=== PATIENT | female | born 1985 | race Caucasian/White ===

== ENCOUNTER 2020-03-20 11:49 | Outpatient (REF) | payer OTHER, SELFPAY | END 2020-03-20 11:50 | disposition home or self-care (01) | LOC: HO.LAB 11:49 | PROVIDERS: Visit Provider Hospitalist | DX: Z13.89 Encounter for screening for other disorder (principal); R30.0 Dysuria ==

== ENCOUNTER 2020-05-15 09:39 | Outpatient (REF) | payer OTHER, SELFPAY ==
[2020-05-15 10:39] LABS: Glucose Urine UA 250 MG/DL (NEG); Leukocyte Esterase Urine NEG (NEG); Nitrite Urine NEG (NEG); PH 5.5 (5.0-8.0); Urine Blood NEG (NEG); Urine Ketones NEG (NEG); Urine Protein NEG (NEG-TRACE)
[2020-05-15 10:46] LABS: Appearance Urine CLEAR; Color Urine YELLOW
[2020-05-15 11:04] LABS: TSH reflex Free T4 0.09 mIU/mL (0.32-4.0)
[2020-05-15 12:47] LABS: Free T4 (Free Thyroxine) 1.24 ng/dL (0.71-1.85)
== END 2020-05-15 09:40 | disposition home or self-care (01) ==
LOC: HO.LAB 09:39
PROVIDERS: PCP Internal Medicine; Visit Provider Hospitalist
DX: E03.9 Hypothyroidism, unspecified (principal); R30.0 Dysuria
CPT/HCPCS: 81003; 84439; 84443

== ENCOUNTER → 2020-06-03 07:40 | Outpatient (BNVA) | payer OTHER, SELFPAY | PROVIDERS: Visit Provider Nurse Practitioner Gerontology | DX: E11.65 Type 2 diabetes mellitus with hyperglycemia (principal); Z79.84 Long term (current) use of oral hypoglycemic drugs; E03.9 Hypothyroidism, unspecified | CPT/HCPCS: 82947; 99212 ==

== ENCOUNTER 2020-06-17 13:57 | Outpatient (REF) | payer OTHER, SELFPAY ==
--- NOTE | 2020-06-17 14:01 | US_ITS ---
EXAMINATION: US THYROID CLINICAL INFORMATION: Hypothyroidism. COMPARISON: None TECHNIQUE: Linear transducer kay-scale and color Doppler examination with attention to the region of the thyroid. FINDINGS: SIZE: Measurements of the thyroid lobes and nodules are given in sagittal, anteroposterior and transverse dimensions respectively. Right Thyroid Lobe: 3.4 x 0.5 x 1.2 cm, volume 1.1 mL. Parenchyma: The gland echotexture is homogeneous. Thyroid vascularity is normal. Left Thyroid Lobe: 2.8 x 0.6 x 0.9 cm, volume 0.8 mL. Parenchyma: The gland echotexture is homogeneous. Thyroid vascularity is normal. Isthmus: 0.2 cm in maximum AP dimension. RIGHT THYROID LOBE: No nodules. ISTHMUS: No nodules. LEFT THYROID LOBE: No nodules. NODES: No lymphadenopathy is seen in the tissue surrounding the thyroid gland. US/US thyroid IMPRESSION: Small thyroid gland. No nodule or adenopathy seen.
== END 2020-06-17 13:58 | disposition home or self-care (01) ==
LOC: HO.US 13:57
PROVIDERS: PCP Internal Medicine; Visit Provider Nurse Practitioner Gerontology
DX: E03.9 Hypothyroidism, unspecified (principal)
CPT/HCPCS: 76536

== ENCOUNTER → 2020-07-17 10:46 | Outpatient (BNVA) | payer OTHER, SELFPAY | PROVIDERS: PCP Internal Medicine; Visit Provider Dietitian, Registered ==

== ENCOUNTER → 2020-08-14 10:51 | Outpatient (BNVA) | payer OTHER, SELFPAY | PROVIDERS: PCP Internal Medicine; Visit Provider Dietitian, Registered ==

== ENCOUNTER → 2020-09-02 09:32 | Outpatient (BNVA) | payer OTHER, SELFPAY | PROVIDERS: PCP Hospitalist; Visit Provider Nurse Practitioner Gerontology | DX: E11.65 Type 2 diabetes mellitus with hyperglycemia (principal); E03.9 Hypothyroidism, unspecified | CPT/HCPCS: 82947; 99212 ==

== ENCOUNTER 2020-09-03 09:00 | Outpatient (REF) | payer OTHER, SELFPAY ==
[2020-09-03 10:13] LABS: Alanine Aminotransferase 35 U/L (0-31); Albumin Level 4.1 g/dL (3.5-5.0); Alkaline Phosphatase 60 U/L (39-117); Anion Gap 13 (12-20); Aspartate Amino Transferase 24 U/L (5-31); Bilirubin Total 0.8 mg/dL (0.0-1.0); Blood Urea Nitrogen 15 mg/dL (9-16); Calcium 8.7 mg/dL (8.4-10.2); Carbon Dioxide 25 mmol/L (22-29); Chloride 105 mmol/L (96-108); Cholesterol 132 mg/dL; Estimated Glomerular Filt Rate > 60; Glucose Fasting 96 mg/dL (60-99); HDL Cholesterol 35 mg/dL; LDL Cholesterol Calculated 78 mg/dl; Potassium 3.8 mmol/L (3.3-5.1); Sodium 139 mmol/L (135-145); Total Protein 7.4 g/dL (6.5-8.0); Triglycerides 95 mg/dL
[2020-09-03 10:35] LABS: Free T4 (Free Thyroxine) 0.86 ng/dL (0.71-1.85); Thyroid Stimulating Hormone 4.22 uIU/mL (0.32-4.0)
[2020-09-03 10:50] LABS: Creatinine Urine 231.22 mg/dL; Microalbum/Creatinine Ratio Ur 3.8 ug/mg cr
[2020-09-04 06:37] LABS: LDL Cholesterol Direct 85 mg/dL (<100)
[2020-09-04 09:51] LABS: Thyroglobulin Antibodies <1 IU/mL (< or = 1); Thyroid Peroxidase Antibodies 11 IU/mL (<9)
[2020-09-06 21:26] LABS: Thyrotropin Receptor Antibody <1.00 IU/L (<=2.00)
[2020-09-10 15:52] LABS: Thyroid Stimulating Immunoglob <89 % baseline (<140)
== END 2020-09-03 09:01 | disposition home or self-care (01) ==
LOC: HO.LAB 09:00
PROVIDERS: PCP Internal Medicine; Visit Provider Nurse Practitioner Gerontology
DX: E03.9 Hypothyroidism, unspecified (principal); E11.65 Type 2 diabetes mellitus with hyperglycemia
CPT/HCPCS: 36415; 80053; 80061; 82043; 83520; 83721; 84439; 84443; 84445; 86376; 86800

== ENCOUNTER 2021-02-09 08:18 | Emergency (ER) | payer OTHER, SELFPAY ==
[2021-02-09 08:21] VITALS: BP 99/46; PULSE 64; RESP 16; TEMP 37.1; O2SAT 99; BMI 27.9
--- NOTE | 2021-02-09 08:49 | ED_ITS ---
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 Patient was visiting her sister in [place] and returned mid January. Since then patient started having diarrhea and abdominal cramping. She reports that the pain is in left upper quadrant. Patient complaints of nausea and dyspepsia. No vomiting odynophagia or dysphagia. Patient usually takes omeprazole, however she has not had omeprazole for the last week as her PCP is on vacation. Patient takes Tagamet and her mom gave her Pepto-Bismol. Patient also has diarrhea, postprandial bloating, feels like she does not empty completely. Patient denies any fever or chills. Denies any other symptoms. Related Data Home Medications Medication Instructions Recorded Confirmed omeprazole 20 mg capsule,delayed 20 mg PO DAILY 03/20/20 09/02/20 release Previous Rx's Medication Instructions Recorded blood sugar diagnostic (FreeStyle #50 ea 06/03/20 Lite Strips) blood-glucose meter (FreeStyle #1 ea 06/03/20 Lite Meter) lancets 28 gauge (FreeStyle #100 ea 06/03/20 Lancets) levetiracetam 750 mg tablet 750 mg PO BID #180 tab 08/19/20 levothyroxine 75 mcg tablet 75 mcg PO DAILY #90 tab 11/22/20 metformin 500 mg tablet,extended 1,000 mg PO BID #360 tab 11/26/20 release 24 hr sitagliptin 100 mg tablet (Januvia) 100 mg PO DAILY #30 tab 01/26/21 nitrofurantoin 100 mg PO Q12H 5 Days #10 cap 02/09/21 monohydrate/macrocrystals 100 mg capsule (Macrobid) omeprazole 20 mg capsule,delayed 20 mg PO DAILY #20 cap 02/09/21 release Allergies Allergy/AdvReac Type Severity Reaction Status Date / Time penicillamine Allergy Mild Rash Verified 09/02/20 10:23 Penicillins [PENICILLINS] Allergy Mild RASH Verified 09/02/20 10:23 Review of Systems Review of Systems: Constitutional : No Weight loss, No Fever, No Chills, No Night Sweats, No Fatigue, No Malaise ENT/Mouth : No Hearing loss, No Ear Pain, No Nasal Congestion, No Sinus Pain, No Hoarseness, No sore throat, No Rhinorrhea, No Swallowing Difficulty Eyes: No Eye Pain, No Swelling, No Redness, No Foreign Body, No Discharge, No Vision Changes Cardiovascular : No Chest Pain, No SOB, No Dyspnea on Exertion, No Orthopnea, No Edema, No Palpitations Respiratory : No Cough, No Sputum, No Wheezing, No Smoke Exposure, No Dyspnea Gastrointestinal : Nausea, No Vomiting, Diarrhea, No Constipation, abdominal Pain, No Hematochezia, No Melena Genitourinary : no irregular bleeding, No Dysuria, No Urinary Frequency, No Hematuria, No Urinary Incontinence, No Urgency, No Flank Pain, No Urinary Flow Changes, No Hesitancy Musculoskeletal : No joint pain, No Myalgias, No Joint Swelling Skin : No Skin Lesions, No rash Neuro : No Weakness, No Numbness, No Paresthesias, No Loss of Consciousness, No Dizziness, No Headache Psych : No Anxiety/Panic, No Depression, No SI/HI/AH/VH, No Social Issues, Heme/Lymph: No Bruising, No Bleeding,No Lymphadenopathy Endocrine : No Polyuria, No Polydipsia, No Temperature Intolerance Yes all other systems are reviewed and are negative ON LICENSE OF [facility] Past Medical History Medical History Down's syndrome GERD (gastroesophageal reflux disease) Scoliosis Seizure disorder Type 2 diabetes mellitus with hyperglycemia, without long-term current use of insulin Surgical History No pertinent past surgical history Family History Family History Father Diabetes Mother Diabetes Maternal Grandmother Pancreatic cancer Social History Social History Household Members Other:: Parents - mother Carley Advance Directives: Yes Advance Directives Information Provided: Yes Advance Directives on File: No Physical Exam Vital Signs: Vital Signs: Last Vital Signs Temp 98.7 F 02/09/21 08:21 Pulse 58 02/09/21 13:30 Resp 16 02/09/21 08:21 BP 98/55 L 02/09/21 13:30 Pulse Ox 97 02/09/21 13:30 Body Mass Index 27.9 Const: General: healthy appearing, no acute distress and well developed Nutritional Appearance: well nourished Orientation/consciousness: patient oriented x3 HENMT: Head: Yes normal to inspection, Yes normocephalic and Yes atraumatic Ears: hearing grossly normal bilaterally General nose exam: Normal external nose present Face and sinus: Yes normal facial exam Eyes: General: appearance normal, both eyes and all related structures Neck: Neck: Yes normal visual inspection, Yes full ROM and Yes trachea midline Thyroid: Thyroid normal Resp: Auscultation: clear to auscultation bilaterally Cardio: Rate: regular rate Rhythm: regular rhythm GI: Inspection: Yes normal to inspection and No distended Palpation (GI): Soft to palpation, Tenderness to palpation present (GI) (Left upper quadrant) and No hepatosplenomegaly present Auscultation: normal bowel sounds Skin: General skin exam: elasticity normal, turgor normal and dry skin Neuro: General: patient oriented x3 Course Course Course Narrative: 35-year-old female with past medical history of hypothyroidism, diabetes, seizure disorder, GERD, asthma is here today for diarrhea and left upper quadrant pain. Patient reports that she has been nauseous with no vomiting. Dyspepsia with no dysphagia or odynophagia. Patient has abdominal bloating with diarrhea. Left upper quadrant tenderness and right CVA tenderness. Patient also reports that she does have a urinary frequency and burning. Will check her urine for infection. CBC, CMP, lipase. Will give patient fluids and Protonix. Reevaluation(s) Reevaluation #1: Patient reports that he feeling better after the Protonix infusion. Awaiting for rest of her lab work and urinalysis you it patient in CBC the above he is not anemic, no leukocytosis Reevaluation #2: Patient reports that she is feeling much better. No leukocytosis no anemia, normal liver and kidney functions. Urine negative for nitrates trace bacteria. Patient has symptoms of burning with urination questioning cystitis. Will send her home on Macrobid and omeprazole. Patient's mom reports that she is out of omeprazole. I will also her for follow-up with her primary care provider in 2-3 days as well as send her a referral to [facility] Medical Decision Making Differential Diagnosis Differential Diagnosis: Cystitis Lab Data Result diagrams: 02/09/21 09:39 02/09/21 10:22 Labs: Lab Results 02/09/21 02/09/21 02/09/21 Range/Units 09:39 10:22 11:25 WBC 6.3 (4.8-10.8) X10*3/uL RBC 4.13 L (4.20-5.50) X10*6/uL Hgb 13.8 (12.0-16.0) g/dl Hct 40.2 (37-47) % MCV 97.3 (80-98) fL MCH 33.4 H (27.0-33.0) pg MCHC 34.3 (31.0-35.0) g/dl RDW 12.5 (11.0-16.0) % Plt Count 246 (160-400) X10*3/uL MPV 8.9 L (9.4-12.3) fL Immature Gran % (Auto) 0.5 H (0.0-0.4) % Neut % (Auto) 60.1 (45-73) % Lymph % (Auto) 26.2 (20-40) % [place] % (Auto) 10.0 (2-11) % Eos % (Auto) 2.4 (0-4) % Baso % (Auto) 0.8 (0-2) % Lymph # (Auto) 1.7 (1.2-4.9) X10*3/uL [place] # (Auto) 0.6 (0.1-1.2) X10*3/uL Eos # (Auto) 0.2 (0.0-0.4) X10*3/uL Baso # (Auto) 0.1 (0.0-0.2) X10*3/uL Abs Immat Gran (auto) 0.03 (0.00-0.03) X10*3/uL Absolute Neuts (auto) 3.8 (2.0-8.3) X10*3/uL Absolute Nucleated RBC 0.000 (0.0-0.012) X10*3/uL Nucleated RBC % (auto) 0.0 (0.0-0.2) /100WBC Sodium 138 (135-145) mmol/L Potassium 3.7 (3.3-5.1) mmol/L Chloride 108 (96-108) mmol/L Carbon Dioxide 24 (22-29) mmol/L Anion Gap 10 L (12-20) BUN 14 (9-16) mg/dL Creatinine 0.92 (0.5-1.4) mg/dL Estim Creat Clear Calc 63.9 Estimated GFR > 60 Random Glucose 68 (60-115) mg/dL Calcium 8.3 L (8.4-10.2) mg/dL Total Bilirubin 0.7 (0.0-1.0) mg/dL AST 14 D (5-31) U/L ALT 16 (0-31) U/L Alkaline Phosphatase 50 (39-117) U/L Total Protein 6.3 L (6.5-8.0) g/dL Albumin 3.7 (3.5-5.0) g/dL Lipase 19 (8-78) U/L Urine Color YELLOW Urine Appearance CLEAR Urine pH 5.5 (5.0-8.0) Ur Specific [place] 1.015 (1.005-1.025) Urine Protein NEG (NEG-TRACE) MG/DL Urine Glucose (UA) NEG (NEG) MG/DL Urine Ketones NEG (NEG) MG/DL Urine Blood NEG (NEG) Urine Nitrite NEG (NEG) Ur Leukocyte Esterase 1+ H (NEG) Urine RBC 0-2 (0) /HPF Urine WBC 1-4 (0-4) /HPF Ur Squamous Epith Cells 1+ /LPF Urine Bacteria TRACE /LPF Discharge Plan Discharge Clinical Impression: GERD without esophagitis, Dysuria, Gastroenteritis, Cystitis Patient Disposition: Home, Self-Care Instructions: Gastroesophageal Reflux Disease (ED), Pelvic Pain in Women (ED) Additional Instructions: You were seen here today for upper abdominal discomfort and frequent and pain with urination. You were given 1st dose of antibiotic in the emergency depa rtment, please finish all of your antibiotics. Please take omeprazole half an hour before breakfast. Please follow-up with your primary care doctor in 2-3 days. You will also be referred to Gastroenterology to follow-up with them regarding your acid reflux. You may return to emergency department if your symptoms will get worse or if you experience any other concerning symptoms Prescriptions: New omeprazole 20 mg capsule,delayed release(DR/EC) 20 mg PO DAILY Qty: 20 RF: 0 nitrofurantoin monohyd/m-cryst [Macrobid] 100 mg capsule 100 mg PO Q12H 5 Days Qty: 10 RF: 0 No Action levetiracetam 750 mg tablet 750 mg PO BID Qty: 180 RF: 1 levothyroxine 75 mcg tablet 75 mcg PO DAILY Qty: 90 RF: 1 metformin 500 mg tablet extended release 24 hr 1,000 mg PO BID Qty: 360 RF: 0 Januvia 100 mg tablet 100 mg PO DAILY Qty: 30 RF: 2 omeprazole 20 mg capsule,delayed release(DR/EC) 20 mg PO DAILY RF: 0 (DME) blood-glucose meter [FreeStyle Lite Meter] Kit See Rx Instructions .ROUTE .MEDSUPPLY Qty: 1 RF: 0 (DME) FreeStyle Lite Strips Strip See Rx Instructions .ROUTE .MEDSUPPLY Qty: 50 RF: 11 (DME) lancets [FreeStyle Lancets] 28 gauge misc See Rx Instructions .ROUTE .MEDSUPPLY Qty: 100 RF: 6 Referrals: Courtney Glaser MD [Physician] - 2 days (Gastritis, diabetic) Vikki Boyd MD [Primary Care Provider] - 2 days Interventions: ED Discharge Assessment Last Done: 02/09/21 13:32 Discharge Date/Time: 02/09/21 13:40
--- NOTE | 2021-02-09 08:56 | PC.NURSE ---
pt received in bed. per sister, pt with pain x 1 week with diarrhea, no vomiting. Seen by Santa Chandler NP. Pt with hx GERD, taking pepto bismol. has been able to eat soup and ramen for a couple of days. (+) nausea. Family member states she has pain when she urinates. some CVA tenderness. Plan is to get UA.
[2021-02-09] MEDS: Pantoprazole Sodium 40 MG/10 ML VIAL IVPUSH (09:40)
[2021-02-09] MEDS: 0.9 % Sodium Chloride 1,000 ML 999 ML IV (09:41)
[2021-02-09 09:48] LABS: MANUAL DIFF FLAG NO
[2021-02-09 09:49] LABS: Basophils Absolute Auto 0.1 X10*3/uL (0.0-0.2); Basophils Percent Auto 0.8 % (0-2); Eosinophils Absolute Auto 0.2 X10*3/uL (0.0-0.4); Eosinophils Percent Auto 2.4 % (0-4); Hematocrit 40.2 % (37-47); Hemoglobin 13.8 g/dl (12.0-16.0); Imm Gran Abs Auto 0.03 X10*3/uL (0.00-0.03); Imm Gran Pct Auto 0.5 % (0.0-0.4); Lymphocytes Absolute Auto 1.7 X10*3/uL (1.2-4.9); Lymphocytes Percent Auto 26.2 % (20-40); Mean Corpuscular HGB Conc 34.3 g/dl (31.0-35.0); Mean Corpuscular Hemoglobin 33.4 pg (27.0-33.0); Mean Corpuscular Volume 97.3 fL (80-98); Mean Platelet Volume 8.9 fL (9.4-12.3); Monocytes Absolute Auto 0.6 X10*3/uL (0.1-1.2); Neutrophils Absolute Auto 3.8 X10*3/uL (2.0-8.3); Neutrophils Percent Auto 60.1 % (45-73); Platelet Count 246 X10*3/uL (160-400); Red Blood Count 4.13 X10*6/uL (4.20-5.50); Red Cell Distribution Width 12.5 % (11.0-16.0); White Blood Count 6.3 X10*3/uL (4.8-10.8)
[2021-02-09 10:49] LABS: Alanine Aminotransferase 16 U/L (0-31); Albumin Level 3.7 g/dL (3.5-5.0); Alkaline Phosphatase 50 U/L (39-117); Anion Gap 10 (12-20); Aspartate Amino Transferase 14 U/L (5-31); Bilirubin Total 0.7 mg/dL (0.0-1.0); Blood Urea Nitrogen 14 mg/dL (9-16); Calcium 8.3 mg/dL (8.4-10.2); Carbon Dioxide 24 mmol/L (22-29); Chloride 108 mmol/L (96-108); Creatinine Clr Calc Pharmacy 63.9; Estimated Glomerular Filt Rate > 60; Glucose Random 68 mg/dL (60-115); Lipase 19 U/L (8-78); Potassium 3.7 mmol/L (3.3-5.1); Sodium 138 mmol/L (135-145); Total Protein 6.3 g/dL (6.5-8.0)
[2021-02-09 11:23] VITALS: BP 92/56; PULSE 57; O2SAT 97
[2021-02-09 11:36] LABS: Glucose Urine UA NEG (NEG); Leukocyte Esterase Urine 1+ (NEG); Nitrite Urine NEG (NEG); PH 5.5 (5.0-8.0); Specific Gravity - Urine 1.015 (1.005-1.025); UACC Culture Trigger YES; Urine Blood NEG (NEG); Urine Ketones NEG (NEG); Urine Protein NEG (NEG-TRACE)
[2021-02-09 11:38] LABS: Appearance Urine CLEAR; Color Urine YELLOW
[2021-02-09 11:44] LABS: Bacteria Urine TRACE /LPF; RBC Urine 0-2 /HPF (0); Squamous Epithelial Cell Urine 1+ /LPF
[2021-02-09 13:30] VITALS: BP 98/55; PULSE 58; O2SAT 97
[2021-02-09] MEDS: nitrofurantoin macrocrystaL 50 MG CAPSULE 100 MG PO (13:31)
== END 2021-02-09 13:40 | disposition home or self-care (01) ==
PROVIDERS: Nurse Practitioner Family; Emergency Provider Emergency Medicine; PCP Internal Medicine
DX: K52.9 Noninfective gastroenteritis and colitis, unspecified (principal); K21.9 Gastro-esophageal reflux disease without esophagitis; N30.90 Cystitis, unspecified without hematuria; R30.0 Dysuria; R10.12 Left upper quadrant pain; E11.9 Type 2 diabetes mellitus without complications
CPT/HCPCS: 36415; 80053; 81001; 83690; 85025; 87086; 96361; 96374; 99284

== ENCOUNTER 2021-04-28 05:44 | Emergency (ER) | payer OTHER, SELFPAY ==
--- NOTE | ~2021-04-28 | XR_ITS ---
EXAMINATION: XR CHEST CLINICAL INFORMATION: Cough and congestion. COMPARISON: Chest 06/01/2019 TECHNIQUE: 2 views of the chest were obtained. FINDINGS: The lungs are well-expanded and clear. The heart size and pulmonary vascularity is normal. There is moderate dextroscoliosis dorsal spine. No lytic process seen. XR/XR chest 2V IMPRESSION: Unremarkable chest exam. Moderate dextroscoliosis dorsal spine.
[2021-04-28 05:58] VITALS: BP 96/70; PULSE 70; RESP 18; TEMP 36.4; O2SAT 100; BMI 23.5
[2021-04-28 06:24] VITALS: BP 91/56; PULSE 62; RESP 16; TEMP 36.5; O2SAT 97
[2021-04-28 06:51] LABS: MANUAL DIFF FLAG NO
[2021-04-28 06:57] LABS: Basophils Absolute Auto 0.1 X10*3/uL (0.0-0.2); Basophils Percent Auto 0.5 % (0-2); Eosinophils Absolute Auto 0.3 X10*3/uL (0.0-0.4); Eosinophils Percent Auto 2.6 % (0-4); Hemoglobin 12.3 g/dl (12.0-16.0); Imm Gran Abs Auto 0.05 X10*3/uL (0.00-0.03); Imm Gran Pct Auto 0.4 % (0.0-0.4); Lymphocytes Absolute Auto 1.5 X10*3/uL (1.2-4.9); Lymphocytes Percent Auto 11.8 % (20-40); Mean Corpuscular HGB Conc 34.2 g/dl (31.0-35.0); Mean Corpuscular Hemoglobin 33.5 pg (27.0-33.0); Mean Corpuscular Volume 98.1 fL (80.0-98.0); Mean Platelet Volume 9.1 fL (9.4-12.3); Monocytes Absolute Auto 0.6 X10*3/uL (0.1-1.2); Monocytes Percent Auto 4.8 % (2-11); Neutrophils Absolute Auto 9.9 x10*3/uL (2.0-8.3); Neutrophils Percent Auto 79.9 % (45-73); Platelet Count 242 X10*3/uL (160-400); Red Blood Count 3.67 X10*6/uL (4.20-5.50); Red Cell Distribution Width 12.1 % (11.0-16.0); White Blood Count 12.4 X10*3/uL (4.8-10.8)
[2021-04-28 06:59] LABS: Appearance Urine CLEAR; Color Urine YELLOW; Glucose Urine UA NEG (NEG); Leukocyte Esterase Urine TRACE (NEG); Nitrite Urine NEG (NEG); Specific Gravity - Urine 1.025 (1.005-1.025); UACC Culture Trigger YES; Urine Blood NEG (NEG); Urine Ketones NEG (NEG); Urine Protein TRACE MG/DL (NEG-TRACE)
[2021-04-28 07:10] LABS: Anion Gap 12 (12-20); Blood Urea Nitrogen 12 mg/dL (9-16); Calcium 8.9 mg/dL (8.4-10.2); Carbon Dioxide 26 mmol/L (22-29); Chloride 106 mmol/L (96-108); Creatinine Clr Calc Pharmacy 59.1; Estimated Glomerular Filt Rate > 60; Glucose Random 92 mg/dL (60-115); Potassium 3.7 mmol/L (3.3-5.1); Sodium 140 mmol/L (135-145)
[2021-04-28 07:13] LABS: Bacteria Urine 1+ /LPF; RBC Urine 0-2 /HPF (0); Squamous Epithelial Cell Urine 1+ /LPF
--- NOTE | 2021-04-28 07:33 | ED_ITS ---
HPI - Seizure General Chief Complaint: Seizure Stated Complaint: Seizure Time Seen by Provider: 04/28/21 07:33 Source: family Mode of arrival: ambulatory Limitations: language barrier History of Present Illness HPI Narrative: Patient has MR and suffers from seizures, today she had 2 seizures. Patient has not had seizures for a year. Patient has not had her medication for a week, but has been taking them for a week. Patient with dysuria. The seizures are described as grand mal. The entire seizure lasted 5 minutes. In addition has been coughing for the past few days with chest pain. Patient had been vaccinated for COVID MD complaint: seizure Onset (ago): hour(s) Description of Episode: loss of consciousness and tonic-clonic movement Seizure History: Yes Place: Home Related Data Previous Rx's Medication Instructions Recorded blood-glucose meter (FreeStyle #1 ea 06/03/20 Lite Meter) lancets 28 gauge (FreeStyle #100 ea 06/03/20 Lancets) omeprazole 20 mg capsule,delayed 20 mg PO DAILY #20 cap 02/09/21 release metformin 500 mg tablet,extended 1,000 mg PO BID #360 tab 02/19/21 release 24 hr blood sugar diagnostic (FreeStyle #50 ea 04/09/21 Lite Strips) levetiracetam 750 mg tablet 750 mg PO BID #180 tab 04/11/21 levothyroxine 75 mcg tablet 75 mcg PO DAILY #90 tab 04/11/21 sitagliptin 100 mg tablet (Januvia) 100 mg PO DAILY #30 tab 04/11/21 Allergies Allergy/AdvReac Type Severity Reaction Status Date / Time penicillamine Allergy Mild Rash Verified 02/16/21 17:00 Penicillins [PENICILLINS] Allergy Mild RASH Verified 02/16/21 17:00 Review of Systems Review of Systems: Yes Unobtainable due to mental status Neurologic: Denies Sensory deficit (Neuro) [facility] Past Medical History Medical History Autoimmune thyroiditis Down's syndrome GERD (gastroesophageal reflux disease) Scoliosis Seizure disorder Type 2 diabetes mellitus with hyperglycemia, without long-term current use of insulin Surgical History No pertinent past surgical history Family History Family History Father Diabetes Mother Diabetes Maternal Grandmother Pancreatic cancer Social History Social History Household Members Other:: Parents - mother Carley Housing: Apartment Alcohol intake: never Patient Tobacco Use Status: Never used Tobacco e-Cigarette/Vaping Use: Never Used Second Hand Smoke Exposure: No Use of substances other than those prescribed or required for medical reasons: No Advance Directives: No service: No Current occupational status: disabled Physical Exam Vital Signs: Vital Signs: Last Vital Signs Temp 97.8 F 04/28/21 09:42 Pulse 64 04/28/21 13:15 Resp 16 04/28/21 13:15 BP 79/39 L 04/28/21 13:15 Pulse Ox 97 04/28/21 13:15 Body Mass Index 23.5 Const: Other: female with short stature and MR in no acute distress Limitations: no limitations HENMT: Head: Yes normal to inspection Ears: external ears normal General nose exam: Normal external nose present Mouth: Normal oral and palatal mucosa present and oropharynx normal Throat: Yes posterior oropharynx normal Eyes: General: appearance normal, both eyes and all related structures Neck: Other: supple Neck: Yes normal visual inspection Chest: Chest palpation & inspection: normal inspection of the chest Resp: Auscultation: clear to auscultation bilaterally Cardio: Jugular venous distension: no JVD Rate: regular rate Rhythm: regular rhythm Heart sounds: S1 normal heart sound present and S2 normal heart sound present GI: Inspection: Yes normal to inspection Palpation (GI): Soft to palpation, nontender and No hepatosplenomegaly present Auscultation: normal bowel sounds : General: Yes no CVA tenderness Back/Spine/Pelvis: Back: no CVA tenderness Skin: General skin exam: no rashes or lesions noted Neuro: Cranial nerves: Yes CN's II-XII intact bilaterally Motor exam (neuro): 5/5 motor strength present throughout Sensory Exam: No Sensory deficit (Neuro) Extrem: General: Yes normal to inspection Psych: Other: baseline Course Reevaluation(s) Reevaluation #1: patient resting comfortably, had seizure times 2 today, now back at baseline, Concern of UTI is negative, family had a week of medication non compliance Time: 09:34 Reevaluation #2: patient may have had a seizure, I did not witness will give 1gram of Simon Reevaluation #3: patient ate and walked, mother feels comfortable for discharge Time: 14:29 MDM - Seizure Lab Data Result diagrams: 04/28/21 06:47 04/28/21 06:47 Labs: Lab Results 04/28/21 04/28/21 04/28/21 Range/Units 06:44 06:47 06:47 WBC 12.4 H (4.8-10.8) X10*3/uL RBC 3.67 L (4.20-5.50) X10*6/uL Hgb 12.3 (12.0-16.0) g/dl Hct 36.0 L (37.0-47.0) % MCV 98.1 H (80.0-98.0) fL MCH 33.5 H (27.0-33.0) pg MCHC 34.2 (31.0-35.0) g/dl RDW 12.1 (11.0-16.0) % Plt Count 242 (160-400) X10*3/uL MPV 9.1 L (9.4-12.3) fL Immature Gran % (Auto) 0.4 (0.0-0.4) % Neut % (Auto) 79.9 H (45-73) % Lymph % (Auto) 11.8 L (20-40) % [place] % (Auto) 4.8 (2-11) % Eos % (Auto) 2.6 (0-4) % Baso % (Auto) 0.5 (0-2) % Lymph # (Auto) 1.5 (1.2-4.9) X10*3/uL [place] # (Auto) 0.6 (0.1-1.2) X10*3/uL Eos # (Auto) 0.3 (0.0-0.4) X10*3/uL Baso # (Auto) 0.1 (0.0-0.2) X10*3/uL Abs Immat Gran (auto) 0.05 H (0.00-0.03) X10*3/uL Absolute Neuts (auto) 9.9 H (2.0-8.3) x10*3/uL Absolute Nucleated RBC 0.000 (0.0-0.012) X10*3/uL Nucleated RBC % (auto) 0.0 (0.0-0.2) /100WBC Sodium 140 (135-145) mmol/L Potassium 3.7 (3.3-5.1) mmol/L Chloride 106 (96-108) mmol/L Carbon Dioxide 26 (22-29) mmol/L Anion Gap 12 (12-20) BUN 12 (9-16) mg/dL Creatinine 0.96 (0.5-1.4) mg/dL Estim Creat Clear Calc 59.1 Estimated GFR > 60 POC Glucose (60-115) mg/dL Random Glucose 92 (60-115) mg/dL Calcium 8.9 D (8.4-10.2) mg/dL Urine Color YELLOW Urine Appearance CLEAR Urine pH 6.0 (5.0-8.0) Ur Specific [place] 1.025 (1.005-1.025) Urine Protein TRACE (NEG-TRACE) MG/DL Urine Glucose (UA) NEG (NEG) MG/DL Urine Ketones NEG (NEG) MG/DL Urine Blood NEG (NEG) Urine Nitrite NEG (NEG) Ur Leukocyte Esterase TRACE H (NEG) Urine RBC 0-2 (0) /HPF Urine WBC 1-4 (0-4) /HPF Ur Squamous Epith Cells 1+ /LPF Urine Bacteria 1+ /LPF COVID-19 ([facility]) (Negative) COVID-19 Clin Com 04/28/21 04/28/21 Range/Units 07:55 13:18 WBC (4.8-10.8) X10*3/uL RBC (4.20-5.50) X10*6/uL Hgb (12.0-16.0) g/dl Hct (37.0-47.0) % MCV (80.0-98.0) fL MCH (27.0-33.0) pg MCHC (31.0-35.0) g/dl RDW (11.0-16.0) % Plt Count (160-400) X10*3/uL MPV (9.4-12.3) fL Immature Gran % (Auto) (0.0-0.4) % Neut % (Auto) (45-73) % Lymph % (Auto) (20-40) % [place] % (Auto) (2-11) % Eos % (Auto) (0-4) % Baso % (Auto) (0-2) % Lymph # (Auto) (1.2-4.9) X10*3/uL [place] # (Auto) (0.1-1.2) X10*3/uL Eos # (Auto) (0.0-0.4) X10*3/uL Baso # (Auto) (0.0-0.2) X10*3/uL Abs Immat Gran (auto) (0.00-0.03) X10*3/uL Absolute Neuts (auto) (2.0-8.3) x10*3/uL Absolute Nucleated RBC (0.0-0.012) X10*3/uL Nucleated RBC % (auto) (0.0-0.2) /100WBC Sodium (135-145) mmol/L Potassium (3.3-5.1) mmol/L Chloride (96-108) mmol/L Carbon Dioxide (22-29) mmol/L Anion Gap (12-20) BUN (9-16) mg/dL Creatinine (0.5-1.4) mg/dL Estim Creat Clear Calc Estimated GFR POC Glucose 83 (60-115) mg/dL Random Glucose (60-115) mg/dL Calcium (8.4-10.2) mg/dL Urine Color Urine Appearance Urine pH (5.0-8.0) Ur Specific [place] (1.005-1.025) Urine Protein (NEG-TRACE) MG/DL Urine Glucose (UA) (NEG) MG/DL Urine Ketones (NEG) MG/DL Urine Blood (NEG) Urine Nitrite (NEG) Ur Leukocyte Esterase (NEG) Urine RBC (0) /HPF Urine WBC (0-4) /HPF Ur Squamous Epith Cells /LPF Urine Bacteria /LPF COVID-19 ([facility]) Negative (Negative) COVID-19 Clin Com See Note Discharge Plan Discharge Clinical Impression: Epileptic seizure Qualifiers: Epilepsy type: unspecified Intractability: not intractable Status epilepticus: without status epilepticus Qualified Code(s): G40.909 - Epilepsy, unspecified, not intractable, without status epilepticus Patient Disposition: Home, Self-Care Instructions: Epilepsy (ED) Prescriptions: No Action metformin 500 mg tablet extended release 24 hr 1,000 mg PO BID Qty: 360 RF: 1 (DME) FreeStyle Lite Strips Strip See Rx Instructions .ROUTE .MEDSUPPLY Qty: 50 RF: 11 Januvia 100 mg tablet 100 mg PO DAILY Qty: 30 RF: 2 levothyroxine 75 mcg tablet 75 mcg PO DAILY Qty: 90 RF: 1 levetiracetam 750 mg tablet 750 mg PO BID Qty: 180 RF: 1 omeprazole 20 mg capsule,delayed release(DR/EC) 20 mg PO DAILY Qty: 20 RF: 0 (DME) blood-glucose meter [FreeStyle Lite Meter] Kit See Rx Instructions .ROUTE .MEDSUPPLY Qty: 1 RF: 0 (DME) lancets [FreeStyle Lancets] 28 gauge misc See Rx Instructions .ROUTE .MEDSUPPLY Qty: 100 RF: 6 Referrals: Vikki Boyd MD [Primary Care Provider] - 5 days
[2021-04-28 08:15] LABS: COVID-19 Test Negative (Negative)
--- NOTE | 2021-04-28 09:41 | PC.NURSE ---
pt was called to bed by pt's mother who states that pt is having a seizure which lasted less than 30 seconds.
[2021-04-28 09:42] VITALS: BP 95/50; PULSE 57; RESP 16; TEMP 36.6; O2SAT 100
[2021-04-28] MEDS: levETIRAcetam in NaCl (iso-os) 1,000 MG/100 ML PIGGYBACK 400 MG IV (09:45)
[2021-04-28 13:15] VITALS: BP 79/39; PULSE 64; RESP 16; O2SAT 97
[2021-04-28] MEDS: 0.9 % Sodium Chloride 1,000 ML 999 ML IVCONT ×2 (13:21→14:43)
[2021-04-28 13:26] LABS: Glucose, Whole Blood 83 mg/dL (60-115)
[2021-04-28 14:41] VITALS: BP 83/43; PULSE 69; RESP 17; O2SAT 97
== END 2021-04-28 15:57 | disposition home or self-care (01) ==
PROVIDERS: Emergency Provider Emergency Medicine; PCP Internal Medicine
DX: G40.909 Epilepsy, unspecified, not intractable, without status epilepticus (principal); Z20.822 Contact with and (suspected) exposure to COVID-19; Z79.899 Other long term (current) drug therapy
CPT/HCPCS: 36415; 71046; 80048; 81001; 81003; 82947; 85025; 87086; 87635; 96361; 96374; 99284; J1953

== ENCOUNTER 2021-05-06 18:09 | Outpatient (REF) | payer OTHER, SELFPAY | END 2021-05-06 18:10 | disposition home or self-care (01) | LOC: HO.LNP 18:09 | PROVIDERS: Visit Provider Nurse Practitioner Family | DX: R30.0 Dysuria (principal) | CPT/HCPCS: 87086 ==

== ENCOUNTER → 2021-06-03 10:53 | Outpatient (BNVA) | payer OTHER, SELFPAY | PROVIDERS: PCP Internal Medicine; Visit Provider Nurse Practitioner Gerontology | CPT/HCPCS: Q3014 ==

== ENCOUNTER 2021-06-25 09:34 | Outpatient (REF) | payer OTHER, SELFPAY ==
[2021-06-25 11:01] LABS: Microalbum/Creatinine Ratio Ur 5.8 ug/mg cr
[2021-06-25 11:18] LABS: Alanine Aminotransferase 21 U/L (0-31); Albumin Level 4.2 g/dL (3.5-5.0); Alkaline Phosphatase 68 U/L (39-117); Anion Gap 12 (12-20); Aspartate Amino Transferase 18 U/L (5-31); Bilirubin Total 0.9 mg/dL (0.0-1.0); Blood Urea Nitrogen 13 mg/dL (9-16); Carbon Dioxide 29 mmol/L (22-29); Chloride 104 mmol/L (96-108); Cholesterol 141 mg/dL; Estimated Glomerular Filt Rate > 60; Glucose Fasting 89 mg/dL (60-99); HDL Cholesterol 41 mg/dL; LDL Cholesterol Calculated 80 mg/dl; Potassium 4.3 mmol/L (3.3-5.1); Sodium 141 mmol/L (135-145); Total Protein 7.9 g/dL (6.5-8.0); Triglycerides 103 mg/dL
[2021-06-25 11:29] LABS: Free T4 (Free Thyroxine) 1.26 ng/dL (0.71-1.85); Thyroid Stimulating Hormone 0.07 uIU/mL (0.32-4.0)
[2021-06-25 11:32] LABS: Estimated Average Glucose 100 mg/dL; Hemoglobin A1c % 5.1 %
[2021-06-26 05:11] LABS: LDL Cholesterol Direct 79 mg/dL (<100)
== END 2021-06-25 09:35 | disposition home or self-care (01) ==
LOC: HO.LAB 09:34
PROVIDERS: Absent Provider Internal Medicine; PCP Internal Medicine; Visit Provider Nurse Practitioner Gerontology
DX: E11.65 Type 2 diabetes mellitus with hyperglycemia (principal)
CPT/HCPCS: 36415; 80053; 80061; 82043; 83036; 83721; 84439; 84443

== ENCOUNTER 2021-07-27 11:26 | Emergency (ER) | payer OTHER, SELFPAY ==
--- NOTE | 2021-07-27 | ECG_ITS ---
Test Reason : DIZZINESS Blood Pressure : / mmHG Vent. Rate : 064 BPM Atrial Rate : 064 BPM P-R Int : 148 ms QRS Dur : 072 ms QT Int : 394 ms P-R-T Axes : 000 059 042 degrees QTc Int : 406 ms Normal sinus rhythm Normal ECG When compared with ECG of 12-MAR-2019 11:58, No significant change was found Referred By: Generic ED Physician Electronically Signed By:ALONZO BAILON
[2021-07-27 11:50] VITALS: BP 106/59; PULSE 68; RESP 18; TEMP 36.3; O2SAT 100; BMI 23.6
[2021-07-27 12:01] LABS: Glucose, Whole Blood 132 mg/dL (60-115)
[2021-07-27 12:21] LABS: MANUAL DIFF FLAG NO
[2021-07-27 12:25] LABS: Basophils Absolute Auto 0.1 X10*3/uL (0.0-0.2); Basophils Percent Auto 1.5 % (0-2); Eosinophils Absolute Auto 0.1 X10*3/uL (0.0-0.4); Eosinophils Percent Auto 1.5 % (0-4); Hematocrit 41.1 % (37.0-47.0); Hemoglobin 14.3 g/dl (12.0-16.0); Imm Gran Abs Auto 0.03 X10*3/uL (0.00-0.03); Imm Gran Pct Auto 0.6 % (0.0-0.4); Lymphocytes Absolute Auto 1.4 X10*3/uL (1.2-4.9); Lymphocytes Percent Auto 26.5 % (20-40); Mean Corpuscular HGB Conc 34.8 g/dl (31.0-35.0); Mean Corpuscular Hemoglobin 33.8 pg (27.0-33.0); Mean Corpuscular Volume 97.2 fL (80.0-98.0); Mean Platelet Volume 9.1 fL (9.4-12.3); Monocytes Absolute Auto 0.4 X10*3/uL (0.1-1.2); Neutrophils Absolute Auto 3.3 x10*3/uL (2.0-8.3); Neutrophils Percent Auto 61.9 % (45-73); Platelet Count 256 X10*3/uL (160-400); Red Blood Count 4.23 X10*6/uL (4.20-5.50); Red Cell Distribution Width 13.1 % (11.0-16.0); White Blood Count 5.3 X10*3/uL (4.8-10.8)
[2021-07-27 12:26] LABS: Appearance Urine HAZY; Color Urine YELLOW; Glucose Urine UA NEG (NEG); Leukocyte Esterase Urine 2+ (NEG); Nitrite Urine NEG (NEG); Specific Gravity - Urine 1.015 (1.005-1.025); UACC Culture Trigger YES; Urine Blood NEG (NEG); Urine Ketones NEG (NEG); Urine Protein NEG (NEG-TRACE)
[2021-07-27 12:40] LABS: Bacteria Urine 1+ /LPF; Mucus Urine 1+ /LPF; RBC Urine 0 /HPF (0); Squamous Epithelial Cell Urine 2+ /LPF
[2021-07-27 12:42] LABS: Anion Gap 8 (12-20); Blood Urea Nitrogen 15 mg/dL (9-16); Calcium 9.6 mg/dL (8.4-10.2); Carbon Dioxide 30 mmol/L (22-29); Chloride 103 mmol/L (96-108); Creatinine Clr Calc Pharmacy 55.8; Estimated Glomerular Filt Rate > 60; Glucose Random 109 mg/dL (60-115); Potassium 4.3 mmol/L (3.3-5.1); Sodium 137 mmol/L (135-145)
--- NOTE | 2021-07-27 14:11 | PC.NURSE ---
patients caregiver felt that the patient may have had a seizure while in waiting room, this nurse went to see the patient who was alert & oriented to her baseline, speaking on the phone in full sentences, pt wasnt noted to be postictal, vitals were obtained and wnl.
[2021-07-27 14:12] VITALS: BP 103/66; PULSE 66; RESP 18; TEMP 36.4; O2SAT 100
--- NOTE | 2021-07-27 18:29 | ED_ITS ---
HPI - Dizziness General Chief Complaint: Dizziness Stated Complaint: DIZZY Source: patient and family Mode of arrival: ambulatory Limitations: no limitations History of Present Illness HPI Narrative: 35-year-old female with past medical history of Down syndrome, seizure disorder, diabetes, thyroiditis and asthma presents with headache, dizziness, and dysuria. Patient's mother reports that she has had some medication changes in the past 2 weeks, a decrease of metformin and decrease of her thyroid medications. Does not report any fevers or chills, or any other concerning symptoms at this time. MD elicited complaint: dizziness and other (Headache) Onset (ago): week(s) (2) Timing: gradual onset Severity: moderate Context: change in medication History of similar symptoms: Yes Relieving factors: rest Associated symptoms: denies other symptoms Stroke scale total: 0 Related Data Previous Rx's Medication Instructions Recorded blood-glucose meter (FreeStyle #1 ea 06/03/20 Lite Meter) lancets 28 gauge (FreeStyle #100 ea 06/03/20 Lancets) omeprazole 20 mg capsule,delayed 20 mg PO DAILY #20 cap 02/09/21 release blood sugar diagnostic (FreeStyle #50 ea 04/09/21 Lite Strips) levetiracetam 750 mg tablet 750 mg PO BID #180 tab 05/08/21 nitrofurantoin macrocrystal 100 mg 100 mg PO Q12H #10 cap 05/08/21 capsule sitagliptin 100 mg tablet (Januvia) 100 mg PO DAILY #90 tab 06/03/21 metformin 500 mg tablet,extended 500 mg PO DAILY #90 tab 06/26/21 release 24 hr levothyroxine 50 mcg tablet 50 mcg PO DAILY #90 tab 07/07/21 nitrofurantoin 100 mg PO Q12H 7 Days #14 cap 07/27/21 monohydrate/macrocrystals 100 mg capsule (Macrobid) phenazopyridine 100 mg tablet 100 mg PO TID PRN #6 tab 07/27/21 (Pyridium) Allergies Allergy/AdvReac Type Severity Reaction Status Date / Time penicillamine Allergy Mild Rash Verified 07/27/21 11:47 Penicillins [PENICILLINS] Allergy Mild RASH Verified 07/27/21 11:47 Review of Systems Review of Systems: Constitutional: No Fever, No Chills ENT/Mouth: No Ear Pain, No Hoarseness, No sore throat Eyes: No Eye Pain, No Swelling, No Redness, No Foreign Body Cardiovascular: No Chest Pain, No SOB Respiratory: No Cough, No Dyspnea Gastrointestinal: No Nausea, No Vomiting, No Diarrhea, No abdominal Pain Genitourinary: Positive Dysuria, No Hematuria Musculoskeletal: No joint pain, No Myalgias, No Joint Swelling Skin: No Skin lacerations, No rash Neuro: No Weakness, No Numbness, No Paresthesias, No Loss of Consciousness, positive Dizziness, positive Headache Psych: No Anxiety/Panic, No Depression Heme/Lymph: no easy bruising, no Lymphadenopathy Endocrine: No Polyuria, No Polydipsia Yes all other systems are reviewed and are negative [facility] Past Medical History Attestation statement: The following information was validated with the patient. Source: old records reviewed Medical History Autoimmune thyroiditis DM2 (diabetes mellitus, type 2) Down's syndrome GERD (gastroesophageal reflux disease) Scoliosis Seizure disorder Type 2 diabetes mellitus with hyperglycemia, without long-term current use of insulin Surgical History No pertinent past surgical history Family History Family History Father Diabetes Mother Diabetes Maternal Grandmother Pancreatic cancer Social History Social History Household Members Other:: Parents - mother [place] Housing: Apartment Alcohol intake: never Patient Tobacco Use Status: Never used Tobacco e-Cigarette/Vaping Use: Never Used Second Hand Smoke Exposure: No Advance Directives: No Advance Directives Information Provided: Yes Patient : No service: No Current occupational status: disabled Physical Exam Vital Signs: Vital Signs: Last Vital Signs Temp 97.6 F 07/27/21 14:12 Pulse 66 07/27/21 14:12 Resp 18 07/27/21 14:12 BP 103/66 07/27/21 14:12 Pulse Ox 100 07/27/21 14:12 BMI result Body Mass Index 23.6 Appearance: Alert. Oriented X3. No acute distress. Eyes: Pupils equal, round and reactive to light. ENT: Pharynx normal. Neck: Normal inspection. Neck supple. CVS: Normal heart rate and rhythm. Pulses normal. Respiratory: No respiratory distress. Breath sounds normal. Abdomen: Soft and nontender. Skin: Skin warm and dry. Normal skin color. Normal skin turgor. Extremities: No lower extremity edema. Moves all extremities against resistance. Neuro: No motor deficit. No sensory deficit. Cranial nerves 2-12 intact. Course Course Course Narrative: 35-year-old female presents with dizziness for approximately 2 weeks. Had some medication changes, metformin 500 b.i.d. was reduced metformin 500 daily as well as thyroid medication from 75 mcg to 50 mcg. Labs drawn while patient was in the emergency department waiting room. Urinalysis indicates UTI. Will treat with Macrobid. Patient's family Patient verbalized understanding of and agrees to plan of care discharge home. Verbalized understanding of signs and symptoms indicating need for emergent intervention MDM - Dizziness MDM Narrative Medical decision making narrative: UTI Differential Diagnosis Differential diagnosis: Likely adverse reaction to drug Medical Records Attestation: I reviewed the patient's medical records. Lab Data Attestation: I reviewed the patient's lab results. Result diagrams: 07/27/21 12:05 07/27/21 12:05 Labs: Lab Results 07/27/21 07/27/21 07/27/21 Range/Units 11:57 12:05 12:05 WBC 5.3 (4.8-10.8) X10*3/uL RBC 4.23 (4.20-5.50) X10*6/uL Hgb 14.3 (12.0-16.0) g/dl Hct 41.1 (37.0-47.0) % MCV 97.2 (80.0-98.0) fL MCH 33.8 H (27.0-33.0) pg MCHC 34.8 (31.0-35.0) g/dl RDW 13.1 (11.0-16.0) % Plt Count 256 (160-400) X10*3/uL MPV 9.1 L (9.4-12.3) fL Immature Gran % (Auto) 0.6 H (0.0-0.4) % Neut % (Auto) 61.9 (45-73) % Lymph % (Auto) 26.5 (20-40) % [place] % (Auto) 8.0 (2-11) % Eos % (Auto) 1.5 (0-4) % Baso % (Auto) 1.5 (0-2) % Lymph # (Auto) 1.4 (1.2-4.9) X10*3/uL [place] # (Auto) 0.4 (0.1-1.2) X10*3/uL Eos # (Auto) 0.1 (0.0-0.4) X10*3/uL Baso # (Auto) 0.1 (0.0-0.2) X10*3/uL Abs Immat Gran (auto) 0.03 (0.00-0.03) X10*3/uL Absolute Neuts (auto) 3.3 (2.0-8.3) x10*3/uL Absolute Nucleated RBC 0.000 (0.0-0.012) X10*3/uL Nucleated RBC % (auto) 0.0 (0.0-0.2) /100WBC Sodium 137 (135-145) mmol/L Potassium 4.3 (3.3-5.1) mmol/L Chloride 103 (96-108) mmol/L Carbon Dioxide 30 H (22-29) mmol/L Anion Gap 8 L (12-20) BUN 15 (9-16) mg/dL Creatinine 0.98 (0.5-1.4) mg/dL Estim Creat Clear Calc 55.8 Estimated GFR > 60 POC Glucose 132 H (60-115) mg/dL Random Glucose 109 (60-115) mg/dL Calcium 9.6 (8.4-10.2) mg/dL Urine Color Urine Appearance Urine pH (5.0-8.0) Ur Specific [place] (1.005-1.025) Urine Protein (NEG-TRACE) MG/DL Urine Glucose (UA) (NEG) MG/DL Urine Ketones (NEG) MG/DL Urine Blood (NEG) Urine Nitrite (NEG) Ur Leukocyte Esterase (NEG) Urine RBC (0) /HPF Urine WBC (0-4) /HPF Ur Squamous Epith Cells /LPF Urine Bacteria /LPF Urine Mucus /LPF Urine Test (NEGATIVE) 07/27/21 07/27/21 Range/Units 12:17 12:17 WBC (4.8-10.8) X10*3/uL RBC (4.20-5.50) X10*6/uL Hgb (12.0-16.0) g/dl Hct (37.0-47.0) % MCV (80.0-98.0) fL MCH (27.0-33.0) pg MCHC (31.0-35.0) g/dl RDW (11.0-16.0) % Plt Count (160-400) X10*3/uL MPV (9.4-12.3) fL Immature Gran % (Auto) (0.0-0.4) % Neut % (Auto) (45-73) % Lymph % (Auto) (20-40) % [place] % (Auto) (2-11) % Eos % (Auto) (0-4) % Baso % (Auto) (0-2) % Lymph # (Auto) (1.2-4.9) X10*3/uL [place] # (Auto) (0.1-1.2) X10*3/uL Eos # (Auto) (0.0-0.4) X10*3/uL Baso # (Auto) (0.0-0.2) X10*3/uL Abs Immat Gran (auto) (0.00-0.03) X10*3/uL Absolute Neuts (auto) (2.0-8.3) x10*3/uL Absolute Nucleated RBC (0.0-0.012) X10*3/uL Nucleated RBC % (auto) (0.0-0.2) /100WBC Sodium (135-145) mmol/L Potassium (3.3-5.1) mmol/L Chloride (96-108) mmol/L Carbon Dioxide (22-29) mmol/L Anion Gap (12-20) BUN (9-16) mg/dL Creatinine (0.5-1.4) mg/dL Estim Creat Clear Calc Estimated GFR POC Glucose (60-115) mg/dL Random Glucose (60-115) mg/dL Calcium (8.4-10.2) mg/dL Urine Color YELLOW Urine Appearance HAZY Urine pH 6.0 (5.0-8.0) Ur Specific [place] 1.015 (1.005-1.025) Urine Protein NEG (NEG-TRACE) MG/DL Urine Glucose (UA) NEG (NEG) MG/DL Urine Ketones NEG (NEG) MG/DL Urine Blood NEG (NEG) Urine Nitrite NEG (NEG) Ur Leukocyte Esterase 2+ H (NEG) Urine RBC 0 (0) /HPF Urine WBC 5-9 H (0-4) /HPF Ur Squamous Epith Cells 2+ /LPF Urine Bacteria 1+ /LPF Urine Mucus 1+ /LPF Urine Test NEGATIVE (NEGATIVE) ECG Data Attestation: I personally reviewed and interpreted this ECG as follows: ECG interpretation date: 07/27/21 ECG interpretation time: 12:04 Prior ECG tracings: available for review Interpretation: Vent. rate 64 BPM MA interval 148 ms QRS duration 72 ms QT/QTc 394/406 ms P-R-T axes 0 59 42 Normal sinus rhythm Normal ECG When compared with ECG of 12-MAR-2019 11:58, No significant change was found Discharge Plan Discharge Clinical Impression: Urinary tract infection Patient Disposition: Home, Self-Care Instructions: Urinary Tract Infection in Women (DC) Additional Instructions: Le evaluaron por mareos. El an?lisis de esme no mostr? fanny?n hallazgo que requiriera shruthi intervenci?n urgente. El an?lisis de orina fue positivo para shruthi ITU. M[place]onnell Macrobid dos veces al d?a manny los pr?ximos 7 d?as. Le recet? Pyridium para el ardor y la urgencia urinaria. Stoney medicamento saji? que vera orina se vuelva de color naranja brillante. Stoney es un efecto secundario normal de stoney medicamento. Por favor, angel luis muchos l?quidos. Si nota alg?n s?ntoma de fiebre, escalofr?os, dolor abdominal o cualquier otro s?ntoma preocupante, regrese al departamento de emergencias o al m?dico de atenci?n primaria para shruthi evaluaci?n adicional. Melinda un seguimiento con el m?dico de atenci?n primaria o con el m?dico que haya cambiado [place] medicamentos para la tiroides y la metformina. Aseg?rese de repetir los niveles de tiroides para asegurarse de que el cambio de medicamento fue efectivo. Karen por elegir stoney departamento de emergencias para vera evaluaci?n. Por favor, melinda un seguimiento con el m?dico de atenci?n primaria seg?n sea necesario. Regrese al departamento de emergencias por cualquier s?ntoma nuevo, preocupante o que empeore. You were evaluated for dizziness. Blood work did not show any findings requiring emergent intervention. Urinalysis was positive for a UTI. Please take Macrobid twice a day for the next 7 days. I prescribed Pyridium for urinary burning and urgency. This medication will turn your urine bright orange. This is a normal side effect of this medication Please drink plenty of fluids. If you notice any symptoms of fevers, chills, abdominal pain, or any other concerning symptoms please return to the emergency department or primary care physician for further evaluation Please follow-up with primary care physician or whomever the physician was that changed your thyroid and metformin medications. Make sure that you have your thyroid levels repeated to make sure that the medication change was effective. Thank you for choosing this emergency department for evaluation. Please follow-up with primary care physician as needed. Return to the emergency department for any new, concerning, or worsening symptoms. Prescriptions: New phenazopyridine [Pyridium] 100 mg tablet 100 mg PO TID PRN (Reason: Urgency and burning) Qty: 6 0RF nitrofurantoin monohyd/m-cryst [Macrobid] 100 mg capsule 100 mg PO Q12H 7 Days Qty: 14 0RF Rx Instructions: must administer with a meal/food No Action (DME) FreeStyle Lite Strips Strip See Rx Instructions .ROUTE .MEDSUPPLY Qty: 50 11RF Rx Instructions: As directed twice a day levetiracetam 750 mg tablet 750 mg PO BID Qty: 180 1RF nitrofurantoin macrocrystal 100 mg capsule 100 mg PO Q12H Qty: 10 0RF metformin 500 mg tablet extended release 24 hr 500 mg PO DAILY Qty: 90 2RF levothyroxine 50 mcg tablet 50 mcg PO DAILY Qty: 90 2RF omeprazole 20 mg capsule,delayed release(DR/EC) 20 mg PO DAILY Qty: 20 0RF (DME) blood-glucose meter [FreeStyle Lite Meter] Kit See Rx Instructions .ROUTE .MEDSUPPLY Qty: 1 0RF Rx Instructions: As directed twice a day (DME) lancets [FreeStyle Lancets] 28 gauge misc See Rx Instructions .ROUTE .MEDSUPPLY Qty: 100 6RF Rx Instructions: As directed twice a day Januvia 100 mg tablet 100 mg PO DAILY Qty: 90 1RF Interventions: ED Discharge Assessment Last Done: 07/27/21 19:08 Discharge Date/Time: 07/27/21 19:22
[2021-07-27 18:51] LABS: UPreg QC Valid YES; Urine Pregnancy NEGATIVE (NEGATIVE)
== END 2021-07-27 19:22 | disposition home or self-care (01) ==
PROVIDERS: Nurse Practitioner Family; Emergency Provider Internal Medicine; PCP Internal Medicine
DX: N39.0 Urinary tract infection, site not specified (principal); R42 Dizziness and giddiness; Z79.899 Other long term (current) drug therapy
CPT/HCPCS: 36415; 80048; 81001; 81025; 82947; 85025; 87086; 93005; 99283; 99284

== ENCOUNTER 2021-08-07 10:58 | Outpatient (REF) | payer OTHER, SELFPAY ==
[2021-08-07 11:13] LABS: MANUAL DIFF FLAG NO
[2021-08-07 11:42] LABS: Basophils Absolute Auto 0.1 X10*3/uL (0.0-0.2); Basophils Percent Auto 1.4 % (0-2); Eosinophils Absolute Auto 0.1 X10*3/uL (0.0-0.4); Eosinophils Percent Auto 1.6 % (0-4); Hematocrit 41.5 % (37.0-47.0); Imm Gran Abs Auto 0.03 X10*3/uL (0.00-0.03); Imm Gran Pct Auto 0.6 % (0.0-0.4); Lymphocytes Absolute Auto 1.4 X10*3/uL (1.2-4.9); Lymphocytes Percent Auto 27.6 % (20-40); Mean Corpuscular HGB Conc 33.7 g/dl (31.0-35.0); Mean Corpuscular Hemoglobin 33.4 pg (27.0-33.0); Mean Platelet Volume 8.7 fL (9.4-12.3); Monocytes Absolute Auto 0.6 X10*3/uL (0.1-1.2); Monocytes Percent Auto 11.3 % (2-11); Neutrophils Percent Auto 57.5 % (45-73); Platelet Count 286 X10*3/uL (160-400); Red Blood Count 4.19 X10*6/uL (4.20-5.50); White Blood Count 5.1 X10*3/uL (4.8-10.8)
[2021-08-07 11:59] LABS: Appearance Urine CLEAR; Color Urine STRAW; Glucose Urine UA NEG (NEG); Leukocyte Esterase Urine 1+ (NEG); Nitrite Urine NEG (NEG); PH 5.5 (5.0-8.0); Specific Gravity - Urine <= 1.005 (1.005-1.025); Urine Blood 2+ (NEG); Urine Ketones NEG (NEG); Urine Protein NEG (NEG-TRACE)
[2021-08-07 12:08] LABS: Estimated Average Glucose 100 mg/dL; Hemoglobin A1c % 5.1 %
[2021-08-07 12:14] LABS: Alanine Aminotransferase 22 U/L (0-31); Albumin Level 4.4 g/dL (3.5-5.0); Alkaline Phosphatase 82 U/L (39-117); Anion Gap 11 (12-20); Aspartate Amino Transferase 20 U/L (5-31); Bilirubin Total 0.5 mg/dL (0.0-1.0); Blood Urea Nitrogen 15 mg/dL (9-16); Calcium 9.6 mg/dL (8.4-10.2); Carbon Dioxide 27 mmol/L (22-29); Chloride 102 mmol/L (96-108); Cholesterol 159 mg/dL; Estimated Glomerular Filt Rate 55; Glucose Random 80 mg/dL (60-115); HDL Cholesterol 41 mg/dL; LDL Cholesterol Calculated 84 mg/dl; Potassium 4.2 mmol/L (3.3-5.1); Sodium 136 mmol/L (135-145); Total Protein 7.9 g/dL (6.5-8.0); Triglycerides 170 mg/dL
[2021-08-07 12:24] LABS: Creatinine Urine 22.13 mg/dL; Microalbumin Urine < 5.0 mg/L
[2021-08-07 12:35] LABS: TSH reflex Free T4 0.88 uIU/mL (0.32-4.0)
[2021-08-07 12:36] LABS: Bacteria Urine TRACE /LPF; Squamous Epithelial Cell Urine 2+ /LPF
[2021-08-11 18:36] LABS: Vitamin D 25-OH, D2 <4 ng/mL; Vitamin D 25-OH, D3 21 ng/mL; Vitamin D 25-OH, Total 21 ng/mL (30-100)
== END 2021-08-07 10:59 | disposition home or self-care (01) ==
LOC: HO.LAB 10:58
PROVIDERS: PCP Internal Medicine; Visit Provider Nurse Practitioner Acute Care
DX: E11.9 Type 2 diabetes mellitus without complications (principal); E06.3 Autoimmune thyroiditis; R30.0 Dysuria; G40.909 Epilepsy, unspecified, not intractable, without status epilepticus; E55.9 Vitamin D deficiency, unspecified; E78.5 Hyperlipidemia, unspecified
CPT/HCPCS: 36415; 80053; 80061; 80177; 81001; 82043; 82306; 83036; 84443; 85025

== ENCOUNTER 2021-10-02 11:25 | Outpatient (REF) | payer OTHER, SELFPAY ==
[2021-10-02 12:43] LABS: COVID-19 Test Negative (Negative)
== END 2021-10-02 11:26 | disposition home or self-care (01) ==
LOC: HO.LAB 11:25
PROVIDERS: Visit Provider Internal Medicine
DX: Z20.822 Contact with and (suspected) exposure to COVID-19 (principal); E03.9 Hypothyroidism, unspecified; E11.9 Type 2 diabetes mellitus without complications
CPT/HCPCS: 87635; 99215; C9803; Q3014

== ENCOUNTER 2022-01-06 14:05 | Outpatient (REF) | payer OTHER, SELFPAY ==
[2022-01-07 09:20] LABS: BV Int Neg Control Negative (Negative); BV Int Pos Control Positive (Positive)
== END 2022-01-06 14:06 | disposition home or self-care (01) ==
LOC: HO.LAB 14:05
PROVIDERS: Visit Provider Advanced Practice Midwife
DX: Z01.419 Encounter for gynecological examination (general) (routine) without abnormal findings (principal)
CPT/HCPCS: 87480; 87510; 87660

== ENCOUNTER 2022-04-09 08:25 | Outpatient (REF) | payer OTHER, SELFPAY ==
[2022-04-09 09:39] LABS: Alanine Aminotransferase 43 U/L (0-31); Alkaline Phosphatase 59 U/L (39-117); Anion Gap 14 (12-20); Aspartate Amino Transferase 25 U/L (5-31); Bilirubin Total 0.5 mg/dL (0.0-1.0); Blood Urea Nitrogen 15 mg/dL (9-16); Calcium 9.1 mg/dL (8.4-10.2); Carbon Dioxide 28 mmol/L (22-29); Chloride 100 mmol/L (96-108); Cholesterol 150 mg/dL; Estimated Glomerular Filt Rate > 60; Glucose Fasting 144 mg/dL (60-99); HDL Cholesterol 39 mg/dL; LDL Cholesterol Calculated 86 mg/dl; Sodium 138 mmol/L (135-145); Total Protein 7.4 g/dL (6.5-8.0); Triglycerides 129 mg/dL
[2022-04-09 09:50] LABS: Thyroid Stimulating Hormone 1.79 uIU/mL (0.32-4.0); Vitamin D 25-OH Total 23.4 ng/mL (>30)
[2022-04-09 10:17] LABS: Creatinine Urine 126.51 mg/dL; Microalbumin Urine < 5.0 mg/L
== END 2022-04-09 08:26 | disposition home or self-care (01) ==
LOC: HO.LAB 08:25
PROVIDERS: PCP Internal Medicine; Visit Provider Internal Medicine
DX: E11.9 Type 2 diabetes mellitus without complications (principal); E06.3 Autoimmune thyroiditis; E78.5 Hyperlipidemia, unspecified; E55.9 Vitamin D deficiency, unspecified
CPT/HCPCS: 36415; 80053; 80061; 82043; 82306; 84443

== ENCOUNTER 2022-05-29 06:54 | Emergency (ER) | payer OTHER, SELFPAY ==
[2022-05-29 07:18] VITALS: BP 99/56; PULSE 82; RESP 14; TEMP 37.1; O2SAT 97
[2022-05-29 07:29] VITALS: BP 107/76; PULSE 88; O2SAT 99; BMI 32.5
--- NOTE | 2022-05-29 08:18 | ED_ITS ---
HPI - Seizure General Chief Complaint: Seizure Stated Complaint: seizure/+flu A Time Seen by Provider: 05/29/22 07:52 Source: family (Mother) History of Present Illness HPI Narrative: 36-year-old female with cognitive delays due to Down syndrome is brought in by h er mother for onset runny nose, nasal congestion, sore throat cough since 2 days ago. The patient also has baseline seizure disorder for which she takes Keppra and has been taking the Keppra as prescribed but the mother states that she had 2 seizures this morning. Related Data Allergies Allergy/AdvReac Type Severity Reaction Status Date / Time Unable to Assess Allergy Verified 05/29/22 07:54 Review of Systems Review of Systems: Pertinent positives and negatives as stated in HPI PMFSH Past Medical History Source: nursing notes reviewed Social History Social History Advance Directives: No Advance Directives Information Provided: No Physical Exam Vital Signs: Vital Signs: Last Vital Signs Temp 98.7 F 05/29/22 07:18 Pulse 82 05/29/22 07:18 Resp 14 05/29/22 07:18 BP 99/56 L 05/29/22 07:18 Pulse Ox 97 05/29/22 07:18 O2 Del Method 05/29/22 07:18 BMI result Body Mass Index 32.5 VITAL SIGNS: Reviewed. GENERAL: Well developed, well nourished, in no acute distress. HEAD: Normocephalic/atraumatic EYES: PERRLA, EOMI, characteristic down syndrome features EARS: Ext canals without abnormality, TMs non-bulging and non-erythematous NOSE: Nares patent bilateral OROPHARYNX: no oral lesions noted, posterior pharynx clear and non-erythematous without noted tonsillar enlargement/erythema/exudates NECK: Supple, no adenopathy LUNGS: Normal breath sounds, rhonchi noted with cough no tachypnea. SpO2<97> CARDIOVASCULAR: Regular rate and rhythm without noted murmurs ABDOMEN: Soft, non-tender, non-distended with bowel sounds. MUSCULOSKELETAL: No tenderness, deformities, or effusions noted on gross inspection. EXTREMITIES: No cyanosis, clubbing or edema. SKIN: Inspection of the skin reveals no rashes NEUROLOGIC: Alert and strength and sensation to light touch were grossly intact x 4. Medications Administered Discontinued Medications Generic Name Dose Route Start Last Admin Trade Name Freq PRN Reason Stop Dose Admin Levetiracetam 750 mg 05/29/22 08:21 05/29/22 08:35 Levetiracetam 500 Mg Tablet PO 05/29/22 08:22 750 mg ONCE ONE Administration Medical Decision Making Medical Decision Making [facility] Narrative: 36-year-old female with history and clinical presentation consistent with i nfection induced seizure, has not had medication this morning but was already given a sandwich by her mother and will received 750 mg it's of Keppra here in the emergency room. She is not postictal at this time and we will obtain basic lab work, viral testing. Review of all investigations otherwise negative other than positive influenza a which was suspected due to positive sick contact. All results discussed with the patient and her mother at bedside. Patient has remained hemodynamically st able. Differential Diagnosis Viral test Lab Data [facility] Lab Attestation statement: I reviewed the patient's lab results. Influenza a positive Result Diagrams: 05/29/22 08:25 05/29/22 08:25 Labs: Lab Results 05/29/22 05/29/22 05/29/22 Range/Units 07:39 08:25 08:25 WBC 6.4 (4.8-10.8) X10*3/uL RBC 4.52 (4.20-5.50) X10*6/uL Hgb 14.8 (12.0-16.0) g/dl Hct 43.2 (37.0-47.0) % MCV 95.6 (80.0-98.0) fL MCH 32.7 (27.0-33.0) pg MCHC 34.3 (31.0-35.0) g/dl RDW 12.5 (11.0-16.0) % Plt Count 166 (160-400) X10*3/uL MPV 10.1 (9.4-12.3) fL Immature Gran % (Auto) 1.4 H (0.0-0.4) % Neut % (Auto) 79.4 H (45-73) % Lymph % (Auto) 8.9 L (20-40) % [place] % (Auto) 8.4 (2-11) % Eos % (Auto) 1.1 (0-4) % Baso % (Auto) 0.8 (0-2) % Lymph # (Auto) 0.6 L (1.2-4.9) X10*3/uL [place] # (Auto) 0.5 (0.1-1.2) X10*3/uL Eos # (Auto) 0.1 (0.0-0.4) X10*3/uL Baso # (Auto) 0.1 (0.0-0.2) X10*3/uL Abs Immat Gran (auto) 0.09 H (0.00-0.03) X10*3/uL Absolute Neuts (auto) 5.1 (2.0-8.3) x10*3/uL Absolute Nucleated RBC 0.000 (0.0-0.012) X10*3/uL Nucleated RBC % (auto) 0.0 (0.0-0.2) /100WBC Smear Tech's Comments VERIFIED Sodium 137 (135-145) mmol/L Potassium 4.7 (3.3-5.1) mmol/L Chloride 101 (96-108) mmol/L Carbon Dioxide 24 (22-29) mmol/L Anion Gap 17 (12-20) BUN 12 (9-16) mg/dL Creatinine 1.14 (0.5-1.4) mg/dL Estim Creat Clear Calc 47.7 Estimated GFR 55 POC Glucose 189 H (60-115) mg/dL Random Glucose 219 H (60-115) mg/dL Calcium 9.5 (8.4-10.2) mg/dL Total Bilirubin 0.6 (0.0-1.0) mg/dL AST 30 (5-31) U/L ALT 36 H (0-31) U/L Alkaline Phosphatase 63 (39-117) U/L Total Protein 8.3 H (6.5-8.0) g/dL Albumin 4.5 (3.5-5.0) g/dL COVID-19 ([place]) (Negative) COVID-19 Clin Com Influenza Type A (CRISTAL) (Negative) Influenza Type B (CRISTAL) (Negative) Influenza A & B Note 05/29/22 05/29/22 Range/Units 08:25 08:25 WBC (4.8-10.8) X10*3/uL RBC (4.20-5.50) X10*6/uL Hgb (12.0-16.0) g/dl Hct (37.0-47.0) % MCV (80.0-98.0) fL MCH (27.0-33.0) pg MCHC (31.0-35.0) g/dl RDW (11.0-16.0) % Plt Count (160-400) X10*3/uL MPV (9.4-12.3) fL Immature Gran % (Auto) (0.0-0.4) % Neut % (Auto) (45-73) % Lymph % (Auto) (20-40) % [place] % (Auto) (2-11) % Eos % (Auto) (0-4) % Baso % (Auto) (0-2) % Lymph # (Auto) (1.2-4.9) X10*3/uL [place] # (Auto) (0.1-1.2) X10*3/uL Eos # (Auto) (0.0-0.4) X10*3/uL Baso # (Auto) (0.0-0.2) X10*3/uL Abs Immat Gran (auto) (0.00-0.03) X10*3/uL Absolute Neuts (auto) (2.0-8.3) x10*3/uL Absolute Nucleated RBC (0.0-0.012) X10*3/uL Nucleated RBC % (auto) (0.0-0.2) /100WBC Smear Tech's Comments Sodium (135-145) mmol/L Potassium (3.3-5.1) mmol/L Chloride (96-108) mmol/L Carbon Dioxide (22-29) mmol/L Anion Gap (12-20) BUN (9-16) mg/dL Creatinine (0.5-1.4) mg/dL Estim Creat Clear Calc Estimated GFR POC Glucose (60-115) mg/dL Random Glucose (60-115) mg/dL Calcium (8.4-10.2) mg/dL Total Bilirubin (0.0-1.0) mg/dL AST (5-31) U/L ALT (0-31) U/L Alkaline Phosphatase (39-117) U/L Total Protein (6.5-8.0) g/dL Albumin (3.5-5.0) g/dL COVID-19 ([place]) Negative (Negative) COVID-19 Clin Com See Note Influenza Type A (CRISTAL) Positive A (Negative) Influenza Type B (CRISTAL) Negative (Negative) Influenza A & B Note See Note Independent Historian Clinical information obtained from an independent historian. History obtained from or confirmed by: Parent Patient has down syndrome Discharge Plan Discharge Clinical Impression: Epileptic seizure, Viral syndrome, Influenza A Patient Disposition: Home, Self-Care Instructions: Viral Syndrome (ED), Influenza (ED) Additional Instructions: 1. Reanudar todos los medicamentos caseros. 2. Ser? muy importante controlar la fiebre, h?nia con Tylenol/ibuprofeno de venta thomas. 3. Puede considerar un humidificador de vapor fr?o al lado de la cama. Y animar a beber olga agua. Regrese a la figueroa de emergencias si los s?ntomas empeoran. 1. Resume all home medications. 2. Controlling any fevers will be very important, please do this with [id number] Tylenol/ibuprofen. 3. You may consider a cool mist humidifier at the bedside. And encourage plenty of water drinking. Return to the ER for worsening symptoms. Referrals: Vikki Boyd MD [Primary Care Provider] - Print Language: Samoan
[2022-05-29 08:46] LABS: Eosinophils Absolute Auto 0.1 X10*3/uL (0.0-0.4); Eosinophils Percent Auto 1.1 % (0-4); Mean Corpuscular Volume 95.6 fL (80.0-98.0); Neutrophils Absolute Auto 5.1 x10*3/uL (2.0-8.3); PLT CLUMP 1; Red Cell Distribution Width 12.5 % (11.0-16.0); SCAN SMEAR FLAG 1
[2022-05-29 08:48] LABS: Basophils Absolute Auto 0.1 X10*3/uL (0.0-0.2); Basophils Percent Auto 0.8 % (0-2); Hematocrit 43.2 % (37.0-47.0); Hemoglobin 14.8 g/dl (12.0-16.0); Imm Gran Abs Auto 0.09 X10*3/uL (0.00-0.03); Imm Gran Pct Auto 1.4 % (0.0-0.4); Lymphocytes Absolute Auto 0.6 X10*3/uL (1.2-4.9); Lymphocytes Percent Auto 8.9 % (20-40); MANUAL DIFF FLAG SCAN; Mean Corpuscular HGB Conc 34.3 g/dl (31.0-35.0); Mean Corpuscular Hemoglobin 32.7 pg (27.0-33.0); Mean Platelet Volume 10.1 fL (9.4-12.3); Monocytes Absolute Auto 0.5 X10*3/uL (0.1-1.2); Monocytes Percent Auto 8.4 % (2-11); Neutrophils Percent Auto 79.4 % (45-73); Red Blood Count 4.52 X10*6/uL (4.20-5.50)
[2022-05-29 08:53] LABS: COVID-19 Test Negative (Negative); IDNOW Serial# 16C4AD1C; IDNOW Serial# BCCEAD1C; Influenza A Positive (Negative); Influenza B2 Negative (Negative)
[2022-05-29 08:58] LABS: Platelet Count 166 X10*3/uL (160-400); White Blood Count 6.4 X10*3/uL (4.8-10.8)
[2022-05-29 09:00] LABS: SLIDE REVIEW VERIFIED
[2022-05-29 09:22] LABS: Alanine Aminotransferase 36 U/L (0-31); Albumin Level 4.5 g/dL (3.5-5.0); Alkaline Phosphatase 63 U/L (39-117); Anion Gap 17 (12-20); Aspartate Amino Transferase 30 U/L (5-31); Bilirubin Total 0.6 mg/dL (0.0-1.0); Blood Urea Nitrogen 12 mg/dL (9-16); Calcium 9.5 mg/dL (8.4-10.2); Carbon Dioxide 24 mmol/L (22-29); Chloride 101 mmol/L (96-108); Creatinine Clr Calc Pharmacy 47.7; Estimated Glomerular Filt Rate 55; Glucose Random 219 mg/dL (60-115); Potassium 4.7 mmol/L (3.3-5.1); Sodium 137 mmol/L (135-145); Total Protein 8.3 g/dL (6.5-8.0)
[2022-06-01 16:43] LABS: Levetiracetam Keppra 20.2 mcg/mL (6.0-46.0)
== END 2022-05-29 10:21 | disposition home or self-care (01) ==
PROVIDERS: Emergency Provider Student in an Organized Health Care Education/Training Program; PCP Internal Medicine
DX: J11.1 Influenza due to unidentified influenza virus with other respiratory manifestations (principal); G40.909 Epilepsy, unspecified, not intractable, without status epilepticus; Z20.822 Contact with and (suspected) exposure to COVID-19; E78.5 Hyperlipidemia, unspecified; Q90.9 Down syndrome, unspecified; E11.9 Type 2 diabetes mellitus without complications
CPT/HCPCS: 36415; 80053; 80177; 82947; 85025; 87502; 87635; 99283

== ENCOUNTER 2022-08-26 09:08 | Outpatient (REF) | payer OTHER, SELFPAY ==
[2022-08-26 11:05] LABS: Creatinine Urine 177.52 mg/dL; Microalbum/Creatinine Ratio Ur 3.9 ug/mg cr
[2022-08-26 11:29] LABS: Alanine Aminotransferase 28 U/L (0-31); Albumin Level 3.9 g/dL (3.5-5.0); Alkaline Phosphatase 64 U/L (39-117); Anion Gap 12 (12-20); Aspartate Amino Transferase 17 U/L (5-31); Bilirubin Total 0.8 mg/dL (0.0-1.0); Blood Urea Nitrogen 14 mg/dL (9-16); Calcium 8.9 mg/dL (8.4-10.2); Carbon Dioxide 27 mmol/L (22-29); Chloride 102 mmol/L (96-108); Cholesterol 94 mg/dL; Estimated Glomerular Filt Rate > 60; Glucose Fasting 176 mg/dL (60-99); HDL Cholesterol 36 mg/dL; LDL Cholesterol Calculated 35 mg/dl; Potassium 4.4 mmol/L (3.3-5.1); Sodium 137 mmol/L (135-145); Total Protein 6.8 g/dL (6.5-8.0); Triglycerides 119 mg/dL
[2022-08-26 11:31] LABS: Thyroid Stimulating Hormone 2.46 uIU/mL (0.32-4.0); Vitamin D 25-OH Total 41.4 ng/mL (>30)
== END 2022-08-26 09:09 | disposition home or self-care (01) ==
LOC: HO.LAB 09:08
PROVIDERS: PCP Internal Medicine; Visit Provider Internal Medicine
DX: E11.9 Type 2 diabetes mellitus without complications (principal); E55.9 Vitamin D deficiency, unspecified; E06.3 Autoimmune thyroiditis; E78.5 Hyperlipidemia, unspecified
CPT/HCPCS: 36415; 80053; 80061; 82043; 82306; 84443

== ENCOUNTER 2022-10-28 22:22 | Emergency (ER) | payer OTHER, SELFPAY ==
--- NOTE | ~2022-10-28 | XR_ITS ---
EXAMINATION: XR CHEST CLINICAL INFORMATION: Rule out comparison COMPARISON: None available. TECHNIQUE: Frontal view of the chest was obtained. FINDINGS: No significant abnormality is noted involving the heart, lungs, mediastinum, bony thorax or soft tissues. No intraperitoneal free air. XR/XR chest 1V IMPRESSION: Clear lungs. No radiographic evidence of intraperitoneal free air.
[2022-10-28 22:24] VITALS: BP 133/64; PULSE 83; RESP 18; TEMP 36.9; O2SAT 97; BMI 32.3
[2022-10-28 22:51] LABS: MANUAL DIFF FLAG NO
[2022-10-28 22:53] LABS: Appearance Urine Clear; Basophils Absolute Auto 0.1 X10*3/uL (0.0-0.2); Basophils Percent Auto 0.6 % (0-2); Color Urine Yellow; Eosinophils Absolute Auto 0.2 X10*3/uL (0.0-0.4); Eosinophils Percent Auto 1.8 % (0-4); Glucose Urine UA Negative (Negative); Hematocrit 41.5 % (37.0-47.0); Hemoglobin 14.2 g/dl (12.0-16.0); Imm Gran Abs Auto 0.05 X10*3/uL (0.00-0.03); Imm Gran Pct Auto 0.6 % (0.0-0.4); Leukocyte Esterase Urine Moderate (2+) (Negative); Lymphocytes Absolute Auto 1.9 X10*3/uL (1.2-4.9); Lymphocytes Percent Auto 22.8 % (20-40); Mean Corpuscular HGB Conc 34.2 g/dl (31.0-35.0); Mean Corpuscular Hemoglobin 32.9 pg (27.0-33.0); Mean Corpuscular Volume 96.3 fL (80.0-98.0); Monocytes Absolute Auto 0.6 X10*3/uL (0.1-1.2); Monocytes Percent Auto 7.2 % (2-11); Neutrophils Absolute Auto 5.5 x10*3/uL (2.0-8.3); Nitrite Urine Negative (Negative); Platelet Count 268 X10*3/uL (160-400); Red Blood Count 4.31 X10*6/uL (4.20-5.50); Red Cell Distribution Width 12.7 % (11.0-16.0); UMIC TRIGGER UACC YES; Urine Blood Negative (Negative); Urine Ketones Negative (Negative); Urine Protein Negative (Neg-Trace); White Blood Count 8.2 X10*3/uL (4.8-10.8)
[2022-10-28 23:03] LABS: Bacteria Urine 1+ (None Seen); Hyaline Casts Urine 0-2 /LPF (0-2); RBC Urine 0-2 /HPF (0-2); WBC Urine 0-5 /HPF (0-5)
[2022-10-28 23:09] LABS: Alanine Aminotransferase 29 U/L (0-31); Albumin Level 4.2 g/dL (3.5-5.0); Alkaline Phosphatase 70 U/L (39-117); Anion Gap 13 (12-20); Aspartate Amino Transferase 21 U/L (5-31); Bilirubin Direct 0.2 mg/dL (0.0-0.5); Bilirubin Total 0.5 mg/dL (0.0-1.0); Blood Urea Nitrogen 10 mg/dL (9-16); Calcium 9.5 mg/dL (8.4-10.2); Carbon Dioxide 28 mmol/L (22-29); Chloride 104 mmol/L (96-108); Creatinine Clr Calc Pharmacy 49.4; Estimated Glomerular Filt Rate > 60; Glucose Random 142 mg/dL (60-115); Potassium 3.8 mmol/L (3.3-5.1); Sodium 141 mmol/L (135-145); Total Protein 7.5 g/dL (6.5-8.0)
[2022-10-29 00:31] VITALS: BP 107/70; PULSE 70; RESP 16; TEMP 36.6; O2SAT 98
--- NOTE | 2022-10-29 00:33 | PC.NURSE ---
Pt ca&ox3, no signs of distress. Pt denies chest pain and sob. Mom at bedside. Pt reports 8/10 abdm pain. Vitals stable. Will continue to monitor.
--- NOTE | 2022-10-29 00:53 | ED.ABDPAIN ---
HPI - Abdominal Pain General Chief Complaint: Abdominal Pain Stated Complaint: abd pain Time Seen by Provider: 10/29/22 00:46 Source: patient and family Mode of arrival: ambulatory Limitations: no limitations History of Present Illness HPI narrative: Patient comes accompanied by her mother to the emergency room. Patient has had GERD for several years, but for the last 2 days, patient has had burning sensation in the epigastric area. Patient states that she takes aluminum hydroxide and omeprazole, but this time she has had no relief. Also, patient complaining that she woke up with a red sticky eye on the left side. Feels a bit uncomfortable, does not hurt Related Data Previous Rx's Medication Instructions Recorded blood-glucose meter (FreeStyle #1 ea 06/03/20 Lite Meter kit) lancets 28 gauge (FreeStyle #100 ea 06/03/20 Lancets) blood sugar diagnostic (FreeStyle #50 ea 04/09/21 Lite Strips) levetiracetam 750 mg tablet 750 mg PO BID #180 tabs 05/08/21 ibuprofen 600 mg tablet 600 mg PO Q8H PRN pain #20 tabs 08/07/21 omeprazole 20 mg capsule,delayed 20 mg PO DAILY 90 days #90 caps 05/16/22 release levothyroxine 50 mcg tablet 50 mcg PO DAILY #90 tabs 06/12/22 metformin 500 mg tablet,extended 500 mg PO DAILY #90 tabs 07/19/22 release 24 hr dulaglutide 0.75 mg/0.5 mL 0.75 mg (0.5 mL) subcut QWEEK 90 08/26/22 subcutaneous pen injector days #6.5 mL (Trulicity) rosuvastatin 10 mg tablet 10 mg PO DAILY 90 days #90 tabs 09/29/22 cholecalciferol (vitamin D3) 25 25 mcg PO DAILY 90 days #90 caps 10/28/22 mcg (1,000 unit) capsule sucralfate 1 gram tablet 1 g PO BID #60 tabs 10/29/22 Allergies Allergy/AdvReac Type Severity Reaction Status Date / Time penicillamine Allergy Mild Rash Verified 08/26/22 14:49 Penicillins [PENICILLINS] Allergy Mild RASH Verified 08/26/22 14:49 Review of Systems Review of Systems Constitutional : No Weight loss, No Fever, No Chills, No Night Sweats, No Fatigue, No Malaise ENT/Mouth : No Hearing loss, No Ear Pain, No Nasal Congestion, No Sinus Pain, No Hoarseness, No sore throat, No Rhinorrhea, No Swallowing Difficulty Eyes: No Eye Pain, No Swelling, complaining of left eye redness and waking up with a sticky I, No Foreign Body, No Discharge, No Vision Changes Cardiovascular : No Chest Pain, No SOB, No Dyspnea on Exertion, No Orthopnea, No Edema, No Palpitations Respiratory : No Cough, No Sputum, No Wheezing, No Smoke Exposure, No Dyspnea Gastrointestinal : No Nausea, No Vomiting, No Diarrhea, No Constipation, complaining of epigastric burning sensation, hematochezia or melena Genitourinary : no irregular bleeding, No Dysuria, No Urinary Frequency, No Hematuria, No Urinary Incontinence, No Urgency, No Flank Pain, No Urinary Flow Changes, No Hesitancy Musculoskeletal : No joint pain, No Myalgias, No Joint Swelling Skin : No Skin Lesions, No rash Neuro : No Weakness, No Numbness, No Paresthesias, No Loss of Consciousness, No Dizziness, No Headache Psych : No Anxiety/Panic, No Depression, No SI/HI/AH/VH, No Social Issues, Heme/Lymph: No Bruising, No Bleeding,No Lymphadenopathy Endocrine : No Polyuria, No Polydipsia, No Temperature Intolerance PMFSH Past Medical History Medical History Autoimmune thyroiditis DM2 (diabetes mellitus, type 2) Down's syndrome GERD (gastroesophageal reflux disease) Scoliosis Seizure disorder Type 2 diabetes mellitus with hyperglycemia, without long-term current use of insulin Surgical History No pertinent past surgical history Family History Family History Father Diabetes Mother Diabetes Maternal Grandmother Pancreatic cancer Social History Social History Household Members Other:: Parents - mother Carley Housing: Apartment Alcohol intake: never Patient Tobacco Use Status: Never used Tobacco Smoked in Last 30 Days: No e-Cigarette/Vaping Use: Never Used Second Hand Smoke Exposure: No Use of substances other than those prescribed or required for medical reasons: No Advance Directives: No Advance Directives Information Provided: Yes Patient : No service: No Current occupational status: disabled Cognitive needs: No Hearing needs: No Vision needs: No Physical Exam ED Vital Signs: Vital Signs - 24 hr 10/28/22 22:24 10/29/22 00:31 Temperature 98.4 F 97.8 F Pulse Rate 83 70 Respiratory Rate 18 16 Blood Pressure 133/64 107/70 Pulse Oximetry 97 98 Oxygen Delivery Method Room Air Room Air BMI result Body Mass Index 32.3 Const Other: Appearance: Alert. Oriented X3. No acute distress. Eyes: Pupils equal, round and reactive to light. Left eye is slightly erythematous, there is scant amount of crusting ENT: Pharynx normal. Neck: Normal inspection. Neck supple. No lymph nodes noted. No crepitus CVS: Normal heart rate and rhythm. Pulses normal. Normal S1 and S2 Respiratory: No respiratory distress. Breath sounds normal. No Wheezing. No rales Abdomen: Soft , mild pain to palpation in epigastric area No rigidity. No distention. Skin: Skin warm and dry. Normal skin color. Normal skin turgor. Extremities: No lower extremity edema. No Lacerations. No Rash Neuro: Oriented X 3. No motor deficit. No sensory deficit. Moving all extremities. No slurred speech. CN 2 through 12 grossly intact Psych: calm, cooperative, normal affect Course Course Course Narrative: -patient given 1 dose of viscous lidocaine and Maalox. Labs pending Medical Decision Making Medical Decision Making MDM Narrative: -patient feeling better after GI cocktail -my interpretation of chest x-ray: No free air under the diaphragm -patient likely has GERD versus gastritis versus peptic ulcer disease. Discussed with the patient that she has been on medication/omeprazole for several years. Patient will likely need an endoscopy to rule out ulcers Lab Data 10/28/22 22:47 10/28/22 22:47 Labs: Lab Results 10/28/22 10/28/22 10/28/22 Range/Units 22:47 22:47 22:47 WBC 8.2 (4.8-10.8) X10*3/uL RBC 4.31 (4.20-5.50) X10*6/uL Hgb 14.2 (12.0-16.0) g/dl Hct 41.5 (37.0-47.0) % MCV 96.3 (80.0-98.0) fL MCH 32.9 (27.0-33.0) pg MCHC 34.2 (31.0-35.0) g/dl RDW 12.7 (11.0-16.0) % Plt Count 268 D (160-400) X10*3/uL MPV 9.0 L (9.4-12.3) fL Immature Gran % (Auto) 0.6 H (0.0-0.4) % Neut % (Auto) 67.0 (45-73) % Lymph % (Auto) 22.8 (20-40) % [place] % (Auto) 7.2 (2-11) % Eos % (Auto) 1.8 (0-4) % Baso % (Auto) 0.6 (0-2) % Lymph # (Auto) 1.9 (1.2-4.9) X10*3/uL [place] # (Auto) 0.6 (0.1-1.2) X10*3/uL Eos # (Auto) 0.2 (0.0-0.4) X10*3/uL Baso # (Auto) 0.1 (0.0-0.2) X10*3/uL Abs Immat Gran (auto) 0.05 H (0.00-0.03) X10*3/uL Absolute Neuts (auto) 5.5 (2.0-8.3) x10*3/uL Absolute Nucleated RBC 0.000 (0.0-0.012) X10*3/uL Nucleated RBC % (auto) 0.0 (0.0-0.2) /100WBC Sodium 141 (135-145) mmol/L Potassium 3.8 (3.3-5.1) mmol/L Chloride 104 (96-108) mmol/L Carbon Dioxide 28 (22-29) mmol/L Anion Gap 13 (12-20) BUN 10 (9-16) mg/dL Creatinine 1.04 (0.5-1.4) mg/dL Estim Creat Clear Calc 49.4 Estimated GFR > 60 Random Glucose 142 H (60-115) mg/dL Calcium 9.5 D (8.4-10.2) mg/dL Total Bilirubin 0.5 (0.0-1.0) mg/dL Direct Bilirubin 0.2 (0.0-0.5) mg/dL AST 21 (5-31) U/L ALT 29 (0-31) U/L Alkaline Phosphatase 70 (39-117) U/L Total Protein 7.5 (6.5-8.0) g/dL Albumin 4.2 (3.5-5.0) g/dL Lipase 20 (8-78) U/L Urine Color Yellow Urine Appearance Clear Urine pH 6.0 (5.0-9.0) Ur Specific [place] 1.020 (1.005-1.025) Urine Protein Negative (Neg-Trace) mg/dL Urine Glucose (UA) Negative (Negative) mg/dL Urine Ketones Negative (Negative) mg/dL Urine Blood Negative (Negative) Urine Nitrite Negative (Negative) Ur Leukocyte Esterase Moderate (2+) H (Negative) Urine RBC 0-2 (0-2) /HPF Urine WBC 0-5 (0-5) /HPF Ur Squamous Epith Cells 3-5 (0-2) /HPF Urine Bacteria 1+ (None Seen) Hyaline Casts 0-2 (0-2) /LPF Medications Administered Discontinued Medications Generic Name Dose Route Start Last Admin Trade Name Freq PRN Reason Stop Dose Admin Al Hydroxide/Mg Hydroxide 30 ml 10/29/22 00:52 10/29/22 01:31 Magnesium Hydrox/Alum Hydrox 30 Ml Oral.Susp PO 10/29/22 00:53 30 ml ONCE ONE Administration Lidocaine HCl 15 ml 10/29/22 00:52 10/29/22 01:31 Lidocaine Hcl Viscous 2 % 15 Ml Solution MUCOUS MEM 10/29/22 00:53 15 ml ONCE ONE Administration Discharge Plan Discharge Clinical Impression: Peptic ulcer Patient Disposition: Home, Self-Care Instructions: Peptic Ulcer (ED), Diet for Stomach Ulcers and Gastritis (ED) Additional Instructions: Please follow-up with your primary care physician tomorrow. If you have any worsening or new symptoms, please return to the emergency room or call 911 Prescriptions: New sucralfate 1 gram tablet 1 g PO BID Qty: 60 0RF No Action (DME) FreeStyle Lite Strips Strip See Rx Instructions .ROUTE .MEDSUPPLY Qty: 50 11RF Rx Instructions: As directed twice a day levetiracetam 750 mg tablet 750 mg PO BID Qty: 180 1RF omeprazole 20 mg capsule,delayed release(DR/EC) 20 mg PO DAILY 90 Days Qty: 90 1RF levothyroxine 50 mcg tablet 50 mcg PO DAILY Qty: 90 2RF metformin 500 mg tablet extended release 24 hr 500 mg PO DAILY Qty: 90 2RF rosuvastatin 10 mg tablet 10 mg PO DAILY 90 Days Qty: 90 1RF cholecalciferol (vitamin D3) 25 mcg (1,000 unit) capsule 25 mcg PO DAILY 90 Days Qty: 90 1RF ibuprofen 600 mg tablet 600 mg PO Q8H PRN (Reason: pain) Qty: 20 0RF Trulicity 0.75 mg/0.5 mL pen injector 0.75 mg subcut QWEEK 90 Days Qty: 6.5 1RF (DME) blood-glucose meter [FreeStyle Lite Meter] Kit See Rx Instructions .ROUTE .MEDSUPPLY Qty: 1 0RF Rx Instructions: As directed twice a day (DME) lancets [FreeStyle Lancets] 28 gauge misc See Rx Instructions .ROUTE .MEDSUPPLY Qty: 100 6RF Rx Instructions: As directed twice a day Referrals: Kyrie Glaser MD [Physician] - 11/01/22
--- NOTE | 2022-10-29 00:54 | ECG_ITS ---
Test Reason : ABD PAIN Blood Pressure : / mmHG Vent. Rate : 069 BPM Atrial Rate : 069 BPM P-R Int : 152 ms QRS Dur : 078 ms QT Int : 394 ms P-R-T Axes : 000 039 030 degrees QTc Int : 422 ms Normal sinus rhythm Normal ECG When compared with ECG of 27-JUL-2021 12:04, No significant change was found Referred By: Lucia Guido Electronically Signed By:ALONZO BAILON
[2022-10-29 01:10] LABS: Lipase 20 U/L (8-78)
[2022-10-29] MEDS: Lidocaine HCl Viscous 2 % 15 ML SOLUTION MUCOUS MEM (01:31)
[2022-10-29] MEDS: Magnesium Hydrox/Alum Hydrox 30 ML ORAL.SUSP PO (01:31)
== END 2022-10-29 02:37 | disposition home or self-care (01) ==
PROVIDERS: Emergency Provider Emergency Medicine; PCP Internal Medicine
DX: K27.9 Peptic ulcer, site unspecified, unspecified as acute or chronic, without hemorrhage or perforation (principal); E11.9 Type 2 diabetes mellitus without complications; E78.5 Hyperlipidemia, unspecified; K21.9 Gastro-esophageal reflux disease without esophagitis; Z79.899 Other long term (current) drug therapy; Z79.85 Long-term (current) use of injectable non-insulin antidiabetic drugs; Z79.02 Long term (current) use of antithrombotics/antiplatelets
CPT/HCPCS: 36415; 71045; 80053; 81001; 82248; 83690; 85025; 93005; 99284; 99285

== ENCOUNTER 2022-11-26 07:03 | Outpatient (REF) | payer OTHER, SELFPAY ==
[2022-11-26 08:02] LABS: Alanine Aminotransferase 26 U/L (0-31); Albumin Level 4.3 g/dL (3.5-5.0); Alkaline Phosphatase 71 U/L (39-117); Anion Gap 13 (12-20); Aspartate Amino Transferase 21 U/L (5-31); Bilirubin Total 1.1 mg/dL (0.0-1.0); Blood Urea Nitrogen 13 mg/dL (9-16); Calcium 10.3 mg/dL (8.4-10.2); Carbon Dioxide 27 mmol/L (22-29); Chloride 103 mmol/L (96-108); Cholesterol 121 mg/dL; Estimated Glomerular Filt Rate > 60; Glucose Random 133 mg/dL (60-115); HDL Cholesterol 36 mg/dL; LDL Cholesterol Calculated 61 mg/dl; Potassium 3.6 mmol/L (3.3-5.1); Sodium 139 mmol/L (135-145); Total Protein 8.3 g/dL (6.5-8.0); Triglycerides 123 mg/dL
[2022-11-26 08:17] LABS: Thyroid Stimulating Hormone 4.24 uIU/mL (0.32-4.0); Vitamin D 25-OH Total 49.4 ng/mL (>30)
== END 2022-11-26 07:04 | disposition home or self-care (01) ==
LOC: HO.LAB 07:03
PROVIDERS: PCP Internal Medicine; Visit Provider Internal Medicine
DX: E06.3 Autoimmune thyroiditis (principal); E55.9 Vitamin D deficiency, unspecified; E78.5 Hyperlipidemia, unspecified
CPT/HCPCS: 36415; 80053; 80061; 82306; 84443

== ENCOUNTER 2022-12-20 12:10 | Outpatient (AMB) | payer OTHER, SELFPAY ==
[2022-12-20 13:21] VITALS: BP 91/65; PULSE 65; BMI 29.9
--- NOTE | 2022-12-20 13:21 | A.OFFVIS_ITS ---
Intake Vital Signs 12/20/22 13:21 Height 4 ft 5 in Weight 119 lb 7.849 oz BMI 29.9 BP 91/65 Blood Pressure Location Lt brachial Position Sitting Pulse 65 Intake Visit Reasons: Epigastric pain Intake Note: Abigail presents in office as a new.partient for epigastric pain PT CC: pt reports having epigastric abdominal pain pt denies any other GI Issues Saddle Lining Stitcher Required: Yes Saddle Lining Stitcher Language: Ukrainian Accompanied by: Mother Allergies penicillamine Allergy (Mild, Verified 12/20/22 13:22) Rash Penicillins [PENICILLINS] Allergy (Mild, Verified 12/20/22 13:22) RASH HPI Epigastric pain HPI Details 37-year-old female with past medical history diabetes, out immune thyroiditis, seizure disorder, asthma, Down's syndrome, hyperlipidemia is here today for initial consultation. Patient is accompanied by her mother who is answer most of the questions. However patient is able to say that she experiences epigastric discomfort no matter what she eats. Patient takes omeprazole 20 mg every morning and continues to have epigastric pain. Patient has no nausea or vomiting per patient's mother. Patient is moving her bowels daily without any issues. Denies any melena, hematochezia, unintentional weight loss or ribbon like stools. [facility] Medical History (Updated 12/20/22 @ 13:57 by Clarissa Chandler [facility]) Autoimmune thyroiditis DM2 (diabetes mellitus, type 2) Down's syndrome Scoliosis Seizure disorder Type 2 diabetes mellitus with hyperglycemia, without long-term current use of insulin Surgical History No pertinent past surgical history Family History Father Diabetes Mother Diabetes Maternal Grandmother Pancreatic cancer Social History Household Members Other:: Parents - mother Carley Housing: Apartment Alcohol intake: never Patient Tobacco Use Status: Never used Tobacco e-Cigarette/Vaping Use: Never Used Second Hand Smoke Exposure: No service: No Current occupational status: disabled Cognitive needs: No Hearing needs: No Vision needs: No Female Reproductive History Menstrual Age of Menarche: 11 Review of Systems Const Denies weight gain and Denies weight loss ENT Reports no additional complaints, Denies dysphagia and Denies odynophagia Card Reports no additional complaints Resp Reports no additional complaints GI Denies abdominal pain, Denies belching, Denies melena, Denies bloating, Denies change in bowel habits, Denies dysphagia, Denies excessive flatus, Reports dyspepsia, Reports heartburn, Denies diarrhea, Denies loose stools, Denies nausea, Denies odynophagia and Denies vomiting Reports no additional complaints Musc Reports no additional complaints Neuro Reports no additional complaints Psych Reports no additional complaints Endo Reports no additional complaints Physical Exam Vital Signs: Last Vital Signs Pulse 65 12/20/22 13:21 BP 91/65 12/20/22 13:21 BMI result Body Mass Index 29.9 Const Other: Patient with Down syndrome unable to get full history from patient General: healthy appearing and no acute distress Nutritional Appearance: well nourished Orientation/consciousness: oriented to person and oriented to place HEENT Head: Yes normal to inspection, Yes normocephalic and Yes atraumatic Face and sinus: Yes normal facial exam Mouth: Normal oral and palatal mucosa present Throat: Yes posterior oropharynx normal, Yes tonsils normal and Yes uvula midline Eyes General: appearance normal, both eyes and all related structures Neck Neck: Yes normal visual inspection, Yes full ROM and Yes trachea midline Thyroid: Thyroid normal Resp Effort & Inspection: normal respiratory effort, able to speak in complete sentences, no tracheal deviation and symmetric chest movement Auscultation: clear to auscultation bilaterally Cardio Rate: regular rate Heart sounds: S1 normal heart sound present and S2 normal heart sound present GI Inspection: Yes normal to inspection, No distended and Yes obesity Palpation (GI): Soft to palpation, not firm, nontender and No hepatosplenomegaly present Auscultation: normal bowel sounds General: Yes no CVA tenderness Back/Spine/Pelvis Back: no CVA tenderness Skin General skin exam: elasticity normal, turgor normal and dry skin Neuro General: oriented to person and oriented to place Psych Appearance: grossly normal Mental Status: mental status grossly normal Speech and movement: Normal speech and movement present Affect: normal affect Attitude: cooperative Thought process: Normal thought process present Thought content: Normal thought content present Insight: Good insight present (Psych) Judgement: Good judgement present (Psych) Assessment & Plan Assessment & Plan (1) Epigastric abdominal pain: Code(s): R10.13 - Epigastric pain Plan: Epigastric abdominal pain. Discussed with patient and mom and patient to avoid dietary triggers and late night snacking. Staying upright for minimal 3 hours after meals discussed with them. Will discontinue ibuprofen. Will start patient on pantoprazole in the morning and sucralfate at bedtime. Patient also reports postprandial abdominal bloating with check for pancreatic insufficiency. Check for H pylori (2) GERD (gastroesophageal reflux disease): Code(s): K21.9 - Gastro-esophageal reflux disease without esophagitis Qualifiers: Esophagitis presence: esophagitis presence not specified Qualified Code(s): K21.9 - Gastro-esophageal reflux disease without esophagitis Plan: Treatment of mentioned above. (3) Postprandial diarrhea: Code(s): K52.9 - Noninfective gastroenteritis and colitis, unspecified Plan: Postprandial loose stools. Sometimes diarrhea not necessarily related to meals. Will do GI panel, check for pancreatic insufficiency. Plan I will see patient after she goes for upper endoscopy. Please make sure the patient takes her anti seizure medication the day of the procedure. Discussed with mom the importance of safety and aspiration precautions during the procedure. Patient is on Trulicity which might be slowing down the motility of her stomach preventing from emptying. I will see patient after the procedure, sooner on as needed basis. Patient is agreeable to this plan and verbalizes understanding of instructions. She was given the opportunity to ask questions all questions answered. Thank you for allowing me to participate in her care Orders: Orders GI Panel 12/20/22 R19.7 - Diarrhea, unspecified Pancreatic Elastase-1 12/20/22 R10.9 - Unspecified abdominal pain H pylori Ag Stool 12/20/22 K21.9 - Gastro-esophageal reflux disease without esophagitis Transglutaminase Ab IgG 12/20/22 R10.9 - Unspecified abdominal pain Transglutaminase IgA 12/20/22 R10.9 - Unspecified abdominal pain Vitamin B12 and Folate 12/20/22 R19.7 - Diarrhea, unspecified Medications: New pantoprazole take one tablet half an hour before breakfast 40 mg PO DAILY 30 tabs 2RF K21.9 - Gastro-esophageal reflux disease without esophagitis Discontinued ibuprofen Discontinued Reason: Doctor's Order 600 mg PO Q8H PRN 20 tabs 0RF pain R51.9 - Headache, unspecified omeprazole Discontinued Reason: Doctor's Order 20 mg PO DAILY 90 days 90 caps 1RF Coding Level of Care Code New Pt Level 4 (33639) Diagnoses Epigastric abdominal pain R10.13 GERD (gastroesophageal reflux disease) K21.9 Esophagitis presence: esophagitis presence not specified Postprandial diarrhea K52.9 Time Spent (min) 45 Comment 30 minutes spent with patient and additional 15 minutes spent reviewing her records
== END 2022-12-20 14:51 | disposition home or self-care (01) ==
PROVIDERS: PCP Internal Medicine; Visit Provider Nurse Practitioner Family
DX: R10.13 Epigastric pain (principal); K21.9 Gastro-esophageal reflux disease without esophagitis; K52.9 Noninfective gastroenteritis and colitis, unspecified
CPT/HCPCS: 99204

== ENCOUNTER → 2022-12-20 12:10 | Outpatient (BNVA) | payer OTHER, SELFPAY | PROVIDERS: PCP Internal Medicine; Visit Provider Nurse Practitioner Family | DX: R10.13 Epigastric pain (principal); K21.9 Gastro-esophageal reflux disease without esophagitis; K52.9 Noninfective gastroenteritis and colitis, unspecified | CPT/HCPCS: 99202 ==

== ENCOUNTER 2023-01-26 12:39 | Day surgery (SDC) | payer OTHER, SELFPAY ==
[2023-01-24 13:53] VITALS: BMI 29.8
--- NOTE | 2023-01-25 11:59 | P.CONAN_ITS ---
Documented by User: Joanna Gauthier NP 01/25/23 11:59 HPI - Anesthesia Eval Consult details Narrative: 37yo F for Upper Endoscopy PMFSH Active Problems Active Problems: All Active Problems (Updated 12/20/22 @ 13:57 by Clarissa Chandler [facility]) Bunion, right (Acute) Physical exam (Acute) Hyperlipidemia LDL goal <70 (Acute) Cervical cancer screening (Acute) Pelvic floor weakness in female (Acute) Down's syndrome (Acute) Well woman exam with routine gynecological exam (Acute) Yeast infection of the vagina (Acute) Hair loss (Acute) Vaginal lump (Acute) Vitamin D deficiency (Acute) Hospital discharge follow-up (Acute) Headache (Acute) UTI (urinary tract infection) (Acute) Dysuria (Acute) DM2 (diabetes mellitus, type 2) (Acute) Urinary frequency (Acute) Autoimmune thyroiditis (Acute) Well adult exam (Acute) Type 2 diabetes mellitus with hyperglycemia, without long-term current use of insulin (Acute) Hypothyroidism (acquired) (Acute) Seizure disorder (Acute) Dysuria (Acute) Asthma, mild intermittent, well-controlled (Acute) Past Medical History Medical History (Updated 12/20/22 @ 13:[address] [facility] Autoimmune thyroiditis DM2 (diabetes mellitus, type 2) Down's syndrome Scoliosis Seizure disorder Type 2 diabetes mellitus with hyperglycemia, without long-term current use of insulin Family History Family History Father Diabetes Mother Diabetes Maternal Grandmother Pancreatic cancer Surgical History Surgical History No pertinent past surgical history Social History Social History Household Members Other:: Parents - mother Carley Housing: Apartment Alcohol intake: never Patient Tobacco Use Status: Never used Tobacco e-Cigarette/Vaping Use: Never Used Second Hand Smoke Exposure: No Advance Directives: No Advance Directives Information Provided: Yes service: No Current occupational status: disabled Cognitive needs: No Hearing needs: No Vision needs: No Meds Allergies Allergy/AdvReac Type Severity Reaction Status Date / Time penicillamine Allergy Mild Rash Verified 12/20/22 13:22 Penicillins [PENICILLINS] Allergy Mild RASH Verified 12/20/22 13:22 Exam Exam Date and Time: January 25, 2023 1159 Height,Weight and Vital Signs: Height 4 ft 5 in Weight 53.977 kg Assessment and Plan Assessment Anesthesia Assessment: Chart Reviewed Documented by User: Rivera Damon MD 01/26/23 12:50 PMFSH Past Medical History Medical History (Updated 12/20/22 @ 13:57 by Clarissa Chandler [facility]) Autoimmune thyroiditis DM2 (diabetes mellitus, type 2) Down's syndrome Scoliosis Seizure disorder Type 2 diabetes mellitus with hyperglycemia, without long-term current use of insulin Family History Family History Father Diabetes Mother Diabetes Maternal Grandmother Pancreatic cancer Family history of problems with anesthesia: No Surgical History Surgical History No pertinent past surgical history History of Problems with Anesthesia: No Social History Social History Household Members Other:: Parents - mother Carley Housing: Apartment Alcohol intake: never Patient Tobacco Use Status: Never used Tobacco e-Cigarette/Vaping Use: Never Used Second Hand Smoke Exposure: No Advance Directives: No Advance Directives Information Provided: Yes service: No Current occupational status: disabled Cognitive needs: No Hearing needs: No Vision needs: No Meds Allergies Allergy/AdvReac Type Severity Reaction Status Date / Time penicillamine Allergy Mild Rash Verified 12/20/22 13:22 Penicillins [PENICILLINS] Allergy Mild RASH Verified 12/20/22 13:22 Exam Airway Mallampati Class: III TM Dist: >3cm Neck ROM: Limited Heart: rrr Lungs: cta Assessment and Plan Final Anesthetic Review Family History of Problems with Anesthesia: No History of Problems with Anesthesia: No NPO: Yes ASA Class: IV Final Preanesthetic Review: No Changes in Pt Med Stat, Meds/Allgs Chart Reviewed, Consent Obtained/Reviewed and Anes Risks/Benef Reviewed Patient Risk: High Procedure Risk: Intermediate Anesthetic Plan Anesthetic Plan: MAC: and Agree w/ Assess. and Plan Disposition: Standard PACU
[2023-01-26 13:06] VITALS: BP 119/61; PULSE 57; RESP 16; TEMP 36.7; O2SAT 100; BMI 34.3
--- NOTE | 2023-01-26 13:11 | MHC.SHP ---
Pre-Procedural Eval Section A Date of Service: 01/26/23 Section B Chief Complaint: Epigastric pain Relevant Family History (Specify if Yes): No Relevant Social History: None Present Medications: see Short Stay Collaborative assessment Medical History: Significant History (Autoimmune thyroiditis DM2 (diabetes mellitus, type 2) Down's syndrome Scoliosis Seizure disorder Type 2 diabetes mellitus with hyperglycemia, without long-term current use of insulin) History of Previous Operations: No relevant previous surgery Allergies: Allergies Allergy/AdvReac Type Severity Reaction Status Date / Time penicillamine Allergy Mild Rash Verified 12/20/22 13:22 Penicillins [PENICILLINS] Allergy Mild RASH Verified 12/20/22 13:22 Review of Systems Sugical H&P ROS: Negative: Constitution, Cardiovascular, Respiratory, Neurological, Psychiatric, Hem-Onc, Allergic/Immunologic, Gastrointestinal, Genitourinary, Musculoskeletal, Integumentary, Endocrine and Eyes/Ears/Nose/Throat Exam Surgical H&P Exam: Normal: HEENT, Normal: Heart, Normal: Lungs, Normal: Extremities, Normal: Abdomen, Normal: Skin and Normal: Neurological Exam Comment: downs syndrome facies Plan Diagnosis/Plan: Unchanged I have reviewed the history and physical and performed a pertinent physical examination on my patient. No changes have occurred unless specified. Time Spent With Patient Time: Total time managing care of this patient today ____ minutes.
[2023-01-26 13:14] LABS: Glucose, Whole Blood 93 mg/dL (60-115)
[2023-01-26 13:16] LABS: UPreg QC Valid YES; Urine Pregnancy NEGATIVE (NEGATIVE)
--- NOTE | 2023-01-26 13:17 | P.OP_ITS ---
Operative Note Operative Note Date of Service: 01/26/23 Narrative: Procedure Description: EGD Indication: epigastric pain Anesthesia: MAC FLEXIBLE TRANSORAL UPPER GASTROINTESTINAL ENDOSCOPY UPPER ENDOSCOPY Consent: Indications for the procedure and potential complications of bleeding, perforation, reaction to medications and missed diagnosis were discussed with the patient and informed consent was obtained. Instrument: Olympus GIF H 190 J mid size upper endoscope Monitoring: Vital signs and clinical assessment, continuous EKG monitoring, Pulse oximetry, Carbon Dioxide monitoring and blood pressure monitoring were done throughout the procedure. Procedure: The patient was placed in the left lateral decubitis position and pre-procedure medications were administered and a bite block was placed. The endoscope was inserted into the mouth and advanced under direct vision to the third part of duodenum. A careful inspection was made as the upper endoscope was withdrawn including a retroflexed examination of the proximal stomach; Findings and interventions are described below. Findings: Larynx:normal Esophagus: GE junction at 38 cm, diaphragm hiatus at 38 cm, mild erythema and congestion at GEJ, bx taken as well as from distal esophagus Stomach: Patchy gastric erythema with nodularity. Biopsies were obtained. Grade 2 flap valve on retroflexed examination of the cardia. There was reduced movement of st omach Duodenum: Normal bulb and descending duodenum, bx taken Intervention: Biopsies as noted above Impression/Findings: gastritis esophagitis possible gastroparesis PLAN: await bx if neg then consider GES to r/o gastroparesis
[2023-01-26 14:00] VITALS: BP 92/44; PULSE 56; RESP 16; TEMP 36.3; O2SAT 97
[2023-01-26 14:15] VITALS: BP 117/74; PULSE 62; RESP 18; TEMP 36.3; O2SAT 97
== END 2023-01-26 14:33 | disposition home or self-care (01) ==
PROVIDERS: Nurse Practitioner; PCP Internal Medicine; Visit Provider Internal Medicine Gastroenterology
PROC: 0DJ08ZZ Inspection of Upper Intestinal Tract, Via Natural or Artificial Opening Endoscopic (ICD-10-PCS; CPT 43235; principal; 2023-01-26 15:50)
DX: K29.60 Other gastritis without bleeding (principal); R10.13 Epigastric pain; K21.9 Gastro-esophageal reflux disease without esophagitis; E11.9 Type 2 diabetes mellitus without complications; J45.909 Unspecified asthma, uncomplicated; Q90.9 Down syndrome, unspecified; E78.5 Hyperlipidemia, unspecified
CPT/HCPCS: 43239; 81025; 82947; 88305; 88342

== ENCOUNTER → 2023-01-26 12:39 | Outpatient (BNV) | payer OTHER, SELFPAY | PROVIDERS: PCP Internal Medicine; Visit Provider Internal Medicine Gastroenterology | DX: R10.13 Epigastric pain (principal); K29.70 Gastritis, unspecified, without bleeding; K20.90 Esophagitis, unspecified without bleeding | CPT/HCPCS: 43239 ==

== ENCOUNTER 2023-02-09 10:32 | Outpatient (AMB) | payer OTHER, SELFPAY ==
[2023-02-09 10:47] VITALS: BP 94/55; PULSE 67; BMI 28.4
--- NOTE | 2023-02-09 10:47 | MHC.OFFVIS ---
Intake Vital Signs 02/09/23 10:47 Height 4 ft 5 in Weight 113 lb 5.082 oz BMI 28.4 BP 94/55 L Blood Pressure Location Lt brachial Position Sitting Pulse 67 Intake Visit Reasons: F/U EGD Intake Note: Abigail presents in office as a est.patient for a post-op f/u for EGD pt got it done 01.26.23. 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 Discussed with patient and mom and patient to avoid dietary triggers and late night snacking. Staying upright for minimal 3 hours after meals discussed with them. Will discontinue ibuprofen. Will start patient on pantoprazole in the morning and sucralfate at bedtime. Patient also reports postprandial abdominal bloating with check for pancreatic insufficiency. Check for H pylori GERD (gastroesophageal reflux disease) Treatment of mentioned above. Postprandial diarrhea Postprandial loose stools. Sometimes diarrhea not necessarily related to meals. Will do GI panel, check for pancreatic insufficiency. Plan I will see patient after she goes for upper endoscopy. Please make sure the patient takes her anti seizure medication the day of the procedure. Discussed with mom the importance of safety and aspiration precautions during the procedure. Patient is on Trulicity which might be slowing down the motility of her stomach preventing from emptying. I will see patient after the procedure, sooner on as needed basis. Patient is agreeable to this plan and verbalizes understanding of instructions. She was given the opportunity to ask questions all questions answered. ? Thank you for allowing me to participate in her care Orders Orders GI Panel 12/20/22 R19.7 Pancreatic Elastase-1 12/20/22 R10.9 H pylori Ag Stool 12/20/22 K21.9 Transglutaminase Ab IgG 12/20/22 R10.9 Transglutaminase IgA 12/20/22 R10.9 Vitamin B12 and Folate 12/20/22 R19.7 Medications New pantoprazole take one tablet half an hour before breakfast 40 mg PO DAILY 30 tabs 2RF K21.9 Discontinued ibuprofen Discontinued Reason: Doctor's Order 600 mg PO Q8H PRN 20 tabs 0RF pain R51.9 omeprazole Discontinued Reason: Doctor's Order 20 mg PO DAILY 90 days 90 caps 1RF UPPER ENDOSCOPY: Findings: Larynx:normal Esophagus: GE junction at 38? cm, diaphragm hiatus at 38 cm, mild erythema and congestion at GEJ, bx taken as well as from distal esophagus Stomach: Patchy gastric erythema with nodularity. Biopsies were obtained. Grade 2 flap valve on retroflexed examination of the cardia. There was reduced movement of stomach Duodenum: Normal bulb and descending duodenum, bx taken Intervention: Biopsies as noted above Impression/Findings: gastritis esophagitis possible gastroparesis PLAN: await bx if neg then consider GES to r/o gastroparesis PATHOLOGY RESULTS: Diagnosis A.? Duodenum, biopsy:? Duodenal mucosa with no diagnostic alteration; no evidence of foveolar metaplasia, dysplasia, or increased intraepithelial lymphocytes. B.? Stomach, biopsy:? Mild chronic inactive gastritis, no evidence of Helicobacter pylori, intestinal metaplasia, or dysplasia. C.? Gastroesophageal junction, biopsy:? Inflamed cardiofundic-type mucosa, no evidence of intestinal metaplasia or dysplasia. D.? Esophagus, distal, biopsy:? Esophageal squamous mucosa with no diagnostic alteration, no evidence of active esophagitis. TODAY'S VISIT Patient is here today for follow-up and to discuss upper endoscopy results. Patient is accompanied by her mother. Patient is unable to comprehend everything that we are discussing due to her mental capability. Patient has Down syndrome. However patient can not voice that she is feeling much better. Her mom is giving her medication as prescribed. Patient is taking pantoprazole in the morning before breakfast and sucralfate at bedtime. Patient's mom has to crush sucralfate and makes it with water in order for patient to be able to swallow. Patient denies any dyspepsia, dysphagia or odynophagia. Patient is moving her bowels without any issues. Denies any other GI concerning symptoms. Patient states that she is feeling well. Mom reports that patient did well with anesthesia and the procedure. Denies any ill effects postprocedure. Patient denies postprandial fullness. Will hold off on sending patient for GES [facility] Medical History (Updated 02/09/23 @ 16:37 by Clarissa Chandler, [facility]) Autoimmune thyroiditis DM2 (diabetes mellitus, type 2) Down's syndrome Scoliosis Seizure disorder Type 2 diabetes mellitus with hyperglycemia, without long-term current use of insulin Surgical History (Updated 02/09/23 @ 10:51 by Kirby Lopez) History of esophagogastroduodenoscopy (EGD) No pertinent past surgical history Family History Father Diabetes Mother Diabetes Maternal Grandmother Pancreatic cancer Social History Household Members Other:: Parents - mother [place] Housing: Apartment Alcohol intake: never Patient Tobacco Use Status: Never used Tobacco e-Cigarette/Vaping Use: Never Used Second Hand Smoke Exposure: No service: No Current occupational status: disabled Cognitive needs: No Hearing needs: No Vision needs: No Female Reproductive History Menstrual Age of Menarche: 11 Review of Systems Const Denies weight gain and Denies weight loss ENT Reports no additional complaints, Denies dysphagia and Denies odynophagia Card Reports no additional complaints Resp Reports no additional complaints GI Denies abdominal pain, Denies belching, Denies melena, Denies bloating, Denies change in bowel habits, Denies dysphagia, Denies excessive flatus, Denies dyspepsia, Reports heartburn (Occasional), Denies diarrhea, Denies loose stools, Denies nausea, Denies odynophagia and Denies vomiting Musc Reports no additional complaints Neuro Reports no additional complaints Psych Reports no additional complaints Endo Reports no additional complaints Physical Exam Vital Signs: Last Vital Signs Pulse 67 02/09/23 10:47 BP 94/55 L 02/09/23 10:47 BMI result Body Mass Index 28.4 Const General: healthy appearing, no acute distress and well developed Nutritional Appearance: well nourished Orientation/consciousness: oriented to person and oriented to place HEENT Head: Yes normal to inspection, Yes normocephalic and Yes atraumatic Face and sinus: Yes normal facial exam Mouth: Normal oral and palatal mucosa present Throat: Yes posterior oropharynx normal, Yes tonsils normal and Yes uvula midline Eyes General: appearance normal, both eyes and all related structures Neck Neck: Yes normal visual inspection, Yes full ROM and Yes trachea midline Thyroid: Thyroid normal Resp Effort & Inspection: normal respiratory effort, able to speak in complete sentences, no tracheal deviation and symmetric chest movement Auscultation: clear to auscultation bilaterally Cardio Rate: regular rate Heart sounds: S1 normal heart sound present and S2 normal heart sound present GI Inspection: Yes normal to inspection and No distended Palpation (GI): Soft to palpation, not firm, nontender and No hepatosplenomegaly present Auscultation: normal bowel sounds General: Yes no CVA tenderness Back/Spine/Pelvis Back: no CVA tenderness Skin General skin exam: elasticity normal, turgor normal and dry skin Neuro General: oriented to person and oriented to place Psych Appearance: grossly normal Mental Status: other (down syndrome ) Assessment & Plan Assessment & Plan (1) GERD (gastroesophageal reflux disease): Code(s): K21.9 - Gastro-esophageal reflux disease without esophagitis Qualifiers: Esophagitis presence: without esophagitis Qualified Code(s): K21.9 - Gastro-esophageal reflux disease without esophagitis Plan: Continue current regimen with pantoprazole and sucralfate. Mild chronic inactive gastritis, mild inflammation at the GE junction and no esophagitis found. Discussed with patient and her mom avoiding dietary triggers and late night snacking. Staying upright for minimum 3 hours after meals discussed with patient. (2) Epigastric abdominal pain: Code(s): R10.13 - Epigastric pain Plan: Continue current management with pantoprazole and sucralfate. Avoiding dietary triggers discussed with patient's mom. Patient is doing better and eating healthier. Will hold off on sending patient for gastric emptying study. Patient does not have symptoms of gastroparesis. We will watch patient early satiety and if patient will experience symptoms will send her for procedure then. (3) Postprandial diarrhea: Code(s): K52.9 - Noninfective gastroenteritis and colitis, unspecified Plan: Continue low FODMAP diet. Patient is moving her bowels without any issues and no longer has diarrhea unless she eats something greasy. Patient denies any abdominal pain or discomfort. She will follow-up in our office in 6 months, sooner on as needed basis. Both patient and her mom are agreeable to plan of care and verbalizes understanding instructions. They were given the opportunity to ask questions and all questions answered. Thank you for allowing me to participate in her care Medications: New sucralfate 10 mL PO BEDTIME 400 mL 3RF K21.9 - Gastro-esophageal reflux disease without esophagitis Refilled pantoprazole take one tablet half an hour before breakfast 40 mg PO DAILY 90 tabs 2RF K21.9 - Gastro-esophageal reflux disease without esophagitis Discontinued sucralfate Discontinued Reason: Duplicate 1 g PO BID 60 tabs 0RF Coding Level of Care Code Est Pt Level 4 (38653) Diagnoses GERD (gastroesophageal reflux disease) K21.9 Esophagitis presence: without esophagitis Epigastric abdominal pain R10.13 Postprandial diarrhea K52.9 Time Spent (min) 35 Comment 20 minutes spent with patient and additional 15 minutes spent reviewing her records
== END 2023-02-09 11:31 | disposition home or self-care (01) ==
PROVIDERS: PCP Internal Medicine; Visit Provider Nurse Practitioner Family
DX: K21.9 Gastro-esophageal reflux disease without esophagitis (principal); R10.13 Epigastric pain; K52.9 Noninfective gastroenteritis and colitis, unspecified
CPT/HCPCS: 99214

== ENCOUNTER → 2023-02-09 10:32 | Outpatient (BNVA) | payer OTHER, SELFPAY | PROVIDERS: PCP Internal Medicine; Visit Provider Nurse Practitioner Family | DX: K21.9 Gastro-esophageal reflux disease without esophagitis (principal); R10.13 Epigastric pain; K52.9 Noninfective gastroenteritis and colitis, unspecified; Z79.899 Other long term (current) drug therapy | CPT/HCPCS: 99212 ==

== ENCOUNTER 2023-05-06 21:17 | Emergency (ER) | payer OTHER, SELFPAY ==
[2023-05-06 21:35] VITALS: BP 106/55; PULSE 89; RESP 16; TEMP 37.3; O2SAT 97; BMI 29.8
[2023-05-06] MEDS: Ondansetron ODT 4 MG TAB.RAPDIS TRANSLINGU (21:44)
--- NOTE | 2023-05-06 21:56 | MHC.EDTECH ---
Labs and Urine obtained and sent to lab,patient brought back to waiting area.
[2023-05-06 22:00] LABS: Hematocrit 45.4 % (37.0-47.0); Hemoglobin 15.4 g/dl (12.0-16.0); Mean Corpuscular HGB Conc 33.9 g/dl (31.0-35.0); Mean Corpuscular Hemoglobin 32.6 pg (27.0-33.0); Mean Corpuscular Volume 96.2 fL (80.0-98.0); Mean Platelet Volume 8.6 fL (9.4-12.3); Platelet Count 360 X10*3/uL (160-400); Red Blood Count 4.72 X10*6/uL (4.20-5.50); Red Cell Distribution Width 13.2 % (11.0-16.0); White Blood Count 15.3 X10*3/uL (4.8-10.8)
[2023-05-06 22:07] LABS: Appearance Urine Clear; Color Urine Yellow; Glucose Urine UA Negative (Negative); Leukocyte Esterase Urine Small (1+) (Negative); Nitrite Urine Negative (Negative); PH 5.5 (5.0-9.0); Specific Gravity - Urine >= 1.030 (1.005-1.025); UMIC TRIGGER UACC YES; Urine Blood Negative (Negative); Urine Ketones 15 mg/dL (Negative); Urine Protein Negative (Neg-Trace)
[2023-05-06 22:09] LABS: Bacteria Urine Trace (None Seen); Hyaline Casts Urine 0-2 /LPF (0-2); RBC Urine 0-2 /HPF (0-2); UACC Culture Trigger YES
[2023-05-06 22:12] LABS: UPreg QC Valid YES; Urine Pregnancy NEGATIVE (NEGATIVE)
[2023-05-06 22:24] LABS: Alanine Aminotransferase 28 U/L (0-31); Albumin Level 4.3 g/dL (3.5-5.0); Alkaline Phosphatase 81 U/L (39-117); Anion Gap 14 (12-20); Aspartate Amino Transferase 20 U/L (5-31); Bilirubin Total 0.8 mg/dL (0.0-1.0); Blood Urea Nitrogen 13 mg/dL (9-16); Calcium 9.7 mg/dL (8.4-10.2); Carbon Dioxide 25 mmol/L (22-29); Chloride 107 mmol/L (96-108); Creatinine Clr Calc Pharmacy 52.2; Estimated Glomerular Filt Rate > 60; Glucose Random 137 mg/dL (60-115); Lipase 14 U/L (8-78); Sodium 142 mmol/L (135-145); Total Protein 8.3 g/dL (6.5-8.0)
--- NOTE | 2023-05-07 00:48 | ED.ABDPAIN ---
HPI - Abdominal Pain General Chief Complaint: Abdominal Pain Stated Complaint: vomiting and diarrhea Time Seen by Provider: 05/07/23 00:46 Source: patient and family Mode of arrival: ambulatory Limitations: other (Mentally challenged) History of Present Illness HPI narrative: Patient here with family member with history of Down syndrome complaining of vomiting and diarrhea about 5 times with upper abdominal discomfort patient's family member also sick with same no fever no chills feeling much better after taking Zofran in the ER taking p.o. fluids now Related Data Previous Rx's Medication Instructions Recorded blood-glucose meter (FreeStyle #1 ea 06/03/20 Lite Meter kit) lancets 28 gauge (FreeStyle #100 ea 06/03/20 Lancets) blood sugar diagnostic (FreeStyle #50 ea 04/09/21 Lite Strips) rosuvastatin 10 mg tablet 10 mg PO DAILY 90 days #90 tabs 09/29/22 levothyroxine 75 mcg tablet 75 mcg PO DAILY 90 days #90 tabs 11/26/22 dulaglutide 0.75 mg/0.5 mL 0.75 mg (0.5 mL) subcut QWEEK 90 02/03/23 subcutaneous pen injector days #6.5 mL (Trulicity) pantoprazole 40 mg tablet,delayed 40 mg PO DAILY #90 tabs 02/09/23 release sucralfate 100 mg/mL oral 10 ml PO BEDTIME #400 mL 02/09/23 suspension albuterol sulfate 2.5 mg/3 mL 2.5 mg (3 mL) inhalation Q4-6H PRN 03/29/23 (0.083 %) solution for nebulization shortness of breath or wheezing #90 mL metformin 500 mg tablet,extended 500 mg PO DAILY #90 tabs 04/16/23 release 24 hr cholecalciferol (vitamin D3) 25 25 mcg PO DAILY 90 days #90 caps 04/26/23 mcg (1,000 unit) capsule levetiracetam 750 mg tablet 750 mg PO BID #180 tabs 04/26/23 loperamide 2 mg tablet (Imodium 2 mg PO Q6H PRN loose stool #7 tabs 05/07/23 A-D) ondansetron 4 mg disintegrating 4 mg PO Q6-8H PRN nausea and 05/07/23 tablet vomiting #7 tabs Allergies Allergy/AdvReac Type Severity Reaction Status Date / Time penicillamine Allergy Mild Rash Verified 02/09/23 10:49 Penicillins [PENICILLINS] Allergy Mild RASH Verified 02/09/23 10:49 Review of Systems Review of Systems Yes all other systems are reviewed and are negative [facility] Past Medical History Medical History DM2 (diabetes mellitus, type 2) Autoimmune thyroiditis Type 2 diabetes mellitus with hyperglycemia, without long-term current use of insulin Down's syndrome Seizure disorder Scoliosis Surgical History History of esophagogastroduodenoscopy (EGD) No pertinent past surgical history Family History Family History Father Diabetes Mother Diabetes Maternal Grandmother Pancreatic cancer Social History Social History Household Members Other:: Parents - mother [place] Housing: Apartment Alcohol intake: never Patient Tobacco Use Status: Never used Tobacco Smoked in Last 30 Days: No e-Cigarette/Vaping Use: Never Used Second Hand Smoke Exposure: No Use of substances other than those prescribed or required for medical reasons: No Advance Directives: No Advance Directives Information Provided: Yes Patient : No service: No Current occupational status: disabled Cognitive needs: No Hearing needs: No Vision needs: No Physical Exam ED Vital Signs: Vital Signs - 24 hr 05/06/23 21:35 05/07/23 01:56 Temperature 99.1 F Pulse Rate 89 82 Respiratory Rate 16 16 Blood Pressure 106/55 L 109/72 Pulse Oximetry 97 99 Oxygen Delivery Method Room Air Room Air BMI result Body Mass Index 29.8 Appearance: Alert. Oriented X2. No acute distress. Down syndrome Eyes: No pallor or icterus ENT: Pharynx normal. Oral Mucosa moist Neck: Normal inspection. Neck supple. CVS: Normal heart rate and rhythm. Pulses normal. Respiratory: No respiratory distress. Equal air entry bilateral, no wheezing/rales/rhonchi Abdomen: Soft mild epigastric tenderness Bowel sounds are present, no mass palpable, no CVA tenderness Skin: Skin warm and dry. Normal skin color. Normal skin turgor. Extremities: No lower extremity edema. No calf tenderness Neuro: Oriented X 2. No motor deficit Medical Decision Making Medical Decision Making [facility] Narrative: Patient with acute gastroenteritis improved after Zofran and Imodium patient feeling much better discharge patient home Differential Diagnosis Differential Diagnoses: The differential diagnosis associated with the presentation includes Likely gastritis/gastroenteritis Lab Data [facility] Lab Attestation statement: I reviewed the patient's lab results. 05/06/23 21:52 05/06/23 21:52 Labs: Lab Results 05/06/23 Range/Units 21:52 WBC 15.3 H (4.8-10.8) X10*3/uL RBC 4.72 (4.20-5.50) X10*6/uL Hgb 15.4 (12.0-16.0) g/dl Hct 45.4 (37.0-47.0) % MCV 96.2 (80.0-98.0) fL MCH 32.6 (27.0-33.0) pg MCHC 33.9 (31.0-35.0) g/dl RDW 13.2 (11.0-16.0) % Plt Count 360 D (160-400) X10*3/uL MPV 8.6 L (9.4-12.3) fL Absolute Nucleated RBC 0.000 (0.0-0.012) X10*3/uL Nucleated RBC % (auto) 0.0 (0.0-0.2) /100WBC Sodium 142 (135-145) mmol/L Potassium 4.0 (3.3-5.1) mmol/L Chloride 107 (96-108) mmol/L Carbon Dioxide 25 (22-29) mmol/L Anion Gap 14 (12-20) BUN 13 (9-16) mg/dL Creatinine 0.88 (0.5-1.4) mg/dL Estim Creat Clear Calc 52.2 Estimated GFR > 60 Random Glucose 137 H (60-115) mg/dL Calcium 9.7 (8.4-10.2) mg/dL Total Bilirubin 0.8 (0.0-1.0) mg/dL AST 20 (5-31) U/L ALT 28 (0-31) U/L Alkaline Phosphatase 81 (39-117) U/L Total Protein 8.3 H (6.5-8.0) g/dL Albumin 4.3 (3.5-5.0) g/dL Lipase 14 (8-78) U/L Urine Color Yellow Urine Appearance Clear Urine pH 5.5 (5.0-9.0) Ur Specific [place] >= 1.030 H (1.005-1.025) Urine Protein Negative (Neg-Trace) mg/dL Urine Glucose (UA) Negative (Negative) mg/dL Urine Ketones 15 (Negative) mg/dL Urine Blood Negative (Negative) Urine Nitrite Negative (Negative) Ur Leukocyte Esterase Small (1+) H (Negative) Urine RBC 0-2 (0-2) /HPF Urine WBC 6-10 H (0-5) /HPF Ur Squamous Epith Cells 3-5 (0-2) /HPF Urine Bacteria Trace (None Seen) Hyaline Casts 0-2 (0-2) /LPF Urine Test NEGATIVE (NEGATIVE) Medications Administered Discontinued Medications Generic Name Dose Route Start Last Admin Trade Name Freq PRN Reason Stop Dose Admin Al Hydroxide/Mg Hydroxide 30 ml 05/07/23 01:17 05/07/23 01:54 Magnesium Hydrox/Alum Hydrox 30 Ml Oral.Susp PO 05/07/23 01:18 30 ml ONCE ONE Administration Loperamide HCl 4 mg 05/07/23 01:15 05/07/23 01:54 Loperamide Hcl 2 Mg Capsule PO 05/07/23 01:16 4 mg ONCE ONE Administration Ondansetron HCl 4 mg 05/06/23 21:42 05/06/23 21:44 Ondansetron Odt 4 Mg Tab.Rapdis TRANSLINGU 05/06/23 21:43 4 mg ONCE ONE Administration Discharge Plan Discharge Clinical Impression: Gastroenteritis Patient Disposition: Home, Self-Care Instructions: Gastroenteritis (ED) Additional Instructions: Drink plenty of fluids Medicine for nausea and diarrhea as prescribed Report to the ER if worsening of nausea vomiting or increased abdominal pain Prescriptions: New ondansetron 4 mg tablet,disintegrating 4 mg PO Q6-8H PRN (Reason: nausea and vomiting) Qty: 7 0RF loperamide [Imodium A-D] 2 mg tablet 2 mg PO Q6H PRN (Reason: loose stool) Qty: 7 0RF No Action (DME) FreeStyle Lite Strips Strip See Rx Instructions .ROUTE .MEDSUPPLY Qty: 50 11RF Rx Instructions: As directed twice a day rosuvastatin 10 mg tablet 10 mg PO DAILY 90 Days Qty: 90 1RF levothyroxine 75 mcg tablet 75 mcg PO DAILY 90 Days Qty: 90 1RF Trulicity 0.75 mg/0.5 mL pen injector 0.75 mg subcut QWEEK 90 Days Qty: 6.5 1RF albuterol sulfate 2.5 mg /3 mL (0.083 %) solution for nebulization 2.5 mg inhalation Q4-6H PRN (Reason: shortness of breath or wheezing) Qty: 90 0RF metformin 500 mg tablet extended release 24 hr 500 mg PO DAILY Qty: 90 2RF cholecalciferol (vitamin D3) 25 mcg (1,000 unit) capsule 25 mcg PO DAILY 90 Days Qty: 90 1RF levetiracetam 750 mg tablet 750 mg PO BID Qty: 180 1RF (DME) blood-glucose meter [FreeStyle Lite Meter] Kit See Rx Instructions .ROUTE .MEDSUPPLY Qty: 1 0RF Rx Instructions: As directed twice a day (DME) lancets [FreeStyle Lancets] 28 gauge misc See Rx Instructions .ROUTE .MEDSUPPLY Qty: 100 6RF Rx Instructions: As directed twice a day pantoprazole 40 mg tablet,delayed release (DR/EC) 40 mg PO DAILY Qty: 90 2RF Rx Instructions: take one tablet half an hour before breakfast sucralfate 100 mg/mL suspension 10 ml PO BEDTIME Qty: 400 3RF Interventions: ED Discharge Assessment Last Done: 05/07/23 03:04 Discharge Date/Time: 05/07/23 03:05
[2023-05-07] MEDS: Loperamide HCl 2 MG CAPSULE 4 MG PO (01:54)
[2023-05-07] MEDS: Magnesium Hydrox/Alum Hydrox 30 ML ORAL.SUSP PO (01:54)
[2023-05-07 01:56] VITALS: BP 109/72; PULSE 82; RESP 16; O2SAT 99
== END 2023-05-07 03:05 | disposition home or self-care (01) ==
PROVIDERS: Emergency Provider Internal Medicine; PCP Internal Medicine
DX: K52.9 Noninfective gastroenteritis and colitis, unspecified (principal); E11.9 Type 2 diabetes mellitus without complications; E78.5 Hyperlipidemia, unspecified; J45.20 Mild intermittent asthma, uncomplicated; Q90.9 Down syndrome, unspecified; Z79.02 Long term (current) use of antithrombotics/antiplatelets; Z79.85 Long-term (current) use of injectable non-insulin antidiabetic drugs; Z79.899 Other long term (current) drug therapy
CPT/HCPCS: 36415; 80053; 81001; 81025; 83690; 85027; 87086; 99283; 99284

== ENCOUNTER 2023-05-18 11:53 | Outpatient (AMB) | payer OTHER, SELFPAY ==
[2023-05-18 11:53] VITALS: BP 85/61; PULSE 68; BMI 29.9
--- NOTE | 2023-05-18 11:53 | MHC.OFFVIS ---
Intake Vital Signs 05/18/23 11:53 Height 4 ft 4 in Weight 115 lb 1.301 oz BMI 29.9 BP 85/61 L Blood Pressure Location Rt brachial Position Sitting Pulse 68 Pulse Source Pulse Oximeter Intake Visit Reasons: 3 month follow up Intake Note: Pt presents to the office today for a 3 month follow up. Pt states she gets stomach pain everyday but is a little worse when she eats but denies any nausea vomiting or diarrhea at this time. Allergies penicillamine Allergy (Mild, Verified 05/18/23 11:56) Rash Penicillins [PENICILLINS] Allergy (Mild, Verified 05/18/23 11:56) RASH HPI 3 month follow up HPI Details LAST VISIT GERD (gastroesophageal reflux disease) Continue current regimen with pantoprazole and sucralfate. Mild chronic inactive gastritis, mild inflammation at the GE junction and no esophagitis found. Discussed with patient and her mom avoiding dietary triggers and late night snacking. Staying upright for minimum 3 hours after meals discussed with patient. Epigastric abdominal pain Continue current management with pantoprazole and sucralfate. Avoiding dietary triggers discussed with patient's mom. Patient is doing better and eating healthier. Will hold off on sending patient for gastric emptying study. Patient does not have symptoms of gastroparesis. We will watch patient early satiety and if patient will experience symptoms will send her for procedure then. Postprandial diarrhea Continue low FODMAP diet. Patient is moving her bowels without any issues and no longer has diarrhea unless she eats something greasy. Patient denies any abdominal pain or discomfort. She will follow-up in our office in 6 months, sooner on as needed basis. Both patient and her mom are agreeable to plan of care and verbalizes understanding instructions. They were given the opportunity to ask questions and all questions answered. ? Thank you for allowing me to participate in her care Plan Medications New sucralfate 10 mL PO BEDTIME 400 mL 3RF K21.9 - Gastro-esophageal reflux disease without esophagitis Refilled pantoprazole take one tablet half an hour before breakfast 40 mg PO DAILY 90 tabs 2RF K21.9 - Gastro-esophageal reflux disease without esophagitis Discontinued sucralfate Discontinued Reason: Duplicate 1 g PO BID 60 tabs 0RF TODAY'S VISIT Patient is here today for follow-up. Patient is accompanied by her mother. She reports that patient has occasional abdominal cramping. Yesterday patient had cramps not always related to eating. Patient is taking pantoprazole in the morning and sucralfate at bedtime. Patient's mother reports that patient suffers from constipation at times. Patient reports that she is using Senokot when patient does not have a bowel movements for couple of days. Patient denies any nausea or vomiting. Patient started going out for exercise. Patient reports that she enjoys going to [employer]. Per patient's mom she is drinking fluids. Reports to have a good appetite otherwise [facility] Medical History DM2 (diabetes mellitus, type 2) Autoimmune thyroiditis Type 2 diabetes mellitus with hyperglycemia, without long-term current use of insulin Down's syndrome Seizure disorder Scoliosis Surgical History History of esophagogastroduodenoscopy (EGD) No pertinent past surgical history Family History Father Diabetes Mother Diabetes Maternal Grandmother Pancreatic cancer Social History Household Members Other:: Parents - mother [place] Housing: Apartment Alcohol intake: never Patient Tobacco Use Status: Never used Tobacco e-Cigarette/Vaping Use: Never Used Second Hand Smoke Exposure: No service: No Current occupational status: disabled Cognitive needs: No Hearing needs: No Vision needs: No Female Reproductive History Menstrual Age of Menarche: 11 Review of Systems Const Denies weight gain and Denies weight loss ENT Reports no additional complaints, Denies dysphagia and Denies odynophagia Card Reports no additional complaints Resp Reports no additional complaints GI Reports abdominal pain (epigastric), Denies belching, Denies melena, Denies bloating, Reports constipation, Denies dysphagia, Denies excessive flatus, Denies dyspepsia, Denies heartburn, Denies diarrhea, Denies loose stools, Denies nausea, Denies odynophagia and Denies vomiting Reports no additional complaints Musc Reports no additional complaints Neuro Reports no additional complaints Psych Reports no additional complaints Endo Reports no additional complaints Physical Exam Vital Signs: Last Vital Signs Pulse 68 05/18/23 11:53 BP 85/61 L 05/18/23 11:53 BMI result Body Mass Index 29.9 Const Other: Patient with Down syndrome unable to get full history from patient General: healthy appearing, no acute distress and well developed Nutritional Appearance: well nourished Orientation/consciousness: patient oriented x3 HEENT Head: Yes normal to inspection, Yes normocephalic and Yes atraumatic Face and sinus: Yes normal facial exam Mouth: Normal oral and palatal mucosa present Throat: Yes posterior oropharynx normal, Yes tonsils normal and Yes uvula midline Eyes General: appearance normal, both eyes and all related structures Neck Neck: Yes normal visual inspection, Yes full ROM and Yes trachea midline Thyroid: Thyroid normal Resp Effort & Inspection: normal respiratory effort, able to speak in complete sentences, no tracheal deviation and symmetric chest movement Auscultation: clear to auscultation bilaterally Cardio Jugular venous distension: no JVD Rate: regular rate Heart sounds: S1 normal heart sound present, S2 normal heart sound present, no gallops and no murmurs GI Inspection: Yes normal to inspection and No distended Palpation (GI): Soft to palpation, not firm, nontender and No hepatosplenomegaly present Auscultation: normal bowel sounds General: Yes no CVA tenderness Back/Spine/Pelvis Back: no CVA tenderness Skin General skin exam: elasticity normal, turgor normal and dry skin Neuro General: patient oriented x3 Psych Appearance: grossly normal Mental Status: mental status grossly normal Speech and movement: Normal speech and movement present Affect: normal affect Attitude: cooperative Thought process: Normal thought process present Thought content: Normal thought content present Insight: Good insight present (Psych) Judgement: Good judgement present (Psych) Assessment & Plan Assessment & Plan (1) GERD (gastroesophageal reflux disease): Code(s): K21.9 - Gastro-esophageal reflux disease without esophagitis Qualifiers: Esophagitis presence: without esophagitis Qualified Code(s): K21.9 - Gastro-esophageal reflux disease without esophagitis (2) Epigastric abdominal pain: Code(s): R10.13 - Epigastric pain (3) Postprandial diarrhea: Code(s): K52.9 - Noninfective gastroenteritis and colitis, unspecified (4) Constipation: Code(s): K59.00 - Constipation, unspecified Qualifiers: Constipation type: slow transit constipation Qualified Code(s): K59.01 - Slow transit constipation Plan Epigastric pain and not related to eating, reports bloating. Not moving her bowels every day and not emptying completely. She is taking sucralfate which could be binding had her up a little bit. Patient was encouraged to increase fluid intake and activity. Continue going to [employer] classes. Patient can take Senokot every evening to help her move her bowels better. Patient's mom will call if she will continue to have epigastric discomfort. Discussed with patient will FODMAP diet. List of food recommended as well as list of food to avoid given to patient. Patient will return in 3 months, sooner on as needed basis. Both patient and her mom are agreeable to plan of care and verbalizes understanding of his of instructions. They were given the opportunity to ask questions and all questions answered. Thank you for allowing me to participate in her care Medications: New sennosides (Natural Senna Laxative) 17.2 mg (2 x 8.6 mg) PO BEDTIME 180 tabs 3RF constipation K59.00 - Constipation, unspecified Coding Level of Care Code Est Pt Level 4 (20168) Diagnoses Gastroesophageal reflux disease without esophagitis K21.9 Esophagitis presence: without esophagitis Epigastric abdominal pain R10.13 Postprandial diarrhea K52.9 Slow transit constipation K59.01 Constipation type: slow transit constipation Time Spent (min) 35 Comment 25 minutes spent with patient and additional 10 minutes spent reviewing her records
== END 2023-05-18 12:44 | disposition home or self-care (01) ==
LOC: HO.HGI 11:53
PROVIDERS: PCP Internal Medicine; Visit Provider Nurse Practitioner Family
DX: K21.9 Gastro-esophageal reflux disease without esophagitis (principal); R10.13 Epigastric pain; K52.9 Noninfective gastroenteritis and colitis, unspecified; K59.01 Slow transit constipation
CPT/HCPCS: 99214

== ENCOUNTER → 2023-05-18 11:53 | Outpatient (BNVA) | payer OTHER, SELFPAY | PROVIDERS: PCP Internal Medicine; Visit Provider Nurse Practitioner Family | DX: K21.9 Gastro-esophageal reflux disease without esophagitis (principal); K52.9 Noninfective gastroenteritis and colitis, unspecified; K59.01 Slow transit constipation; R10.13 Epigastric pain | CPT/HCPCS: 99212 ==

== ENCOUNTER 2023-06-13 11:25 | Outpatient (REF) | payer OTHER, SELFPAY ==
[2023-06-20 23:50] LABS: Pancreatic Elastase-1 146 mcg/g
== END 2023-06-13 11:26 | disposition home or self-care (01) ==
LOC: HO.LNP 11:25
PROVIDERS: Visit Provider Nurse Practitioner Family
DX: K21.9 Gastro-esophageal reflux disease without esophagitis (principal); E11.9 Type 2 diabetes mellitus without complications; R10.9 Unspecified abdominal pain
CPT/HCPCS: 82043; 82570; 82656; 87338; 87507

== ENCOUNTER 2023-06-14 17:08 | Outpatient (AMB) | payer OTHER, SELFPAY ==
[2023-06-14 17:23] VITALS: BP 86/52; PULSE 70; RESP 16; O2SAT 98; BMI 30.3
--- NOTE | 2023-06-14 17:23 | MHC.PC.OV ---
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 Required: No Accompanied by: Self / Same As Patient Allergies penicillamine Allergy (Mild, Verified 06/14/23 17:34) Rash Penicillins [PENICILLINS] Allergy (Mild, Verified 06/14/23 17:34) RASH Medication List - Last Reconciled 06/14/23 by Vikki Solis MD albuterol sulfate 2.5 mg (3 mL) inhalation Q4-6H PRN blood sugar diagnostic (FreeStyle Lite Strips) As directed twice a day blood-glucose meter (FreeStyle Lite Meter kit) As directed twice a day cholecalciferol (vitamin D3) 25 mcg PO DAILY 90 days dulaglutide (Trulicity) 0.75 mg (0.5 mL) subcut QWEEK 90 days lancets (FreeStyle Lancets) As directed twice a day levetiracetam 750 mg PO BID levothyroxine 75 mcg PO DAILY 90 days loperamide (Imodium A-D) 2 mg PO Q6H PRN metformin ER 500 mg PO DAILY ondansetron 4 mg PO Q6-8H PRN pantoprazole 40 mg PO DAILY rosuvastatin 10 mg PO DAILY 90 days sennosides (Natural Senna Laxative) 17.2 mg (2 x 8.6 mg) PO BEDTIME sucralfate 10 mL PO BEDTIME Tobacco use date assessed: 08/26/22 HPI HPI Comments History of Present Illness Details This is a 37-year-old female with Down syndrome, diabetes mellitus type 2, hyperlipidemia, seizures and autoimmune thyroiditis that comes today accompanied by mother which is the oyster shucker for follow-up on her conditions. A1c within goal. I will replace Trulicity with Ozempic. Last LDL was within goal and this will be repeated. Has not had a seizure in over 3 months. Last TSH was mildly elevated and this will be repeated. She denies any chest pain or shortness of breath. Compliant with medications. [facility] Medical History DM2 (diabetes mellitus, type 2) Autoimmune thyroiditis Type 2 diabetes mellitus with hyperglycemia, without long-term current use of insulin Down's syndrome Seizure disorder Scoliosis Surgical History History of esophagogastroduodenoscopy (EGD) No pertinent past surgical history Family History Father Diabetes Mother Diabetes Maternal Grandmother Pancreatic cancer Social History Household Members Other:: Parents - mother [place] Housing: Apartment Alcohol intake: never Patient Tobacco Use Status: Never used Tobacco e-Cigarette/Vaping Use: Never Used Second Hand Smoke Exposure: No service: No Current occupational status: disabled Cognitive needs: No Hearing needs: No Vision needs: No Female Reproductive History Menstrual Age of Menarche: 11 Questionnaire PHQ-9 Over the last 2 weeks, how often have you been bothered by any of the following problems? 1. Little interest or pleasure in doing things: not at all 2. Feeling down, depressed, or hopeless: not at all 3. Trouble falling or staying asleep, or sleeping too much: not at all 4. Feeling tired or having little energy: not at all 5. Poor appetite or overeating: not at all 6. Feeling bad about yourself - or that you are a failure or have let yourself or your family down: not at all 7. Trouble concentrating on things, such as reading the newspaper or watching television: not at all 8. Moving or speaking so slowly that other people could have noticed. Or the opposite - being so fidgety or restless that you have been moving around a lot more than usual: not at all 9. Thoughts that you would be better off or of hurting yourself in some way: not at all Total score: 0 Depression Screening Interpretation: Negative Depression Screening Done: Yes 00537 - PHQ-9 Billing: Yes Source: Developed by Drs. Andre Black, Tayla Maldonado, Bishop Monterroso and colleagues, with an educational jo ann from [email or web address]. Thrive Questionnaire Date Thrive assessed: 06/14/23 I am a: Patient What is your living situation today?: I have a steady place to live Within the past 12 months, did the food you bought not last and you didn't have the money to get more?: Never true Within the past 12 months, did you worry whether your food would run out before you got money to buy more?: Never true Do you have trouble paying for medicines?: No Do you have trouble getting transportation to medical appointments?: No Do you have trouble paying your heating and electricity bill?: No Do you have trouble taking care of your child, family member or friend?: No Do you have trouble with day-to-day activities such as bathing, preparing meals, shopping, managing finances, etc.?: No Are you currently unemployed and looking for a job?: No Are you interested in more education?: No Please select the resources that you would like help with: None Currently or been in a relationship where the following occur: no concerns reported AUDIT C Alcohol Use Questionnaire (AUDIT-C) 1. How often do you have a drink containing alcohol?: Never 3. How often do you have six or more drinks on one occasion?: Never Total Score: 0 MIS-7 AMB Questionnaire MIS-7 Date MIS - 7 assessed: 06/14/23 Feeling nervous, anxious, or on edge: 0 = Not at all Not being able to stop or control worryin = Not at all Worrying too much about different things: 0 = Not at all Trouble relaxin = Not at all Being so restless that it is hard to sit still: 0 = Not at all Becoming easily annoyed or irritable: 0 = Not at all Feeling afraid as if something awful might happen: 0 = Not at all Total MIS-7 score (0-4 normal; 5-9 mild; 10-14 moderate; 15-21 severe): 0 Source: Developed by Drs. Andre Black, Tayla Maldonado, Bishop Monterroso and colleagues, with an educational jo ann from [email or web address]. MIS-7 Assessment Billing MIS-7 Assessment Tool: MIS-7 Assessment 76744 Review of Systems Const All systems reviewed & are unremarkable except as noted in HPI and below Eyes Reports no additional complaints, Denies change in vision and Denies other visual disturbances Card Denies chest pain at rest, Denies chest pain with activity, Denies edema, Denies irregular heart rhythm, Denies claudication, Denies dyspnea, Denies dyspnea on exertion, Denies orthopnea, Denies paroxysmal nocturnal dyspnea and Denies slow heart rate Resp Denies cough, Denies dyspnea and Denies dyspnea on exertion GI Denies abdominal pain, Denies change in bowel habits, Denies excessive flatus, Denies nausea and Denies vomiting Denies urinary incontinence, Denies urinary hesitancy and Denies urinary urgency Musc Denies abnormal gait, Denies atrophy, Denies deformity and Denies limited range of motion Skin/Breast Denies bleeding lesions, Denies changing lesions and Denies rash Neuro Denies abnormal gait, Denies behavioral changes and Denies lack of coordination Psych Denies behavioral changes Physical exam (Primary Care) Vital Signs: Last Vital Signs Pulse 70 06/14/23 17:23 Resp 16 06/14/23 17:23 BP 86/52 L 06/14/23 17:23 Pulse Ox 98 06/14/23 17:23 Oxygen Delivery Method Room Air 06/14/23 17:23 BMI result Body Mass Index 30.3 Tobacco/Smoking Status: Tobacco use Status Tobacco use date assessed 08/26/22 06/14/23 17:24 Patient Tobacco Use Status Never used Tobacco 06/14/23 17:24 e-Cigarette/Vaping Use Never Used 06/14/23 17:24 Depression Screening Interpretation: Negative Thrive Assessment: Date of Thrive Assessment Date Thrive assessed 08/26/22 06/14/23 17:24 Currently or been in a relationship where the following occur: no concerns reported Eyes General: appearance normal, both eyes and all related structures Eyelids: Yes eyelids normal Conjunctivae: conjunctivae normal Neck Neck: Yes normal visual inspection and Yes supple Resp Effort & Inspection: normal respiratory effort Auscultation: clear to auscultation bilaterally Cardio Jugular venous distension: no JVD Rate: regular rate Rhythm: regular rhythm Heart sounds: S1 normal heart sound present and S2 normal heart sound present Extrem General: Yes full ROM Psych Appearance: grossly normal Office Procedures Flu Questionnaire Does the patient have a severe egg allergy?: No Does the patient have severe life threatening allergies?: No Does the patient have a fever or illness today?: No Has the patient ever had Guillain-Van Syndrome?: No Has the patient ever had any past reaction to a flu shot?: No Results AMB Hemoglobin A1c AMB Hemoglobin A1c 6.2 % Last Edit by DWAYNE Izaguirre on 06/14/23 17:33 Immunizations flu vacc [id number] 6mos up(PF) 60 mcg(15 mcgx4)/0.5 mL IM syringe Performing Provider: Vikki Solis MD [facility] Administered by: DWAYNE Izaguirre on 06/14/23 17:31 Dose Route Admin Location Dispensed Lot Number Expiration Date NDC [employer] 0.5 mL IM Left Deltoid 0.5 mL [id number] 12/04/23 17661-369-53 [employer] VIS Given Date VIS Provided VIS Publication Date 06/14/23 Single Vaccine 21 Eligibility Eligibility Date Funding Source Not VFC Eligible 06/14/23 Private Results Reviewed Results Reviewed: Laboratory Last Values Hgb A1c (Clinic) 6.2 % (4.0-6.0) H 06/14/23 17:32 Assessment and Plan Assessment & Plan (1) DM2 (diabetes mellitus, type 2): Code(s): E11.9 - Type 2 diabetes mellitus without complications Qualifiers: Diabetes mellitus skilled nursing insulin use: without skilled nursing use Diabetes mellitus complication status: without complication Qualified Code(s): E11.9 - Type 2 diabetes mellitus without complications Plan: Continue metformin. Discontinue Trulicity. Start Ozempic. A1c goal is equal or less than 7%. (2) Autoimmune thyroiditis: Code(s): E06.3 - Autoimmune thyroiditis Plan: Continue levothyroxine. Monitor TSH. (3) Seizure disorder: Code(s): G40.909 - Epilepsy, unspecified, not intractable, without status epilepticus Plan: Continue Keppra. (4) Hyperlipidemia LDL goal <70: Code(s): E78.5 - Hyperlipidemia, unspecified Plan: Continue statins. LDL goal is less than 70. Orders: Orders AMB Hemoglobin A1c Today E11.9 - Type 2 diabetes mellitus without complications Vitamin D 25-OH Total Today E55.9 - Vitamin D deficiency, unspecified Comprehensive [place]. Panel Fast Today E78.5 - Hyperlipidemia, unspecified Thyroid Stimulating Hormone Today E06.3 - Autoimmune thyroiditis Influenza [id number] Immunization Today Z23 - Encounter for immunization Lipid Panel Today E78.5 - Hyperlipidemia, unspecified Microalbumin, Random (w Creat) Today E11.9 - Type 2 diabetes mellitus without complications Vitamin B12 and Folate Today E53.8 - Deficiency of other specified B group vitamins Medications: New semaglutide (Ozempic) for 4 weeks 0.25 mg (0.368 mL) subcut QWEEK 28 days 1.472 mL 0RF E11.65 - Type 2 diabetes mellitus with hyperglycemia Discontinued dulaglutide (Trulicity) Discontinued Reason: Patient Completed Course 0.75 mg (0.5 mL) subcut QWEEK 90 days 6.5 mL 1RF E11.9 - Type 2 diabetes mellitus without complications Coding Level of Care Code Est Pt Level 4 (47105) Diagnoses Type 2 diabetes mellitus without complication, without long-term current use of insulin E11.9 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
== END 2023-06-14 17:40 | disposition home or self-care (01) ==
LOC: HO.HMGH 17:08
PROVIDERS: PCP Internal Medicine; Visit Provider Internal Medicine
DX: E11.9 Type 2 diabetes mellitus without complications (principal); E06.3 Autoimmune thyroiditis; G40.909 Epilepsy, unspecified, not intractable, without status epilepticus; Z23 Encounter for immunization; E78.5 Hyperlipidemia, unspecified
CPT/HCPCS: 83036; 90471; 90686; 99214

== ENCOUNTER 2023-06-17 08:37 | Outpatient (REF) | payer OTHER, SELFPAY ==
[2023-06-17 10:50] LABS: Alanine Aminotransferase 30 U/L (0-31); Albumin Level 4.3 g/dL (3.5-5.0); Alkaline Phosphatase 84 U/L (39-117); Anion Gap 12 (12-20); Aspartate Amino Transferase 19 U/L (5-31); Bilirubin Total 0.5 mg/dL (0.0-1.0); Blood Urea Nitrogen 17 mg/dL (9-16); Calcium 10.1 mg/dL (8.4-10.2); Carbon Dioxide 29 mmol/L (22-29); Chloride 102 mmol/L (96-108); Cholesterol 166 mg/dL (<200); Estimated Glomerular Filt Rate > 60; Glucose Fasting 107 mg/dL (60-99); HDL Cholesterol 38 mg/dL (>40); LDL Cholesterol Calculated 96 mg/dL (<100); Potassium 3.9 mmol/L (3.3-5.1); Sodium 139 mmol/L (135-145); Total Protein 8.2 g/dL (6.5-8.0); Triglycerides 163 mg/dL (<150)
[2023-06-17 11:09] LABS: Thyroid Stimulating Hormone 0.19 uIU/mL (0.32-4.0); Vitamin D 25-OH Total 50.2 ng/mL (>30)
[2023-06-17 11:28] LABS: Vitamin B12 638 pg/mL (200-900)
[2023-06-17 12:49] LABS: Creatinine Urine 59.53 mg/dL; Microalbumin Urine < 5.0 mg/L
[2023-06-18 09:28] LABS: Adenovirus F 40/41 Not Detected (Not Detect.); Astrovirus Not Detected (Not Detect.); Campylobacter Not Detected (Not Detect.); Cryptosporidium Not Detected (Not Detect.); Cyclospora cayetanensis Not Detected (Not Detect.); E. coli EAEC Not Detected (Not Detect.); E. coli EPEC Not Detected (Not Detect.); E. coli ETEC Not Detected (Not Detect.); E. coli STEC Not Detected (Not Detect.); Entamoeba histolytica Not Detected (Not Detect.); Giardia lamblia Not Detected (Not Detect.); Norovirus GI/GII Not Detected (Not Detect.); Plesiomonas shigelloides Not Detected (Not Detect.); Rotavirus A Not Detected (Not Detect.); Salmonella Not Detected (Not Detect.); Sapovirus Not Detected (Not Detect.); Shigella sp./EIEC Not Detected (Not Detect.); Vibrio Not Detected (Not Detect.); Vibrio Cholerae Not Detected (Not Detect.); Yersinia enterocolitica Not Detected (Not Detect.)
== END 2023-06-17 08:38 | disposition home or self-care (01) ==
LOC: HO.LAB 08:37
PROVIDERS: Nurse Practitioner Family; PCP Internal Medicine; Visit Provider Internal Medicine
DX: E78.5 Hyperlipidemia, unspecified (principal); E03.9 Hypothyroidism, unspecified; E53.8 Deficiency of other specified B group vitamins; E55.9 Vitamin D deficiency, unspecified; E11.9 Type 2 diabetes mellitus without complications; R19.7 Diarrhea, unspecified; E06.3 Autoimmune thyroiditis
CPT/HCPCS: 36415; 80053; 80061; 82043; 82306; 82570; 82607; 82746; 84443; 87507

== ENCOUNTER 2023-08-19 11:36 | Outpatient (AMB) | payer OTHER, SELFPAY ==
--- NOTE | 2023-08-19 11:59 | MHC.OFFVIS ---
Intake Vital Signs 08/19/23 12:02 Height 4 ft 4 in Weight 118 lb BMI 30.7 BP 102/52 L Blood Pressure Location Lt brachial Position Sitting Pulse 62 Intake Visit Reasons: 3 month follow up Intake Note: Patient follow up for constipation. Patient denies y GI issues , she needed refill for Creon. 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 Not moving her bowels every day and not emptying completely. She is taking sucralfate which could be binding had her up a little bit. Patient was encouraged to increase fluid intake and activity. Continue going to [employer] classes. Patient can take Senokot every evening to help her move her bowels better. Patient's mom will call if she will continue to have epigastric discomfort. Discussed with patient will FODMAP diet. List of food recommended as well as list of food to avoid given to patient. Patient will return in 3 months, sooner on as needed basis. Both patient and her mom are agreeable to plan of care and verbalizes understanding of his of instructions. They were given the opportunity to ask questions and all questions answered. ? Thank you for allowing me to participate in her care Medications New sennosides (Natural Senna Laxative) 17.2 mg (2 x 8.6 mg) PO BEDTIME 180 tabs 3RF constipation K59.00 TODAY'S VISIT Patient is here today for follow-up. Patient is accompanied by her mom. Both mom and patient reports that she has been doing quite well. Patient no longer is experiencing abdominal bloating. Moving her bowels without any issues. Currently patient is taking senna at bedtime. Her symptoms of acid reflux are suppressed with pantoprazole. Patient also is taking Creon with meals. Patient is requesting a refill as she has only few doses left. Patient denies any nausea or vomiting. Denies any melena, hematochezia, unintentional weight loss or ribbon like stools. Patient denies any dyspepsia, dysphagia or odynophagia. PENDING SALE TO [facility] Medical History DM2 (diabetes mellitus, type 2) Autoimmune thyroiditis Type 2 diabetes mellitus with hyperglycemia, without long-term current use of insulin Down's syndrome Seizure disorder Scoliosis Surgical History History of esophagogastroduodenoscopy (EGD) No pertinent past surgical history Family History Father Diabetes Mother Diabetes Maternal Grandmother Pancreatic cancer Social History Household Members Other:: Parents - mother [place] Housing: Apartment Alcohol intake: never Patient Tobacco Use Status: Never used Tobacco e-Cigarette/Vaping Use: Never Used Second Hand Smoke Exposure: No service: No Current occupational status: disabled Cognitive needs: No Hearing needs: No Vision needs: No Female Reproductive History Menstrual Age of Menarche: 11 Review of Systems Const Denies weight gain and Denies weight loss ENT Reports no additional complaints, Denies dysphagia and Denies odynophagia Card Reports no additional complaints Resp Reports no additional complaints GI Denies abdominal pain, Denies belching, Denies melena, Denies bloating, Denies change in bowel habits, Denies dysphagia, Denies excessive flatus, Denies dyspepsia, Denies heartburn, Denies diarrhea, Denies loose stools, Denies nausea, Denies odynophagia and Denies vomiting Musc Reports no additional complaints Neuro Reports no additional complaints Psych Reports no additional complaints Endo Reports no additional complaints Physical Exam Vital Signs: Last Vital Signs Pulse 62 08/19/23 12:02 BP 102/52 L 08/19/23 12:02 BMI result Body Mass Index 30.7 Const Other: Patient with Down syndrome unable to get full history from patient General: healthy appearing, no acute distress and well developed Nutritional Appearance: well nourished Orientation/consciousness: patient oriented x3 Resp Effort & Inspection: normal respiratory effort, able to speak in complete sentences, no tracheal deviation and symmetric chest movement Auscultation: clear to auscultation bilaterally Cardio Rate: regular rate GI Inspection: Yes normal to inspection and No distended Palpation (GI): Soft to palpation, not firm, nontender and No hepatosplenomegaly present Auscultation: normal bowel sounds General: Yes no CVA tenderness Back/Spine/Pelvis Back: no CVA tenderness Skin General skin exam: elasticity normal, turgor normal and dry skin Neuro General: patient oriented x3 Psych Appearance: grossly normal Assessment & Plan Assessment & Plan (1) GERD (gastroesophageal reflux disease): Code(s): K21.9 - Gastro-esophageal reflux disease without esophagitis Qualifiers: Esophagitis presence: without esophagitis Qualified Code(s): K21.9 - Gastro-esophageal reflux disease without esophagitis (2) Epigastric abdominal pain: Code(s): R10.13 - Epigastric pain (3) Postprandial diarrhea: Code(s): K52.9 - Noninfective gastroenteritis and colitis, unspecified (4) Constipation: Code(s): K59.00 - Constipation, unspecified Qualifiers: Constipation type: slow transit constipation Qualified Code(s): K59.01 - Slow transit constipation (5) Exocrine pancreatic insufficiency: Code(s): K86.81 - Exocrine pancreatic insufficiency Plan Continue taking Senokot. Patient was encouraged to increase fluid intake and activity to promote better bowel motility continue pantoprazole every morning half an hour before breakfast. Next visit we might decrease the dose to 20 mg daily if patient will be doing well. She can continue taking Creon no change on the dose. Continue avoiding dietary triggers. Staying upright for minimal 3 hours after meals discussed with patient. Avoid eating late at night. Patient will return in 6 months, sooner on as needed basis. Both patient and her mom are agreeable to plan of care and verbalizes understanding of instructions. They were given the opportunity to ask questions and all questions answered. Thank you for allowing me to participate in her care Medications: Refilled pantoprazole take one tablet half an hour before breakfast 40 mg PO DAILY 90 tabs 2RF K21.9 - Gastro-esophageal reflux disease without esophagitis [id number] 24,000-76,000 -120,000 unit (Creon) administer with meals and/or snacks 1 cap PO QID 120 caps 3RF K86.89 - Other specified diseases of pancreas sennosides (Natural Senna Laxative) 17.2 mg (2 x 8.6 mg) PO BEDTIME 180 tabs 3RF constipation K59.00 - Constipation, unspecified Coding Level of Care Code Est Pt Level 3 (09569) Diagnoses Gastroesophageal reflux disease without esophagitis K21.9 Esophagitis presence: without esophagitis Epigastric abdominal pain R10.13 Postprandial diarrhea K52.9 Slow transit constipation K59.01 Constipation type: slow transit constipation Exocrine pancreatic insufficiency K86.81 Time Spent (min) 25 Comment 15 minutes spent with patient and additional 10 minutes spent reviewing her records
[2023-08-19 12:02] VITALS: BP 102/52; PULSE 62; BMI 30.7
== END 2023-08-19 12:08 | disposition home or self-care (01) ==
PROVIDERS: PCP Internal Medicine; Visit Provider Nurse Practitioner Family
DX: K21.9 Gastro-esophageal reflux disease without esophagitis (principal); R10.13 Epigastric pain; K52.9 Noninfective gastroenteritis and colitis, unspecified; K59.01 Slow transit constipation; K86.81 Exocrine pancreatic insufficiency
CPT/HCPCS: 99213

== ENCOUNTER → 2023-08-19 11:36 | Outpatient (BNVA) | payer OTHER, SELFPAY | PROVIDERS: PCP Internal Medicine; Visit Provider Nurse Practitioner Family | DX: K21.9 Gastro-esophageal reflux disease without esophagitis (principal); R10.13 Epigastric pain; K52.9 Noninfective gastroenteritis and colitis, unspecified; K59.01 Slow transit constipation; K86.81 Exocrine pancreatic insufficiency; Z79.899 Other long term (current) drug therapy | CPT/HCPCS: 99212 ==

== ENCOUNTER 2023-09-07 21:45 | Emergency (ER) | payer OTHER, SELFPAY ==
--- NOTE | ~2023-09-07 | CT_ITS ---
EXAMINATION: CT ABDOMEN AND PELVIS WITHOUT CONTRAST CLINICAL INFORMATION: Abdominal pain. COMPARISON: None available. TECHNIQUE: Multidetector volumetric imaging was performed from the superior aspect of the liver through the pubic symphysis. Sagittal and coronal reformatted images were obtained on the technologist's workstation. This CT examination was performed using dose optimization techniques as appropriate, variously including the following: *Automated exposure control *Adjustment of mA and/or kV according to patient size (this includes techniques or standardized protocols for targeted exams where dose is matched to indication/reason for exam; i.e. extremities or head) *Use of iterative reconstruction technique DLP: 358 mGy-cm FINDINGS: LUNG BASES: The visualized lung bases are unremarkable. LIVER, GALLBLADDER, AND BILIARY TREE: The liver is normal in size, shape, and attenuation. No focal hepatic lesion or biliary ductal dilatation is present. The gallbladder is unremarkable with no evidence of radiopaque gallstones, gallbladder wall thickening, or obvious pericholecystic inflammatory changes. PANCREAS: Unremarkable. SPLEEN: Unremarkable. ADRENAL GLANDS: Unremarkable. KIDNEYS AND URETERS: The kidneys are normal in size, shape, and attenuation. No hydronephrosis, hydroureter, or calculi seen. No perinephric stranding. BLADDER: Unremarkable. GASTROINTESTINAL TRACT: The small and large bowel are unremarkable. The appendix is i not confidently seen as a separate structure. ABDOMINAL WALL: There is a small supraumbilical hernia containing fat. LYMPH NODES: Normal. VASCULAR: Unremarkable. PELVIC VISCERA: Unremarkable. OSSEOUS STRUCTURES: There is mild diffuse thoracolumbar disc degenerative change with curvature to the left. CT/CT abdomen pelvis wo IV con IMPRESSION: No acute intra-abdominal process. The appendix is not confidently seen as a separate structure. Fleischner guidelines were followed.
[2023-09-07 22:06] VITALS: BP 94/65; PULSE 65; RESP 20; TEMP 36.6; O2SAT 99; BMI 28.9
[2023-09-07 22:49] LABS: Basophils Absolute Auto 0.1 X10*3/uL (0.0-0.2); Basophils Percent Auto 0.8 % (0-2); Eosinophils Absolute Auto 0.1 X10*3/uL (0.0-0.4); Eosinophils Percent Auto 2.2 % (0-4); Hematocrit 41.8 % (37.0-47.0); Hemoglobin 14.4 g/dl (12.0-16.0); Imm Gran Abs Auto 0.01 X10*3/uL (0.00-0.03); Imm Gran Pct Auto 0.2 % (0.0-0.4); Lymphocytes Absolute Auto 2.1 X10*3/uL (1.2-4.9); Lymphocytes Percent Auto 32.2 % (20-40); MANUAL DIFF FLAG NO; Mean Corpuscular HGB Conc 34.4 g/dl (31.0-35.0); Mean Corpuscular Hemoglobin 33.3 pg (27.0-33.0); Mean Corpuscular Volume 96.5 fL (80.0-98.0); Mean Platelet Volume 8.7 fL (9.4-12.3); Monocytes Absolute Auto 0.5 X10*3/uL (0.1-1.2); Monocytes Percent Auto 8.5 % (2-11); Neutrophils Absolute Auto 3.6 x10*3/uL (2.0-8.3); Neutrophils Percent Auto 56.1 % (45-73); Platelet Count 265 X10*3/uL (160-400); Red Blood Count 4.33 X10*6/uL (4.20-5.50); Red Cell Distribution Width 12.9 % (11.0-16.0); White Blood Count 6.4 X10*3/uL (4.8-10.8)
[2023-09-07 22:51] LABS: Appearance Urine Clear; Color Urine Yellow; Glucose Urine UA Negative (Negative); Leukocyte Esterase Urine Small (1+) (Negative); Nitrite Urine Negative (Negative); UMIC TRIGGER UACC YES; Urine Blood Negative (Negative); Urine Ketones Negative (Negative); Urine Protein Trace mg/dL (Neg-Trace)
[2023-09-07 23:09] LABS: Alanine Aminotransferase 28 U/L (0-31); Albumin Level 4.2 g/dL (3.5-5.0); Alkaline Phosphatase 86 U/L (39-117); Anion Gap 13 (12-20); Aspartate Amino Transferase 20 U/L (5-31); Bilirubin Direct 0.2 mg/dL (0.0-0.5); Bilirubin Total 0.4 mg/dL (0.0-1.0); Blood Urea Nitrogen 17 mg/dL (9-16); Calcium 9.3 mg/dL (8.4-10.2); Carbon Dioxide 28 mmol/L (22-29); Chloride 104 mmol/L (96-108); Creatinine Clr Calc Pharmacy 43.9; Estimated Glomerular Filt Rate 56; Glucose Random 102 mg/dL (60-115); HCG Quantitative < 2 mIU/mL; Potassium 3.8 mmol/L (3.3-5.1); Sodium 141 mmol/L (135-145); Total Protein 7.8 g/dL (6.5-8.0)
[2023-09-07 23:47] LABS: Bacteria Urine None Seen (None Seen); Hyaline Casts Urine 0-2 /LPF (0-2); RBC Urine 0-2 /HPF (0-2); UACC Culture Trigger YES; WBC Urine 0-5 /HPF (0-5)
--- NOTE | 2023-09-08 00:29 | ED_ITS ---
HPI - Abdominal Pain General Chief Complaint: Abdominal Pain Stated Complaint: abd pain Time Seen by Provider: 09/08/23 00:27 Source: patient and family Mode of arrival: ambulatory History of Present Illness HPI narrative: Patient history of down syndrome complaining of diffuse abdominal pain for last 2 days with loose bowel of fever no chills been eating normally Related Data Previous Rx's Medication Instructions Recorded blood-glucose meter (FreeStyle #1 ea 06/03/20 Lite Meter kit) lancets 28 gauge (FreeStyle #100 ea 06/03/20 Lancets) blood sugar diagnostic (FreeStyle #50 ea 04/09/21 Lite Strips) albuterol sulfate 2.5 mg/3 mL 2.5 mg (3 mL) inhalation Q4-6H PRN 03/29/23 (0.083 %) solution for nebulization shortness of breath or wheezing #90 mL metformin 500 mg tablet,extended 500 mg PO DAILY #90 tabs 04/16/23 release 24 hr cholecalciferol (vitamin D3) 25 25 mcg PO DAILY 90 days #90 caps 04/26/23 mcg (1,000 unit) capsule levetiracetam 750 mg tablet 750 mg PO BID #180 tabs 04/26/23 loperamide 2 mg tablet (Imodium 2 mg PO Q6H PRN loose stool #7 tabs 05/07/23 A-D) ondansetron 4 mg disintegrating 4 mg PO Q6-8H PRN nausea and 05/07/23 tablet vomiting #7 tabs sucralfate 100 mg/mL oral 10 ml PO BEDTIME #420 mL 06/09/23 suspension semaglutide 0.25 mg or 0.5 mg (2 0.25 mg (0.368 mL) subcut QWEEK 28 06/14/23 mg/3 mL) subcutaneous pen injector days #1.472 mL (Ozempic) levothyroxine 50 mcg tablet 50 mcg PO DAILY 90 days #90 tabs 06/18/23 rosuvastatin 20 mg tablet 20 mg PO DAILY 90 days #90 tabs 06/18/23 pantoprazole 40 mg tablet,delayed 40 mg PO DAILY #90 tabs 08/19/23 release sennosides 8.6 mg tablet (Natural 17.2 mg (2 x 8.6 mg) PO BEDTIME 08/19/23 Senna Laxative) constipation #180 tabs defzmy-fsbhuzcq-kupoonf 1 cap PO QID #120 caps 09/05/23 24,000-76,000-120,000 unit capsule,delayed rel (Creon) dicyclomine 20 mg tablet 20 mg PO TID PRN abdominal pain 09/08/23 #20 tabs Allergies Allergy/AdvReac Type Severity Reaction Status Date / Time penicillamine Allergy Mild Rash Verified 09/07/23 22:06 Penicillins [PENICILLINS] Allergy Mild RASH Verified 09/07/23 22:06 aspirin Allergy Rash Verified 09/07/23 22:06 Review of Systems Review of Systems Yes all other systems are reviewed and are negative [facility] Past Medical History Medical History DM2 (diabetes mellitus, type 2) Autoimmune thyroiditis Type 2 diabetes mellitus with hyperglycemia, without long-term current use of insulin Down's syndrome Seizure disorder Scoliosis Surgical History History of esophagogastroduodenoscopy (EGD) No pertinent past surgical history Family History Family History Father Diabetes Mother Diabetes Maternal Grandmother Pancreatic cancer Social History Social History Household Members Other:: Parents - mother [place] Housing: Apartment Alcohol intake: never Patient Tobacco Use Status: Never used Tobacco Smoked in Last 30 Days: No e-Cigarette/Vaping Use: Never Used Second Hand Smoke Exposure: No Use of substances other than those prescribed or required for medical reasons: No Advance Directives: No Advance Directives Information Provided: Yes service: No Current occupational status: disabled Cognitive needs: No Hearing needs: No Vision needs: No Physical Exam ED Vital Signs: Vital Signs - 24 hr 09/07/23 22:06 09/08/23 00:37 09/08/23 02:21 Temperature 98 F 98 F 98 F Pulse Rate 65 52 60 Respiratory Rate 20 16 16 Blood Pressure 94/65 106/58 L 110/70 Pulse Oximetry 99 99 100 Oxygen Delivery Method Room Air Room Air Room Air BMI result Body Mass Index 28.9 Appearance: Alert. Oriented X3. No acute distress. Eyes: PERRLA, ENT: Pharynx normal. Oral Mucosa moist Neck: Normal inspection. Neck supple. CVS: Normal heart rate and rhythm. Pulses normal. Respiratory: No respiratory distress. Equal air entry bilateral, no wheezing/rales/rhonchi Abdomen: Soft , mild tenderness epigastric area and right upper quadrant no rebound tenderness or guarding Bowel sounds are present, no mass palpable, no CVA tenderness Skin: Skin warm and dry. Normal skin color. Normal skin turgor. Extremities: No lower extremity edema. No calf tenderness Neuro: Oriented X 3. Medical Decision Making Differential Diagnosis Differential Diagnoses: The differential diagnosis associated with the presentation includes Irritable bowel syndrome/chronic pain/diarrhea Lab Data MDM Lab Attestation statement: I reviewed the patient's lab results. 09/07/23 22:44 09/07/23 22:44 Labs: Lab Results 09/07/23 Range/Units 22:44 WBC 6.4 (4.8-10.8) X10*3/uL RBC 4.33 (4.20-5.50) X10*6/uL Hgb 14.4 (12.0-16.0) g/dl Hct 41.8 (37.0-47.0) % MCV 96.5 (80.0-98.0) fL MCH 33.3 H (27.0-33.0) pg MCHC 34.4 (31.0-35.0) g/dl RDW 12.9 (11.0-16.0) % Plt Count 265 D (160-400) X10*3/uL MPV 8.7 L (9.4-12.3) fL Immature Gran % (Auto) 0.2 (0.0-0.4) % Neut % (Auto) 56.1 (45-73) % Lymph % (Auto) 32.2 (20-40) % Armstrong % (Auto) 8.5 (2-11) % Eos % (Auto) 2.2 (0-4) % Baso % (Auto) 0.8 (0-2) % Lymph # (Auto) 2.1 (1.2-4.9) X10*3/uL Armstrong # (Auto) 0.5 (0.1-1.2) X10*3/uL Eos # (Auto) 0.1 (0.0-0.4) X10*3/uL Baso # (Auto) 0.1 (0.0-0.2) X10*3/uL Abs Immat Gran (auto) 0.01 (0.00-0.03) X10*3/uL Absolute Neuts (auto) 3.6 (2.0-8.3) x10*3/uL Absolute Nucleated RBC 0.000 (0.0-0.012) X10*3/uL Nucleated RBC % (auto) 0.0 (0.0-0.2) /100WBC Sodium 141 (135-145) mmol/L Potassium 3.8 (3.3-5.1) mmol/L Chloride 104 (96-108) mmol/L Carbon Dioxide 28 (22-29) mmol/L Anion Gap 13 (12-20) BUN 17 H (9-16) mg/dL Creatinine 1.11 (0.5-1.4) mg/dL Estim Creat Clear Calc 43.9 Estimated GFR 56 Random Glucose 102 (60-115) mg/dL Calcium 9.3 D (8.4-10.2) mg/dL Total Bilirubin 0.4 (0.0-1.0) mg/dL Direct Bilirubin 0.2 (0.0-0.5) mg/dL AST 20 (5-31) U/L ALT 28 (0-31) U/L Alkaline Phosphatase 86 (39-117) U/L Total Protein 7.8 (6.5-8.0) g/dL Albumin 4.2 (3.5-5.0) g/dL Beta HCG, Quant < 2 mIU/mL Urine Color Yellow Urine Appearance Clear Urine pH 7.0 (5.0-9.0) Ur Specific [place] 1.020 (1.005-1.025) Urine Protein Trace (Neg-Trace) mg/dL Urine Glucose (UA) Negative (Negative) mg/dL Urine Ketones Negative (Negative) mg/dL Urine Blood Negative (Negative) Urine Nitrite Negative (Negative) Ur Leukocyte Esterase Small (1+) H (Negative) Urine RBC 0-2 (0-2) /HPF Urine WBC 0-5 (0-5) /HPF Ur Squamous Epith Cells 3-5 (0-2) /HPF Urine Bacteria None Seen (None Seen) Hyaline Casts 0-2 (0-2) /LPF Independent Interpretation I performed an independent interpretation of an: CT Scan Radiology Impression Discussion of test interpretation with radiology: I have reviewed the radiologist's reading. Medications Administered Discontinued Medications Generic Name Dose Route Start Last Admin Trade Name Freq PRN Reason Stop Dose Admin Dicyclomine HCl 20 mg 09/08/23 00:58 09/08/23 02:13 Dicyclomine Hcl 10 Mg Capsule PO 09/08/23 00:59 20 mg ONCE ONE Administration Discharge Plan Discharge Clinical Impression: Abdominal pain, Irritable bowel syndrome Patient Disposition: Home, Self-Care Instructions: Irritable Bowel Syndrome (ED), Abdominal Pain (ED) Additional Instructions: Likely have irritable bowel syndrome Take Bentyl 1 tablet every 8 hours as needed Prescriptions: New dicyclomine 20 mg tablet 20 mg PO TID PRN (Reason: abdominal pain) Qty: 20 0RF No Action (DME) FreeStyle Lite Strips Strip See Rx Instructions .ROUTE .MEDSUPPLY Qty: 50 11RF Rx Instructions: As directed twice a day albuterol sulfate 2.5 mg /3 mL (0.083 %) solution for nebulization 2.5 mg inhalation Q4-6H PRN (Reason: shortness of breath or wheezing) Qty: 90 0RF metformin 500 mg tablet extended release 24 hr 500 mg PO DAILY Qty: 90 2RF cholecalciferol (vitamin D3) 25 mcg (1,000 unit) capsule 25 mcg PO DAILY 90 Days Qty: 90 1RF levetiracetam 750 mg tablet 750 mg PO BID Qty: 180 1RF sucralfate 100 mg/mL suspension 10 ml PO BEDTIME Qty: 420 3RF levothyroxine 50 mcg tablet 50 mcg PO DAILY 90 Days Qty: 90 1RF rosuvastatin 20 mg tablet 20 mg PO DAILY 90 Days Qty: 90 1RF Creon 24,000-76,000 -120,000 unit capsule,delayed release(DR/EC) 1 cap PO QID Qty: 120 3RF Rx Instructions: administer with meals and/or snacks ondansetron 4 mg tablet,disintegrating 4 mg PO Q6-8H PRN (Reason: nausea and vomiting) Qty: 7 0RF loperamide [Imodium A-D] 2 mg tablet 2 mg PO Q6H PRN (Reason: loose stool) Qty: 7 0RF Ozempic 0.25 mg or 0.5 mg (2 mg/3 mL) pen injector 0.25 mg subcut QWEEK 28 Days Qty: 1.472 0RF Rx Instructions: for 4 weeks (DME) blood-glucose meter [FreeStyle Lite Meter] Kit See Rx Instructions .ROUTE .MEDSUPPLY Qty: 1 0RF Rx Instructions: As directed twice a day (DME) lancets [FreeStyle Lancets] 28 gauge misc See Rx Instructions .ROUTE .MEDSUPPLY Qty: 100 6RF Rx Instructions: As directed twice a day sennosides [Natural Senna Laxative] 8.6 mg tablet 17.2 mg PO BEDTIME Qty: 180 3RF pantoprazole 40 mg tablet,delayed release (DR/EC) 40 mg PO DAILY Qty: 90 2RF Rx Instructions: take one tablet half an hour before breakfast Interventions: ED Discharge Assessment Last Done: 09/08/23 02:21 Discharge Date/Time: 09/08/23 02:22
[2023-09-08 00:37] VITALS: BP 106/58; PULSE 52; RESP 16; TEMP 36.6; O2SAT 99
[2023-09-08] MEDS: Dicyclomine HCl 10 MG CAPSULE 20 MG PO (02:13)
[2023-09-08 02:21] VITALS: BP 110/70; PULSE 60; RESP 16; TEMP 36.6; O2SAT 100
== END 2023-09-08 02:22 | disposition home or self-care (01) ==
PROVIDERS: Emergency Provider Internal Medicine; PCP Internal Medicine
DX: K58.9 Irritable bowel syndrome, unspecified (principal); R10.2 Pelvic and perineal pain; Z79.899 Other long term (current) drug therapy
CPT/HCPCS: 36415; 74176; 80048; 80076; 81001; 84702; 85025; 87086; 99284

== ENCOUNTER 2023-10-14 07:42 | Outpatient (REF) | payer OTHER, SELFPAY ==
[2023-10-14 08:55] LABS: Alanine Aminotransferase 30 U/L (0-31); Albumin Level 4.1 g/dL (3.5-5.0); Alkaline Phosphatase 82 U/L (39-117); Anion Gap 14 (12-20); Aspartate Amino Transferase 18 U/L (5-31); Bilirubin Total 0.6 mg/dL (0.0-1.0); Blood Urea Nitrogen 15 mg/dL (9-16); Calcium 9.5 mg/dL (8.4-10.2); Carbon Dioxide 27 mmol/L (22-29); Chloride 103 mmol/L (96-108); Cholesterol 92 mg/dL (<200); Estimated Glomerular Filt Rate 57; Glucose Fasting 143 mg/dL (60-99); HDL Cholesterol 45 mg/dL (>40); LDL Cholesterol Calculated 33 mg/dL (<100); Sodium 140 mmol/L (135-145); Total Protein 7.5 g/dL (6.5-8.0); Triglycerides 70 mg/dL (<150)
[2023-10-14 09:13] LABS: Thyroid Stimulating Hormone 1.77 uIU/mL (0.32-4.0); Vitamin D 25-OH Total 45.1 ng/mL (>30)
== END 2023-10-14 07:43 | disposition home or self-care (01) ==
LOC: HO.LAB 07:42
PROVIDERS: PCP Internal Medicine; Visit Provider Internal Medicine
DX: E55.9 Vitamin D deficiency, unspecified (principal); E06.3 Autoimmune thyroiditis; E78.5 Hyperlipidemia, unspecified
CPT/HCPCS: 36415; 80053; 80061; 82306; 84443

== ENCOUNTER 2023-10-17 16:52 | Outpatient (AMB) | payer OTHER, SELFPAY ==
[2023-10-17 17:02] VITALS: BP 108/70; BMI 28.8
--- NOTE | 2023-10-17 17:02 | MHC.PC.OV ---
Vital Signs 10/17/23 17:02 Height 4 ft 5.94 in Weight 119 lb BMI 28.8 BP 108/70 Blood Pressure Location Lt brachial Position Sitting Intake Visit Reasons: dm Intake Note: Patient here for a follow up DM Dice Person Required: No Accompanied by: Mother Allergies penicillamine Allergy (Mild, Verified 10/17/23 17:37) Rash Penicillins [PENICILLINS] Allergy (Mild, Verified 10/17/23 17:37) RASH aspirin Allergy (Verified 10/17/23 17:37) Rash Medication List - Last Reconciled 10/17/23 by Vikki Solis MD albuterol sulfate 2.5 mg (3 mL) inhalation Q4-6H PRN blood sugar diagnostic (FreeStyle Lite Strips) As directed twice a day blood-glucose meter (FreeStyle Lite Meter kit) As directed twice a day cholecalciferol (vitamin D3) 25 mcg PO DAILY 90 days lancets (FreeStyle Lancets) As directed twice a day levetiracetam 750 mg PO BID levothyroxine 50 mcg PO DAILY 90 days btynuo-ogunnxss-cccdcud 24,000-76,000 -120,000 unit (Creon) 1 cap PO QID loperamide (Imodium A-D) 2 mg PO Q6H PRN metformin ER 500 mg PO DAILY ondansetron 4 mg PO Q6-8H PRN pantoprazole 40 mg PO DAILY rosuvastatin 20 mg PO DAILY 90 days semaglutide (Ozempic) 0.25 mg (0.368 mL) subcut QWEEK 28 days sennosides (Natural Senna Laxative) 17.2 mg (2 x 8.6 mg) PO BEDTIME sucralfate 10 mL PO BEDTIME Tobacco use date assessed: 10/17/23 Dental Screening Dental Screen Date: 10/17/23 Did you have a dental visit in the last 12 months?: No Did you have a dental problem in the last 6 months where you did not have access to dental care?: No Was dental information given to patient?: Patient has dentist HPI HPI Comments History of Present Illness Details This is a 37-year-old female with Down syndrome, diabetes mellitus type 2, hypothyroidism, hyperlipidemia and seizures that comes today accompanied with mother which is the [employer] farm for follow-up on her conditions. A1c within goal. TSH normal. LDL within goal. Has not had a seizure in over 6 months and this is follow by Neurology. Denies any chest pain or shortness of breath. [facility] Medical History DM2 (diabetes mellitus, type 2) Autoimmune thyroiditis Type 2 diabetes mellitus with hyperglycemia, without long-term current use of insulin Down's syndrome Seizure disorder Scoliosis Surgical History History of esophagogastroduodenoscopy (EGD) No pertinent past surgical history Family History Father Diabetes Mother Diabetes Maternal Grandmother Pancreatic cancer Social History Household Members Other:: Parents - mother Carley Housing: Apartment Alcohol intake: never Patient Tobacco Use Status: Never used Tobacco e-Cigarette/Vaping Use: Never Used Second Hand Smoke Exposure: No service: No Current occupational status: disabled Cognitive needs: No Hearing needs: No Vision needs: No Female Reproductive History Menstrual Age of Menarche: 11 Questionnaire PHQ-9 Over the last 2 weeks, how often have you been bothered by any of the following problems? 1. Little interest or pleasure in doing things: not at all 2. Feeling down, depressed, or hopeless: not at all 3. Trouble falling or staying asleep, or sleeping too much: not at all 4. Feeling tired or having little energy: not at all 5. Poor appetite or overeating: not at all 6. Feeling bad about yourself - or that you are a failure or have let yourself or your family down: not at all 7. Trouble concentrating on things, such as reading the newspaper or watching television: not at all 8. Moving or speaking so slowly that other people could have noticed. Or the opposite - being so fidgety or restless that you have been moving around a lot more than usual: not at all 9. Thoughts that you would be better off or of hurting yourself in some way: not at all Total score: 0 Source: Developed by Drs. Andre Black, Tayla B.WBishop Montalvo and colleagues, with an educational jo ann from [employer]. Thrive Questionnaire Date Thrive assessed: 06/14/23 MIS-7 AMB Questionnaire MIS-7 Date MIS - 7 assessed: 06/14/23 Source: Developed by Drs. Andre Black, Bishop Priest and colleagues, with an educational jo ann from [employer]. Review of Systems Const All systems reviewed & are unremarkable except as noted in HPI and below Eyes Reports no additional complaints, Denies change in vision and Denies other visual disturbances Card Denies chest pain at rest, Denies chest pain with activity, Denies edema, Denies irregular heart rhythm, Denies claudication, Denies dyspnea, Denies dyspnea on exertion, Denies orthopnea, Denies paroxysmal nocturnal dyspnea and Denies slow heart rate Resp Denies cough, Denies dyspnea and Denies dyspnea on exertion Physical exam (Primary Care) Vital Signs: Last Vital Signs BP 108/70 10/17/23 17:02 BMI result Body Mass Index 28.8 Tobacco/Smoking Status: Tobacco use Status Tobacco use date assessed 10/17/23 10/17/23 17:06 Patient Tobacco Use Status Never used Tobacco 10/17/23 17:06 e-Cigarette/Vaping Use Never Used 10/17/23 17:06 PHQ-9: PHQ-9 Score PHQ-9: Total score 0 10/17/23 17:39 Thrive Assessment: Date of Thrive Assessment Date Thrive assessed 06/14/23 10/17/23 17:06 Resp Effort & Inspection: normal respiratory effort Auscultation: clear to auscultation bilaterally Cardio Jugular venous distension: no JVD Rate: regular rate Rhythm: regular rhythm Heart sounds: S1 normal heart sound present and S2 normal heart sound present Extrem General: Yes full ROM Results AMB Hemoglobin A1c AMB Hemoglobin A1c 7.0 % Last Edit by GERARD Prabhakar on 10/17/23 17:07 Results Reviewed Results Reviewed: Laboratory Last Values Hgb A1c (Clinic) 7.0 % (4.0-6.0) H 10/17/23 17:02 Assessment and Plan Assessment & Plan (1) Seizure disorder: Code(s): G40.909 - Epilepsy, unspecified, not intractable, without status epilepticus Plan: Continue Kera. Follow-up with Neurology. (2) Type 2 diabetes mellitus with hyperglycemia, without long-term current use of insulin: Code(s): E11.65 - Type 2 diabetes mellitus with hyperglycemia Plan: Continue metformin. Start Ozempic. A1c goal is equal or less than 7% (3) Hypothyroidism (acquired): Code(s): E03.9 - Hypothyroidism, unspecified Plan: Continue levothyroxine. Monitor TSH. (4) Hyperlipidemia LDL goal <70: Code(s): E78.5 - Hyperlipidemia, unspecified Plan: Continue statins. LDL goal is less than 70. Orders: Orders Comprehensive [place]. Panel Fast 4 Months E11.9 - Type 2 diabetes mellitus without complications AMB Hemoglobin A1c Today E11.9 - Type 2 diabetes mellitus without complications Vitamin D 25-OH Total 4 Months E55.9 - Vitamin D deficiency, unspecified Lipid Panel 4 Months E78.5 - Hyperlipidemia, unspecified Microalbumin, Random (w Creat) 4 Months E11.9 - Type 2 diabetes mellitus without complications Vitamin B12 and Folate 4 Months E53.8 - Deficiency of other specified B group vitamins IRON PROFILE 4 Months D64.9 - Anemia, unspecified Thyroid Stimulating Hormone 4 Months E06.3 - Autoimmune thyroiditis Medications: New dicyclomine 20 mg PO TID 90 tabs 3RF 30 days semaglutide (Ozempic) 0.5 mg (0.736 mL) subcut QWEEK 2.944 mL 0RF 4 weeks E11.9 - Type 2 diabetes mellitus without complications Refilled mxdkql-egerhhss-qwcangq 24,000-76,000 -120,000 unit (Creon) administer with meals and/or snacks 1 cap PO QID 120 caps 3RF K86.89 - Other specified diseases of pancreas Discontinued semaglutide (Ozempic) for 4 weeks Discontinued Reason: Patient Completed Course 0.25 mg (0.368 mL) subcut QWEEK 28 days 1.472 mL 0RF E11.65 - Type 2 diabetes mellitus with hyperglycemia Coding Level of Care Code Est Pt Level 4 (69437) Diagnoses Seizure disorder G40.909 Type 2 diabetes mellitus with hyperglycemia, without long-term current use of insulin E11.65 Hypothyroidism (acquired) E03.9 Hyperlipidemia LDL goal <70 E78.5 Time Spent (min) 23
== END 2023-10-17 17:47 | disposition home or self-care (01) ==
PROVIDERS: PCP Internal Medicine; Visit Provider Internal Medicine
DX: G40.909 Epilepsy, unspecified, not intractable, without status epilepticus (principal); E11.65 Type 2 diabetes mellitus with hyperglycemia; E03.9 Hypothyroidism, unspecified; E78.5 Hyperlipidemia, unspecified; E11.9 Type 2 diabetes mellitus without complications
CPT/HCPCS: 83036; 99214

== ENCOUNTER 2024-02-20 10:54 | Outpatient (AMB) | payer OTHER, SELFPAY ==
[2024-02-20 10:56] VITALS: BP 102/56; PULSE 58; O2SAT 100; BMI 29.0
--- NOTE | 2024-02-20 10:56 | MHC.OFFVIS ---
Vital Signs 02/20/24 10:56 Height 4 ft 6 in Weight 120 lb 5.958 oz BMI 29.0 BP 102/56 L Blood Pressure Location Rt brachial Position Sitting Pulse 58 Pulse Source Pulse Oximeter Pulse Oximetry (%) 100 Oxygen Delivery Method Room Air Intake Visit Reasons: CIC, Gerd, IBS Intake Note: Abigail presents in office today for a scheduled FUV. CC: Pt is here to discuss chronic IC, GERD, and IBS related sx. Pt reports that they have been taking the medication as instructed. Pt reports still experiencing abdominal pain. Pt reports new onset of LUQ pain over the last 2 months. Pt states that, when they take their medication, they seem to have somewhat normal bowel movements. However, if they are not taking the medication, they find they are having difficulties. Front End Software Engineer Required: Yes Front End Software Engineer Services: Front End Software Engineer Present Allergies penicillamine Allergy (Mild, Verified 02/20/24 15:52) Rash Penicillins [PENICILLINS] Allergy (Mild, Verified 02/20/24 15:52) RASH aspirin Allergy (Verified 02/20/24 15:52) Rash HPI HPI CIC, Gerd, IBS: Details: LAST VISIT GERD (gastroesophageal reflux disease) Epigastric abdominal pain Postprandial diarrhea Constipation Exocrine pancreatic insufficiency Plan Continue taking Senokot. Patient was encouraged to increase fluid intake and activity to promote better bowel motility continue pantoprazole every morning half an hour before breakfast. Next visit we might decrease the dose to 20 mg daily if patient will be doing well. She can continue taking Creon no change on the dose. Continue avoiding dietary triggers. Staying upright for minimal 3 hours after meals discussed with patient. Avoid eating late at night. Patient will return in 6 months, sooner on as needed basis. Both patient and her mom are agreeable to plan of care and verbalizes understanding of instructions. They were given the opportunity to ask questions and all questions answered. ? Thank you for allowing me to participate in her care Medications Refilled pantoprazole take one tablet half an hour before breakfast 40 mg PO DAILY 90 tabs 2RF K21.9 zdzwgm-eehdezwm-qnqchbp 24,000-76,000 -120,000 unit (Creon) administer with meals and/or snacks 1 cap PO QID 120 caps 3RF K86.89 sennosides (Natural Senna Laxative) 17.2 mg (2 x 8.6 mg) PO BEDTIME 180 tabs 3RF constipation K59.00 TODAY'S VISIT Patient is here today for follow-up. Patient is accompanied by her mother who helps with answering most of the questions. Patient reports epigastric pain. States that she is not taking Ozempic as it was not making her feel well. Patient states that when she takes senna she does have a bowel movement. Does not believe that she is able to empty her bowels completely. Patient reports occasional postprandial abdominal bloating. Denies melena, hematochezia. Patient feels like pantoprazole is not really helping her. Symptoms of epigastric pain. Mother states that Creon was helpful in the beginning and now it seems like it does not help. Patient will need probably larger dose. Patient tried dicyclomine to see if her abdominal pain will get better. No improvement. [facility] Medical History DM2 (diabetes mellitus, type 2) Autoimmune thyroiditis Type 2 diabetes mellitus with hyperglycemia, without long-term current use of insulin Down's syndrome Seizure disorder Scoliosis Surgical History History of esophagogastroduodenoscopy (EGD) No pertinent past surgical history Family History Father Diabetes Mother Diabetes Maternal Grandmother Pancreatic cancer Social History Household Members Other:: Parents - mother [place] Housing: Apartment Alcohol intake: never Patient Tobacco Use Status: Never used Tobacco e-Cigarette/Vaping Use: Never Used Second Hand Smoke Exposure: No service: No Current occupational status: disabled Cognitive needs: No Hearing needs: No Vision needs: No Female Reproductive History Menstrual Age of Menarche: 11 Review of Systems Const Denies weight gain and Denies weight loss ENT Reports no additional complaints, Denies dysphagia and Denies odynophagia Card Reports no additional complaints Resp Reports no additional complaints GI Reports abdominal pain, Denies belching, Denies melena, Reports bloating, Denies change in bowel habits, Reports constipation, Denies dysphagia, Denies excessive flatus, Denies dyspepsia, Reports heartburn (And epigastric pain), Denies diarrhea, Denies loose stools, Denies nausea, Denies odynophagia and Denies vomiting Reports no additional complaints Musc Reports no additional complaints Neuro Reports no additional complaints Psych Reports no additional complaints Endo Reports no additional complaints Physical Exam Vital Signs: Last Vital Signs Pulse 58 02/20/24 10:56 BP 102/56 L 02/20/24 10:56 Pulse Ox 100 02/20/24 10:56 Oxygen Delivery Method Room Air 02/20/24 10:56 BMI result Body Mass Index 29.0 Const Other: Patient with Down syndrome unable to get full history from patient General: healthy appearing, no acute distress and well developed Nutritional Appearance: well nourished Orientation/consciousness: patient oriented x3 Resp Effort & Inspection: normal respiratory effort, able to speak in complete sentences, no tracheal deviation and symmetric chest movement Auscultation: clear to auscultation bilaterally Cardio Rate: regular rate GI Inspection: Yes normal to inspection and No distended Palpation (GI): Soft to palpation, not firm, nontender and No hepatosplenomegaly present Auscultation: normal bowel sounds General: Yes no CVA tenderness Back/Spine/Pelvis Back: no CVA tenderness Skin General skin exam: elasticity normal, turgor normal and dry skin Neuro General: patient oriented x3 Psych Appearance: grossly normal Results AMB Hemoglobin A1c AMB Hemoglobin A1c 7.7 % Last Edit by GERARD Prabhakar on 02/20/24 15:53 Assessment & Plan Assessment & Plan (1) GERD (gastroesophageal reflux disease): Code(s): K21.9 - Gastro-esophageal reflux disease without esophagitis Category: Medical Qualifiers: Esophagitis presence: without esophagitis Qualified Code(s): K21.9 - Gastro-esophageal reflux disease without esophagitis (2) Epigastric abdominal pain: Code(s): R10.13 - Epigastric pain (3) Postprandial diarrhea: Code(s): K52.9 - Noninfective gastroenteritis and colitis, unspecified (4) Constipation: Code(s): K59.00 - Constipation, unspecified Qualifiers: Constipation type: slow transit constipation Qualified Code(s): K59.01 - Slow transit constipation (5) Exocrine pancreatic insufficiency: Code(s): K86.81 - Exocrine pancreatic insufficiency (6) IBS (irritable bowel syndrome): Code(s): K58.9 - Irritable bowel syndrome without diarrhea Qualifiers: Irritable bowel syndrome type: with both diarrhea and constipation Qualified Code(s): K58.2 - Mixed irritable bowel syndrome (7) Abdominal pain: Code(s): R10.9 - Unspecified abdominal pain Qualifiers: Abdominal location: upper abdomen, unspecified Qualified Code(s): R10.10 - Upper abdominal pain, unspecified (8) Postprandial abdominal bloating: Code(s): R14.0 - Abdominal distension (gaseous) Plan Patient will stop taking pantoprazole, will start Nexium. Increase fluid intake and activity to promote better bowel motility. Patient will go for ultrasound. Avoid dietary triggers and late night snacking. Follow-up with PCP regarding different medication that will replace Ozempic to help control her blood sugars. Diet control, avoiding carbs and sugars. Increase Creon dose, continue taking 10-15 minutes before meals. Patient will follow-up in the office in 3 months, sooner on as needed basis. Both patient and her mother are agreeable to this plan and verbalize understanding of instructions. They were given the opportunity to ask questions and all questions answered. Thank you for allowing me to participate in her care Orders: Orders US abdomen complete Today R10.9 - Unspecified abdominal pain Medications: New kvrjvy-zpqsyile-lnbxzps 36,000-114,000- 180,000 unit (Creon) administer with meals and/or snacks 1 cap PO QID 120 caps 3RF K86.89 - Other specified diseases of pancreas esomeprazole magnesium (Nexium) 40 mg PO DAILY 30 caps 5RF K21.9 - Gastro-esophageal reflux disease without esophagitis Discontinued loperamide (Imodium A-D) Discontinued Reason: Doctor's Order 2 mg PO Q6H PRN 7 tabs 0RF loose stool cztzdz-ulzbebkk-xghffgv 24,000-76,000 -120,000 unit (Creon) administer with meals and/or snacks Discontinued Reason: Doctor's Order 1 cap PO QID 120 caps 3RF K86.89 - Other specified diseases of pancreas dicyclomine Discontinued Reason: Doctor's Order 20 mg PO TID 30 days 90 tabs 1RF pantoprazole take one tablet half an hour before breakfast Discontinued Reason: Doctor's Order 40 mg PO DAILY 90 tabs 2RF K21.9 - Gastro-esophageal reflux disease without esophagitis Coding Level of Care Code Est Pt Level 4 (57022) Diagnoses Gastroesophageal reflux disease without esophagitis K21.9 Esophagitis presence: without esophagitis Epigastric abdominal pain R10.13 Postprandial diarrhea K52.9 Slow transit constipation K59.01 Constipation type: slow transit constipation Exocrine pancreatic insufficiency K86.81 Irritable bowel syndrome with both constipation and diarrhea K58.2 Irritable bowel syndrome type: with both diarrhea and constipation Pain of upper abdomen R10.10 Abdominal location: upper abdomen, unspecified Postprandial abdominal bloating R14.0 Time Spent (min) 35 Comment 25 minutes spent with patient and additional 10 minutes spent reviewing her records
== END 2024-02-20 11:44 | disposition home or self-care (01) ==
PROVIDERS: PCP Internal Medicine; Visit Provider Nurse Practitioner Family
DX: K21.9 Gastro-esophageal reflux disease without esophagitis (principal); K86.81 Exocrine pancreatic insufficiency; K58.2 Mixed irritable bowel syndrome
CPT/HCPCS: 99214

== ENCOUNTER → 2024-02-20 10:54 | Outpatient (BNVA) | payer OTHER, SELFPAY | PROVIDERS: PCP Internal Medicine; Visit Provider Nurse Practitioner Family | DX: E11.65 Type 2 diabetes mellitus with hyperglycemia (principal); E78.5 Hyperlipidemia, unspecified; E06.3 Autoimmune thyroiditis; G40.909 Epilepsy, unspecified, not intractable, without status epilepticus; K21.9 Gastro-esophageal reflux disease without esophagitis; K59.01 Slow transit constipation; K86.81 Exocrine pancreatic insufficiency; K58.2 Mixed irritable bowel syndrome; K86.89 Other specified diseases of pancreas; R80.9 Proteinuria, unspecified; R10.13 Epigastric pain; R10.10 Upper abdominal pain, unspecified; R14.0 Abdominal distension (gaseous) | CPT/HCPCS: 83036; 99212 ==

== ENCOUNTER 2024-02-20 15:29 | Outpatient (AMB) | payer OTHER, SELFPAY ==
[2024-02-20 15:40] VITALS: BP 108/60; BMI 28.8
--- NOTE | 2024-02-20 15:40 | MHC.PC.OV ---
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: No Accompanied by: Mother Allergies penicillamine Allergy (Mild, Verified 02/20/24 15:52) Rash Penicillins [PENICILLINS] Allergy (Mild, Verified 02/20/24 15:52) RASH aspirin Allergy (Verified 02/20/24 15:52) Rash Medication List - Last Reconciled 02/20/24 by Vikki Solis MD albuterol sulfate 2.5 mg (3 mL) inhalation Q4-6H PRN blood sugar diagnostic (FreeStyle Lite Strips) As directed twice a day blood-glucose meter (FreeStyle Lite Meter kit) As directed twice a day cholecalciferol (vitamin D3) 25 mcg PO DAILY 90 days esomeprazole magnesium (Nexium) 40 mg PO DAILY lancets (FreeStyle Lancets) As directed twice a day levetiracetam 750 mg PO BID levothyroxine 50 mcg PO DAILY 90 days hotmoh-nuogknid-oaqvjdw 36,000-114,000- 180,000 unit (Creon) 1 cap PO QID metformin ER 500 mg PO DAILY rosuvastatin 20 mg PO DAILY 90 days semaglutide (Ozempic) 1 mg (0.75 mL) subcut QWEEK 4 weeks sennosides (Natural Senna Laxative) 17.2 mg (2 x 8.6 mg) PO BEDTIME sucralfate 10 mL PO BEDTIME Tobacco use date assessed: 10/17/23 Dental Screening Dental Screen Date: 10/17/23 HPI HPI Comments History of Present Illness Details This is a 38-year-old female with Down syndrome that comes today accompanied by mother which is the flat knitter for follow-up on her conditions. She has seizure disorder, diabetes mellitus type 2, autoimmune thyroiditis and hyperlipidemia. Has not had a seizure in over 6 months. Her A1c is elevated and I will increase Ozempic from 1 mg to 2 mg. Last TSH was normal. Last LDL was within goal. She has no acute complaints. [facility] Medical History DM2 (diabetes mellitus, type 2) Autoimmune thyroiditis Type 2 diabetes mellitus with hyperglycemia, without long-term current use of insulin Down's syndrome Seizure disorder Scoliosis Surgical History History of esophagogastroduodenoscopy (EGD) No pertinent past surgical history Family History Father Diabetes Mother Diabetes Maternal Grandmother Pancreatic cancer Social History Household Members Other:: Parents - mother Carley Housing: Apartment Alcohol intake: never Patient Tobacco Use Status: Never used Tobacco e-Cigarette/Vaping Use: Never Used Second Hand Smoke Exposure: No service: No Current occupational status: disabled Cognitive needs: No Hearing needs: No Vision needs: No Female Reproductive History Menstrual Age of Menarche: 11 Questionnaire Thrive Questionnaire Date Thrive assessed: 06/14/23 Are you currently unemployed and looking for a job?: No MIS-7 AMB Questionnaire MIS-7 Date MIS - 7 assessed: 06/14/23 Source: Developed by Drs. Andre Black, Tayla Maldonado, Bishop Monterroso and colleagues, with an educational jo ann from [employer]. Review of Systems Const All systems reviewed & are unremarkable except as noted in HPI and below Card Denies chest pain at rest, Denies chest pain with activity, Denies edema, Denies irregular heart rhythm, Denies claudication, Denies dyspnea, Denies dyspnea on exertion, Denies orthopnea, Denies paroxysmal nocturnal dyspnea and Denies slow heart rate Resp Denies cough, Denies dyspnea and Denies dyspnea on exertion GI Denies abdominal pain, Denies change in bowel habits, Denies excessive flatus, Denies nausea and Denies vomiting Denies urinary incontinence, Denies urinary hesitancy and Denies urinary urgency Musc Denies abnormal gait, Denies atrophy, Denies deformity and Denies limited range of motion Skin/Breast Denies bleeding lesions, Denies changing lesions and Denies rash Neuro Denies abnormal gait and Denies lack of coordination Physical exam (Primary Care) Vital Signs: Last Vital Signs BP 108/60 02/20/24 15:40 BMI result Body Mass Index 28.8 Tobacco/Smoking Status: Tobacco use Status Tobacco use date assessed 10/17/23 02/20/24 15:44 Patient Tobacco Use Status Never used Tobacco 02/20/24 15:44 e-Cigarette/Vaping Use Never Used 02/20/24 15:44 Thrive Assessment: Date of Thrive Assessment Date Thrive assessed 06/14/23 02/20/24 15:44 Resp Effort & Inspection: normal respiratory effort Auscultation: clear to auscultation bilaterally Cardio Jugular venous distension: no JVD Rate: regular rate Rhythm: regular rhythm Heart sounds: S1 normal heart sound present and S2 normal heart sound present Extrem General: Yes full ROM Results AMB Hemoglobin A1c AMB Hemoglobin A1c 7.7 % Last Edit by GERARD Prabhakar on 02/20/24 15:53 Results Reviewed Results Reviewed: Laboratory Last Values Hgb A1c (Clinic) 7.7 % (4.0-6.0) H 02/20/24 15:40 Assessment and Plan Assessment & Plan (1) Type 2 diabetes mellitus with hyperglycemia, without long-term current use of insulin: Code(s): E11.65 - Type 2 diabetes mellitus with hyperglycemia Plan: Continue metformin. Increase Ozempic. A1c goal is equal or less than 7%. (2) Autoimmune thyroiditis: Code(s): E06.3 - Autoimmune thyroiditis Plan: Continue levothyroxine. Monitor TSH. (3) Seizure disorder: Code(s): G40.909 - Epilepsy, unspecified, not intractable, without status epilepticus Plan: Continue Keppra. Follow-up with Neurology. (4) Hyperlipidemia LDL goal <70: Code(s): E78.5 - Hyperlipidemia, unspecified Plan: Continue statins. LDL goal is less than 70. Orders: Orders AMB Hemoglobin A1c Today E11.9 - Type 2 diabetes mellitus without complications Lipid Panel 4 Months E78.5 - Hyperlipidemia, unspecified Microalbumin, Random (w Creat) 4 Months R80.9 - Proteinuria, unspecified Vitamin D 25-OH (D2 and D3) 4 Months E55.9 - Vitamin D deficiency, unspecified Comprehensive [place]. Panel Fast 4 Months E11.9 - Type 2 diabetes mellitus without complications Thyroid Stimulating Hormone 4 Months E06.3 - Autoimmune thyroiditis Medications: New semaglutide (Ozempic) 2 mg (0.75 mL) subcut QWEEK 3 mL 3RF 4 weeks Discontinued semaglutide (Ozempic) Discontinued Reason: Patient Completed Course 1 mg (0.75 mL) subcut QWEEK 4 weeks 3 mL 3RF Coding Level of Care Code Est Pt Level 4 (36916) Complex EM visit Add On G2211 Diagnoses Type 2 diabetes mellitus with hyperglycemia, without long-term current use of insulin E11.65 Autoimmune thyroiditis E06.3 Seizure disorder G40.909 Hyperlipidemia LDL goal <70 E78.5 Time Spent (min) 23
== END 2024-02-20 16:02 | disposition home or self-care (01) ==
PROVIDERS: PCP Internal Medicine; Visit Provider Internal Medicine
DX: E11.65 Type 2 diabetes mellitus with hyperglycemia (principal); E06.3 Autoimmune thyroiditis; G40.909 Epilepsy, unspecified, not intractable, without status epilepticus; E78.5 Hyperlipidemia, unspecified; E11.9 Type 2 diabetes mellitus without complications

== ENCOUNTER 2024-03-09 07:31 | Outpatient (REF) | payer OTHER, SELFPAY ==
--- NOTE | ~2024-03-09 | US_ITS ---
EXAMINATION: US ABDOMEN COMPLETE CLINICAL INFORMATION: Unspecified abdominal pain. COMPARISON: CT abdomen and pelvis 09/08/2023. TECHNIQUE: Real-time imaging of the abdominal viscera. FINDINGS: PANCREAS: The pancreas appears heterogeneous, without masses or ductal dilatation, with the exception of the tail which is obscured by bowel gas. ABDOMINAL AORTA: The distal aorta could not be seen secondary to overlying bowel gas. No aneurysm seen proximally. INFERIOR VENA CAVA: Visualized portions are normal. LIVER: The liver is normal in size. The liver contour is normal. There is diffuse increased liver parenchymal echogenicity, consistent with hepatic steatosis. There is focal fatty sparing present around the prieto hepatis and gallbladder but no suspicious solid focal hepatic lesion. There is no intrahepatic biliary duct dilatation seen. GALLBLADDER: Normal. The gallbladder is physiologically distended without evidence of stones, sludge, polyps, wall thickening or pericholecystic fluid. COMMON BILE DUCT: Normal in caliber measuring 0.4 cm in diameter. RIGHT KIDNEY: Normal. No hydronephrosis. No renal calculi or focal parenchymal lesions. The kidney measures 8.5 cm in maximum dimension. LEFT KIDNEY: Normal. No hydronephrosis. No renal calculi or focal parenchymal lesions. The kidney measures 8.6 cm in maximum dimension. SPLEEN: Normal. The spleen measures 8.5 cm in maximum dimension. FREE FLUID: None. US/US abdomen complete IMPRESSION: Hepatic steatosis. Electronically signed by: Jose Moralez MD 04/21/2024 01:33 PM EST
== END 2024-03-09 07:32 | disposition home or self-care (01) ==
LOC: HO.US 07:31
PROVIDERS: PCP Internal Medicine; Visit Provider Nurse Practitioner Family
DX: R10.9 Unspecified abdominal pain (principal)
CPT/HCPCS: 76700

== ENCOUNTER 2024-05-25 16:05 | Outpatient (AMB) | payer OTHER, SELFPAY ==
--- OUTSIDE RECORDS SUMMARY | 2024-05-25 16:06 | XMS_ITS | Patient Health Record ---
[facility] Address [address] [place] [address] Care Team Providers Care Sales Trainer Name Role Phone Vikki Winchester MD Primary Care Provider Unavail able Dawood Cage Unavailable [phone] Allergies Allergen (clinical drug ingredient) Drug/Non Drug Allergy documented on EMR Reaction Allergy Type Onset Date Status Penicillin rash Drug Allergy Active Reason For Referral No Information Medications Medication SIG (Take, Route, Frequency, Duration) Notes Start Date End Date Status Trulicity 0.75 MG/0.5ML as directed Subcutaneous Active Omeprazole 20 MG 1 capsule 30 minutes before morning meal Orally Once a day for 30 day(s) Active Rosuvastatin Calcium 10 MG 1 tablet Oral ly Once a day for 30 day(s) Active Levothyroxine Sodium 50 MCG 1 tablet in the morning on an empty stomach Orally Once a day for 30 day(s) Active metFORMIN HCl 500 MG 1 tablet with a carolina l Orally Once a day for 30 day(s) Active Lancets Active levETIRAcetam 750 MG 1 tablet Orally aggie ry 12 hrs for 30 day(s) Active Vitamin D3 Active Ibuprofen Active Social History Tobacco Use: Social History Observation Description Date Details (start date - stop date) Never Smoker NA - NA Tobacco Use/Smoking Question Answer Notes Are you a: nonsmoker Alcohol Screen Question Answer Notes Did you have a drink containing alcohol in the p ast year? No Points 0 Interpretation Negative Tobacco use other than smoking: Question Answer Notes Are you an other tobacco user? No Problems Problem Type SNOMED Code ICD Code Onset Dates Problem Status W/U Status Risk Notes Problem Acquired hallux valgus (86249796) Hallux valgus (acquired), right foot (M20.11) Active confirmed Problem 94642540 Down's syndrome (Q90.9) Active confirmed Problem [id number] Type 2 diabetes mellitus with hyperglycemia, unspecified whether long term care social worker insulin use (E11.65) Active confirmed Plan Of Treatment Pending Test Test Name Order Date X ray : Foot, right 3V 11/09/2022 Insurance Providers Payer Name Payer Address Payer Phone Subscriber Number Group Number Insured Name Patient Relationship to Insured Coverage Start Date Coverage End Date [facility] [employer] Claims [address] [place] [id number] Abigail Martin Self - patient is the insured Medical (General) History Medical History History ICD Code asthma Back,Hip,and Knee pain Epilepsy Glaucoma Numbness Sinus conditions thyroid Down's syndrome Scoliosis Reflux ( GERD) Diabetes mellitus Type 2 Surgical History Surgery Date(Month/Year) Hospitalization History Reason Date(Month/Year) [facility] [place] gast[place] 10/2022
--- NOTE | 2024-05-25 16:07 | MHC.OFFVIS ---
Vital Signs 05/25/24 16:08 Height 4 ft 6 in Weight 115 lb 15.41 oz BMI 28.0 BP 108/60 Blood Pressure Location Lt brachial Position Sitting Pulse 72 Pulse Source Pulse Oximeter Pulse Oximetry (%) 100 Oxygen Delivery Method Room Air Intake Visit Reasons: 3 mos FUV -- R/S from 05/21 per QUALITY AUDIT REPRESENTATIVE Intake Note: ESTABLISHED PATIENT Abigail presents in office today for a scheduled 3 mos FUV. Meds and Allergies reviewed? Y No recent or relevant surgeries? N Any significant concerns or new changes? Pt family states increased creon dose is helping. Pt does report some intermittent epigastric pain. Pt is taking nexium w/ other meds at the same time. Pharmacy verified? [facility] Network Relations Consultant Required: Yes Network Relations Consultant Services: Network Relations Consultant Present Network Relations Consultant Name: [id number] Information Interpreted: non-clinical & clinical Allergies penicillamine Allergy (Mild, Verified 05/25/24 16:08) Rash Penicillins [PENICILLINS] Allergy (Mild, Verified 05/25/24 16:08) RASH aspirin Allergy (Verified 05/25/24 16:08) Rash HPI HPI 3 mos FUV -- R/S from 05/21 per QUALITY AUDIT REPRESENTATIVE: Details: LAST VISIT GERD (gastroesophageal reflux disease) Epigastric abdominal pain Postprandial diarrhea Constipation Exocrine pancreatic insufficiency IBS (irritable bowel syndrome) Abdominal pain Postprandial abdominal bloating Plan Patient will stop taking pantoprazole, will start Nexium. Increase fluid intake and activity to promote better bowel motility. Patient will go for ultrasound. Avoid dietary triggers and late night snacking. Follow-up with PCP regarding different medication that will replace Ozempic to help control her blood sugars. Diet control, avoiding carbs and sugars. Increase Creon dose, continue taking 10-15 minutes before meals. Patient will follow-up in the office in 3 months, sooner on as needed basis. Both patient and her mother are agreeable to this plan and verbalize understanding of instructions. They were given the opportunity to ask questions and all questions answered. ? Thank you for allowing me to participate in her care Orders Orders US abdomen complete Today R10.9 Medications New mbkdiu-ohxyymed-hgvmkpt 36,000-114,000- 180,000 unit (Creon) administer with meals and/or snacks 1 cap PO QID 120 caps 3RF K86.89 esomeprazole magnesium (Nexium) 40 mg PO DAILY 30 caps 5RF K21.9 Discontinued loperamide (Imodium A-D) Discontinued Reason: Doctor's Order 2 mg PO Q6H PRN 7 tabs 0RF loose stool fobjyb-wkphndui-skewytj 24,000-76,000 -120,000 unit (Creon) administer with meals and/or snacks Discontinued Reason: Doctor's Order 1 cap PO QID 120 caps 3RF K86.89 dicyclomine Discontinued Reason: Doctor's Order 20 mg PO TID 30 days 90 tabs 1RF pantoprazole take one tablet half an hour before breakfast Discontinued Reason: Doctor's Order 40 mg PO DAILY 90 tabs 2RF K21.9 TODAY'S VISIT: Patient is here today for follow-up accompanied by her mom. Patient small reports that she is giving her her own dose of Ozempic as her doctor increase the dose and she is afraid that she will have stomach pain. Patient reports epigastric pain after eating, no nausea or vomiting. Acid reflux controlled. Patient's mom reports that increasing enzymes helped her pain and bloating. Patient is moving her bowels well, however she continues to have occasional constipation. Nexium and sucralfate taking at the same time which might not be as effective. Educated patient's mom about the importance of taking Nexium in the morning half an hour before breakfast and sucralfate at bedtime. Patient denies dyspepsia, dysphagia or odynophagia. Denies melena, hematochezia, unintentional weight loss or ribbon like stools. [facility] Medical History DM2 (diabetes mellitus, type 2) Autoimmune thyroiditis Type 2 diabetes mellitus with hyperglycemia, without long-term current use of insulin Down's syndrome Seizure disorder Scoliosis Surgical History History of esophagogastroduodenoscopy (EGD) No pertinent past surgical history Family History Father Diabetes Mother Diabetes Maternal Grandmother Pancreatic cancer Social History Household Members Other:: Parents - mother Carley Housing: Apartment Alcohol intake: never Patient Tobacco Use Status: Never used Tobacco e-Cigarette/Vaping Use: Never Used Second Hand Smoke Exposure: No service: No Current occupational status: disabled Cognitive needs: No Hearing needs: No Vision needs: No Female Reproductive History Menstrual Age of Menarche: 11 Review of Systems Const Denies weight gain and Denies weight loss ENT Reports no additional complaints, Denies dysphagia and Denies odynophagia Card Reports no additional complaints Resp Reports no additional complaints GI Denies abdominal pain, Denies belching, Denies melena, Denies bloating, Denies change in bowel habits, Denies dysphagia, Denies excessive flatus, Denies dyspepsia, Denies heartburn, Denies diarrhea, Denies loose stools, Denies nausea, Denies odynophagia and Denies vomiting Musc Reports no additional complaints Neuro Reports no additional complaints Psych Reports no additional complaints Endo Reports no additional complaints Physical Exam Vital Signs: Last Vital Signs Pulse 72 05/25/24 16:08 BP 108/60 05/25/24 16:08 Pulse Ox 100 05/25/24 16:08 Oxygen Delivery Method Room Air 05/25/24 16:08 BMI result Body Mass Index 28.0 Assessment & Plan Assessment & Plan (1) GERD (gastroesophageal reflux disease): Code(s): K21.9 - Gastro-esophageal reflux disease without esophagitis Category: Medical Qualifiers: Esophagitis presence: without esophagitis Qualified Code(s): K21.9 - Gastro-esophageal reflux disease without esophagitis (2) Epigastric abdominal pain: Code(s): R10.13 - Epigastric pain (3) Postprandial diarrhea: Code(s): K52.9 - Noninfective gastroenteritis and colitis, unspecified (4) Constipation: Code(s): K59.00 - Constipation, unspecified Qualifiers: Constipation type: slow transit constipation Qualified Code(s): K59.01 - Slow transit constipation (5) Exocrine pancreatic insufficiency: Code(s): K86.81 - Exocrine pancreatic insufficiency (6) IBS (irritable bowel syndrome): Code(s): K58.9 - Irritable bowel syndrome, unspecified Qualifiers: Irritable bowel syndrome type: with constipation Qualified Code(s): K58.1 - Irritable bowel syndrome with constipation (7) Abdominal pain: Code(s): R10.9 - Unspecified abdominal pain Qualifiers: Abdominal location: upper abdomen, unspecified Qualified Code(s): R10.10 - Upper abdominal pain, unspecified (8) Postprandial abdominal bloating: Code(s): R14.0 - Abdominal distension (gaseous) Plan Patient is taking low-dose Ozempic will send a message to PCP to change to maybe Mounjaro might be more effective and with less symptoms. Patient is to eat smaller meals and more often. Continue current dose of Creon. Nexium in the morning and sucralfate at bedtime. Continue taking senna. Increase fluid intake and activity to promote better bowel motility. Follow-up in 3 months, sooner on as needed basis. She is agreeable to this plan and verbalizes understanding of instructions. She was given the opportunity to ask questions and all questions answered. Thank you for allowing me to participate in her care Coding Level of Care Code Est Pt Level 4 (75241) Complex EM visit Add On G2211 Diagnoses Gastroesophageal reflux disease without esophagitis K21.9 Esophagitis presence: without esophagitis Epigastric abdominal pain R10.13 Postprandial diarrhea K52.9 Slow transit constipation K59.01 Constipation type: slow transit constipation Exocrine pancreatic insufficiency K86.81 Irritable bowel syndrome with constipation K58.1 Irritable bowel syndrome type: with constipation Pain of upper abdomen R10.10 Abdominal location: upper abdomen, unspecified Postprandial abdominal bloating R14.0 Time Spent (min) 35 Comment 25 minutes spent with patient and additional 10 minutes spent reviewing her records
[2024-05-25 16:08] VITALS: BP 108/60; PULSE 72; O2SAT 100; BMI 28.0
== END 2024-05-25 16:53 | disposition home or self-care (01) ==
PROVIDERS: PCP Internal Medicine; Visit Provider Nurse Practitioner Family
DX: K21.9 Gastro-esophageal reflux disease without esophagitis (principal); K58.2 Mixed irritable bowel syndrome; K86.81 Exocrine pancreatic insufficiency; R14.0 Abdominal distension (gaseous)
CPT/HCPCS: 99214; G2211

== ENCOUNTER → 2024-05-25 16:05 | Outpatient (BNVA) | payer OTHER, SELFPAY | PROVIDERS: PCP Internal Medicine; Visit Provider Nurse Practitioner Family | DX: K21.9 Gastro-esophageal reflux disease without esophagitis (principal); K58.1 Irritable bowel syndrome with constipation; K59.01 Slow transit constipation; K86.81 Exocrine pancreatic insufficiency; K52.9 Noninfective gastroenteritis and colitis, unspecified; R10.13 Epigastric pain; R10.10 Upper abdominal pain, unspecified; R14.0 Abdominal distension (gaseous); Z79.899 Other long term (current) drug therapy | CPT/HCPCS: 99212 ==

== ENCOUNTER 2024-06-16 04:26 | Emergency (ER) | payer OTHER, SELFPAY ==
--- OUTSIDE RECORDS SUMMARY | 2024-06-16 04:27 | XMS_ITS | Patient Health Record ---
[facility] Organization [facility] Address [address] [place] [address] Care Team Providers Care Director Of Finance Name Role Phone Vikki Winchester MD Primary Care Provider Unavail able Dawood Cage Unavailable [phone] Allergies Allergen (clinical drug ingredient) Drug/Non Drug [...] Status Risk Notes Problem Acquired hallux valgus (04283361) Hallux valgus (acquired), right foot (M20.11) Active confirmed Problem 55864883 Down's syndrome (Q90.9) Active confirmed Problem [id number] Type 2 diabetes mellitus with hyperglycemia, unspecified whether long chain dyeing machine operator insulin use (E11.65) Active confirmed Plan Of Treatment Pending Test Test Name Order Date X ray : Foot, right 3V 11/09/2022 Insurance Providers Payer Name Payer Address Payer Phone Subscriber Number Group Number Insured Name Patient Relationship to Insured Coverage Start Date Coverage End Date [facility] [employer] Claims [address] [place] [id number] Abigail Martin Self - patient is the insured Medical (General) History Medical History History ICD Code asthma Back,Hip,and Knee pain Epilepsy Glaucoma Numbness Sinus conditions thyroid Down's syndrome Scoliosis Reflux ( GERD) Diabetes mellitus Type 2 Surgical History Surgery Date(Month/Year) Hospitalization History Reason Date(Month/[place] [facility] [facility] [place]
[2024-06-16 04:47] VITALS: BP 108/72; PULSE 79; RESP 18; TEMP 36.7; O2SAT 98; BMI 22.0
[2024-06-16 05:05] LABS: Basophils Percent Auto 0.2 % (0-2); Eosinophils Absolute Auto 0.1 X10*3/uL (0.0-0.4); Eosinophils Percent Auto 0.3 % (0-4); Hematocrit 49.1 % (37.0-47.0); Imm Gran Abs Auto 0.06 X10*3/uL (0.00-0.03); Imm Gran Pct Auto 0.4 % (0.0-0.4); Lymphocytes Absolute Auto 0.7 X10*3/uL (1.2-4.9); Lymphocytes Percent Auto 4.2 % (20-40); MANUAL DIFF FLAG SCAN; Mean Corpuscular HGB Conc 34.6 g/dl (31.0-35.0); Mean Corpuscular Volume 95.3 fL (80.0-98.0); Mean Platelet Volume 8.7 fL (9.4-12.3); Monocytes Absolute Auto 0.7 X10*3/uL (0.1-1.2); Monocytes Percent Auto 4.7 % (2-11); Neutrophils Absolute Auto 13.9 x10*3/uL (2.0-8.3); Neutrophils Percent Auto 90.2 % (45-73); Platelet Count 255 X10*3/uL (160-400); Red Blood Count 5.15 X10*6/uL (4.20-5.50); Red Cell Distribution Width 12.6 % (11.0-16.0); SCAN SMEAR FLAG 1; White Blood Count 15.4 X10*3/uL (4.8-10.8)
[2024-06-16 05:20] LABS: Alanine Aminotransferase 75 U/L (0-31); Albumin Level 4.3 g/dL (3.5-5.0); Alkaline Phosphatase 80 U/L (39-117); Anion Gap 11 (12-20); Aspartate Amino Transferase 46 U/L (5-31); Bilirubin Total 0.9 mg/dL (0.0-1.0); Blood Urea Nitrogen 22 mg/dL (9-16); Calcium 8.8 mg/dL (8.4-10.2); Carbon Dioxide 26 mmol/L (22-29); Chloride 107 mmol/L (96-108); Creatinine Clr Calc Pharmacy 40.7; Estimated Glomerular Filt Rate 44; Glucose Random 197 mg/dL (60-115); Lipase 23 U/L (8-78); Potassium 3.8 mmol/L (3.3-5.1); Sodium 140 mmol/L (135-145); Total Protein 8.2 g/dL (6.5-8.0)
[2024-06-16 05:31] LABS: SLIDE REVIEW VERIFIED
[2024-06-16 06:00] VITALS: BP 110/77; PULSE 87; RESP 16; TEMP 36.9; O2SAT 100
[2024-06-16] MEDS: 0.9 % Sodium Chloride 1,000 ML 999 ML IV (06:10)
[2024-06-16] MEDS: ondansetron HCL 4 MG/2 ML VIAL IVPUSH ×2 (06:10→09:18)
--- NOTE | 2024-06-16 06:31 | ED.GENADULT ---
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 Mother reports that both she and patient's father recently were sick with vomiting and diarrhea as well. Mother denies fevers, hematemesis, hematochezia. Patient reports good relief of nausea from Zofran given prior to my assumption of care. MD complaint: nausea, vomiting, diarrhea Onset (ago): hour(s) Treatments prior to arrival: none Related Data Previous Rx's ?Medication ?Instructions ?Recorded blood-glucose meter (FreeStyle #1 ea 06/03/20 Lite Meter kit) lancets 28 gauge (FreeStyle #100 ea 06/03/20 Lancets) blood sugar diagnostic (FreeStyle #50 ea 04/09/21 Lite Strips) albuterol sulfate 2.5 mg/3 mL 2.5 mg (3 mL) inhalation Q4-6H PRN 03/29/23 (0.083 %) solution for nebulization shortness of breath or wheezing #90 mL sennosides 8.6 mg tablet (Natural 17.2 mg (2 x 8.6 mg) PO BEDTIME 08/19/23 Senna Laxative) constipation #180 tabs metformin 500 mg tablet,extended 500 mg PO DAILY #90 tabs 01/12/24 release 24 hr esomeprazole magnesium 40 mg 40 mg PO DAILY #30 caps 02/20/24 capsule,delayed release (Nexium) semaglutide 2 mg/dose (8 mg/3 mL) 2 mg (0.75 mL) subcut QWEEK 4 02/20/24 subcutaneous pen injector (Ozempic) weeks #3 mL cholecalciferol (vitamin D3) 25 25 mcg PO DAILY 90 days #90 caps 04/06/24 mcg (1,000 unit) capsule levothyroxine 50 mcg tablet 50 mcg PO DAILY 90 days #90 tabs 04/06/24 [id number]-igqhtovh-zoxekti 1 cap PO QID #120 caps 04/06/24 36,000-114,000-180,000 unit capsule,delay rel (Creon) levetiracetam 750 mg tablet 750 mg PO BID #180 tabs 04/11/24 sucralfate 100 mg/mL oral 10 ml PO BEDTIME #420 mL 05/15/24 suspension tirzepatide 2.5 mg/0.5 mL 2.5 mg (0.5 mL) subcut QWEEK 4 05/27/24 subcutaneous pen injector weeks #2 mL (Mounjaro) rosuvastatin 20 mg tablet 20 mg PO DAILY 90 days #90 tabs 06/02/24 ondansetron 4 mg disintegrating 4 mg PO Q8H PRN nausea and 06/16/24 tablet vomiting #10 tabs Allergies Allergy/AdvReac Type Severity Reaction Status Date / Time penicillamine Allergy Mild Rash Verified 06/16/24 04:51 Penicillins [PENICILLINS] Allergy Mild RASH Verified 06/16/24 04:51 aspirin Allergy Rash Verified 06/16/24 04:51 Review of Systems Review of Systems: As per HPI Yes all other systems are reviewed and are negative Constitutional: Constitutional: Reports as per HPI [facility] Past Medical History Medical History DM2 (diabetes mellitus, type 2) Autoimmune thyroiditis Type 2 diabetes mellitus with hyperglycemia, without long-term current use of insulin Down's syndrome Seizure disorder Scoliosis Surgical History History of esophagogastroduodenoscopy (EGD) No pertinent past surgical history Family History Family History Father Diabetes Mother Diabetes Maternal Grandmother Pancreatic cancer Social History Social History Household Members Other:: Parents - mother Carley Housing: Apartment Alcohol intake: never Patient Tobacco Use Status: Never used Tobacco Smoked in Last 30 Days: No e-Cigarette/Vaping Use: Never Used Second Hand Smoke Exposure: No Use of substances other than those prescribed or required for medical reasons: No Advance Directives: No Advance Directives Information Provided: Yes Do you have a plan to hurt others: No Plan Patient : No service: No Current occupational status: disabled Cognitive needs: No Hearing needs: No Vision needs: No Physical Exam ED Vital Signs: Vital Signs - 24 hr 06/16/24 04:47 06/16/24 06:00 Temperature 98.1 F 98.5 F Pulse Rate 79 87 Respiratory Rate 18 16 Blood Pressure 108/72 110/77 Pulse Oximetry 98 100 Oxygen Delivery Method Room Air Room Air BMI result Body Mass Index 22.0 Vital signs have been reviewed and appear to be correct. Blood pressure normal. Heart rate normal. Respiratory rate normal. Temperature normal. Oxygen saturation normal. Const General: cooperative and no acute distress Orientation/consciousness: oriented to person, oriented to place, oriented to time and patient oriented x3 HENMT Head: Yes normocephalic and Yes atraumatic Ears: external ears normal General nose exam: Normal external nose present Face and sinus: Yes face symmetric Mouth: oropharynx normal and moist mucous membranes Throat: Yes uvula midline Eyes Pupils: Equal, round and reactive pupils present Neck Neck: Yes normal visual inspection and Yes supple Resp Effort & Inspection: normal respiratory effort and able to speak in complete sentences Auscultation: clear to auscultation bilaterally Cardio Rate: regular rate Rhythm: regular rhythm Heart sounds: S1 normal heart sound present and S2 normal heart sound present GI Palpation (GI): Soft to palpation and nontender Auscultation: normoactive bowel sounds General: Yes no CVA tenderness Back/Spine/Pelvis Back: no CVA tenderness Skin General skin exam: elasticity normal and turgor normal Neuro General: oriented to person, oriented to place, oriented to time, patient oriented x3, moves all extremities, no focal motor deficits and CN's II-XI intact bilaterally Cranial nerves: Yes Equal, round and reactive pupils present Extrem General: Yes full ROM, Yes no pedal edema and Yes no calf tenderness Psych Mental Status: mental status grossly normal Affect: normal affect Thought process: Normal thought process present Course Reevaluation(s) Reevaluation #1: Patient reports improved nausea but complains of epigastric pain. Will order additional zofran, GI cocktail. Time: 08:17 Medications Administered Discontinued Medications Generic Name Dose Route Start Last Admin Trade Name Freq PRN Reason Stop Dose Admin Al Hydroxide/Mg Hydroxide 30 ml 06/16/24 08:16 06/16/24 09:18 Magnesium Hydrox/Alum Hydrox 30 Ml Oral.Susp PO 06/16/24 08:17 30 ml ONCE ONE Administration Sodium Chloride 1,000 mls @ 999 mls/hr 06/16/24 05:29 06/16/24 08:39 Ns IV 06/16/24 06:29 Infused .Q1H1M ONE Infusion Lidocaine HCl 15 ml 06/16/24 08:16 06/16/24 09:18 Lidocaine Hcl Viscous 2 % 15 Ml Solution MUCOUS MEM 06/16/24 08:17 15 ml ONCE ONE Administration Ondansetron HCl 4 mg 06/16/24 05:29 06/16/24 06:10 Ondansetron Hcl 4 Mg/2 Ml Vial IVPUSH 06/16/24 05:30 4 mg ONCE ONE Administration Ondansetron HCl 4 mg 06/16/24 08:16 06/16/24 09:18 Ondansetron Hcl 4 Mg/2 Ml Vial IVPUSH 06/16/24 08:17 4 mg ONCE ONE Administration Medical Decision Making Medical Decision Making [facility] Narrative: Patient Is a 38-year-old female with history of T2 DM, Down's syndrome, seizure disorder, asthma, autoimmune thyroiditis presenting to the emergency department with Yi speaking parents who report that patient has had nausea, vomiting and diarrhea since last night. On exam patient is awake, A+Ox3, VS WNL, afebrile, normal neurological exam without focal deficits, physical exam findings as above. Given reported symptoms and physical exam findings, initial differential includes but is not limited to viral illness, COVID, flu, gastroenteritis, electrolyte abnormality, dehydration. Labs notable for leukocytosis and mildly elevated transaminases likely due to vomiting. Patient reports improvement in nausea after Zofran given prior to my assumption of care. Physical exam is remarkable, abdomen is soft and nontender. Patient able to tolerate PO food and fluids in the ED after medications given. Parents comfortable with discharge home. Will send prescription for Zofran. Follow up with PCP. Return precautions discussed. Parents verbalized understanding of and agreement with plan. In-person hunter trapper was utilized for all interactions, assessments, and discussions. Differential Diagnosis Differential Diagnoses: The differential diagnosis associated with the presentation includes As per MDM Admission/Observation Consideration of admission/observation: Escalation of care including admission/observation considered Patient would have been admitted to the hospital had their work up had any findings where hospital admission was appropriate and their clinical presentation warranted hospital admission. Lab Data [facility] Lab Attestation statement: I reviewed the patient's lab results. As per [facility] 06/16/24 05:00 06/16/24 05:00 Labs: Lab Results 06/16/24 06/16/24 Range/Units 05:00 06:37 WBC 15.4 H (4.8-10.8) X10*3/uL RBC 5.15 (4.20-5.50) X10*6/uL Hgb 17.0 H (12.0-16.0) g/dl Hct 49.1 H (37.0-47.0) % MCV 95.3 (80.0-98.0) fL MCH 33.0 (27.0-33.0) pg MCHC 34.6 (31.0-35.0) g/dl RDW 12.6 (11.0-16.0) % Plt Count 255 (160-400) X10*3/uL MPV 8.7 L (9.4-12.3) fL Immature Gran % (Auto) 0.4 (0.0-0.4) % Neut % (Auto) 90.2 H (45-73) % Lymph % (Auto) 4.2 L (20-40) % Lyman % (Auto) 4.7 (2-11) % Eos % (Auto) 0.3 (0-4) % Baso % (Auto) 0.2 (0-2) % Lymph # (Auto) 0.7 L (1.2-4.9) X10*3/uL Lyman # (Auto) 0.7 (0.1-1.2) X10*3/uL Eos # (Auto) 0.1 (0.0-0.4) X10*3/uL Baso # (Auto) 0.0 (0.0-0.2) X10*3/uL Abs Immat Gran (auto) 0.06 H (0.00-0.03) X10*3/uL Absolute Neuts (auto) 13.9 H (2.0-8.3) x10*3/uL Absolute Nucleated RBC 0.000 (0.0-0.012) X10*3/uL Nucleated RBC % (auto) 0.0 (0.0-0.2) /100WBC Smear Tech's Comments VERIFIED Sodium 140 (135-145) mmol/L Potassium 3.8 (3.3-5.1) mmol/L Chloride 107 (96-108) mmol/L Carbon Dioxide 26 (22-29) mmol/L Anion Gap 11 L (12-20) BUN 22 H (9-16) mg/dL Creatinine 1.37 (0.5-1.4) mg/dL Estim Creat Clear Calc 40.7 Estimated GFR 44 Random Glucose 197 H (60-115) mg/dL Calcium 8.8 D (8.4-10.2) mg/dL Total Bilirubin 0.9 (0.0-1.0) mg/dL AST 46 H (5-31) U/L ALT 75 H (0-31) U/L Alkaline Phosphatase 80 (39-117) U/L Total Protein 8.2 H (6.5-8.0) g/dL Albumin 4.3 (3.5-5.0) g/dL Lipase 23 (8-78) U/L Influenza Type A (PCR) NEGATIVE (Negative) Influenza Type B (PCR) NEGATIVE (Negative) RSV RNA Qual (PCR) NEGATIVE (Negative) SARS-CoV-2 RNA (RT-PCR) NEGATIVE (Negative) Independent Historian Clinical information obtained from an independent historian. History obtained from or confirmed by: Parent External Record Review External record reviewed: Inpatient record, Office record and Outpatient record Prescription Management I considered prescription management with: Other Discharge Plan Discharge Clinical Impression: Gastroenteritis Patient Disposition: Home, Self-Care Instructions: Gastroenteritis (DC), Acute Nausea and Vomiting (ED), Acute Diarrhea (ED) Additional Instructions: You have been evaluated in the emergency department today for nausea, vomiting, and diarrhea. Your evaluation suggests that your symptoms are most likely due to a viral illness which will improve on it's own with rest and fluids. Remember to drink plenty of fluids at home. You are being prescribed ondansetron which you can use as per the prescription instructions for nausea. Please follow up with your primary care provider within two days. Return to the emergency department if you experience worsening or uncontrolled pain, inability to tolerate fluids by mouth, difficulty breathing, fevers 100.4? F or greater, recurrent vomiting, or any other concerning symptoms. Prescriptions: New ondansetron 4 mg tablet,disintegrating 4 mg PO Q8H PRN (Reason: nausea and vomiting) Qty: 10 0RF No Action (DME) FreeStyle Lite Strips Strip See Rx Instructions .ROUTE .MEDSUPPLY Qty: 50 11RF Rx Instructions: As directed twice a day albuterol sulfate 2.5 mg /3 mL (0.083 %) solution for nebulization 2.5 mg inhalation Q4-6H PRN (Reason: shortness of breath or wheezing) Qty: 90 0RF metformin 500 mg tablet extended release 24 hr 500 mg PO DAILY Qty: 90 2RF cholecalciferol (vitamin D3) 25 mcg (1,000 unit) capsule 25 mcg PO DAILY 90 Days Qty: 90 1RF levothyroxine 50 mcg tablet 50 mcg PO DAILY 90 Days Qty: 90 1RF Creon 36,000-114,000- 180,000 unit capsule,delayed release(DR/EC) 1 cap PO QID Qty: 120 3RF Rx Instructions: administer with meals and/or snacks levetiracetam 750 mg tablet 750 mg PO BID Qty: 180 1RF sucralfate 100 mg/mL suspension 10 ml PO BEDTIME Qty: 420 3RF Mounjaro 2.5 mg/0.5 mL pen injector 2.5 mg subcut QWEEK 28 Days Qty: 2 0RF Rx Instructions: for 4 weeks rosuvastatin 20 mg tablet 20 mg PO DAILY 90 Days Qty: 90 1RF (DME) blood-glucose meter [FreeStyle Lite Meter] Kit See Rx Instructions .ROUTE .MEDSUPPLY Qty: 1 0RF Rx Instructions: As directed twice a day (DME) lancets [FreeStyle Lancets] 28 gauge misc See Rx Instructions .ROUTE .MEDSUPPLY Qty: 100 6RF Rx Instructions: As directed twice a day sennosides [Natural Senna Laxative] 8.6 mg tablet 17.2 mg PO BEDTIME Qty: 180 3RF esomeprazole magnesium [Nexium] 40 mg capsule,delayed release(DR/EC) 40 mg PO DAILY Qty: 30 5RF Ozempic 2 mg/dose (8 mg/3 mL) pen injector 2 mg subcut QWEEK 28 Days Qty: 3 3RF Referrals: Vikki Boyd MD [Primary Care Provider] - Print Language: Yi
[2024-06-16 07:18] LABS: Influenza A PCR NEGATIVE (Negative); Influenza B PCR NEGATIVE (Negative); Resp Syncy Virus RNA Qual PCR NEGATIVE (Negative); SARS COV2 PCR INHOUSE NEGATIVE (Negative)
[2024-06-16] MEDS: Lidocaine HCl Viscous 2 % 15 ML SOLUTION MUCOUS MEM (09:18)
[2024-06-16] MEDS: Magnesium Hydrox/Alum Hydrox 30 ML ORAL.SUSP PO (09:18)
[2024-06-16 12:41] VITALS: BP 110/77; PULSE 87; RESP 16; TEMP 36.9; O2SAT 100
== END 2024-06-16 12:42 | disposition home or self-care (01) ==
PROVIDERS: Registered Nurse Emergency; Emergency Provider Emergency Medicine; PCP Internal Medicine
DX: K52.9 Noninfective gastroenteritis and colitis, unspecified (principal); R11.2 Nausea with vomiting, unspecified; Z03.818 Encounter for observation for suspected exposure to other biological agents ruled out; E11.9 Type 2 diabetes mellitus without complications; E78.5 Hyperlipidemia, unspecified; J45.909 Unspecified asthma, uncomplicated; Z79.84 Long term (current) use of oral hypoglycemic drugs; Z79.02 Long term (current) use of antithrombotics/antiplatelets; Z79.899 Other long term (current) drug therapy
CPT/HCPCS: 0241U; 36415; 80053; 83690; 85025; 96361; 96374; 96376; 99284; 99285; J2405

== ENCOUNTER 2024-06-25 09:11 | Outpatient (REF) | payer OTHER, SELFPAY ==
[2024-06-25 10:43] LABS: Alanine Aminotransferase 58 U/L (0-31); Alkaline Phosphatase 67 U/L (39-117); Anion Gap 9 (12-20); Aspartate Amino Transferase 32 U/L (5-31); Bilirubin Total 0.6 mg/dL (0.0-1.0); Blood Urea Nitrogen 13 mg/dL (9-16); Carbon Dioxide 28 mmol/L (22-29); Chloride 105 mmol/L (96-108); Cholesterol 73 mg/dL (<200); Estimated Glomerular Filt Rate > 60; Glucose Fasting 87 mg/dL (60-99); HDL Cholesterol 28 mg/dL (>40); Iron 72 mcg/dL (30-160); LDL Cholesterol Calculated 27 mg/dL (<100); Percent Iron Saturation 25 % (15-50); Potassium 3.8 mmol/L (3.3-5.1); Sodium 138 mmol/L (135-145); Total Iron Binding Capacity 293 mcg/dL (228-428); Total Protein 7.5 g/dL (6.5-8.0); Triglycerides 94 mg/dL (<150); Unsaturated Iron Binding 221 ug/dL
[2024-06-25 11:00] LABS: Thyroid Stimulating Hormone 2.08 uIU/mL (0.32-4.0); Vitamin D 25-OH Total 41.9 ng/mL (>30)
[2024-06-25 11:08] LABS: Creatinine Urine 117.19 mg/dL; Microalbumin Urine < 5.0 mg/L
[2024-06-25 11:11] LABS: Folate 16.6 ng/mL (> or = 4.0); Vitamin B12 697 pg/mL (200-900)
[2024-06-28 16:53] LABS: Vitamin D 25-OH, D2 <4 ng/mL; Vitamin D 25-OH, D3 35 ng/mL; Vitamin D 25-OH, Total 35 ng/mL (30-100)
== END 2024-06-25 09:12 | disposition home or self-care (01) ==
LOC: HO.LAB 09:11
PROVIDERS: PCP Internal Medicine; Visit Provider Internal Medicine
DX: E78.5 Hyperlipidemia, unspecified (principal); E11.9 Type 2 diabetes mellitus without complications; G40.909 Epilepsy, unspecified, not intractable, without status epilepticus; D64.9 Anemia, unspecified; E06.3 Autoimmune thyroiditis; E53.8 Deficiency of other specified B group vitamins; E55.9 Vitamin D deficiency, unspecified; Z79.84 Long term (current) use of oral hypoglycemic drugs; Z79.899 Other long term (current) drug therapy; Z28.21 Immunization not carried out because of patient refusal
CPT/HCPCS: 36415; 80053; 80061; 82043; 82306; 82570; 82607; 82746; 83036; 83540; 84443; 90471; 96127; 99212

== ENCOUNTER 2024-06-25 15:52 | Outpatient (AMB) | payer OTHER, SELFPAY ==
--- NOTE | 2024-06-25 16:10 | A.OFFPC_ITS ---
Vital Signs 06/25/24 16:12 Height 4 ft 6 in Weight 115 lb BMI 27.7 BP 110/80 Blood Pressure Location Lt brachial Position Sitting Intake Visit Reasons: dm Intake Note: Patient here for a follow up DM Electronic Warfare Technical Required: Yes Electronic Warfare Technical Language: Shirt Creaser Name: Vikki Solis Md Information Interpreted: non-clinical & clinical Accompanied by: Mother Allergies penicillamine Allergy (Mild, Verified 06/25/24 16:29) Rash Penicillins [PENICILLINS] Allergy (Mild, Verified 06/25/24 16:29) RASH aspirin Allergy (Verified 06/25/24 16:29) Rash Medication List - Last Reconciled 06/25/24 by Vikki Solis MD albuterol sulfate 2.5 mg (3 mL) inhalation Q4-6H PRN blood sugar diagnostic (FreeStyle Lite Strips) As directed twice a day blood-glucose meter (FreeStyle Lite Meter kit) As directed twice a day cholecalciferol (vitamin D3) 25 mcg PO DAILY 90 days esomeprazole magnesium (Nexium) 40 mg PO DAILY lancets (FreeStyle Lancets) As directed twice a day levetiracetam 750 mg PO BID levothyroxine 50 mcg PO DAILY 90 days [id number] 36,000-114,000- 180,000 unit (Creon) 1 cap PO QID metformin ER 500 mg PO DAILY ondansetron 4 mg PO Q8H PRN rosuvastatin 20 mg PO DAILY 90 days sennosides (Natural Senna Laxative) 17.2 mg (2 x 8.6 mg) PO BEDTIME sucralfate 10 mL PO BEDTIME tirzepatide (Mounjaro) 2.5 mg (0.5 mL) subcut QWEEK 4 weeks Tobacco use date assessed: 06/25/24 Dental Screening Dental Screen Date: 06/25/24 Did you have a dental visit in the last 12 months?: Yes Did you have a dental problem in the last 6 months where you did not have access to dental care?: No Was dental information given to patient?: Patient has dentist HPI HPI Comments History of Present Illness Details This is a 38-year-old female with Down syndrome that comes today accompanied by mother which is the cartoon designer follow-up on her chronic conditi ons. She has diabetes mellitus type 2 and is well control with an A1c of 6.8% today. On metformin and Mounjaro. Also has hypothyroidism and TSH is normal. On rosuvastatin for her hyperlipidemia and I will decrease those from 20 mg to 10 mg due to a mild elevation of liver enzymes. She also has seizures on Keppra and follows with Neurology. Has not had a seizure in over 3 months. [facility] Medical History (Updated 06/25/24 @ 16:48 by Vikki Solis MD) DM2 (diabetes mellitus, type 2) Autoimmune thyroiditis Type 2 diabetes mellitus with hyperglycemia, without long-term current use of insulin Down's syndrome Seizure disorder Scoliosis Surgical History History of esophagogastroduodenoscopy (EGD) No pertinent past surgical history Family History Father Diabetes Mother Diabetes Maternal Grandmother Pancreatic cancer Social History Household Members Other:: Parents - mother [place] Housing: Apartment Alcohol intake: never Patient Tobacco Use Status: Never used Tobacco e-Cigarette/Vaping Use: Never Used Second Hand Smoke Exposure: No service: No Current occupational status: disabled Cognitive needs: No Hearing needs: No Vision needs: No Female Reproductive History Menstrual Age of Menarche: 11 Questionnaire PHQ-9 Over the last 2 weeks, how often have you been bothered by any of the following problems? 1. Little interest or pleasure in doing things: not at all 2. Feeling down, depressed, or hopeless: not at all 3. Trouble falling or staying asleep, or sleeping too much: not at all 4. Feeling tired or having little energy: not at all 5. Poor appetite or overeating: not at all 6. Feeling bad about yourself - or that you are a failure or have let yourself or your family down: not at all 7. Trouble concentrating on things, such as reading the newspaper or watching television: not at all 8. Moving or speaking so slowly that other people could have noticed. Or the opposite - being so fidgety or restless that you have been moving around a lot more than usual: not at all 9. Thoughts that you would be better off or of hurting yourself in some way: not at all Total score: 0 Depression Screening Interpretation: Negative Depression Screening Done: Yes 18144 - PHQ-9 Billing: Yes Source: Developed by Drs. Andre Black, Tayla Maldonado, Bishop Monterroso and colleagues, with an educational jo ann from [employer]. Thrive Questionnaire Date Thrive assessed: 06/25/24 I am a: Patient What is your living situation today?: I have a steady place to live Within the past 12 months, did the food you bought not last and you didn't have the money to get more?: Never true Within the past 12 months, did you worry whether your food would run out before you got money to buy more?: Never true Do you have trouble paying for medicines?: No Do you have trouble getting transportation to medical appointments?: No Do you have trouble paying your heating and electricity bill?: No Do you have trouble taking care of your child, family member or friend?: No Do you have trouble with day-to-day activities such as bathing, preparing meals, shopping, managing finances, etc.?: No Are you currently unemployed and looking for a job?: No Are you interested in more education?: No Please select the resources that you would like help with: None Currently or been in a relationship where the following occur: No concerns reported THRIVE Score: 0 AUDIT C Alcohol Use Questionnaire (AUDIT-C) 1. How often do you have a drink containing alcohol?: Never Total Score: 0 Score Reviewed/Action Taken: No MIS-7 AMB Questionnaire MIS-7 Date MIS - 7 assessed: 06/25/24 Feeling nervous, anxious, or on edge: 0 = Not at all Not being able to stop or control worryin = Not at all Worrying too much about different things: 0 = Not at all Trouble relaxin = Not at all Being so restless that it is hard to sit still: 0 = Not at all Becoming easily annoyed or irritable: 0 = Not at all Feeling afraid as if something awful might happen: 0 = Not at all Total MIS-7 score (0-4 normal; 5-9 mild; 10-14 moderate; 15-21 severe): 0 Source: Developed by Drs. Andre Black, Tayla Maldonado, Bishop Monterroso and colleagues, with an educational jo ann from [employer]. MIS-7 Assessment Billing MIS-7 Assessment Tool: MIS-7 Assessment 78050 Review of Systems Const All systems reviewed & are unremarkable except as noted in HPI and below Card Denies chest pain at rest, Denies chest pain with activity, Denies edema, Denies irregular heart rhythm, Denies claudication, Denies dyspnea, Denies dyspnea on exertion, Denies orthopnea, Denies paroxysmal nocturnal dyspnea and Denies slow heart rate Resp Denies cough, Denies dyspnea and Denies dyspnea on exertion GI Denies abdominal pain, Denies change in bowel habits, Denies excessive flatus, Denies nausea and Denies vomiting Neuro Denies behavioral changes and Denies lack of coordination Psych Denies behavioral changes Physical exam (Primary Care) Vital Signs: Last Vital Signs BP 110/80 06/25/24 16:12 BMI result Body Mass Index 27.7 Tobacco/Smoking Status: Tobacco use Status Tobacco use date assessed 06/25/24 06/25/24 16:19 Patient Tobacco Use Status Never used Tobacco 06/25/24 16:12 e-Cigarette/Vaping Use Never Used 06/25/24 16:12 PHQ-9: PHQ-9 Score PHQ-9: Total score 0 06/25/24 16:30 Depression Screening Interpretation: Negative Thrive Assessment: Date of Thrive Assessment Date Thrive assessed 06/25/24 06/25/24 16:12 Currently or been in a relationship where the following occur: No concerns reported Resp Effort & Inspection: normal respiratory effort Auscultation: clear to auscultation bilaterally Cardio Jugular venous distension: no JVD Rate: regular rate Rhythm: regular rhythm Heart sounds: S1 normal heart sound present and S2 normal heart sound present Extrem General: Yes full ROM Office Procedures Flu Questionnaire Does the patient have a severe egg allergy?: No Results AMB Hemoglobin A1c AMB Hemoglobin A1c 6.8 % Last Edit by GERARD Prabhakar on 06/25/24 16:2 3 Immunizations Fluarix Triv [id number] (PF) 45 mcg (15 mcg x 3)/0.5 mL IM syringe Performing Provider: Vikki Solis MD Performing Location: [facility] [place] [facility] Documented (not given) by: GERARD Prabhakar on 06/25/24 16:38 Reason Not Given: Not Given Results Reviewed Results Reviewed: Laboratory Last Values Hgb A1c (Clinic) 6.8 % (4.0-6.0) H 06/25/24 16:10 Coding Level of Care Code Est Pt Level 4 (69603) Complex EM visit Add On G2211 Diagnoses Hyperlipidemia LDL goal <70 E78.5 Type 2 diabetes mellitus without complication, without long-term current use of insulin E11.9 Diabetes mellitus termite technician insulin use: without nursing home use Diabetes mellitus complication status: without complication Seizure disorder G40.909 Hypothyroidism (acquired) E03.9 Additional Codes PHQ-9 - 39689 - PHQ-9 Billing: Yes ([id number]) MIS-7 Assessment Billing - MIS-7 Assessment Tool: MIS-7 Assessment 77758 ([id number]) Time Spent (min) 23 Assessment & Plan Assessment & Plan (1) Hyperlipidemia LDL goal <70: Code(s): E78.5 - Hyperlipidemia, unspecified Category: Medical (2) DM2 (diabetes mellitus, type 2): Code(s): E11.9 - Type 2 diabetes mellitus without complications Category: Medical Qualifiers: Diabetes mellitus termite technician insulin use: without nursing home use Diabetes mellitus complication status: without complication Qualified Code(s): E11.9 - Type 2 diabetes mellitus without complications (3) Seizure disorder: Code(s): G40.909 - Epilepsy, unspecified, not intractable, without status epilepticus Category: Medical (4) Hypothyroidism (acquired): Code(s): E03.9 - Hypothyroidism, unspecified Category: Medical Plan - Continue management of Type 2 Diabetes with Metformin. - Reduce Rosuvastatin dosage from 20 mg to 10 mg due to liver enzyme concerns. - Vitamin D levels pending; follow-up required upon availability. - Continue Esomeprazole for GERD management. - Cease faulty injectables as per assembly lead person's advice; monitor for recurrence of chest pain. - Maintain current epilepsy management with Keppra. - Levothyroxine to be continued for Hypothyroidism. - Regular monitoring of liver function tests advised. - Reinforce dietary modifications consistent with current management plan. Patient was informed and verbally consented to the use of an ambient scribe for clinic note documentation during this visit. I discussed the current status and management of the patient's Type 2 Diabetes Mellitus, emphasizing the positive result of her A1c test. We reviewed the implications of her slightly elevated liver enzymes and the decision to decrease Rosuvastatin dosage. I highlighted the importance of continuing current medications for GERD and Epilepsy and advised monitoring the response to the revised treatment regimen. I mentioned the plan to review Vitamin D levels once results are available. We discussed dietary habits that support her overall health, focusing on low-fat intake and avoidance of irritants. Orders: Orders Influenza [id number] Immunization Today Z23 - Encounter for immunization AMB Hemoglobin A1c Today E11.9 - Type 2 diabetes mellitus without complications Patient Instructions: - Continue taking Metformin as prescribed. - Adhere to adjusted Rosuvastatin dosing at 10 mg daily. - Follow recommendations for GERD and avoid the discontinued injectable. - Resume normal activity but monitor for any gastrointestinal symptoms. - Attend follow-up appointments and report any new issues. - Maintain current dietary practices and review any new symptoms with physicians promptly.
[2024-06-25 16:12] VITALS: BP 110/80; BMI 27.7
== END 2024-06-25 16:44 | disposition home or self-care (01) ==
PROVIDERS: PCP Internal Medicine; Visit Provider Internal Medicine
DX: E78.5 Hyperlipidemia, unspecified (principal); E11.9 Type 2 diabetes mellitus without complications; G40.909 Epilepsy, unspecified, not intractable, without status epilepticus; E03.9 Hypothyroidism, unspecified; Z23 Encounter for immunization

== ENCOUNTER 2024-08-17 15:40 | Outpatient (AMB) | payer OTHER, SELFPAY ==
[2024-08-17 15:42] VITALS: BP 94/54; PULSE 66; O2SAT 98; BMI 27.9
--- NOTE | 2024-08-17 15:42 | A.OFFVIS_ITS ---
Vital Signs 08/17/24 15:42 Height 4 ft 6 in Weight 115 lb 8.356 oz BMI 27.9 BP 94/54 L Blood Pressure Location Rt brachial Position Sitting Pulse 66 Pulse Source Pulse Oximeter Pulse Oximetry (%) 98 Oxygen Delivery Method Room Air Intake Visit Reasons: 3 month follow up Intake Note: ESTABLISHED PATIENT for GERD, pancreatic insufficiency, constipation mgmt Chief Complaint; Pt states that their sx are well managed currently. Pt only experiencing sx with regard to lactose intolerance concern. No additional sx or concerns at this time. Pt reports that they have stopped taking their Creon. Salvage Supervisor Required: Yes Salvage Supervisor Services: Salvage Supervisor Present Salvage Supervisor Name: Alida [id number] Information Interpreted: clinical only Accompanied by: Family/Other Allergies penicillamine Allergy (Mild, Verified 08/17/24 15:42) Rash Penicillins [PENICILLINS] Allergy (Mild, Verified 08/17/24 15:42) RASH aspirin Allergy (Verified 08/17/24 15:42) Rash Medication List - Last Reconciled 08/17/24 by YAMILE GarciaP- albuterol sulfate 2.5 mg (3 mL) inhalation Q4-6H PRN blood sugar diagnostic (FreeStyle Lite Strips) As directed twice a day blood-glucose meter (FreeStyle Lite Meter kit) As directed twice a day cholecalciferol (vitamin D3) 25 mcg PO DAILY 90 days esomeprazole magnesium 40 mg PO DAILY lancets (FreeStyle Lancets) As directed twice a day levetiracetam 750 mg PO BID levothyroxine 50 mcg PO DAILY 90 days [id number] 36,000-114,000- 180,000 unit (Creon) caps PO metformin ER 500 mg PO DAILY ondansetron 4 mg PO Q8H PRN rosuvastatin 10 mg PO DAILY 90 days sennosides (Natural Senna Laxative) 17.2 mg (2 x 8.6 mg) PO BEDTIME sucralfate 10 mL PO BEDTIME tirzepatide (Mounjaro) 5 mg (0.5 mL) subcut QWEEK 4 weeks HPI HPI 3 month follow up: Details: LAST VISIT GERD (gastroesophageal reflux disease) Epigastric abdominal pain Postprandial diarrhea Constipation Exocrine pancreatic insufficiency IBS (irritable bowel syndrome) Abdominal pain Postprandial abdominal bloating Plan Patient is taking low-dose Ozempic will send a message to PCP to change to maybe Mounjaro might be more effective and with less symptoms. Patient is to eat smaller meals and more often. Continue current dose of Creon. Nexium in the morning and sucralfate at bedtime. Continue taking senna. Increase fluid intake and activity to promote better bowel motility. Follow-up in 3 months, sooner on as needed basis. She is agreeable to this plan and verbalizes understanding of instructions. She was given the opportunity to ask questions and all questions answered. ? * TODAY'S VISIT Patient is here today for follow-up. Patient is accompanied by her mother. child & adolescent psychiatrist used during visit. Patient reports to be feeling much better, however she ran out of Creon and will need a new script. Patient reports that Nexium has been working for her. Patient takes it every morning before breakfast. Patient is taking senna in the evening and her bowels have been more regular. Patient denies any abdominal pain or discomfort. Started on Mounjaro and denies having any abdominal cramping or symptoms. So far is tolerating current dose well. Patient denies any dyspepsia, dysphagia or odynophagia. Denies any melena, hematochezia, unintentional weight loss or ribbon like stools. [facility] Medical History DM2 (diabetes mellitus, type 2) Autoimmune thyroiditis Type 2 diabetes mellitus with hyperglycemia, without long-term current use of insulin Down's syndrome Seizure disorder Scoliosis Surgical History History of esophagogastroduodenoscopy (EGD) No pertinent past surgical history Family History Father Diabetes Mother Diabetes Maternal Grandmother Pancreatic cancer Social History Household Members Other:: Parents - mother [place] Housing: Apartment Alcohol intake: never Patient Tobacco Use Status: Never used Tobacco e-Cigarette/Vaping Use: Never Used Second Hand Smoke Exposure: No service: No Current occupational status: disabled Cognitive needs: No Hearing needs: No Vision needs: No Female Reproductive History Menstrual Age of Menarche: 11 Review of Systems Const Denies weight gain and Denies weight loss ENT Reports no additional complaints, Denies dysphagia and Denies odynophagia Card Reports no additional complaints Resp Reports no additional complaints GI Denies abdominal pain, Denies belching, Denies melena, Denies bloating, Denies change in bowel habits, Denies dysphagia, Denies excessive flatus, Denies dyspepsia, Denies heartburn, Denies diarrhea, Denies loose stools, Denies nausea, Denies odynophagia and Denies vomiting Reports no additional complaints Musc Reports no additional complaints Neuro Reports no additional complaints Psych Reports no additional complaints Endo Reports no additional complaints Physical Exam Vital Signs: Last Vital Signs Pulse 66 08/17/24 15:42 BP 94/54 L 08/17/24 15:42 Pulse Ox 98 08/17/24 15:42 Oxygen Delivery Method Room Air 08/17/24 15:42 BMI result Body Mass Index 27.9 Const Other: Patient with Down syndrome unable to get full history from patient General: healthy appearing, no acute distress and well developed Nutritional Appearance: well nourished Orientation/consciousness: patient oriented x3 Resp Effort & Inspection: normal respiratory effort, able to speak in complete sentences, no tracheal deviation and symmetric chest movement Auscultation: clear to auscultation bilaterally Cardio Rate: regular rate GI Inspection: Yes normal to inspection and No distended Palpation (GI): Soft to palpation, not firm, nontender and No hepatosplenomegaly present Auscultation: normal bowel sounds General: Yes no CVA tenderness Back/Spine/Pelvis Back: no CVA tenderness Skin General skin exam: elasticity normal, turgor normal and dry skin Neuro General: patient oriented x3 Psych Appearance: grossly normal Assessment & Plan Assessment & Plan (1) GERD (gastroesophageal reflux disease): Code(s): K21.9 - Gastro-esophageal reflux disease without esophagitis Category: Medical Qualifiers: Esophagitis presence: without esophagitis Qualified Code(s): K21.9 - Gastro-esophageal reflux disease without esophagitis (2) Epigastric abdominal pain: Code(s): R10.13 - Epigastric pain (3) Postprandial diarrhea: Code(s): K52.9 - Noninfective gastroenteritis and colitis, unspecified (4) Constipation: Code(s): K59.00 - Constipation, unspecified Qualifiers: Constipation type: slow transit constipation Qualified Code(s): K59.01 - Slow transit constipation (5) Exocrine pancreatic insufficiency: Code(s): K86.81 - Exocrine pancreatic insufficiency (6) IBS (irritable bowel syndrome): Code(s): K58.9 - Irritable bowel syndrome, unspecified Qualifiers: Irritable bowel syndrome type: without diarrhea Qualified Code(s): K58.9 - Irritable bowel syndrome, unspecified (7) Abdominal pain: Code(s): R10.9 - Unspecified abdominal pain Qualifiers: Abdominal location: unspecified location Qualified Code(s): R10.9 - Unspecified abdominal pain (8) Postprandial abdominal bloating: Code(s): R14.0 - Abdominal distension (gaseous) Plan Continue Creon. Continue Nexium daily. Avoid dietary triggers and late night snacking. Staying upright for minimum 3 hours after meals discussed with patient. Continue taking senna. Increase fluid intake and activity to promote better bowel motility. Patient will return in 3 months, sooner on as needed basis. She is agreeable to this plan and verbalizes understanding of instructions. She was given the opportunity to ask questions and all questions answered. Thank you for allowing me to participate in her care Medications: New [id number] 36,000-114,000- 180,000 unit (Creon) 1 cap PO QID 240 caps 3RF Coding Level of Care Code Est Pt Level 4 (68600) Complex EM visit Add On G2211 Diagnoses Gastroesophageal reflux disease without esophagitis K21.9 Esophagitis presence: without esophagitis Epigastric abdominal pain R10.13 Postprandial diarrhea K52.9 Slow transit constipation K59.01 Constipation type: slow transit constipation Exocrine pancreatic insufficiency K86.81 Irritable bowel syndrome without diarrhea K58.9 Irritable bowel syndrome type: without diarrhea Abdominal pain, unspecified abdominal location R10.9 Abdominal location: unspecified location Postprandial abdominal bloating R14.0 Time Spent (min) 35 Comment 25 minutes spent with patient and additional 10 minutes spent reviewing her records
--- OUTSIDE RECORDS SUMMARY | 2024-08-17 16:40 | XMS_ITS | Clinical Summary ---
Author Organization [facility] Address [address] [place] [address] Care Team Providers Care Combine Driver Name Role Phone Unavailable Primary Care Provider Unavailabl e Source Comments PLEASE NOTE, if this patient is a minor, it may be UNLAWFUL to discuss sensitive information that is contained in these records (such as FAMILY PLANNING, MENTAL HEALTH or SUBSTANCE ABUSE) with the minor patient's parent or other person without the patient's specific authorization.[facility] Allergies Active Allergy Reactions Criticality Noted Date Comments Penicillins Rash 07/22/2017 Medications carbamide peroxide (DEBROX) 6.5 % otic solutionIndicati ons:Impacted cerumen of left ear Place 5 Drops into the left ear 2 (two) times daily 15 mL 8 Active metFORMIN (GLUCOPHAGE) 500 mg tabletIndication s:Controlled type 2 diabetes mellitus without complication, without long-term current use of insulin ([facility]) Take 1 Tab by mouth once daily with breakfast 30 Tab 5 8 Active omeprazole (PRILOSEC) [address] capsuleIndicatio ns:Gastroesophag eal reflux disease without esophagitis TAKE 1 CAP BY MOUTH EVERY MORNING BEFORE BREAKFAST 30 Cap 2 8 Active levothyroxine (SYNTHROID, LEVOTHROID) 50 mcg tabletIndication s:Hypothyroidism , unspecified type TAKE 1 TABLET BY MOUTH EVERY DAY 30 Tab 5 9 Active levETIRAcetam (KEPPRA) 500 mg tabletIndication s:Nonintractable epilepsy without status epilepticus, unspecified epilepsy type ([facility]) Take 1 Tab by mouth 2 (two) times daily 60 Tab 1 9 Active Active Problems Problem Noted Date Diagnosed Date Seizure ([facility]) 07/28/2018 Overview (07/28/2018): Admitted at [facility] 07/14/18 and D/C on 07/17/18 Brought to the ED by her parents yesterday evening after having a breakthrough seizure. CT head with right parietal hyperdensity. Seen By neurology, Keppra was increased to 750 mg BID. Neurology has reviewed the MRI from [facility] done on 07/10/18 . Recommends to increase Keppra to 1 gm BID and [facility].Jericho WOODSON, Marion Short, Encounter for diabetic foot exam ([facility]) 10/17 Overview (10/17/2017): Foot specialists Paronychia of toe right foot,pain right limb,pain left limb,painful onychomycosis by clinical appearance toe 2,3,4 and 5 right foot, painful onychomycosis by clinical appearance toe 1-5 left foot Allergic rhinitis, unspecified 07/22/2017 Scoliosis, unspecified 07/22/2017 Down syndrome 05/27/2017 Controlled type 2 diabetes m ellitus without complication, without long-term current use of insulin ([facility]) 05/27/2017 Nonintractable epilepsy with out status epilepticus ([facility]) 05/27/2017 Overview (05/27/2017): On Keppra. Referred to Neurology Hypothyroidism 05/27/2017 Fatty liver 05/27/2017 Overview (05/27/2017): From old medical record. Immunizations Name Administration Dates Next Due Flu, Preservative Free 03/30/2018,05/27/2017 PPD 09/06/2017 TDAP 08/29/2017 Social History Tobacco Use Types Packs/Day Years Used Date Smoking Tobacco: Never Smokeless Tobacco: Never Alcohol Use Standard Drinks/Week Comments No 0 (1 standard drink = 0.6 oz pur e alcohol) Social Connections Answer Date Recorded Social Connections and Isolation 0 01/29/2019 Financial Resource Strain Answer Date R ecorded Financial Resource Strain 0 2018 Stress Answer Date Recorded Stress 0 01/29/2019 Physical Activity Answer Date Recorded Physical Activity 0 01/29/2019 Food Insecurity Answer Date Recorded Food 0 01/29/2019 Transportation Needs Answer Date Record ed Transportation 0 01/29/2019 Housing Stability Answer Date Recorded Housing 0 01/29/2019 Safety and Environment Answer Date Kyrie rded Safety 0 01/29/2019 Utilities Answer Date Recorded Utilities 0 01/29/2019 Employment Answer Date Recorded Employment 0 01/29/2019 Comments No Sex and Gender Information Value Date Recorded Sex Assigned at Female 05/27/2017 11:07 AM PST Legal Sex Female 7:52 AM PST Gender Identity Female 05/27/2017 11:07 AM PST Sexual Orientation Straight 05/27/2017 11 :07 AM PST Last Filed Vital Signs Vital Sign Reading Time Taken Comments Blood Pressure 112/62 08/08/2018 2:23 PM EST Pulse 67 08/08/2018 2:23 PM EST Temperature 37.1 ??C (98.7 ??F) 08/08/2018 2:23 PM ES T Respiratory Rate 18 08/08/2018 2:23 PM EST Oxygen Saturation 100% 02/23/2018 1:09 PM EDT Inhaled Oxygen Concentration - - Weight 58.1 kg (128 lb) 08/08/2018 2:23 PM EST Height 139.7 cm (4' 7 ) 08/08/2018 2:23 PM EST Body Mass Index 29.75 08/08/2018 2:23 PM EST Plan of Treatment Not on file Insurance [employer] [facility] [employer] [address] [facility]
--- OUTSIDE RECORDS SUMMARY | 2024-08-17 16:40 | XMS_ITS | Encounter Summary ---
Author Organization [facility] Address [address] [place] [address] [address] [place] [address] Care Team Providers Care Hole Puncher Strap Name Role Phone Unavailable Primary Care Provider Unavailabl e Reason for Visit * Reason Comments Routine Cleaning Perio chart Encounter Details Date Type Department Care Team (Late st Contact Info) Description 08/06/2024 2:00 PM EST Office Visit [facility] ADULT DENTAL [address] [place], [place] [phone] Reena Hdez [address] [place] [address] Generalized gingivitis (Primary Dx); Dental calculus; Gingival bleeding Social History Tobacco Use Types Packs/Day Years Used Date Smoking Tobacco: Never Passive Smoke Exposure: Never Smokeless Tobacco: Never Alcohol Use Standard Drinks/Week Comments Never 0 (1 standard drink = 0.6 oz pur e alcohol) Comments Unknown Sex and Gender Information Value Date Recorded Sex Assigned at Female 04/05/2022 10:35 AM EDT Legal Sex Female 10:35 AM EDT Gender Identity Female 03/27/2024 8:41 AM EDT Sexual Orientation Straight 03/27/2024 8: 41 AM EDT documented as of this encounter Last Filed Vital Signs Vital Sign Reading Time Taken Comments Blood Pressure 124/70 08/06/2024 2:03 PM EST Pulse - - Temperature - - Respiratory Rate - - Oxygen Saturation - - Inhaled Oxygen Concentration - - Weight - - Height - - Body Mass Index - - documented in this encounter Progress Notes * Reena Hdez - 08/06/2024 2:00 PM EST 2pm appoint for perio chartadriel Patient ID: Abigail Martin is a 38 y.o. female. Time Out: Timeout Date: 08/06/24, Timeout Time: 1409 (Prophy perio chart) Location: [facility] Tooth: Maxilla and Mandible Procedure: Prophylaxis, perio chart Verified the above with patient, senior underwriting assistant, and provider. Confirmed via patient's chart, intraorally and by radiographs. Barrel Waterer: not applicable Medical Hx: Vitals: Blood pressure 124/70. Medications, Med Hx reviewed with patient and updated in chart. Treatment Provided Dental procedures in this visit D1110 - PROPHYLAXIS - ADULT (Completed) Converted outstanding - prophylaxis - adult Service provider: Reena Hdez Billing provider: Cristi Solis DDS [id number] - TOPICAL APPLICATION OF FLUORIDE VARNISH Full (Completed) Service provider: Reena Hdez Billing provider: Cristi Solis DDS D1330 - ORAL HYGIENE INSTRUCTIONS (Completed) Service provider: Reena Hdez Billing provider: Cristi Solis DDS [id number] - CASE PRESENTATION, DETAILED AND EXTENSIVE TREATMENT PLANNING (Completed) Service provider: Reena Hdez Billing provider: Cristi Solis DDS Instruments Used: Ultrasonic Scalers and Prophy angle, perio probe Fluoride: 5% NaF varnish applied and POI given Oral Cancer Screening: No lesions Head/Neck Exam: no lesions Calculus: Moderate Plaque: Heavy Stain: Light Bleeding: Moderate Gingiva: Perio Charting Completed, Bleeding on probing, Edematous, and Erythematous OH: Poor Perio Chart: Completed 2 mm to 5 mm in depths. Requesting 4 quads SRP. Oral hygiene instructions provided to patient including brushing technique and flossing. Recommendations: [place] two times daily, modified ramos technique, Floss daily, Electric toothbrush, Soft bristle toothbrush, [place] Tongue, Anti-sensitivity toothpaste Recall Frequency: SRP if approved NV: SRP UL, LL quads Hygienist: Reena Hdez RDH documented in this encounter Plan of Treatment Upcoming Encounters Date Type Department Care Team (Late st Contact Info) Description 10/11/2024 2:00 PM EDT Office Visit [facility] ADULT DENTAL [address] [place] [address] Reena Hdez [address] [place] [address] 10/17/2024 2:00 PM EDT Office Visit [facility] ADULT DENTAL [address] [facility] [place] [address] Reena Hdez [address] [place] [address] 02/08/2025 1:00 PM EDT Office Visit [facility] ADULT DENTAL [address] [facility] [place] [address] Reena Hdez [address] [place] [address] Scheduled Orders Name Type Priority Associated Diagnoses Orde r Schedule BITEWINGS - 4 RADIOGRAPHIC IMAGES Dental Routine 1 Occurrence s starting 08/06/2024 PROPHYLAXIS - ADULT Dental Routine 1 Occ urrences starting 08/06/2024 TOPICAL APPLICATION OF FLUORIDE VARNISH Dental Routine 1 Occurrences s tarting 08/06/2024 CASE PRESENTATION, DETAILED AND EXTENSIVE TREATMENT PLANNING Dental Routine 1 Occurrences starting 08/06/2024 ORAL HYGIENE INSTRUCTIONS Dental Routine 1 Occurrences starting 08/06/2024 UL UL PERIODONTAL SCALING AND ROOT PLANING - 4 OR MORE TEETH PER QUADRANT Dental Routine 1 Occurr ences starting 08/06/2024 LL LL PERIODONTAL SCALING AND ROOT PLANING - 4 OR MORE TEETH PER QUADRANT Dental Routine 1 Occurr ences starting 08/06/2024 UR UR PERIODONTAL SCALING AND ROOT PLANING - 4 OR MORE TEETH PER QUADRANT Dental Routine 1 Occurr ences starting 08/06/2024 LR LR PERIODONTAL SCALING AND ROOT PLANING - 4 OR MORE TEETH PER QUADRANT Dental Routine 1 Occurr ences starting 08/06/2024 documented as of this encounter Procedures Procedure Name Priority Date/Time Associated Diagnosis Comments Full TOPICAL APPLICATION OF FLUORIDE VARNISH Routine 08/06/2024 2:00 PM EST Generalized gingivitis Dental calculus Gingival bleeding PROPHYLAXIS - ADULT Routine 08/06/2024 2 :00 PM EST Generalized gingivitis Dental calculus Gingival bleeding ORAL HYGIENE INSTRUCTIONS Routine 08/06/2024 2:00 PM EST Generalized gingivitis Dental calculus Gingival bleeding CASE PRESENTATION, DETAILED AND EXTENSIVE TREATMENT PLANNING Routine 08/06/2024 2:00 PM EST Generalized gingivitis Dental calculus Gingival bleeding documented in this encounter Visit Diagnoses Diagnosis Generalized gingivitis- Primary Dental calculus Accretions on teeth Gingival bleeding Other specified periodontal diseases documented in this encounter
--- OUTSIDE RECORDS SUMMARY | 2024-08-17 16:40 | XMS_ITS | Encounter Summary ---
Author Organization [facility] [employer] [facility] Address [address] [place] [address] Care Team Providers Care Cooperage Shop Supervisor Name Role Phone Unavailable Primary Care Provider Unavailabl e Encounter Details Date Type Department Care Team (Late st Contact Info) Description 08/15/2024 Telephone [facility] ADULT DENTAL [address] [place], [place] [phone] Kelvin Hdezaris [address] [place], [place] [phone] Social History Tobacco Use Types Packs/Day Years [...] AM EDT documented as of this encounter Miscellaneous Notes * Telephone Encounter - Sharda Pacheco - 08/15/2024 3:40 PM EDT Called to schedule a deep cleaning appointment but there was no answer so I left a voicemail. documented in this encounter Plan of Treatment Upcoming Encounters Date Type Department Care Team (Late st Contact Info) Description 10/11/2024 2:00 PM EDT Office Visit [facility] ADULT DENTAL [address] [place], [place] [phone] Lemuel [facility] [address] [place] [address] 10/17/2024 2:00 PM EDT Office Visit [facility] ADULT DENTAL [address] [place] [address] Reena Hdez [address] [place] [address] 02/08/2025 1:00 PM EDT Office Visit [facility] ADULT DENTAL [address] [place] [address] Reena Hdez [address] [place] [address] documented as of this encounter Visit Diagnoses Not on filedocumented in this encounter
--- OUTSIDE RECORDS SUMMARY | 2024-08-17 16:40 | XMS_ITS | Clinical Summary ---
Author Organization [facility] it Address [address] [place] [address] Care Team Providers Care Glove Brusher Name Role Phone Zaid Madison MD Primary Care Provider Social History Tobacco Use Types Packs/Day Years Used Date Smoking Tobacco: Never Assessed Comments Unknown Sex and Gender Information Value Date Recorded Sex Assigned at Not on file Legal Sex Female 11:27 PM EST Gender Identity Not on file Sexual Orientation Not on file Plan of Treatment Health Maintenance Due Date Last Done Comments Diabetes: Annual GFR (Glomer ular Filtration Rate) 1987 Diabetes: Annual Foot Exam 11/13/1997 Diabetes: Annual Retina Eye Exam 11/13/1997 Hepatitis A Vaccines (1 of 2 - Risk 2-dose series) 11/13/2006 Hepatitis B Vaccines (1 of 3 - 19+ 3-dose series) 11/13/2006 Cervical Cancer Screening: P ap Smear 11/13/2008 Pneumococcal Vaccine: Pediat rics (0 to 5 Years) and At-Risk Patients (6 to 64 Years) (2 of 2 - PCV) 07/08/2018 07/08/2017 Cholesterol Screening (Lipid Panel) 05/09/2022 Depression Screening 05/09/2022 HIV Screening 05/09/2022 Hepatitis C Screening 05/09/2022 Social Influencers of Health Screening 05/09/2022 Diabetes: Annual Urine Albumin-Creatinine Ratio (uACR) 05/22/2022 Diabetes: Blood Sugar Contro l Test (HGBA1C) 05/22/2022 COVID-19 Vaccine ( - 2023-2 5 season) 2024 Influenza Vaccine (#1) 2024 DTaP,Tdap,and Td Vaccines (2 - Td or Tdap) 07/08/2027 07/08/2017 HIB Vaccines Aged Out No longer eligi ble based on patient's age to complete this topic HPV Vaccines Aged Out No longer eligi ble based on patient's age to complete this topic IPV Vaccines Aged Out No longer eligi ble based on patient's age to complete this topic MMR Vaccines Aged Out No longer eligi ble based on patient's age to complete this topic Meningococcal ACWY Vaccine Aged Out N o longer eligible based on patient's age to complete this topic Meningococcal B Vacine Aged Out No lo nger eligible based on patient's age to complete this topic RSV Immunization Patients Un berto 20 months Aged Out No longer eligible b ased on patient's age to complete this topic Varicella Vaccines Aged Out No longer eligible based on patient's age to complete this topic Care Teams Glove Brusher Relationship Specialty Start Date End Date Zaid Madison MD [address] [place] [address] PCP - General Internal Medicine 06/01/17
--- OUTSIDE RECORDS SUMMARY | 2024-08-17 16:40 | XMS_ITS | Clinical Summary ---
Author Organization [facility] [employer] [facility] Address [address] [place] [address] [address] [place] [address] Care Team Providers Care Model And Dye Person Name Role Phone Unavailable Primary Care Provider Unavailabl e Allergies Active Allergy Reactions Criticality Noted Date Comments Aspirin Hives 04/18/2024 Penicillins Hives 04/18/2024 Medications D3-1000 25 MCG (1000 UT) capsule TOME 1 C PSULA POR V A ORAL TODOS LOS D 07/06/19 25 Active dicyclomine (Bentyl) 20 MG tablet TOME 1 TABLETA POR V A ORAL ROMULO VECES AL D A 02/12/20 24 Active esomeprazole (NexIUM) [address] capsule TOME 1 C PSULA POR V A ORAL TODOS LOS D 05/17/20 24 Active levETIRAcetam (Keppra) 500 MG tablet Take 500 mg by mouth 2 times daily. 08/09/19 19 Active levothyroxine (Synthroid, Levoxyl) 50 MCG tablet TOME 1 TABLETA POR V A ORAL TODOS LOS D Active metFORMIN XR (Glucophage-XR) 500 MG 24 hr tablet TOME 1 TABLETA POR V A ORAL TODOS LOS D 07/06/19 25 Active ondansetron ODT (Zofran-ODT) 4 MG disintegrating tablet DISSOLVE 1 TABLET ORALLY EVERY 8 HOURS NEEDED FOR NAUSEA AND VOMITING 06/16/19 25 Active Creon [id number] units capsule delayed-release particles capsule TAKE 1 CAP ORALLY 4 TIMES A DAY ADMINISTER WITH MEALS AND/OR SNACKS 04/06/20 24 Active rosuvastatin (Crestor) 20 MG tablet TOME 1 TABLETA POR V A ORAL TODOS LOS D 06/02/20 24 Active Senna-Time 8.6 MG tablet TOME DOS TABLETAS POR V A ORAL AL ACOSTARSE CUANDO SEA NECESARIO PARA EL ESTRE IMIENTO 07/02/19 25 Active sucralfate (Carafate) 1 GM/10ML suspension 08/05/19 25 Active Mounjaro 5 MG/0.5ML solution auto-injector INJECT 5 MG (0.5 ML) SUBCUTANEOUSLY EVERY WEEK FOR 4 WEEKS 07/12/19 25 Active Active Problems Problem Noted Date Diagnosed Date Generalized gingivitis 04/18/2024 Encounters Date Type Department Care Team Description 08/15/2024 Telephone [facility] ADULT DENTAL [address] [place] [address] Reena Hdez 08/06/2024 2:00 PM EST Office Visit [facility] ADULT DENTAL [address] [place] [address] Reena Hdez Generalized gingivitis (Primary Dx); Dental calculus; Gingival bleeding from Last 3 Months Social History Tobacco Use Types Packs/Day Years Used Date Smoking Tobacco: Never Passive Smoke Exposure: Never Smokeless Tobacco: Never Tobacco Cessation:Counseling Given: No Alcohol Use Standard Drinks/Week Comments Never 0 (1 standard drink = 0.6 oz pur e alcohol) Comments Unknown Sex and Gender Information Value Date Recorded Sex Assigned at Female 04/05/2022 10:35 AM EDT Legal Sex Female 10:35 AM EDT Gender Identity Female 03/27/2024 8:41 AM EDT Sexual Orientation Straight 03/27/2024 8: 41 AM EDT Last Filed Vital Signs Vital Sign Reading Time Taken Comments Blood Pressure 124/70 08/06/2024 2:03 PM EST Pulse - - Temperature - - Respiratory Rate - - Oxygen Saturation - - Inhaled Oxygen Concentration - - Weight - - Height - - Body Mass Index - - Plan of Treatment Upcoming Encounters Date Type Department Care Team (Late st Contact Info) Description 10/11/2024 2:00 PM EDT Office Visit [facility] ADULT DENTAL [address] [place] [address] Kelvin Hdezaris [address] [place] [address] 10/17/2024 2:00 PM EDT Office Visit [facility] ADULT DENT[facility] [address] [place] [address] Reena Hdez [address] [facility] [place] [address] 02/08/2025 1:00 PM EDT Office Visit [facility] ADULT D[facility] [address] [facility] [place] [address] Reena Hdez [address] [facility] [place] [address] Health Maintenance Due Date Last Done Comments Depression Screening 1987 HIV Screening 1987 SDOH Screening 1987 Alcohol/Substance Use Screening 1999 Family Planning (PISQ) 11/13/2002 Hepatitis C Screening 11/13/2005 Hepatitis A Vaccines (1 of 2 - Risk 2-dose series) 11/13/2006 Hepatitis B Vaccines (1 of 3 - 19+ 3-dose series) 11/13/2006 Pap Smear 11/13/2008 Cervical Cancer Screening 11/13/2017 HPV/Cotest 11/13/2017 COVID-19 Vaccine ( season) 2024 05/23/2021, 08/27/2020 Influenza Vaccine (#1) 2024 , 03/23/2021, 04/13/2019, Additional history exists Dental Oral Exam 10/17/2024 04/18/2024, 12/2019, 12/12/2018 Dental Prophylaxis 02/07/2025 08/06/2024, 0 06/14/2019, 12/13/2018 Dental X-Ray: Bitewings 04/19/2025 04/18/2024, 12/12 Tobacco Screening 08/06/2025 08/06/2024 Dental X-Ray: Full Mouth 04/19/2027 04/18/2024 DTaP/Tdap/Td Vaccines (3 - Td or Tdap) 08/30/2027 08/29/2017, 07/08/2017 Zoster Vaccines (1 of 2) 11/13/2037 RSV Patients and Patients Aged 60 years or older (1 - 1-dose 75+ series) 11/13/2062 Pneumococcal Vaccine: Pediatrics (0 to 5 Years) and At-Risk Patients (6 to 49) Years) Aged Out 07/08/2017 No longer eligible based on patient's age to complete this topic HIB Vaccines Aged Out No longer eligi ble based on patient's age to complete this topic HPV Vaccines Aged Out No longer eligi ble based on patient's age to complete this topic IPV Vaccines Aged Out No longer eligi ble based on patient's age to complete this topic Meningococcal Vaccine Aged Out No jerir sobeida eligible based on patient's age to complete this topic RSV under 20 months Aged Out No longe r eligible based on patient's age to complete this topic Rotavirus Vaccines Aged Out No longer eligible based on patient's age to complete this topic Procedures Procedure Name Priority Date/Time Associated Diagnosis Comments CASE PRESENTATION, DETAILED AND EXTENSIVE TREATMENT PLANNING Routine 08/06/2024 2:00 PM EST Generalized gingivitis Dental calculus Gingival bleeding ORAL HYGIENE INSTRUCTIONS Routine 2024 2:00 PM EST Generalized gingivitis Dental calculus Gingival bleeding Full TOPICAL APPLICATION OF FLUORIDE VARNISH Routine 08/06/2024 2:00 PM EST Generalized gingivitis Dental calculus Gingival bleeding PROPHYLAXIS - ADULT Routine 08/06/2024 2 :00 PM EST Generalized gingivitis Dental calculus Gingival bleeding INTRAORAL - COMPLETE SERIES OF RADIOGRAPHIC IMAGES Routine 04/18/2024 9:00 AM EST COMPREHENSIVE ORAL EVALUATION - NEW OR ESTABLISHED PATIENT Routine 04/18/2024 9:00 AM EST from Last 3 Months or Most Recently Relevant to Health Maintenance Insurance [facility]
--- OUTSIDE RECORDS SUMMARY | 2024-08-17 16:40 | XMS_ITS | Encounter Summary ---
Author Organization [facility] Address [address] [place] [address] Care Team Providers Care Farmworker Dairy Name Role Phone Unavailable Primary Care Provider Unavailabl e Encounter Details Date Type Department Care Team (Latest Contact Info) Description 12/14/2018 Abstract [facility] Dental, Provider, DDS Social History Tobacco Use Types Packs/Day Years Used Date Smoking Tobacco: Never Assessed Comments Unknown Sex and Gender Information Value Date Recorded Sex Assigned at Female 04/05/2022 10:35 AM EDT Legal Sex Female 10:35 AM EDT Gender Identity Female 03/27/2024 8:41 AM EDT Sexual Orientation Straight 03/27/2024 8: 41 AM EDT documented as of this encounter Plan of Treatment Upcoming Encounters Date Type Department Care Team (Late st Contact Info) Description 10/11/2024 2:00 PM EDT Office Visit [facility] ADULT DENTAL [address] [place] [address] Lemuel, Reena [address] [place] [address] 10/17/2024 2:00 PM EDT Office Visit [facility] ADULT DENT[facility] [address] [place] [address] Lemuel, Reena [address] [place] [address] 02/08/2025 1:00 PM EDT Office Visit [facility] ADULT DENT[facility] [address] [place] [address] Lemuel, Reena [address] [place] [address] documented as of this encounter Visit Diagnoses Not on filedocumented in this encounter
--- OUTSIDE RECORDS SUMMARY | 2024-08-17 16:40 | XMS_ITS | Patient Health Record ---
Author [facility] Address [address] [place] [address] Care Team Providers Care Medical Health Researcher Name Role Phone Vikki Winchester MD Primary Care Provider Unavail able Dawood Cage Unavailable [phone] Allergies Allergen (clinical drug ingredient) Drug/Non Drug [...] Status Risk Notes Problem Acquired hallux valgus (23136869) Hallux valgus (acquired), right foot (M20.11) Active confirmed Problem [id number] Down's syndrome (Q90.9) Active confirmed Problem [id number] Type 2 diabetes mellitus with hyperglycemia, unspecified whether mcfp insulin use (E11.65) Active confirmed Plan Of Treatment Pending Test Test Name Order Date X ray : Foot, right 3V 11/09/2022 Insurance Providers Payer Name Payer Address Payer Phone Subscriber Number Group Number Insured Name Patient Relationship to Insured Coverage Start Date Coverage End Date [facility] [employer] Claims [address] [place] [id number] Abigail Martin Self - patient is the insured Medical (General) History Medical History History ICD Code asthma Back,Hip,and Knee pain Epilepsy Glaucoma Numbness Sinus conditions thyroid Down's syndrome Scoliosis Reflux ( GERD) Diabetes mellitus Type 2 Surgical History Surgery Date(Month/Year) Hospitalization History Reason Date(Month/Year) [facility]- gastritis 10/2022
== END 2024-08-17 16:14 | disposition home or self-care (01) ==
LOC: HO.HGI 15:40
PROVIDERS: PCP Internal Medicine; Visit Provider Nurse Practitioner Family
DX: K21.9 Gastro-esophageal reflux disease without esophagitis (principal); K86.81 Exocrine pancreatic insufficiency; K58.2 Mixed irritable bowel syndrome
CPT/HCPCS: 99214; G2211

== ENCOUNTER → 2024-08-17 15:40 | Outpatient (BNVA) | payer OTHER, SELFPAY | PROVIDERS: PCP Internal Medicine; Visit Provider Nurse Practitioner Family | DX: K21.9 Gastro-esophageal reflux disease without esophagitis (principal); K58.1 Irritable bowel syndrome with constipation; K52.9 Noninfective gastroenteritis and colitis, unspecified; K59.01 Slow transit constipation; K86.81 Exocrine pancreatic insufficiency; R10.13 Epigastric pain; R14.0 Abdominal distension (gaseous) | CPT/HCPCS: 99212 ==

== ENCOUNTER 2024-09-24 14:49 | Outpatient (AMB) | payer OTHER, SELFPAY ==
--- OUTSIDE RECORDS SUMMARY | 2024-09-24 14:52 | XMS_ITS | Clinical Summary ---
Author Organization [facility] ity Address [address] [place] [address] Care Team Providers Care Deputy Attorney General Name Role Phone Zaid Madison MD Primary Care Provider Social History Tobacco Use Types Packs/Day Years Used Date Smoking Tobacco: Never Assessed Comments Unknown Sex and Gender Information Value Date Recorded Sex Assigned at Not on file Legal Sex Female 11:27 PM EST Gender Identity Not on file Sexual Orientation Not on file Plan of Treatment Health Maintenance Due Date Last Done Comments Hepatitis B Vaccines (1 of 3 - 19+ 3-dose series) 11/13/2006 Cervical Cancer Screening: P ap Smear 11/13/2008 COVID-19 Vaccine (2023-2 5 season) 2024 Influenza Vaccine (Season Ended) 2025 DTaP,Tdap,and Td Vaccines (2 - Td or Tdap) 07/08/2027 07/08/2017 Pneumococcal Vaccine: Pediat rics (0 to 5 Years) and At-Risk Patients (6 to 64 Years) Aged Out 07/08/2017 No longer eligi ble based on patient's age to complete this topic HIB Vaccines Aged Out No longer eligi ble based on patient's age to complete this topic HPV Vaccines Aged Out No longer eligi ble based on patient's age to complete this topic Hepatitis A Vaccines Aged Out No long er eligible based on patient's age to complete this topic IPV Vaccines Aged Out No longer eligi ble based on patient's age to complete this topic MMR Vaccines Aged Out No longer eligi ble based on patient's age to complete this topic Meningococcal ACWY Vaccine Aged Out N o longer eligible based on patient's age to complete this topic Meningococcal B Vaccine Aged Out No l onger eligible based on patient's age to complete this topic RSV Immunization Patients Un berto 20 months Aged Out No longer eligible b ased on patient's age to complete this topic Varicella Vaccines Aged Out No longer eligible based on patient's age to complete this topic Care Teams Deputy Attorney General Relationship Specialty Start Date End Date Zaid Madison MD [address] [place] [address] PCP - General Internal Medicine 06/01/17
--- OUTSIDE RECORDS SUMMARY | 2024-09-24 14:52 | XMS_ITS | Clinical Summary ---
Author Organization [facility] Address [address] [place] [address] Care Team Providers Care Lithoduplicator Operator Name Role Phone Unavailable Primary Care Provider [...] complication, without long-term current use of insulin ([facility]) Take 1 Tab by mouth [...] epilepsy without status epilepticus, unspecified epilepsy type ([facility]) Take 1 Tab by mouth 2 (two) times daily 60 Tab 1 9 Active Active Problems Problem Noted Date Diagnosed Date Seizure ([facility]) 07/28/2018 Overview (07/28/2018): Admitted at [facility] 07/14/18 and D/C on 07/17/18 Brought to the ED by her parents yesterday evening after having a breakthrough seizure. CT head with right parietal hyperdensity. Seen By neurology, Keppra was increased to 750 mg BID. Neurology has reviewed the MRI from [facility] done on 07/10/18 . Recommends to increase Keppra to 1 gm BID and [facility] Neurologist.Jericho WOODSON, Marion Short, Encounter for diabetic foot exam ([facility]) 10/17 Overview (10/17/2017): [facility] Paronychia of toe right foot,pain right limb,pain left limb,painful onychomycosis by clinical appearance toe 2,3,4 and 5 right foot, painful onychomycosis by clinical appearance toe 1-5 left foot Allergic rhinitis, unspecified 07/22/2017 Scoliosis, unspecified 07/22/2017 Down syndrome ([facility]) 05/27/2017 Controlled type 2 diabetes m ellitus without complication, without long-term current use of insulin ([facility]) 05/27/2017 Nonintractable epilepsy with out status epilepticus ([facility]) 05/27/2017 Overview (05/27/2017): On Keppra. Referred to Neurology Hypothyroidism 05/27/2017 Fatty liver 05/27/2017 Overview (05/27/2017): From old medical record. Immunizations Immunization Administration Dates Next Due Flu, Preservative Free [...] Treatment Not on file Insurance [facility] [facility] DENTAL [facility]
--- OUTSIDE RECORDS SUMMARY | 2024-09-24 14:52 | XMS_ITS | Encounter Summary ---
Author Organization [facility] Address [address] [facility] [address] [place] [address] Care Team Providers Care Commercial Loan Closer Name Role Phone Unavailable Primary Care Provider Unavailabl e Encounter Details Date Type Department Care Team (Latest Contact Info) Description 12/14/2018 Abstract [facility] Dental, Provider, DDS Social History Tobacco [...] Description 10/11/2024 2:00 PM EDT Office Visit [facility] [address] [place] [address] Lemuel, Reena [address] [place] [address] 10/17/2024 2:00 PM EDT Office Visit [facility] [address] [place] [address] Lemuel, Reena [address] [place] [address] 02/08/2025 1:00 PM EDT Office Visit [facility] [address] [place] [address] Lemuel, Reena [address] [place] [address] documented as of this encounter Visit Diagnoses Not on filedocumented in this encounter
--- OUTSIDE RECORDS SUMMARY | 2024-09-24 14:53 | XMS_ITS | Clinical Summary ---
Author Organization [employer] Address [address] [place] [address] [address] [place] [address] Care Team Providers Care Menu Planner Name Role Phone Unavailable Primary Care Provider [...] NAUSEA AND VOMITING 06/16/19 25 Active Creon 34061-451264 units capsule delayed-release particles capsule TAKE 1 [...] Type Department Care Team Description 08/15/2024 Telephone [facility] [address] [place] [address] Reena Hdez 08/06/2024 2:00 PM EST Office Visit [facility] [address] [place] [address] Reena Hdez Generalized gingivitis (Primary Dx); Dental [...] Description 10/11/2024 2:00 PM EDT Office Visit [facility] [address] [place] [address] Kelvin Hdezaris [address] [place] [address] 10/17/2024 2:00 PM EDT Office Visit [facility] [address] [place] [address] [facility]dez [address] [facility] [place] [address] 02/08/2025 1:00 PM EDT Office [facility] [address] [facility] [place] [address] Reena Hdez [address] [facility] [place] [address] Health Maintenance Due Date Last Done Comments [...] this topic Meningococcal Vaccine Aged Out No jerri sobeida eligible based on patient's age to [...] Recently Relevant to Health Maintenance Insurance DENTAL [facility]
--- OUTSIDE RECORDS SUMMARY | 2024-09-24 14:53 | XMS_ITS | Patient Health Record ---
[facility] Address [address] [place] [address] Care Team Providers Care Grocery Clerk Marking Name Role Phone Vikki Winchester MD Primary Care Provider Unavail able Dawood Cage Unavailable [phone] Allergies Allergen (clinical drug ingredient) Drug/Non Drug [...] Status Risk Notes Problem Acquired hallux valgus (74603141) Hallux valgus (acquired), right foot (M20.11) Active confirmed Problem 53435123 Down's syndrome (Q90.9) Active confirmed Problem [id number] Type 2 diabetes mellitus with hyperglycemia, unspecified whether detention insulin use (E11.65) Active confirmed Plan Of Treatment Pending Test Test Name Order Date X ray : Foot, right 3V 11/09/2022 Insurance Providers Payer Name Payer Address Payer Phone Subscriber Number Group Number Insured Name Patient Relationship to Insured Coverage Start Date Coverage End Date [facility] [employer] Claims [address] [place] [id number] Abigail Martin Self - patient is the insured Medical (General) History Medical History History ICD Code asthma Back,Hip,and Knee pain Epilepsy Glaucoma Numbness Sinus conditions thyroid Down's syndrome Scoliosis Reflux ( GERD) Diabetes mellitus Type 2 Surgical History Surgery Date(Month/Year) Hospitalization History Reason Date(Month/Year) [facility] [place] [facility] [place]
--- NOTE | 2024-09-24 14:54 | MHC.PC.OV ---
Vital Signs 09/24/24 14:55 Height 4 ft 6 in Weight 115 lb 2 oz BMI 27.8 BP 120/68 Blood Pressure Location Lt brachial Position Sitting Pulse 73 Pulse Source Pulse Oximeter Temp 97.3 F Temp Source Temporal Artery Scan Pulse Oximetry (%) 97 Oxygen Delivery Method Room Air Intake Visit Reasons: Annual physical Intake Note: Patient is here today for a physical. Fuel Handler Required: Yes Fuel Handler Language: Cloud Consultant Name: Ximena ([id number]) Information Interpreted: non-clinical & clinical Herbarium Curator: Present Accompanied by: Mother Allergies penicillamine Allergy (Mild, Verified 09/24/24 15:33) Rash Penicillins [PENICILLINS] Allergy (Mild, Verified 09/24/24 15:33) RASH aspirin Allergy (Verified 09/24/24 15:33) Rash Medication List - Last Reconciled 09/24/24 by SHAAN Flowers albuterol sulfate 2.5 mg (3 mL) inhalation Q4-6H PRN blood sugar diagnostic (FreeStyle Lite Strips) As directed twice a day blood-glucose meter (FreeStyle Lite Meter kit) As directed twice a day cholecalciferol (vitamin D3) 25 mcg PO DAILY 90 days esomeprazole magnesium 40 mg PO DAILY lancets (FreeStyle Lancets) As directed twice a day levetiracetam 750 mg PO BID levothyroxine 50 mcg PO DAILY 90 days [id number] 36,000-114,000- 180,000 unit (Creon) 1 cap PO QID metformin ER 500 mg PO DAILY ondansetron 4 mg PO Q8H PRN rosuvastatin 10 mg PO DAILY 90 days sennosides (Natural Senna Laxative) 17.2 mg (2 x 8.6 mg) PO BEDTIME sucralfate 10 mL PO BEDTIME tirzepatide (Mounjaro) 5 mg (0.5 mL) subcut QWEEK 4 weeks Tobacco use date assessed: 09/24/24 Dental Screening Dental Screen Date: 06/25/24 HPI Annual physical HPI Details The patient is a 38-year-old female with Down's Syndrome accompanied by her mother, who is her primary caregiver. She primarily here for a routine physical exam and the evaluation of a painful foot mass. She experiences increased discomfort in the foot where the mass is located, with no prior trauma reported. Recent laboratory work has shown her diabetes to be well-managed with an HbA1c of 6.5%. Her past medical history includes a well-controlled seizure disorder and hypothyroidism, both managed with regular medication. She also reports symptoms of seasonal allergic rhinitis, triggered primarily by pollen. Additionally, she experiences a burning sensation during urination when consuming sweets. She is updated on Tetanus vaccine and had the first 2 covid vaccines in [place]. She is up-to-date on her dental and eye exams. Reports that she did take the flu vaccine for this last season. She has ongoing issues with earwax buildup, complicating her hearing, and has plans for further ear cleaning intervention. [facility] Medical History DM2 (diabetes mellitus, type 2) Autoimmune thyroiditis Type 2 diabetes mellitus with hyperglycemia, without long-term current use of insulin Down's syndrome Seizure disorder Scoliosis Surgical History History of esophagogastroduodenoscopy (EGD) No pertinent past surgical history Family History Father Diabetes Mother Diabetes Maternal Grandmother Pancreatic cancer Social History Household Members Other:: Parents - mother Carley Housing: Apartment Alcohol intake: never Patient Tobacco Use Status: Never used Tobacco e-Cigarette/Vaping Use: Never Used Second Hand Smoke Exposure: No service: No Current occupational status: disabled Cognitive needs: No Hearing needs: No Vision needs: No Female Reproductive History Menstrual Age of Menarche: 11 Questionnaire PHQ-9 Over the last 2 weeks, how often have you been bothered by any of the following problems? 1. Little interest or pleasure in doing things: not at all 2. Feeling down, depressed, or hopeless: not at all 3. Trouble falling or staying asleep, or sleeping too much: not at all 4. Feeling tired or having little energy: not at all 5. Poor appetite or overeating: not at all 6. Feeling bad about yourself - or that you are a failure or have let yourself or your family down: not at all 7. Trouble concentrating on things, such as reading the newspaper or watching television: not at all 8. Moving or speaking so slowly that other people could have noticed. Or the opposite - being so fidgety or restless that you have been moving around a lot more than usual: not at all 9. Thoughts that you would be better off or of hurting yourself in some way: not at all Total score: 0 Depression Screening Interpretation: Negative Depression Screening Done: Yes Source: Developed by Drs. Andre Black, Tayla Maldonado, Bishop Monterroso and colleagues, with an educational jo ann from [employer]. Thrive Questionnaire Date Thrive assessed: 09/24/24 I am a: Patient What is your living situation today?: I have a steady place to live Within the past 12 months, did the food you bought not last and you didn't have the money to get more?: I choose not to answer this question Within the past 12 months, did you worry whether your food would run out before you got money to buy more?: I choose not to answer this question Do you have trouble paying for medicines?: I choose not to answer this question Do you have trouble getting transportation to medical appointments?: I choose not to answer this question Do you have trouble paying your heating and electricity bill?: I choose not to answer this question Do you have trouble taking care of your child, family member or friend?: I choose not to answer this question Do you have trouble with day-to-day activities such as bathing, preparing meals, shopping, managing finances, etc.?: I choose not to answer this question Are you currently unemployed and looking for a job?: No Are you interested in more education?: I choose not to answer this question Please select the resources that you would like help with: None Currently or been in a relationship where the following occur: I choose not to answer THRIVE Score: 0 AUDIT C Alcohol Use Questionnaire (AUDIT-C) 1. How often do you have a drink containing alcohol?: Never Total Score: 0 MIS-7 AMB Questionnaire MIS-7 Date MIS - 7 assessed: 09/24/24 Feeling nervous, anxious, or on edge: 0 = Not at all Not being able to stop or control worryin = Not at all Worrying too much about different things: 0 = Not at all Trouble relaxin = Not at all Being so restless that it is hard to sit still: 0 = Not at all Becoming easily annoyed or irritable: 0 = Not at all Feeling afraid as if something awful might happen: 0 = Not at all Total MIS-7 score (0-4 normal; 5-9 mild; 10-14 moderate; 15-21 severe): 0 Source: Developed by Drs. Andre Black, Tayla Maldonado, Bishop Monterroso and colleagues, with an educational jo ann from [employer]. Review of Systems Const Details: - HEENT: Reports earwax buildup; Denies headaches. - Respiratory: Denies shortness of breath or chest pain. - Cardiovascular: Denies heart palpitations. - Gastrointestinal: Denies stomach pain; Reports occasional heartburn. - Genitourinary: Reports burning sensation with urination after consuming sweets. - Musculoskeletal: Reports painful foot mass. - Neurological: Denies recent seizures. - Allergies/Immunologic: Reports symptoms consistent with seasonal allergic rhinitis. Denies headache(s) Eyes Reports itchy eyes (watery) and Denies loss of vision ENT Denies vertigo, Denies dizziness, Denies headache(s), Reports nasal congestion, Denies sore throat and Reports other (sneezing intermittently) Card Denies chest pain, Denies leg edema and Denies lightheadedness Resp Denies cough, Denies hemoptysis and Denies wheezing GI Denies abdominal pain, Denies melena, Denies constipation, Denies diarrhea and Denies vomiting Denies urinary frequency, Denies urinary urgency and Reports other (Burning sensation with urination after eating sweets) Musc Reports arthralgias (Right great toe with pain at the metatarsophalangeal joint/swollen), Denies joint swelling, Denies numbness and Denies tingling Neuro Denies Abnormal speech present, Denies behavioral changes, Denies vertigo, Denies dizziness, Denies headache(s), Denies loss of vision, Denies memory loss, Denies numbness and Denies tingling Psych Denies anxiety, Denies behavioral changes, Denies depression, Denies memory loss and Denies panic attacks Curly/Lymph Denies easy bleeding and Denies easy bruising Aller/Immun Reports itchy eyes (watery) and Denies wheezing Physical exam (Primary Care) Vital Signs: Last Vital Signs Temp 97.3 F 09/24/24 14:55 Pulse 73 09/24/24 14:55 BP 120/68 09/24/24 14:55 Pulse Ox 97 09/24/24 14:55 Oxygen Delivery Method Room Air 09/24/24 14:55 BMI result Body Mass Index 27.8 Tobacco/Smoking Status: Tobacco use Status Tobacco use date assessed 09/24/24 09/24/24 14:56 Patient Tobacco Use Status Never used Tobacco 09/24/24 14:56 e-Cigarette/Vaping Use Never Used 09/24/24 14:56 PHQ-9: PHQ-9 Score PHQ-9: Total score 0 09/24/24 15:34 Depression Screening Interpretation: Negative Thrive Assessment: Date of Thrive Assessment Date Thrive assessed 09/24/24 09/24/24 14:56 Currently or been in a relationship where the following occur: I choose not to answer Const General: healthy appearing, no acute distress, alert and awake Nutritional Appearance: well nourished Orientation/consciousness: oriented to person, oriented to place and oriented to time HENMT Ears: Abnormal EAC present cerumen impaction bilateral General nose exam: Abnormal mucous membranes and turbinates present erythematous Face and sinus: No sinus tenderness Eyes Conjunctivae: conjunctivae normal Sclerae: sclerae normal Pupils: Equal, round and reactive pupils present Neck Neck: Yes no lymphadenopathy and Yes no JVD Thyroid: Thyroid normal Carotids: no bruits Resp Effort & Inspection: normal respiratory effort and not tachypneic Auscultation: no crackles, no rales, no rhonchi and no wheezes Cardio Rate: regular rate Rhythm: regular rhythm Heart sounds: no murmurs and normal S1 and S2 GI Palpation (GI): Soft to palpation, nontender, no hepatomegaly and no splenomegaly Auscultation: normal bowel sounds Skin General skin exam: dry skin and other (Hyperpigmentation to neck areas) Neuro General: oriented to person, oriented to place and oriented to time Cranial nerves: Yes Equal, round and reactive pupils present Speech: No Abnormal speech present Gait exam (Neuro): Normal gait present Motor exam (neuro): no tremor noted Extrem Right upper extremity: full ROM Left upper extremity: full ROM Right lower extremity: full ROM; no edema Left lower extremity: full ROM; no edema Ankle/foot/toe images: 1. Swollen and tender to touch no discoloration Psych Mental Status: mental status grossly normal Speech and movement: Normal speech and movement present Affect: normal affect Attitude: cooperative Thought process: Normal thought process present Results AMB Hemoglobin A1c AMB Hemoglobin A1c 6.5 % Last Edit by GERARD Corona on 09/24/24 15:32 Results Reviewed Results Reviewed: Laboratory Last Values Hgb A1c (Clinic) 6.5 % (4.0-6.0) H 09/24/24 14:57 Coding Level of Care Code Est Pt Prev Care [id number]([id number]) Diagnoses Annual physical exam Z00.00 Pain of right great toe M79.674 Impacted cerumen of both ears H61.23 Hyperlipidemia LDL goal <70 E78.5 Down's syndrome Q90.9 Vitamin D deficiency E55.9 Type 2 diabetes mellitus without complication, without long-term current use of insulin E11.9 Diabetes mellitus supervisor intermediates insulin use: without jail use Diabetes mellitus complication status: without complication Autoimmune thyroiditis E06.3 Seizure disorder G40.909 Asthma, mild intermittent, well-controlled J45.20 Time Spent (min) 39 Assessment & Plan Assessment & Plan (1) Annual physical exam: Code(s): Z00.00 - Encounter for general adult medical examination without abnormal findings Category: Medical (2) Pain of right great toe: Code(s): M79.674 - Pain in right toe(s) Category: Medical (3) Impacted cerumen of both ears: Code(s): H61.23 - Impacted cerumen, bilateral Category: Medical (4) Hyperlipidemia LDL goal <70: Code(s): E78.5 - Hyperlipidemia, unspecified Category: Medical (5) Down's syndrome: Code(s): Q90.9 - Down syndrome, unspecified Category: Medical (6) Vitamin D deficiency: Code(s): E55.9 - Vitamin D deficiency, unspecified Category: Medical (7) DM2 (diabetes mellitus, type 2): Code(s): E11.9 - Type 2 diabetes mellitus without complications Category: Medical Qualifiers: Diabetes mellitus supervisor intermediates insulin use: without jail use Diabetes mellitus complication status: without complication Qualified Code(s): E11.9 - Type 2 diabetes mellitus without complications (8) Autoimmune thyroiditis: Code(s): E06.3 - Autoimmune thyroiditis Category: Medical (9) Seizure disorder: Code(s): G40.909 - Epilepsy, unspecified, not intractable, without status epilepticus Category: Medical (10) Asthma, mild intermittent, well-controlled: Code(s): J45.20 - Mild intermittent asthma, uncomplicated Category: Medical Plan An x-ray will be performed to evaluate the foot mass with further labs drawn for comprehensive assessment. The patient will be provided with ear drops and scheduled for a follow-up ear cleansing. Flonase and Claritin have been prescribed for seasonal allergic symptoms. A urinalysis is advised to investigate the urinary burning sensation. possibly, irritation from the sugar in her urine due to her history of diabetes. The patient's diabetes management is effective, with Mounjaro prescribed. Thyroid treatment remains unchanged due to patient adherence. Next steps include revisiting vaccination status and encouraging preventive health screenings. Continue albuterol sulfate 2.5 mg inhalation q.4-6 hours p.r.n. for asthma management. Keppra 750 mg b.i.d. ongoing remains without seizure activity for a while. Infrequent heartburn depending on dietary choice, continue Nexium 40 mg daily and sucralfate 10 mL at bedtime. Patient was informed and verbally consented to the use of an ambient scribe for clinic note documentation during this visit. Orders: Orders AMB Hemoglobin A1c 09/24/24 E11.9 - Type 2 diabetes mellitus without complications Lipid Panel 09/24/24 E03.9 - Hypothyroidism, unspecified, E55.9 - Vitamin D deficiency, unspecified, E78.5 - Hyperlipidemia, unspecified, Q90.9 - Down syndrome, unspecified, R35.0 - Frequency of micturition, Z00.00 - Encounter for general adult medical examination without abnormal findings Vitamin D 25-OH Total 09/24/24 E03.9 - Hypothyroidism, unspecified, E55.9 - Vitamin D deficiency, unspecified, E78.5 - Hyperlipidemia, unspecified, Q90.9 - Down syndrome, unspecified, R35.0 - Frequency of micturition, Z00.00 - Encounter for general adult medical examination without abnormal findings Glucose Fasting 09/24/24 E03.9 - Hypothyroidism, unspecified, E55.9 - Vitamin D deficiency, unspecified, E78.5 - Hyperlipidemia, unspecified, Q90.9 - Down syndrome, unspecified, R35.0 - Frequency of micturition, Z00.00 - Encounter for general adult medical examination without abnormal findings Hemoglobin A1c 09/24/24 E03.9 - Hypothyroidism, unspecified, E55.9 - Vitamin D deficiency, unspecified, E78.5 - Hyperlipidemia, unspecified, Q90.9 - Down syndrome, unspecified, R35.0 - Frequency of micturition, Z00.00 - Encounter for general adult medical examination without abnormal findings UA CC w/rflx Micro + Cult 09/24/24 E03.9 - Hypothyroidism, unspecified, E55.9 - Vitamin D deficiency, unspecified, E78.5 - Hyperlipidemia, unspecified, Q90.9 - Down syndrome, unspecified, R35.0 - Frequency of micturition, Z00.00 - Encounter for general adult medical examination without abnormal findings Free T4 (Free Thyroxine) 09/24/24 E03.9 - Hypothyroidism, unspecified XR foot RT min 3V 09/24/24 M79.671 - Pain in right foot, M79.674 - Pain in right toe(s) Comprehensive [place]. Panel Fast 09/24/24 E03.9 - Hypothyroidism, unspecified, E55.9 - Vitamin D deficiency, unspecified, E78.5 - Hyperlipidemia, unspecified, Q90.9 - Down syndrome, unspecified, R35.0 - Frequency of micturition, Z00.00 - Encounter for general adult medical examination without abnormal findings Complete Blood Count Auto Diff 09/24/24 E03.9 - Hypothyroidism, unspecified, E55.9 - Vitamin D deficiency, unspecified, E78.5 - Hyperlipidemia, unspecified, Q90.9 - Down syndrome, unspecified, R35.0 - Frequency of micturition, Z00.00 - Encounter for general adult medical examination without abnormal findings TSH reflex Free T4 09/24/24 E03.9 - Hypothyroidism, unspecified, E55.9 - Vitamin D deficiency, unspecified, E78.5 - Hyperlipidemia, unspecified, Q90.9 - Down syndrome, unspecified, R35.0 - Frequency of micturition, Z00.00 - Encounter for general adult medical examination without abnormal findings Uric Acid 09/24/24 M79.674 - Pain in right toe(s) Medications: New fluticasone propionate 50 mcg/actuation administer into each nostril 2 sprays intranasal BID PRN 16 grams 0RF allergy symptoms carbamide peroxide 6.5% (Debrox) 5 drps otic (ears) Q12H 4 days 15 mL 0RF H61.23 - Impacted cerumen, bilateral loratadine (Claritin) 10 mg PO DAILY PRN 30 tabs 2RF allergy symptoms Refilled tirzepatide (Mounjaro) 5 mg (0.5 mL) subcut QWEEK 4 weeks 2 mL 0RF Patient Instructions: - Use prescribed ear drops, five drops in each ear, twice daily for five days. - Take Flonase and Claritin as directed for allergy symptoms. - Schedule and complete a urinalysis as advised. - Follow up with the foot mass x-ray and additional blood work as scheduled. - Keep your thyroid medication routine in the morning on an empty stomach. - Plan to receive annual flu and COVID-19 vaccinations. - Return for ear cleaning with Melida as scheduled.
[2024-09-24 14:55] VITALS: BP 120/68; PULSE 73; TEMP 36.3; O2SAT 97; BMI 27.8
== END 2024-09-24 16:08 | disposition home or self-care (01) ==
LOC: HO.HMCH 14:50
PROVIDERS: PCP Internal Medicine
DX: E11.9 Type 2 diabetes mellitus without complications (principal)

== ENCOUNTER → 2024-09-24 14:49 | Outpatient (BNVA) | payer OTHER, SELFPAY | PROVIDERS: PCP Internal Medicine | DX: Z00.00 Encounter for general adult medical examination without abnormal findings (principal); Q90.9 Down syndrome, unspecified; R30.9 Painful micturition, unspecified; M79.674 Pain in right toe(s); R22.9 Localized swelling, mass and lump, unspecified; H61.23 Impacted cerumen, bilateral; E78.5 Hyperlipidemia, unspecified; E55.9 Vitamin D deficiency, unspecified; E11.9 Type 2 diabetes mellitus without complications; E06.3 Autoimmune thyroiditis; G40.909 Epilepsy, unspecified, not intractable, without status epilepticus; J45.20 Mild intermittent asthma, uncomplicated | CPT/HCPCS: 83036; 96127 ==

== ENCOUNTER 2024-10-02 15:59 | Outpatient (AMB) | payer OTHER, SELFPAY ==
--- NOTE | 2024-10-02 16:09 | A.OFFPC_ITS ---
Vital Signs 10/02/24 16:10 Height 4 ft 6 in Weight 114 lb 2 oz BMI 27.5 BP 110/60 Blood Pressure Location Lt brachial Position Sitting Pulse 62 Pulse Source Pulse Oximeter Temp 97.7 F Temp Source Temporal Artery Scan Pulse Oximetry (%) 95 Oxygen Delivery Method Room Air Intake Visit Reasons: ear cleansing Intake Note: Patient is here to follow up on Ear cleansing. Pull Up Hand Required: Yes Pull Up Hand Language: Signal Repairer Name: Patel ([id number]) Information Interpreted: non-clinical & clinical Cold Reduction Roller: Present Accompanied by: Mother Allergies penicillamine Allergy (Mild, Verified 10/02/24 16:10) Rash Penicillins [PENICILLINS] Allergy (Mild, Verified 10/02/24 16:10) RASH aspirin Allergy (Verified 10/02/24 16:10) Rash Medication List - Last Reconciled 10/02/24 by Melida Reyes PA-C albuterol sulfate 2.5 mg (3 mL) inhalation Q4-6H PRN blood sugar diagnostic (FreeStyle Lite Strips) As directed twice a day blood-glucose meter (FreeStyle Lite Meter kit) As directed twice a day carbamide peroxide 6.5% (Debrox) 5 drps otic (ears) Q12H 4 days cholecalciferol (vitamin D3) 25 mcg PO DAILY 90 days esomeprazole magnesium 40 mg PO DAILY fluticasone propionate 50 mcg/actuation 2 sprays intranasal BID PRN lancets (FreeStyle Lancets) As directed twice a day levetiracetam 750 mg PO BID levothyroxine 50 mcg PO DAILY 90 days slcmiy-[id number]-ukogjut 36,000-114,000- 180,000 unit (Creon) 1 cap PO QID loratadine (Claritin) 10 mg PO DAILY PRN metformin ER 500 mg PO DAILY ondansetron 4 mg PO Q8H PRN rosuvastatin 10 mg PO DAILY 90 days sennosides (Natural Senna Laxative) 17.2 mg (2 x 8.6 mg) PO BEDTIME sucralfate 10 mL PO BEDTIME tirzepatide (Mounjaro) 5 mg (0.5 mL) subcut QWEEK 4 weeks Tobacco use date assessed: 10/02/24 Dental Screening Dental Screen Date: 06/25/24 HPI ear cleansing HPI Details 38-year-old female with past medical his tory of Down syndrome, diabetes mellitus, asthma, seizure disorder, hyperlipidemia last seen 09/2024 coming in for ear cleaning. Signal Repairer Patel ([id number]) was used for the duration of this visit. Patient has been using debrox drops faithfully for the last several days. [facility] Medical History (Reviewed 08/17/24 @ 15:48 by Isaiah Farrell [facility] DM2 (diabetes mellitus, type 2) Autoimmune thyroiditis Type 2 diabetes mellitus with hyperglycemia, without long-term current use of insulin Down's syndrome Seizure disorder Scoliosis Surgical History History of esophagogastroduodenoscopy (EGD) No pertinent past surgical history Family History Father Diabetes Mother Diabetes Maternal Grandmother Pancreatic cancer Social History Household Members Other:: Parents - mother [place] Housing: Apartment Alcohol intake: never Patient Tobacco Use Status: Never used Tobacco e-Cigarette/Vaping Use: Never Used Second Hand Smoke Exposure: No service: No Current occupational status: disabled Cognitive needs: No Hearing needs: No Vision needs: No Female Reproductive History Menstrual Age of Menarche: 11 Questionnaire Thrive Questionnaire Date Thrive assessed: 09/24/24 I am a: Patient What is your living situation today?: I have a steady place to live Within the past 12 months, did the food you bought not last and you didn't have the money to get more?: I choose not to answer this question Within the past 12 months, did you worry whether your food would run out before you got money to buy more?: I choose not to answer this question Do you have trouble paying for medicines?: I choose not to answer this question Do you have trouble getting transportation to medical appointments?: I choose not to answer this question Do you have trouble paying your heating and electricity bill?: I choose not to answer this question Do you have trouble taking care of your child, family member or friend?: I choose not to answer this question Do you have trouble with day-to-day activities such as bathing, preparing meals, shopping, managing finances, etc.?: I choose not to answer this question Are you currently unemployed and looking for a job?: No Are you interested in more education?: I choose not to answer this question Please select the resources that you would like help with: None Currently or been in a relationship where the following occur: I choose not to answer THRIVE Score: 0 MIS-7 AMB Questionnaire MIS-7 Date MIS - 7 assessed: 09/24/24 Source: Developed by Drs. Andre Black, Tayla Maldonado, Bishop Monterroso and colleagues, with an educational jo ann from [employer]. Review of Systems Const Denies fatigue and Denies fever(s) ENT Details: ear clogged and pressure feeling Endo Denies fatigue Physical exam (Primary Care) Vital Signs: Last Vital Signs Temp 97.7 F 10/02/24 16:10 Pulse 62 10/02/24 16:10 BP 110/60 10/02/24 16:10 Pulse Ox 95 10/02/24 16:10 Oxygen Delivery Method Room Air 10/02/24 16:10 BMI result Body Mass Index 27.5 Tobacco/Smoking Status: Tobacco use Status Tobacco use date assessed 10/02/24 10/02/24 16:18 Patient Tobacco Use Status Never used Tobacco 10/02/24 16:18 e-Cigarette/Vaping Use Never Used 10/02/24 16:18 Thrive Assessment: Date of Thrive Assessment Date Thrive assessed 09/24/24 10/02/24 16:18 Currently or been in a relationship where the following occur: I choose not to answer Const General: cooperative, healthy appearing, comfortable and no acute distress HENMT Head: Yes normocephalic Ears: hearing grossly normal bilaterally and Abnormal EAC present excessive cerumen bilateral Resp Effort & Inspection: normal respiratory effort Cardio Rate: regular rate Neuro Gait exam (Neuro): Normal gait present Psych Affect: normal affect Attitude: cooperative Office Procedures Cerumen Removal From which ear canal was the cerumen removed: bilateral Removal: otoscope w/curette and cerumen loop/spoon Notes: patient tolerated procedure well, no complications and ear canal clear 45839-[id number] Wax Removal by Spoon/Curette Coding Level of Care Code Est Pt Level 3 (16812) Diagnoses Impacted cerumen of both ears H61.23 Seasonal allergies J30.2 CPT Codes Office Procedure - CPT: 22227-Pqm Wax Removal by Spoon/Curette ([id number]) Assessment & Plan Assessment & Plan (1) Impacted cerumen of both ears: Code(s): H61.23 - Impacted cerumen, bilateral Category: Medical Plan: Cerumen was successfully removed using lighted curette. Patient tolerated the procedure well and ear canal was atraumatic and TM was visualized as intact with well aerated middle ear spaces. Follow up as needed for this concern. (2) Seasonal allergies: Code(s): J30.2 - Other seasonal allergic rhinitis Category: Medical Plan: Refilled claritin today as she was unable to pick it up after last visit. Plan This note was constructed using voice recognition software. While every effort has been made to ensure accuracy and supervisor leaf spring fabrication, still areas may have been included sometimes these areas may affect the content or meeting of the given symptoms. Total time spent caring for the patient today was 20 minutes. This includes time spent before the visit reviewing the chart, time spent during the visit, and time spent after the visit and documentation. Medications: Refilled loratadine (Claritin) 10 mg PO DAILY PRN 30 tabs 2RF allergy symptoms
[2024-10-02 16:10] VITALS: BP 110/60; PULSE 62; TEMP 36.5; O2SAT 95; BMI 27.5
--- OUTSIDE RECORDS SUMMARY | 2024-10-02 18:16 | XMS_ITS | Clinical Summary ---
Author Organization [facility] ity Address [address] [place] [address] Care Team Providers Care Commercial Escrow Officer Name Role Phone Zaid Madison MD Primary [...] age to complete this topic Care Teams Commercial Escrow Officer Relationship Specialty Start Date End Date Zaid Madison MD [address] [place] [address] PCP - General Internal Medicine 06/01/17
== END 2024-10-02 16:37 | disposition home or self-care (01) ==
LOC: HO.HMCH 16:00
PROVIDERS: PCP Internal Medicine
DX: J30.2 Other seasonal allergic rhinitis (principal); H61.23 Impacted cerumen, bilateral

== ENCOUNTER → 2024-10-02 15:59 | Outpatient (BNVA) | payer OTHER, SELFPAY | PROVIDERS: PCP Internal Medicine | DX: H61.23 Impacted cerumen, bilateral (principal); J30.2 Other seasonal allergic rhinitis | CPT/HCPCS: 69210; 99212 ==

== ENCOUNTER 2024-10-23 14:01 | Outpatient (AMB) | payer OTHER, SELFPAY ==
--- NOTE | 2024-10-23 14:32 | A.OFFPC_ITS ---
Vital Signs 10/23/24 14:35 Height 4 ft 6 in Weight 118 lb BMI 28.4 BP 110/70 Blood Pressure Location Lt brachial Position Sitting Intake Visit Reasons: dm Intake Note: Patient here for a follow up DM Leather Goods Maker Required: No Accompanied by: Mother Allergies penicillamine Allergy (Mild, Verified 10/23/24 15:05) Rash Penicillins [PENICILLINS] Allergy (Mild, Verified 10/23/24 15:05) RASH aspirin Allergy (Verified 10/23/24 15:05) Rash Medication List - Last Reconciled 10/23/24 by Vikki Solis MD albuterol sulfate 2.5 mg (3 mL) inhalation Q4-6H PRN blood sugar diagnostic (FreeStyle Lite Strips) As directed twice a day blood-glucose meter (FreeStyle Lite Meter kit) As directed twice a day carbamide peroxide 6.5% (Debrox) 5 drps otic (ears) Q12H 4 days cholecalciferol (vitamin D3) 25 mcg PO DAILY 90 days esomeprazole magnesium 40 mg PO DAILY fluticasone propionate 50 mcg/actuation 2 sprays intranasal BID lancets (FreeStyle Lancets) As directed twice a day levetiracetam 750 mg PO BID levothyroxine 50 mcg PO DAILY 90 days hflytv-symsuihd-rbffvqd 36,000-114,000- 180,000 unit (Creon) 1 cap PO QID loratadine (Claritin) 10 mg PO DAILY PRN metformin ER 500 mg PO DAILY ondansetron 4 mg PO Q8H PRN rosuvastatin 10 mg PO DAILY 90 days sennosides (senna) 17.2 mg (2 x 8.6 mg) PO BEDTIME PRN sucralfate 10 mL PO BEDTIME tirzepatide (Mounjaro) 5 mg (0.5 mL) subcut QWEEK 4 weeks Tobacco use date assessed: 10/02/24 Dental Screening Dental Screen Date: 06/25/24 HPI HPI Comments History of Present Illness Details The patient is a 38-year-old female with Down syndrome presenting with a focus on managing gastrointestinal, neurological, and musculoskeletal conditions. She is currently administered levothyroxine for hypothyroidism, Keppra for seizure disorder which remains well-controlled, and esomeprazole for GERD-related issues. Allergic rhinitis and seasonal allergies are managed using Claritin. She utilizes Mounjaro 5 mg weekly for diabetes management, with considerations for a dosage increase. Sciatica-related pain on her right side was noted, prompting considerations for pain management evaluations. Regular vitamin D supplementation, pancreatic enzyme replacement with Creon, and management of hyperlipidemia with rosuvastatin are in place. She takes Carafate for ulcer protection and ondansetron for episodic nausea. Regular monitoring of her diabetes with metformin is emphasized. Previously, a full laboratory workup was conducted in June, with plans for future thyroid functionality reassessment in four months. Seasonal preventative care continuity is maintained with expected influenza vaccination in February and subsequent tetanus booster due in 2027. [facility] Medical History (Updated 10/23/24 @ 16:42 by Vikki Solis MD) DM2 (diabetes mellitus, type 2) Autoimmune thyroiditis Type 2 diabetes mellitus with hyperglycemia, without long-term current use of insulin Down's syndrome Seizure disorder Scoliosis Surgical History History of esophagogastroduodenoscopy (EGD) No pertinent past surgical history Family History Father Diabetes Mother Diabetes Maternal Grandmother Pancreatic cancer Social History Household Members Other:: Parents - mother [place] Housing: Apartment Alcohol intake: never Patient Tobacco Use Status: Never used Tobacco e-Cigarette/Vaping Use: Never Used Second Hand Smoke Exposure: No service: No Current occupational status: disabled Cognitive needs: No Hearing needs: No Vision needs: No Female Reproductive History Menstrual Age of Menarche: 11 Questionnaire Thrive Questionnaire Date Thrive assessed: 09/24/24 I am a: Patient What is your living situation today?: I have a steady place to live Within the past 12 months, did the food you bought not last and you didn't have the money to get more?: I choose not to answer this question Within the past 12 months, did you worry whether your food would run out before you got money to buy more?: I choose not to answer this question Do you have trouble paying for medicines?: I choose not to answer this question Do you have trouble getting transportation to medical appointments?: I choose not to answer this question Do you have trouble paying your heating and electricity bill?: I choose not to answer this question Do you have trouble taking care of your child, family member or friend?: I choose not to answer this question Do you have trouble with day-to-day activities such as bathing, preparing meals, shopping, managing finances, etc.?: I choose not to answer this question Are you currently unemployed and looking for a job?: No Are you interested in more education?: I choose not to answer this question Please select the resources that you would like help with: None Currently or been in a relationship where the following occur: I choose not to answer THRIVE Score: 0 MIS-7 AMB Questionnaire MIS-7 Date MIS - 7 assessed: 09/24/24 Source: Developed by Drs. Andre Black, Tayla Maldonado, Bishop Monterroso and colleagues, with an educational jo ann from [employer]. Review of Systems Const All systems reviewed & are unremarkable except as noted in HPI and below Eyes Reports no additional complaints, Denies change in vision and Denies other visual disturbances Card Denies chest pain at rest, Denies chest pain with activity, Denies edema, Denies irregular heart rhythm, Denies claudication, Denies dyspnea, Denies dyspnea on exertion, Denies orthopnea, Denies paroxysmal nocturnal dyspnea and Denies slow heart rate Resp Denies cough, Denies dyspnea and Denies dyspnea on exertion Physical exam (Primary Care) Vital Signs: Last Vital Signs BP 110/70 10/23/24 14:35 BMI result Body Mass Index 28.4 Tobacco/Smoking Status: Tobacco use Status Tobacco use date assessed 10/02/24 10/23/24 15:02 Patient Tobacco Use Status Never used Tobacco 10/23/24 15:02 e-Cigarette/Vaping Use Never Used 10/23/24 15:02 Thrive Assessment: Date of Thrive Assessment Date Thrive assessed 09/24/24 10/23/24 15:02 Currently or been in a relationship where the following occur: I choose not to answer Resp Effort & Inspection: normal respiratory effort Auscultation: clear to auscultation bilaterally Cardio Jugular venous distension: no JVD Rate: regular rate Rhythm: regular rhythm Heart sounds: S1 normal heart sound present and S2 normal heart sound present Extrem General: Yes full ROM Coding Level of Care Code Est Pt Level 4 (21480) Complex EM visit Add On G2211 Diagnoses Right sided sciatica M54.31 Hyperlipidemia LDL goal <70 E78.5 Type 2 diabetes mellitus without complication, without long-term current use of insulin E11.9 Diabetes mellitus retirement insulin use: without performing artist use Diabetes mellitus complication status: without complication Seizure disorder G40.909 Hypothyroidism (acquired) E03.9 Allergic rhinitis J30.9 Chronic GERD K21.9 Time Spent (min) 23 Assessment & Plan Assessment & Plan (1) Right sided sciatica: Code(s): M54.31 - Sciatica, right side Category: Medical (2) Hyperlipidemia LDL goal <70: Code(s): E78.5 - Hyperlipidemia, unspecified Category: Medical (3) DM2 (diabetes mellitus, type 2): Code(s): E11.9 - Type 2 diabetes mellitus without complications Category: Medical Qualifiers: Diabetes mellitus performing artist insulin use: without retirement use Diabetes mellitus complication status: without complication Qualified Code(s): E11.9 - Type 2 diabetes mellitus without complications (4) Seizure disorder: Code(s): G40.909 - Epilepsy, unspecified, not intractable, without status epilepticus Category: Medical (5) Hypothyroidism (acquired): Code(s): E03.9 - Hypothyroidism, unspecified Category: Medical (6) Allergic rhinitis: Code(s): J30.9 - Allergic rhinitis, unspecified Category: Medical (7) Chronic GERD: Code(s): K21.9 - Gastro-esophageal reflux disease without esophagitis Category: Medical Plan The patient's current plan includes an increase in her Mounjaro dosage to enhance weight management effectiveness. Consideration for pain management is warranted for her sciatica, with an introductory pain assessment planned. Her thyroid function tests will be followed up in four months alongside scheduled vaccinations. The patient's comprehensive medication regimen, inclusive of GERD management with esomeprazole, and continued diabetes management with metformin, remain integral to her care plan. Patient was informed and verbally consented to the use of an ambient scribe for clinic note documentation during this visit. I reviewed in detail the patient's current medication regimens, highlighting the need for Mounjaro dosage adjustment from 5 mg weekly to 7.5 mg based on observed needs. We discussed the potential benefits of optimizing her weight management while ensuring regular follow-ups for her comprehensive health status. Recommendations for pain management due to reported sciatica pain were discussed, and we agreed on necessary evaluations. Emphasis was placed on forthcoming thyroid function tests and the importance of maintaining her current medications within prescribed dosages. Seasonal vaccination schedules were confirmed in alignment with standard preventative protocols. The patient consents to the outlined management strategy and understands when to escalate care if symptoms or needs change. Orders: Orders Microalbumin, Random (w Creat) 4 Months R80.9 - Proteinuria, unspecified Thyroid Stimulating Hormone 4 Months E03.9 - Hypothyroidism, unspecified Lipid Panel 4 Months E78.5 - Hyperlipidemia, unspecified Comprehensive [place]. Panel Fast 4 Months E78.5 - Hyperlipidemia, unspecified Vitamin D 25-OH Total 4 Months E55.9 - Vitamin D deficiency, unspecified Referrals Pain Management Referral M54.31 - Sciatica, right side Medications: New tirzepatide (Mounjaro) 7.5 mg (0.5 mL) subcut QWEEK 2 mL 0RF 4 weeks E11.9 - Type 2 diabetes mellitus without complications Discontinued tirzepatide (Mounjaro) Discontinued Reason: Patient Completed Course 5 mg (0.5 mL) subcut QWEEK 4 weeks 2 mL 0RF Patient Instructions: - Refill and take Mounjaro at the new dosage of 7.5 mg weekly. - Continue using Creon, Carafate, and other routine medications. - Expect a refill of Mounjaro soon; monitor its effects. - Continue planned vaccination schedules, with influenza vaccination in February. - Follow up in four months for thyroid function labs. - Consider upcoming appointments for pain management consultations related to sciatica discomfort. - Notify if any adverse effects arise from medication changes.
[2024-10-23 14:35] VITALS: BP 110/70; BMI 28.4
--- OUTSIDE RECORDS SUMMARY | 2024-10-23 15:23 | XMS_ITS | Clinical Summary ---
Author Organization [employer] Address [address] [place] [address] Care Team Providers Care Outbound Sales Specialist Name Role Phone Unavailable Primary Care Provider [...] NAUSEA AND VOMITING 06/16/19 25 Active Creon [id number] units capsule delayed-release particles capsule TAKE 1 [...] Type Department Care Team Description 08/15/2024 Telephone [facility] [address] [place] [address] Reena Hdez 08/06/2024 2:00 PM EST Office Visit [facility] [address] [place] [address] Reena Hdez Generalized gingivitis (Primary Dx); Dental [...] Care Team (Late st Contact Info) Description 11/27/2024 2:00 PM EDT Office Visit [facility] [address] [place] [address] Kelvin Hdezaris [address] [place] [address] 12/13/2024 9:00 AM EDT Office Visit [facility] [address] [place] [address] [facility] [address] [facility] [place] [address] 02/08/2025 1:00 PM EDT Office Visit [facility] [address] [place] [address] Reena Hdez [address] [facility] [place] [address] Health Maintenance Due Date Last Done Comments Depression Screening 1987 HIV Screening 1987 SDOH Screening 1987 Disability Screening 1987 Alcohol/Substance Use Screening 1999 Family [...] Recently Relevant to Health Maintenance Insurance [facility]
--- OUTSIDE RECORDS SUMMARY | 2024-10-23 15:23 | XMS_ITS | Clinical Summary ---
Author Organization [facility] Address [address] [place] [address] Care Team Providers Care Travel Services Professional Name Role Phone Unavailable Primary Care Provider [...] complication, without long-term current use of insulin ([facility]) Take 1 Tab by mouth once daily [...] epilepsy without status epilepticus, unspecified epilepsy type ([facility]) Take 1 Tab by mouth 2 (two) times daily 60 Tab 1 9 Active Active Problems Problem Noted Date Diagnosed Date Seizure ([facility]) 07/28/2018 Overview (07/28/2018): Admitted at [facility] 07/14/18 and D/C on 07/17/18 Brought to the ED by her parents yesterday evening after having a breakthrough seizure. CT head with right parietal hyperdensity. Seen By neurology, Keppra was increased to 750 mg BID. Neurology has reviewed the MRI from [facility] done on 07/10/18 . Recommends to increase Keppra to 1 gm BID [facility]Jericho WOODSON, Marion Short, Encounter for diabetic foot exam ([facility]) 10/17 Overview (10/17/2017): Foot specialists Paronychia of toe right foot,pain right limb,pain left limb,painful onychomycosis by clinical appearance toe 2,3,4 and 5 right foot, painful onychomycosis by clinical appearance toe 1-5 left foot Allergic rhinitis, unspecified 07/22/2017 Scoliosis, unspecified 07/22/2017 Down syndrome ([facility]) 05/27/2017 Controlled type 2 diabetes m ellitus without complication, without long-term current use of insulin ([facility]) 05/27/2017 Nonintractable epilepsy with out status epilepticus ([facility]) 05/27/2017 Overview (05/27/2017): On Keppra. Referred to [...] Treatment Not on file Insurance [facility] [employer] DENTAL [facility]
--- OUTSIDE RECORDS SUMMARY | 2024-10-23 15:23 | XMS_ITS | Clinical Summary ---
Author Organization [facility] ity Address [address] [place] [address] Care Team Providers Care Travel Assistant Name Role Phone Zaid Madison MD Primary [...] age to complete this topic Care Teams Travel Assistant Relationship Specialty Start Date End Date Zaid Madison MD [address] [place] [address] PCP - General Internal Medicine 06/01/17
--- OUTSIDE RECORDS SUMMARY | 2024-10-23 15:23 | XMS_ITS | Encounter Summary ---
Author Organization [employer] Address [address] [place] [address] Care Team Providers Care Topography Technician Name Role Phone Unavailable Primary Care Provider Unavailabl e Encounter Details Date Type Department Care Team (Latest Contact Info) Description 12/14/2018 Abstract [facility] CONVERSIONS Dental, Provider, DDS Social History [...] Description 11/27/2024 2:00 PM EDT Office Visit [facility] [address] [place] [address] Lemuel, Reena [address] [place] [address] 12/13/2024 9:00 AM EDT Office Visit [facility] [address] [place] [address] Lemuel, Reena [address] [place] [address] 02/08/2025 1:00 PM EDT Office Visit [facility] [address] [place] [address] Lemuel, Reena [address] [place] [address] documented as of this encounter Visit Diagnoses Not on filedocumented in this encounter
--- OUTSIDE RECORDS SUMMARY | 2024-10-23 15:23 | XMS_ITS | Patient Health Record ---
[facility] Organization [facility] Address [address] [place] [address] Care Team Providers Care Coin Rolling Machine Operator Name Role Phone Vikki Winchester MD Primary Care Provider Unavail able Dawood Cage Unavailable [phone] Allergies Allergen (clinical drug ingredient) Drug/Non Drug [...] Problem Status W/U Status Risk Notes Problem Hallux valgus (acquired), right foot (M20.11) Active confirmed Problem 50410798 Down's syndrome (Q90.9) Active confirmed Problem [id number] Type 2 diabetes mellitus with hyperglycemia, unspecified whether content strategist insulin use (E11.65) Active confirmed Plan Of Treatment Pending Test Test Name Order Date X ray : Foot, right 3V 11/09/2022 Insurance Providers Payer Name Payer Address Payer Phone Subscriber Number Group Number Insured Name Patient Relationship to Insured Coverage Start Date Coverage End Date [facility] CCA SCO Claims [address] [place] [id number] Abigail Martin Self - patient is the insured Medical (General) History Medical History History ICD Code asthma Back,Hip,and Knee pain Epilepsy Glaucoma Numbness Sinus conditions thyroid Down's syndrome Scoliosis Reflux ( GERD) Diabetes mellitus Type 2 Surgical History Surgery Date(Month/Year) Hospitalization History Reason Date(Month/Year[place] [facility] [place]
== END 2024-10-23 15:14 | disposition home or self-care (01) ==
LOC: HO.HMCH 14:02
PROVIDERS: PCP Internal Medicine; Visit Provider Internal Medicine
DX: M54.31 Sciatica, right side (principal); E78.5 Hyperlipidemia, unspecified; E11.9 Type 2 diabetes mellitus without complications; G40.909 Epilepsy, unspecified, not intractable, without status epilepticus; E03.9 Hypothyroidism, unspecified; J30.9 Allergic rhinitis, unspecified; K21.9 Gastro-esophageal reflux disease without esophagitis

== ENCOUNTER → 2024-10-23 14:01 | Outpatient (BNVA) | payer OTHER, SELFPAY | PROVIDERS: PCP Internal Medicine; Visit Provider Internal Medicine | DX: E11.9 Type 2 diabetes mellitus without complications (principal); Q90.9 Down syndrome, unspecified; G40.909 Epilepsy, unspecified, not intractable, without status epilepticus; K21.9 Gastro-esophageal reflux disease without esophagitis; J30.9 Allergic rhinitis, unspecified; E78.5 Hyperlipidemia, unspecified; M54.31 Sciatica, right side; E03.9 Hypothyroidism, unspecified; R80.9 Proteinuria, unspecified; E55.9 Vitamin D deficiency, unspecified; Z91.09 Other allergy status, other than to drugs and biological substances; Z79.899 Other long term (current) drug therapy | CPT/HCPCS: 99212 ==

== ENCOUNTER 2024-11-09 14:16 | Outpatient (AMB) | payer OTHER, SELFPAY ==
--- OUTSIDE RECORDS SUMMARY | 2024-11-09 14:19 | XMS_ITS | Clinical Summary ---
Author Organization [facility] Address [address] [place] [address] Care Team Providers Care Manager Data Warehousing Name Role Phone Unavailable Primary Care Provider [...] complication, without long-term current use of insulin ([facility]) Take 1 Tab by mouth once daily [...] epilepsy without status epilepticus, unspecified epilepsy type ([facility]) Take 1 Tab by mouth 2 (two) times daily 60 Tab 1 9 Active Active Problems Problem Noted Date Diagnosed Date Seizure ([facility]) 07/28/2018 Overview (07/28/2018): Admitted at [facility] 07/14/18 and D/C on 07/17/18 Brought to the ED by her parents yesterday evening after having a breakthrough seizure. CT head with right parietal hyperdensity. Seen By neurology, Keppra was increased to 750 mg BID. Neurology has reviewed the MRI from [facility] done on 07/10/18 . Recommends to increase Keppra to 1 gm BID [facility]Jericho WOODSON, Marion Short, Encounter for diabetic foot exam ([facility]) 10/17 Overview (10/17/2017): Foot specialists Paronychia of toe right foot,pain right limb,pain left limb,painful onychomycosis by clinical appearance toe 2,3,4 and 5 right foot, painful onychomycosis by clinical appearance toe 1-5 left foot Allergic rhinitis, unspecified 07/22/2017 Scoliosis, unspecified 07/22/2017 Down syndrome ([facility]) 05/27/2017 Controlled type 2 diabetes m ellitus without complication, without long-term current use of insulin ([facility]) 05/27/2017 Nonintractable epilepsy with out status epilepticus ([facility]) 05/27/2017 Overview (05/27/2017): On Keppra. Referred to [...] on file Insurance [employer] [facility] BEHEALTHY DENTAL [facility] DENT[facility]
[2024-11-09 14:20] VITALS: BP 111/62; PULSE 71; RESP 15; O2SAT 96; BMI 28.0
--- NOTE | 2024-11-09 14:20 | A.OFFVIS_ITS ---
Vital Signs 11/09/24 14:20 Height 4 ft 6 in Weight 116 lb BMI 28.0 BP 111/62 Blood Pressure Location Lt brachial Position Sitting Respiration 15 Pulse 71 Pulse Source Pulse Oximeter Pulse Oximetry (%) 96 Oxygen Delivery Method Room Air Intake Visit Reasons: Sciatica, right side Data Center Project Manager Required: Yes Data Center Project Manager Name: Bradford [id number] Accompanied by: Mother Allergies penicillamine Allergy (Mild, Verified 11/09/24 14:23) Rash Penicillins [PENICILLINS] Allergy (Mild, Verified 11/09/24 14:23) RASH aspirin Allergy (Verified 11/09/24 14:23) Rash HPI Comments Details: Visit completed with cleaning and maintenance worker Cathi, #[id number] The patient is a 38-year-old female presenting with chronic low back pain associated with sciatic nerve pain. Her pain began approximately two to four years ago and is worsened by walking, movement, pressure, and sleeping on the affected side. There is an association with her known scoliosis, although no specific injury was noted as the cause. The pain is persistent, with the most severity noted upon hip movement, particularly when the hip joint is rotated inward. Temporary relief is achieved through ibuprofen. The patient has not undergone any recent imaging but recalls x-rays from many years ago. She describes a bump on her back, though it is unclear if it is correlated with her sciatica or back pain. Her pain is heightened by pressure and manifests a sensitivity to touching the most painful region, significantly impacting functional movements such as walking. - Onset and Timing: Began two to four years ago; described as chronic. - Quality and Character: Persistent pain with significant sensitivity in the most severe area; primarily somatic in nature. - Primary Location: Lower back and hip region, along the sciatic nerve. - Areas of Radiation: Radiates along the sciatic nerve. - Exacerbating Factors: Movement, inward hip rotation, pressure, and sleeping on the affected side. - Relieving Factors: Temporary relief with ibuprofen. - Interference with Activities: Interferes with walking and causes discomfort with preferential sleeping position. - Affect: The patient's mood and psychological well-being impacted by sensitivity and pain when touched. - Analgesia: Currently using ibuprofen with temporary relief. Goal is improved pain control through further interventions. - Adverse Effects: Not reported. - Activities of Daily Living: Pain interferes with movement such as walking and impacts sleep. - Aberrant Drug Related Behaviors: Not reported. [facility] Medical History DM2 (diabetes mellitus, type 2) Autoimmune thyroiditis Type 2 diabetes mellitus with hyperglycemia, without long-term current use of insulin Down's syndrome Seizure disorder Scoliosis Surgical History History of esophagogastroduodenoscopy (EGD) No pertinent past surgical history Family History Father Diabetes Mother Diabetes Maternal Grandmother Pancreatic cancer Social History Household Members Other:: Parents - mother Carley Housing: Apartment Alcohol intake: never Patient Tobacco Use Status: Never used Tobacco e-Cigarette/Vaping Use: Never Used Second Hand Smoke Exposure: No service: No Current occupational status: disabled Cognitive needs: No Hearing needs: No Vision needs: No Female Reproductive History Menstrual Age of Menarche: 11 Review of Systems Const Details: - Musculoskeletal: Reports pain and sensitivity in the hip and lower back. - Neurological: Reports pain radiating along the sciatic nerve. - General: Denies any new injuries contributing to pain. Physical Exam Vital Signs: Last Vital Signs Pulse 71 11/09/24 14:20 Resp 15 11/09/24 14:20 BP 111/62 11/09/24 14:20 Pulse Ox 96 11/09/24 14:20 Oxygen Delivery Method Room Air 11/09/24 14:20 BMI result Body Mass Index 28.0 Patient with Down syndrome. Answers questions appropriately. Mother assisted with history and physical. - Musculoskeletal- Pain noted with palpation on the side and hip rotations inwardly. SLR negative bilaterally. Mild tenderness over midline lumbar vertebrae and lumbar paraspinal muscles. Bilateral lower extremity strength 5/5 - Neurological- Sensitivity to touch in the affected areas. - Orthopedic- Scoliosis present. Assessment & Plan Assessment & Plan (1) Right hip pain: Code(s): M25.551 - Pain in right hip Category: Medical (2) Lumbar spondylosis: Code(s): M47.816 - Spondylosis without myelopathy or radiculopathy, lumbar region Category: Medical Plan I will request updated x-rays of the patient's back and hip to evaluate any structural changes, following her history of scoliosis and report of a back bump. Orders for physical therapy are placed to address her hip pain, which appears most debilitating. Continued ibuprofen use is advised for symptom relief, and I have emphasized the importance of evaluating diagnostic results and therapy outcomes before making further therapeutic decisions. Follow-up care is important as it will guide future management to improve her functional limitations. During our discussion, I explained the plan to obtain updated x-rays for a comprehensive evaluation of her back and hip pain, considering her scoliosis and the noted bump on her back. We discussed the implementation of physical therapy to specifically target her hip pain, which was highlighted as a significant source of discomfort during the exam. Continued use of ibuprofen for temporary relief was advised. The patient was informed about the potential benefits of these interventions in improving her daily function and pain management, while having the option to return for further evaluation post-therapy. She agrees with this approach and understands that adjustments to her treatment may be made based on therapy outcomes and diagnostic findings. Patient was informed and verbally consented to the use of an ambient scribe for clinic note documentation during this visit. Orders: Orders PT Evaluation and Treatment Today M25.551 - Pain in right hip XR hip RT w PEL1V Today M25.551 - Pain in right hip XR lumbar spine 6V w bending Today M47.816 - Spondylosis without myelopathy or radiculopathy, lumbar region Patient Instructions: - Continue taking ibuprofen as directed for pain relief. - Schedule x-rays of the back and hip as soon as possible. - Begin physical therapy focused on the hip for pain management. - Follow up for further evaluation upon completion of x-rays and therapy. - Engage in gentle hip movements and aquatic exercises when possible. Coding Level of Care Code New Pt Level 4 (45002) Complex EM visit Add On G2211 Diagnoses Right hip pain M25.551 Lumbar spondylosis M47.816
== END 2024-11-09 14:43 | disposition home or self-care (01) ==
LOC: HO.PMC 14:16
PROVIDERS: PCP Internal Medicine; Referring Provider Internal Medicine; Visit Provider Registered Nurse Emergency
DX: M25.551 Pain in right hip (principal); M47.816 Spondylosis without myelopathy or radiculopathy, lumbar region
CPT/HCPCS: 99204; G2211

== ENCOUNTER → 2024-11-09 14:16 | Outpatient (BNVA) | payer OTHER, SELFPAY | PROVIDERS: PCP Internal Medicine; Referring Provider Internal Medicine; Visit Provider Registered Nurse Emergency | DX: M25.551 Pain in right hip (principal); M47.816 Spondylosis without myelopathy or radiculopathy, lumbar region; M54.31 Sciatica, right side | CPT/HCPCS: 99202 ==

== ENCOUNTER 2025-02-18 09:43 | Outpatient (REF) | payer OTHER, SELFPAY ==
[2025-02-18 10:00] LABS: MANUAL DIFF FLAG NO
[2025-02-18 10:47] LABS: Hematocrit 43.4 % (37.0-47.0); Hemoglobin 15.1 g/dl (12.0-16.0); Imm Gran Abs Auto 0.03 X10*3/uL (0.00-0.03); Imm Gran Pct Auto 0.5 % (0.0-0.4); Lymphocytes Absolute Auto 1.5 X10*3/uL (1.2-4.9); Mean Corpuscular HGB Conc 34.8 g/dl (31.0-35.0); Mean Corpuscular Hemoglobin 33.3 pg (27.0-33.0); Mean Corpuscular Volume 95.6 fL (80.0-98.0); NRBC Abs Auto 0.000 X10*3/uL (0.0-0.012); NRBC Pct Auto 0.0 /100WBC (0.0-0.2); Platelet Count 280 X10*3/uL (160-400); Red Blood Count 4.54 X10*6/uL (4.20-5.50); White Blood Count 6.7 X10*3/uL (4.8-10.8)
[2025-02-18 11:04] LABS: Appearance Urine Clear; Glucose Urine UA Negative (Negative); PH 6.0 (5.0-9.0); Specific Gravity - Urine 1.025 (1.005-1.025)
[2025-02-18 11:26] LABS: Alanine Aminotransferase 28 U/L (0-31); Albumin Level 4.6 g/dL (3.5-5.0); Alkaline Phosphatase 81 U/L (39-117); Anion Gap 11 (12-20); Aspartate Amino Transferase 25 U/L (5-31); Blood Urea Nitrogen 15 mg/dL (9-16); Calcium 9.4 mg/dL (8.4-10.2); Carbon Dioxide 28 mmol/L (22-29); Chloride 104 mmol/L (96-108); Cholesterol 97 mg/dL (<200); Estimated Glomerular Filt Rate > 60; HDL Cholesterol 34 mg/dL (>40); Potassium 3.8 mmol/L (3.3-5.1); Sodium 139 mmol/L (135-145); Thyroid Stimulating Hormone 1.48 uIU/mL (0.32-4.0); Total Protein 8.0 g/dL (6.5-8.0); Triglycerides 103 mg/dL (<150)
[2025-02-18 11:46] LABS: Microalbum/Creatinine Ratio Ur 4.4 ug/mg cr (<30)
--- OUTSIDE RECORDS SUMMARY | 2025-02-18 11:57 | XMS_ITS | Clinical Summary ---
Author Organization [facility] Address [address] [place] [address] Care Team Providers Care Caser Name Role Phone Unavailable Primary Care Provider [...] complication, without long-term current use of insulin ([facility]) Take 1 Tab by mouth [...] epilepsy without status epilepticus, unspecified epilepsy type ([facility]) Take 1 Tab by mouth 2 (two) times daily 60 Tab 1 9 Active Active Problems Problem Noted Date Diagnosed Date Seizure ([facility]) 07/28/2018 Overview (07/28/2018): Admitted at [facility] 07/14/18 and D/C on 07/17/18 Brought to the ED by her parents yesterday evening after having a breakthrough seizure. CT head with right parietal hyperdensity. Seen By neurology, Keppra was increased to 750 mg BID. Neurology has reviewed the MRI from [facility] done on 07/10/18 . Recommends to increase Keppra to 1 gm BID [facility]icho WOODSON, Marion Short, Encounter for diabetic foot exam ([facility]) 10/17/2017 Overview (10/17/2017): Foot specialists Paronychia of toe right foot,pain right limb,pain left limb,painful onychomycosis by clinical appearance toe 2,3,4 and 5 right foot, painful onychomycosis by clinical appearance toe 1-5 left foot Allergic rhinitis, unspecified 07/22/2017 Scoliosis, unspecified 07/22/2017 Down syndrome ([facility]) 05/27/2017 Controlled type 2 diabetes m ellitus without complication, without long-term current use of insulin ([facility]) 05/27/2017 Nonintractable epilepsy with out status epilepticus ([facility]) 05/27/2017 Overview (05/27/2017): On Keppra. [...] 67 08/08/2018 2:23 PM EST Temperature 37.1 C (98.7 F) 08/08/2018 2:23 PM EST Respiratory Rate 18 08/08/2018 2:23 PM EST Oxygen Saturation 100% 02/23/2018 1:09 PM EDT Inhaled Oxygen Concentration - - Weight 58.1 kg (128 lb) 08/08/2018 2:23 PM EST Height 139.7 cm (4' 7 ) 08/08/2018 2:23 PM EST Body Mass Index 29.75 08/08/2018 2:23 PM EST Plan of Treatment Not on file Insurance [employer] [facility] BEHEALTHY DENTAL [facility]
--- OUTSIDE RECORDS SUMMARY | 2025-02-18 11:57 | XMS_ITS | Clinical Summary ---
Author Organization [facility] Address [address] [place] [address] Care Team Providers Care Sql Application Developer Name Role Phone Zaid Madison MD Primary [...] Cervical Cancer Screening: P ap Smear 11/13/2008 Depression Screening 06/06/2024 COVID-19 Vaccine ( - 2023-2 5 season) 2025 Influenza Vaccine (#1) 2025 DTaP,Tdap,and Td Vaccines (2 - Td or Tdap) 07/08/2027 07/08/2017 Pneumococcal Vaccine: Pediat rics (0 to 5 Years) and At-Risk Patients (6 to 49 Years) Aged Out 07/08/2017 No longer eligi [...] age to complete this topic Care Teams Sql Application Developer Relationship Specialty Start Date End Date Zaid Madison MD [address] [place] [address] PCP - General Internal Medicine 06/01/17
--- OUTSIDE RECORDS SUMMARY | 2025-02-18 11:58 | XMS_ITS | Clinical Summary ---
Author Organization [employer] Address [address] [place] [address] Care Team Providers Care Head Chopper Name Role Phone Unavailable Primary Care Provider [...] NAUSEA AND VOMITING 06/16/19 25 Active Creon [id number] units capsule delayed-release particles capsule TAKE 1 [...] Noted Date Diagnosed Date Generalized gingivitis 04/18/2024 Social History Tobacco Use Types Packs/Day Years [...] Mass Index - - Plan of Treatment Health Maintenance Due Date Last Done Comments Depression Screening 1987 HIV Screening 1987 SDOH Screening 1987 Disability Screening 1987 Alcohol/Substance Use Screening 1999 Family Planning (PISQ) 11/13/2002 HPV Vaccines (1 - 3-dose series) 11/13/2002 Hepatitis C Screening 11/13/2005 Hepatitis A Vaccines (1 of 2 - Risk 2-dose series) 11/13/2006 Hepatitis B Vaccines (1 of 3 - 19+ 3-dose series) 11/13/2006 Pap Smear 11/13/2008 Cervical Cancer Screening 11/13/2017 HPV/Cotest 11/13/2017 Dental Oral Exam 10/17/2024 04/18/2024, 12/2019, 12/12/2018 COVID-19 Vaccine ( season) 2025 05/23/2021, 08/27/2020 Influenza Vaccine (#1) 2025 4, 03/23/2021, 04/13/2019, Additional history exists Dental Prophylaxis 02/07/2025 08/06/2024, 0 06/14/2019, 12/13/2018 [...] Years) and At-Risk Patients (6 to 49) Years Aged Out 07/08/2017 No longer eligible based [...] Procedure Name Priority Date/Time Associated Diagnosis Comments PROPHYLAXIS - ADULT Routine 08/06/2024 2 :00 PM EST Generalized gingivitis Dental calculus Gingival bleeding INTRAORAL - COMPLETE SERIES OF RADIOGRAPHIC IMAGES Routine 04/18/2024 9:00 AM EST COMPREHENSIVE ORAL EVALUATION - NEW OR ESTABLISHED PATIENT Routine 04/18/2024 9:00 AM EST from Last 3 Months or Most Recently Relevant to Health Maintenance Insurance DENTAL - [facility]
--- OUTSIDE RECORDS SUMMARY | 2025-02-18 11:58 | XMS_ITS | Encounter Summary ---
Author Organization [employer] Address [address] [place] [address] Care Team Providers Care Cake Icer And Packer Name Role Phone Unavailable Primary Care Provider Unavailabl e Encounter Details Date Type Department Care Team (Latest Contact Info) Description 12/14/2018 Abstract [facility] CONVERSIONS Dental, Provider, DDS Social History Tobacco Use Types Packs/Day Years Used Date Smoking Tobacco: Never Assessed Comments Unknown Sex and Gender Information Value Date Recorded Sex Assigned at Female 04/05/2022 10:35 AM EDT Legal Sex Female 10:35 AM EDT Gender Identity Female 03/27/2024 8:41 AM EDT Sexual Orientation Straight 03/27/2024 8: 41 AM EDT documented as of this encounter Plan of Treatment Not on file documented as of this encounter Visit Diagnoses Not on filedocumented in this encounter
--- OUTSIDE RECORDS SUMMARY | 2025-02-18 11:58 | XMS_ITS | Patient Health Record ---
[facility] Address [address] [place] [address] Care Team Providers Care Manager Council Name Role Phone Vikki Winchester MD Primary Care Provider Unavail able Dawood Cage Unavailable [phone] Allergies Allergen (clinical drug ingredient) Drug/Non Drug Allergy documented on EMR Reaction Allergy Type Onset Date Status Penicillin rash Drug Allergy Active Reason For Referral No Information Medications Medication SIG (Take, Route, Frequency, Duration) Notes Start Date End Date Status Trulicity 0.75 MG/0.5ML as directed Subcutaneous Active Omeprazole 20 MG 1 capsule 30 minutes before morning meal Orally Once a day; Duration: 30 day(s) Active Rosuvastatin Calcium 10 MG 1 tablet Oral ly Once a day; Duration: 30 day(s) Active Levothyroxine Sodium 50 MCG 1 tablet in the morning on an empty stomach Orally Once a day; Duration: 30 day(s) Active metFORMIN HCl 500 MG 1 tablet with a carolina l Orally Once a day; Duration: 30 day(s) Active Lancets Active levETIRAcetam 750 MG 1 tablet Orally aggie ry 12 hrs; Duration: 30 day(s) Active Vitamin D3 Active Ibuprofen [...] Status Risk Notes Problem Acquired hallux valgus (41445921) Hallux valgus (acquired), right foot (M20.11) Active confirmed Problem Complete trisomy 21 syndrome (disorder) (09166317) Down's syndrome (Q90.9) Active confirmed Problem Hyperglycemia due to type 2 diabetes mellitus (900455103913505) Type 2 diabetes mellitus with hyperglycemia, unspecified whether moth exterminator insulin use (E11.65) Active confirmed Plan Of Treatment Pending Test Test Name Order Date X ray : Foot, right 3V 11/09/2022 Insurance Providers Payer Name Payer Address Payer Phone Subscriber Number Group Number Insured Name Patient Relationship to Insured Coverage Start Date Coverage End Date [facility] CCA SCO Claims [address] [place] [id number] Abigail Martin Self - patient is the insured Medical (General) History Medical History History ICD Code asthma Back,Hip,and Knee pain Epilepsy Glaucoma Numbness Sinus conditions thyroid Down's syndrome Scoliosis Reflux ( GERD) Diabetes mellitus Type 2 Surgical History Surgery Date(Month/Year) Hospitalization History Reason Date(Month/Year) [facility] [place] 10/2022
== END 2025-02-18 09:44 | disposition home or self-care (01) ==
LOC: HO.LAB 09:43
PROVIDERS: PCP Internal Medicine; Visit Provider Internal Medicine
DX: K21.9 Gastro-esophageal reflux disease without esophagitis (principal); K86.81 Exocrine pancreatic insufficiency; K58.1 Irritable bowel syndrome with constipation; R10.13 Epigastric pain; R14.0 Abdominal distension (gaseous); K92.1 Melena; R30.0 Dysuria; E11.9 Type 2 diabetes mellitus without complications; E78.5 Hyperlipidemia, unspecified; R80.9 Proteinuria, unspecified; E55.9 Vitamin D deficiency, unspecified; E03.9 Hypothyroidism, unspecified
CPT/HCPCS: 36415; 80053; 80061; 81003; 82043; 82306; 82570; 84443; 85025; 99212

== ENCOUNTER 2025-02-18 13:47 | Outpatient (AMB) | payer OTHER, SELFPAY ==
[2025-02-18 13:57] VITALS: BP 96/56; PULSE 70; O2SAT 98; BMI 28.5
--- NOTE | 2025-02-18 13:57 | MHC.OFFVIS ---
Vital Signs 02/18/25 13:57 Height 4 ft 6 in Weight 118 lb 2.684 oz BMI 28.5 BP 96/56 L Blood Pressure Location Rt brachial Position Sitting Pulse 70 Pulse Source Pulse Oximeter Pulse Oximetry (%) 98 Oxygen Delivery Method Room Air Intake Visit Reasons: 6, constipation Intake Note: ESTABLISHED PATIENT for GERD, pancreatic insufficiency, constipation mgmt Chief Complaint; Pt denies any GI sx or concerns. Reports concerns pertaining to ongoing urinary sx but denies any GI sx. Administrative Personal Assistant Required: Yes Administrative Personal Assistant Services: Administrative Personal Assistant Present Administrative Personal Assistant Name: Taylor [id number] + Jairo Information Interpreted: clinical only Accompanied by: Other Relationship Allergies penicillamine Allergy (Mild, Verified 02/18/25 13:57) Rash Penicillins (PENICILLINS) Allergy (Mild, Verified 02/18/25 13:57) RASH aspirin Allergy (Verified 02/18/25 13:57) Rash HPI HPI 6, constipation: Details: LAST VISIT: GERD (gastroesophageal reflux disease) Epigastric abdominal pain Postprandial diarrhea Constipation Exocrine pancreatic insufficiency IBS (irritable bowel syndrome) Abdominal pain Postprandial abdominal bloating Plan Continue Creon. Continue Nexium daily. Avoid dietary triggers and late night snacking. Staying upright for minimum 3 hours after meals discussed with patient. Continue taking senna. Increase fluid intake and activity to promote better bowel motility. Patient will return in 3 months, sooner on as needed basis. She is agreeable to this plan and verbalizes understanding of instructions. She was given the opportunity to ask questions and all questions answered. ? Thank you for allowing me to participate in her care New oonnzg-mznmtico-dqsmtir 36,000-114,000- 180,000 unit (Creon) 1 cap PO QID 240 caps 3RF TODAY'S VISIT: Patient is here today for follow-up. Patient is accompanied by her mom. utility mechanic in person used during this visit. Patient denies any GI concerning symptoms. Reports that Creon is working very well for her. No abdominal bloating or pain. Patient is complaining of pelvic pain. PCP send patient for blood work and urinalysis. Both reviewed and normal. No leukocytosis, normal urine. Patient denies dyspepsia, dysphagia or odynophagia. Uses Senokot to help her move her bowels. Denies melena, hematochezia, unintentional weight loss or ribbon like stools. Patient is taking Nexium in the morning and sucralfate at bedtime. [facility] Medical History DM2 (diabetes mellitus, type 2) Autoimmune thyroiditis Type 2 diabetes mellitus with hyperglycemia, without long-term current use of insulin Down's syndrome Seizure disorder Scoliosis Surgical History History of esophagogastroduodenoscopy (EGD) No pertinent past surgical history Family History Father Diabetes Mother Diabetes Maternal Grandmother Pancreatic cancer Social History Household Members Other:: Parents - mother [place] Housing: Apartment Alcohol intake: never Patient Tobacco Use Status: Never used Tobacco e-Cigarette/Vaping Use: Never Used Second Hand Smoke Exposure: No service: No Current occupational status: disabled Cognitive needs: No Hearing needs: No Vision needs: No Female Reproductive History Menstrual Age of Menarche: 11 Review of Systems Const Denies weight gain and Denies weight loss ENT Reports no additional complaints, Denies dysphagia and Denies odynophagia Card Reports no additional complaints Resp Reports no additional complaints GI Denies abdominal pain, Denies belching, Denies melena, Denies bloating, Denies change in bowel habits, Denies dysphagia, Denies excessive flatus, Denies dyspepsia, Denies heartburn, Denies diarrhea, Denies loose stools, Denies nausea, Denies odynophagia and Denies vomiting Reports no additional complaints Musc Reports no additional complaints Neuro Reports no additional complaints Psych Reports no additional complaints Endo Reports no additional complaints Physical Exam Vital Signs: Last Vital Signs Pulse 70 02/18/25 13:57 BP 96/56 L 02/18/25 13:57 Pulse Ox 98 02/18/25 13:57 Oxygen Delivery Method Room Air 02/18/25 13:57 BMI result Body Mass Index 28.5 Const Other: Patient with Down syndrome unable to get full history from patient General: healthy appearing, no acute distress and well developed Nutritional Appearance: well nourished Orientation/consciousness: patient oriented x3 Resp Effort & Inspection: normal respiratory effort, able to speak in complete sentences, no tracheal deviation and symmetric chest movement Auscultation: clear to auscultation bilaterally Cardio Rate: regular rate GI Inspection: Yes normal to inspection and No distended Palpation (GI): Soft to palpation, not firm, nontender and No hepatosplenomegaly present Auscultation: normal bowel sounds General: Yes no CVA tenderness Back/Spine/Pelvis Back: no CVA tenderness Skin General skin exam: elasticity normal, turgor normal and dry skin Neuro General: patient oriented x3 Psych Appearance: grossly normal Assessment & Plan Assessment & Plan (1) Chronic GERD: Code(s): K21.9 - Gastro-esophageal reflux disease without esophagitis Category: Medical (2) GERD (gastroesophageal reflux disease): Code(s): K21.9 - Gastro-esophageal reflux disease without esophagitis Category: Medical Qualifiers: Esophagitis presence: without esophagitis Qualified Code(s): K21.9 - Gastro-esophageal reflux disease without esophagitis (3) Epigastric pain: Code(s): R10.13 - Epigastric pain (4) Postprandial diarrhea: Code(s): K52.9 - Noninfective gastroenteritis and colitis, unspecified (5) Constipation: Code(s): K59.00 - Constipation, unspecified Qualifiers: Constipation type: slow transit constipation Qualified Code(s): K59.01 - Slow transit constipation (6) Exocrine pancreatic insufficiency: Code(s): K86.81 - Exocrine pancreatic insufficiency (7) Irritable bowel syndrome: Code(s): K58.9 - Irritable bowel syndrome, unspecified Qualifiers: Irritable bowel syndrome type: without diarrhea Qualified Code(s): K58.9 - Irritable bowel syndrome, unspecified (8) Abdominal pain: Code(s): R10.9 - Unspecified abdominal pain Qualifiers: Abdominal location: epigastric Qualified Code(s): R10.13 - Epigastric pain (9) Postprandial abdominal bloating: Code(s): R14.0 - Abdominal distension (gaseous) Plan Patient will continue Nexium in the morning and sucralfate at bedtime. Continue avoiding dietary triggers and late night snacking. Staying upright for minimum 3 hours after meals discussed with patient. Continue Creon with meals. Patient was encouraged to increase fluid intake and activity to promote better bowel motility. Patient will continue senna. Follow-up in 3-4 months, sooner on as needed basis. Both patient and her mom are agreeable to this plan and verbalize understanding of instructions. They were given the opportunity to ask questions and all questions answered. Thank you for allowing me to participate in her care Medications: Changed From xeptek-kehvdvqu-xzubfwy 36,000-114,000- 180,000 unit (Creon) 1 cap PO QID 240 caps 3RF To Creon 36,000-114,000- 180,000 unit (veqvas-mrztfxlv-tuixvrb) 1 cap PO QID 240 caps 4RF NS Refilled sennosides (senna) 17.2 mg (2 x 8.6 mg) PO BEDTIME PRN 180 tabs 3RF constipation K59.00 - Constipation, unspecified sucralfate 10 mL PO BEDTIME 420 mL 3RF K21.9 - Gastro-esophageal reflux disease without esophagitis Coding Level of Care Code Est Pt Level 4 (53228) Complex EM visit Add On G2211 Diagnoses Chronic GERD K21.9 Gastroesophageal reflux disease without esophagitis K21.9 Esophagitis presence: without esophagitis Epigastric pain R10.13 Postprandial diarrhea K52.9 Slow transit constipation K59.01 Constipation type: slow transit constipation Exocrine pancreatic insufficiency K86.81 Irritable bowel syndrome without diarrhea K58.9 Irritable bowel syndrome type: without diarrhea Epigastric pain R10.13 Abdominal location: epigastric Postprandial abdominal bloating R14.0 Time Spent (min) 35 Comment 25 minutes spent with patient and additional 10 minutes spent reviewing her records
== END 2025-02-18 14:23 | disposition home or self-care (01) ==
LOC: HO.HGI 13:48
PROVIDERS: PCP Internal Medicine; Visit Provider Nurse Practitioner Family
DX: K21.9 Gastro-esophageal reflux disease without esophagitis (principal); R10.13 Epigastric pain; K52.9 Noninfective gastroenteritis and colitis, unspecified; K59.01 Slow transit constipation; K86.81 Exocrine pancreatic insufficiency; R14.0 Abdominal distension (gaseous)
CPT/HCPCS: 99214; G2211

== ENCOUNTER 2025-02-28 13:25 | Outpatient (AMB) | payer OTHER, SELFPAY ==
--- NOTE | 2025-02-28 13:36 | MHC.PC.OV ---
Vital Signs 02/28/25 13:37 02/28/25 13:39 Height 4 ft 6 in 4 ft 6 in Weight 120 lb 8 oz BMI 29.1 BP 102/60 Blood Pressure Location Lt brachial Lt brachial Position Sitting Sitting Pulse 62 Pulse Source Pulse Oximeter Pulse Oximeter Temp Source Temporal Artery Scan Pulse Oximetry (%) 98 Oxygen Delivery Method Room Air Room Air Intake Visit Reasons: dm Intake Note: Patient is here to follow up on DM. Club Room Attendant Required: Yes Club Room Attendant Language: Faroese Information Interpreted: non-clinical & clinical Operations Research Scientist: Not Required per policy Accompanied by: Self / Same As Patient Allergies penicillamine Allergy (Mild, Verified 02/28/25 13:52) Rash Penicillins (PENICILLINS) Allergy (Mild, Verified 02/28/25 13:52) RASH aspirin Allergy (Verified 02/28/25 13:52) Rash Medication List - Last Reconciled 02/28/25 by Vikki Solis MD albuterol sulfate 2.5 mg (3 mL) inhalation Q4-6H PRN blood sugar diagnostic (FreeStyle Lite Strips) As directed twice a day blood-glucose meter (FreeStyle Lite Meter kit) As directed twice a day carbamide peroxide 6.5% (Debrox) 5 drps otic (ears) Q12H 4 days cholecalciferol (vitamin D3) 25 mcg PO DAILY 90 days Creon 36,000-114,000- 180,000 unit (tbesek-hkpbfdvg-usazjxt) 1 cap PO QID NS esomeprazole magnesium 40 mg PO DAILY fluticasone propionate 50 mcg/actuation 2 sprays intranasal BID lancets (FreeStyle Lancets) As directed twice a day levetiracetam 750 mg PO BID levothyroxine 50 mcg PO DAILY 90 days loratadine (Claritin) 10 mg PO DAILY PRN metformin ER 500 mg PO DAILY ondansetron 4 mg PO Q8H PRN rosuvastatin 10 mg PO DAILY 90 days sennosides (senna) 17.2 mg (2 x 8.6 mg) PO BEDTIME PRN sucralfate 10 mL PO BEDTIME tirzepatide (Mounjaro) 7.5 mg (0.5 mL) subcut QWEEK 4 weeks Tobacco use date assessed: 02/28/25 Dental Screening Dental Screen Date: 06/25/24 Did you have a dental visit in the last 12 months?: Yes Did you have a dental problem in the last 6 months where you did not have access to dental care?: No Was dental information given to patient?: Patient has dentist HPI HPI Comments History of Present Illness Details The patient is a 39-year-old female presenting with Type 2 Diabetes Mellitus management. Her hemoglobin A1c has increased to 7.8% from a previous level of 6.5%, indicating a worsening of glycemic control. She has been experiencing weight gain despite previous improvements in her condition. The patient has a history of seizure disorder, currently managed with Keppra, and has not experienced seizures in the past six months. She continues to follow up with her neurologist for this condition. The patient is also diagnosed with hypothyroidism, managed with levothyroxine, and reports that her thyroid function is stable. Hyperlipidemia is being managed with rosuvastatin, and her cholesterol levels are reportedly well-controlled. She experiences constipation, for which she uses senna as needed. The patient reports menstrual irregularities and associated ovarian pain, which are being monitored. She has allergies to penicillin and aspirin, which cause a rash. [facility] Medical History DM2 (diabetes mellitus, type 2) Autoimmune thyroiditis Type 2 diabetes mellitus with hyperglycemia, without long-term current use of insulin Down's syndrome Seizure disorder Scoliosis Surgical History History of esophagogastroduodenoscopy (EGD) No pertinent past surgical history Family History Father Diabetes Mother Diabetes Maternal Grandmother Pancreatic cancer Social History Household Members Other:: Parents - mother [place] Housing: Apartment Alcohol intake: never Patient Tobacco Use Status: Never used Tobacco e-Cigarette/Vaping Use: Never Used Second Hand Smoke Exposure: No service: No Current occupational status: disabled Cognitive needs: No Hearing needs: No Vision needs: No Female Reproductive History Menstrual Age of Menarche: 11 Questionnaire Thrive Questionnaire Date Thrive assessed: 09/24/24 I am a: Patient What is your living situation today?: I have a steady place to live Within the past 12 months, did the food you bought not last and you didn't have the money to get more?: I choose not to answer this question Within the past 12 months, did you worry whether your food would run out before you got money to buy more?: I choose not to answer this question Do you have trouble paying for medicines?: I choose not to answer this question Do you have trouble getting transportation to medical appointments?: I choose not to answer this question Do you have trouble paying your heating and electricity bill?: I choose not to answer this question Do you have trouble taking care of your child, family member or friend?: I choose not to answer this question Do you have trouble with day-to-day activities such as bathing, preparing meals, shopping, managing finances, etc.?: I choose not to answer this question Are you currently unemployed and looking for a job?: No Are you interested in more education?: I choose not to answer this question Please select the resources that you would like help with: None Currently or been in a relationship where the following occur: I choose not to answer THRIVE Score: 0 MIS-7 AMB Questionnaire MIS-7 Date MIS - 7 assessed: 09/24/24 Source: Developed by Drs. Andre Black, Tayla Maldonado, Bishop Monterroso and colleagues, with an educational jo ann from [employer]. Review of Systems Const All systems reviewed & are unremarkable except as noted in HPI and below Card Denies chest pain at rest, Denies chest pain with activity, Denies edema, Denies irregular heart rhythm, Denies claudication, Denies dyspnea, Denies dyspnea on exertion, Denies orthopnea, Denies paroxysmal nocturnal dyspnea and Denies slow heart rate Resp Denies cough, Denies dyspnea and Denies dyspnea on exertion Physical exam (Primary Care) Vital Signs: Last Vital Signs Pulse 62 02/28/25 13:39 BP 102/60 02/28/25 13:39 Pulse Ox 98 02/28/25 13:39 Oxygen Delivery Method Room Air 02/28/25 13:39 BMI result Body Mass Index 29.1 Tobacco/Smoking Status: Tobacco use Status Tobacco use date assessed 02/28/25 02/28/25 13:40 Patient Tobacco Use Status Never used Tobacco 02/28/25 13:40 e-Cigarette/Vaping Use Never Used 02/28/25 13:40 Thrive Assessment: Date of Thrive Assessment Date Thrive assessed 09/24/24 02/28/25 13:40 Currently or been in a relationship where the following occur: I choose not to answer Resp Effort & Inspection: normal respiratory effort Auscultation: clear to auscultation bilaterally Cardio Jugular venous distension: no JVD Rate: regular rate Rhythm: regular rhythm Heart sounds: S1 normal heart sound present and S2 normal heart sound present Extrem General: Yes full ROM Results AMB Hemoglobin A1c AMB Hemoglobin A1c 7.8 % Last Edit by GERARD Norris on 02/28/25 13:55 Coding Level of Care Code Est Pt Level 4 (42933) Complex EM visit Add On G2211 Diagnoses Type 2 diabetes mellitus without complication, without long-term current use of insulin E11.9 Diabetes mellitus supervisor intermediates insulin use: without supervisor intermediates use Diabetes mellitus complication status: without complication Hyperlipidemia LDL goal <70 E78.5 Hypothyroidism (acquired) E03.9 Chronic GERD K21.9 Seizure disorder G40.909 Time Spent (min) 23 Assessment & Plan Assessment & Plan (1) DM2 (diabetes mellitus, type 2): Code(s): E11.9 - Type 2 diabetes mellitus without complications Category: Medical Qualifiers: Diabetes mellitus supervisor intermediates insulin use: without supervisor intermediates use Diabetes mellitus complication status: without complication Qualified Code(s): E11.9 - Type 2 diabetes mellitus without complications (2) Hyperlipidemia LDL goal <70: Code(s): E78.5 - Hyperlipidemia, unspecified Category: Medical (3) Hypothyroidism (acquired): Code(s): E03.9 - Hypothyroidism, unspecified Category: Medical (4) Chronic GERD: Code(s): K21.9 - Gastro-esophageal reflux disease without esophagitis Category: Medical (5) Seizure disorder: Code(s): G40.909 - Epilepsy, unspecified, not intractable, without status epilepticus Category: Medical Plan Plan Patient was informed and verbally consented to the use of an ambient scribe for clinic note documentation during this visit. 1. Type 2 Diabetes Mellitus The patient's hemoglobin A1c has increased to 7.8%, indicating a need for better glycemic control. The plan includes adjusting metformin dosage to twice daily and considering an increase in Mounjaro dosage, contingent on tolerance. Follow-up labs are scheduled in four months to monitor progress. 2. Seizure Disorder The patient is currently stable on Keppra with no seizures in the past six months. Continued follow-up with a neurologist is recommended to maintain seizure control. 3. Hypothyroidism The patient's hypothyroidism is well-managed with levothyroxine, and thyroid function is stable. 4. Hyperlipidemia Hyperlipidemia is controlled with rosuvastatin, and cholesterol levels are satisfactory. 5. Constipation The patient uses senna as needed for constipation management. 6. Menstrual Irregularities The patient reports menstrual irregularities and associated ovarian pain, which are being monitored. Orders: Orders Microalbumin, Random (w Creat) 4 Months R80.9 - Proteinuria, unspecified Vitamin D 25-OH Total 4 Months E55.9 - Vitamin D deficiency, unspecified Comprehensive [place]. Panel Fast 4 Months E11.9 - Type 2 diabetes mellitus without complications Thyroid Stimulating Hormone 4 Months E03.9 - Hypothyroidism, unspecified AMB Hemoglobin A1c Today E11.9 - Type 2 diabetes mellitus without complications Lipid Panel 4 Months E78.5 - Hyperlipidemia, unspecified Vitamin B12 and Folate 4 Months E53.8 - Deficiency of other specified B group vitamins Medications: Changed From metformin ER 500 mg PO DAILY 90 tabs 2RF To metformin ER 500 mg PO BID 180 tabs 2RF 90 days
[2025-02-28 13:39] VITALS: BP 102/60; PULSE 62; O2SAT 98; BMI 29.1
--- OUTSIDE RECORDS SUMMARY | 2025-02-28 18:00 | XMS_ITS | Patient Health Record ---
[facility] Address [address] [facility] [place] [address] Care Team Providers Care Delivery Driver/Customer Service Name Role Phone Vikki Winchester MD Primary Care Provider Unavail able Dawood Cage Unavailable [phone] Allergies Allergen (clinical drug ingredient) Drug/Non Drug [...] Status Risk Notes Problem Acquired hallux valgus (24496284) Hallux valgus (acquired), right foot (M20.11) Active confirmed Problem Complete trisomy 21 syndrome (disorder) (77681939) Down's syndrome (Q90.9) Active confirmed Problem Hyperglycemia due to type 2 diabetes mellitus (538404490077597) Type 2 diabetes mellitus with hyperglycemia, unspecified whether buttermaker helper insulin use (E11.65) Active confirmed Plan Of Treatment Pending Test Test Name Order Date X ray : Foot, right 3V 11/09/2022 Insurance Providers Payer Name Payer Address Payer Phone Subscriber Number Group Number Insured Name Patient Relationship to Insured Coverage Start Date Coverage End Date [facility] [employer] Claims [address] [place] [id number] Abigail Martin Self - patient is the insured Medical (General) History Medical History History ICD Code asthma Back,Hip,and Knee pain Epilepsy Glaucoma Numbness Sinus conditions thyroid Down's syndrome Scoliosis Reflux ( GERD) Diabetes mellitus Type 2 Surgical History Surgery Date(Month/Year) Hospitalization History Reason Date(Month/Year) [facility]- gastritis 10/2022
--- OUTSIDE RECORDS SUMMARY | 2025-02-28 18:00 | XMS_ITS | Clinical Summary ---
Author Organization [facility] Address [address] [place] [address] Care Team Providers Care Wheelage Clerk Name Role Phone Unavailable Primary Care Provider [...] complication, without long-term current use of insulin ([facility]) Take 1 Tab by mouth once daily [...] epilepsy without status epilepticus, unspecified epilepsy type ([facility]) Take 1 Tab by mouth 2 (two) times daily 60 Tab 1 9 Active Active Problems Problem Noted Date Diagnosed Date Seizure ([facility]) 07/28/2018 Overview (07/28/2018): Admitted at [facility] 07/14/18 and D/C on 07/17/18 Brought to the ED by her parents yesterday evening after having a breakthrough seizure. CT head with right parietal hyperdensity. Seen By neurology, Keppra was increased to 750 mg BID. Neurology has reviewed the MRI from [facility] done on 07/10/18 . Recommends to increase Keppra to 1 gm BID and [facility]Jericho WOODSON, Marion Short, Encounter for diabetic foot exam ([facility]) 10/17/2017 Overview (10/17/2017): [facility] Paronychia of toe right foot,pain right limb,pain left limb,painful onychomycosis by clinical appearance toe 2,3,4 and 5 right foot, painful onychomycosis by clinical appearance toe 1-5 left foot Allergic rhinitis, unspecified 07/22/2017 Scoliosis, unspecified 07/22/2017 Down syndrome ([facility]) 05/27/2017 Controlled type 2 diabetes m ellitus without complication, without long-term current use of insulin ([facility]) 05/27/2017 Nonintractable epilepsy with out status epilepticus ([facility]) 05/27/2017 Overview (05/27/2017): On Keppra. Referred to [...] Treatment Not on file Insurance [facility]
--- OUTSIDE RECORDS SUMMARY | 2025-02-28 18:00 | XMS_ITS | Clinical Summary ---
Author Organization [facility] ity Address [address] [place] [address] Care Team Providers Care Photonics Engineering Technician Name Role Phone Zaid Madison MD Primary [...] age to complete this topic Care Teams Photonics Engineering Technician Relationship Specialty Start Date End Date Zaid Madison MD [address] [place] [address] PCP - General Internal Medicine 06/01/17
== END 2025-02-28 14:04 | disposition home or self-care (01) ==
LOC: HO.HMCH 13:26
PROVIDERS: PCP Internal Medicine; Visit Provider Internal Medicine
DX: E11.69 Type 2 diabetes mellitus with other specified complication (principal); E78.5 Hyperlipidemia, unspecified; G40.909 Epilepsy, unspecified, not intractable, without status epilepticus; E03.9 Hypothyroidism, unspecified; K21.9 Gastro-esophageal reflux disease without esophagitis

== ENCOUNTER → 2025-02-28 13:25 | Outpatient (BNVA) | payer OTHER, SELFPAY | PROVIDERS: PCP Internal Medicine; Visit Provider Internal Medicine | DX: E11.9 Type 2 diabetes mellitus without complications (principal); E78.5 Hyperlipidemia, unspecified; K59.00 Constipation, unspecified; E03.9 Hypothyroidism, unspecified; K21.9 Gastro-esophageal reflux disease without esophagitis; G40.909 Epilepsy, unspecified, not intractable, without status epilepticus; N92.6 Irregular menstruation, unspecified; Z79.84 Long term (current) use of oral hypoglycemic drugs; Z79.899 Other long term (current) drug therapy | CPT/HCPCS: 83036; 99212 ==

== ENCOUNTER 2025-03-19 15:10 | Outpatient (RCR) | payer OTHER, SELFPAY ==
--- NOTE | 2025-02-06 13:53 | MHC.PT.EP ---
[facility] [place] Office [place] Office [place] Office [address] Jaron Zamarripa [address] [phone] F: [phone] F: [phone] F: [phone] F: [phone] Physical Therapy Plan of Care Date of Evaluation: 02/06/25 Date of Surgery: Diagnosis: pain in R hip Assessment: 39 y/o female referred to PT for R hip pain. Of note, pt has scoliosis, Down Syndrome, and hx of seizures. Her mother provides history and helps with pt understanding of tasks. Currently pt has pain with walking, standing, transitional movements, stairs, and dancing Leeann. Examination shows decreased R hip strength, pain (noted from facial grimacing) with lumbar and hip ROM, scoliosis, and impaired gait pattern. Questionable altered SI mechanics as well d/t fall from swing, however pt has scoliosis and unsure of pt baseline, will monitor. At this time, recommend PT 2x/week for 6 weeks to address impairments, implement HEP, and optimize functional mobility. Frequency and Duration: The patient will be seen 2x/week for 6 weeks Short Term Goals: 3 weeks I with HEP Pt mother will reports 50% reduction in pain compliants with functional tasks [employer] Wireman Goals: 6 weeks I with HEP and management of sx Pt will be able to walk > 15 minutes with pain < 3/10 Pt will be able to join Leeann classes with pain < 3/10 Treatment Plan: Modalities to reduce pain, spasms and effusion. Manual therapy to restore motion and function. Therapeutic exercise to improve strength and flexibility. Neuromuscular re-education for posture and balance. Therapeutic activities to return to functional activities of daily living. Electronically signed by: Manuela Agosto PT Please sign and return to therapist. Thank you for your referral.
--- NOTE | 2025-04-16 12:03 | MHC.PT.DC ---
[facility] [place] [facility] [place] [facility] [place] [facility] [address] Jaron Zamarripa [address] [phone] F: [phone] F: [phone] F: [phone] F: [phone] Physical Therapy Discharge Report Diagnosis: pain in R hip Date of Surgery: Date of Evaluation: 02/06/25 Date of Discharge: 04/16/25 Treatments to Date: 7 Cancellations to Date: 2 No Shows to Date: 2 Discharge Status: Discharge Summary: Pt has made limited progress with PT and needed constant cues throughout time here. They did not f/u with further visits Electronically signed by: Manuela Agosto PT Please sign and return to therapist. Thank you for your referral.
== END 2025-04-16 12:03 | disposition home or self-care (01) ==
LOC: HO.PT 15:10
PROVIDERS: PCP Internal Medicine; Visit Provider Registered Nurse Emergency
DX: M25.551 Pain in right hip (principal)
CPT/HCPCS: 97110; 97112; 97162; 97530